=== PATIENT | male | born 1955 | race Caucasian/White ===

== ENCOUNTER 2025-02-01 10:48 | Emergency (ER) | payer OTHER, SELFPAY ==
[2025-02-01 10:54] VITALS: PULSE 90; O2SAT 98
[2025-02-01 11:01] VITALS: BP 182/84; PULSE 86; RESP 16; TEMP 36.6; O2SAT 97; BMI 36.6
--- NOTE | 2025-02-01 11:30 | PC.NURSE ---
See triage for further assessment. When asked if pt has consulted with a [employer] consultant he stated he doesn't do that witchcraft like chiropractors RN educated pt on podiatry schooling and ability to perform surgery and possibility of better availability compared to ortho. Pt then states he has a consult with [facility] in 3 weeks.
--- NOTE | 2025-02-01 11:33 | ED_ITS ---
HPI - Extremity Injury (Lower) <Stefanie Steven PA-C - Last Filed: 02/01/25 19:32> General Chief Complaint: Extremity Injury, Lower Stated Complaint: Sore on left foot . x 5 days Time Seen by Provider: 02/01/25 10:50 Source: patient Mode of arrival: Ambulatory History of Present Illness HPI Narrative: Mr. Kenny is a pleasant 69-year-old male with a past medical history of chronic left foot arthritis, type 2 diabetes, peripheral neuropathy who presents to the emergency department for a wound to his lateral left foot x5 days. Patient states he always wears a left ankle brace and about 2 weeks ago he started wearing a left ankle orthopedic boot that he got on [employer]. Because of his chronic arthritis he actually walks on his lateral ankle if he walks without a supportive device. He was noticing some pressure/irritation in the lateral aspect of the foot and noticed a wound on the left side of the foot about 5 days ago. He is not able to see this wound but his has been evaluating it for him and applying a dressing. There is a small amount of drainage from this wound. He went to the walk-in clinic on 01/29/2025 and was started on doxycycline b.i.d. x 10 days. Patient states despite taking this antibiotic as prescribed his reports the wound is not getting better and wanted him to come to the ER for evaluation. The patient states that he otherwise feels fine, denies chest pain, shortness of breath, abdominal pain, nausea, vomiting, fevers, chills, pain or swelling of the calves. Denies history of VTE. Related Data Home Medications ?Medication ?Instructions ?Recorded ?Confirmed empagliflozin 25 mg tablet 25 mg PO DAILY 03/24/24 (Jardiance) glimepiride 2 mg tablet 2 mg PO DAILY 03/24/2401/29 lisinopril 20 1 tab PO BID 03/24/24 mg-hydrochlorothiazide 12.5 mg tablet losartan 100 1 tab PO DAILY 03/24/2401/02 mg-hydrochlorothiazide 25 mg tablet metformin 750 mg tablet,extended 750 mg PO BID 4 01/29/25 release 24 hr nadolol 20 mg tablet 20 mg PO DAILY 03/24/2401/02 rosuvastatin 10 mg tablet 10 mg PO ONCE PM 03/24/24 Previous Rx's ?Medication ?Instructions ?Recorded doxycycline hyclate 100 mg capsule 100 mg PO BID 10 da ys #20 caps 01/29/25 cephalexin 500 mg capsule 500 mg PO QID 7 days #28 cap s 02/01/25 Allergies Allergy/AdvReac Type Severity Reaction Status Date / Time No Known Drug Allergies Allergy Verified 02/01/25 11:06 Review of Systems <Stefanie Steven PA-C - Last Filed: 02/01/25 19:32> Review of Systems ROS Unobtainable: All systems reviewed & are unremarkable except as noted in HPI and below Patient History <Stefanie Steven PA-C - Last Filed: 02/01/25 19:32> tobacco type: smokeless tobacco Alcohol type: beer Exam <Stefanie Steven PA-C - Last Filed: 02/01/25 19:32> Narrative Exam Narrative: GENERAL: 69 year old patient appears stated age. Obese patient, in no acute distress. HEAD: Atraumatic. Normocephalic. NECK: Trachea midline. Cervical ROM intact. CARDIOVASCULAR: Regular rate and rhythm. RESPIRATORY: ?Nonlabored respirations. ?Speaking in clear, full sentences. ?Clear to auscultation. Breath sounds equal bilaterally. No wheezes, rales, or rhonchi. ? EXTREMITIES: Patient has chronic stiffening and inversion of left ankle/foot. Erythema and edema of the lateral left foot with a proximally 3 cm round raised area of induration with mild serosanguineous drainage but no fluctuance. There is thickened callused skin overlying this area. There is no surrounding streaking erythema. Strong DP pulse and brisk capillary refill. No calf swelling or tenderness bilaterally. NEURO: AOx3. ?Clear speech. ?Moves all 4 extremities appropriately with the exception of left ankle and foot. SKIN: Warm, dry. Initial Vital Signs Initial Vital Signs: Vital Signs Pulse Rate 90 02/01/25 10:54 Pulse Oximetry 98 02/01/25 10:54 <Juliane Poole DO - Last Filed: 02/03/25 18:41> Initial Vital Signs Initial Vital Signs: Vital Signs Pulse Rate 90 02/01/25 10:54 Pulse Oximetry 98 02/01/25 10:54 Course <Stefanie Steven PA-C - Last Filed: 02/01/25 19:32> Orders Ordered: Discontinued Medications Ceftriaxone Sodium 2,000 mg/ (Sodium Chloride) 100 mls @ 200 mls/hr IV NOW ONE Stop: 02/01/25 14:15 Last Infusion: 02/01/25 15:25 Dose: Infused Documented By: Admin: 02/01/25 14:37 Dose: 200 mls/hr Documented By: CHICHI Vital Signs Vital signs: Vital Signs - 8 hr 02/01/25 15:21 Pulse Rate 88 Respiratory Rate 14 Blood Pressure 158/79 H Pulse Oximetry 99 Oxygen Delivery Method Room Air <Juliane Poole DO - Last Filed: 02/03/25 18:41> Orders Ordered: Discontinued Medications Ceftriaxone Sodium 2,000 mg/ (Sodium Chloride) 100 mls @ 200 mls/hr IV NOW ONE Stop: 02/01/25 14:15 Last Infusion: 02/01/25 15:25 Dose: Infused Documented By: Admin: 02/01/25 14:37 Dose: 200 mls/hr Documented By: CHICHI Vital Signs Vital signs: Vital Signs - 8 hr 02/01/25 15:21 Pulse Rate 88 Respiratory Rate 14 Blood Pressure 158/79 H Pulse Oximetry 99 Oxygen Delivery Method Room Air MDM - Extremity Injury (Lower) <SHANNAN Sanchez Last Filed: 02/01/25 19:32> Medical Records Attestation: I reviewed the patient's medical records. Lab Data 02/01/25 12:20 02/01/25 12:20 Labs: Lab Results 02/01/25 Range/Units 12:20 WBC 6.2 (4.5-11.0) X10^3/uL RBC 4.38 L (4.5-5.9) X10^6/uL Hgb 14.3 (13.5-17.5) g/dL Hct 42.4 (41-53) % MCV 96.9 (80-100) fL MCH 32.6 (26-34) PG MCHC 33.7 (30-36) % RDW 15.2 H (11.6-14.8) % Plt Count 150 (150-400) X10^3/uL Neut % (Auto) 77.0 H (50-75) % Lymph % (Auto) 13.5 L (25-40) % [place] % (Auto) 7.1 (3-14) % Eos % (Auto) 1.4 L (2-4) % Baso % (Auto) 1.0 (0-2) % Neut # (Auto) 4700 (9408-9182) /uL Lymph # (Auto) 800 L (1734-2138) /uL [place] # (Auto) 400 (0-900) /uL Eos # (Auto) 100 (0-450) /uL Baso # (Auto) 100 (0-100) /uL Sodium 135 L (137-145) mmol/L Potassium 3.8 (3.4-5.1) mmol/L Chloride 100 (98-107) mmol/L Carbon Dioxide 24 (22-32) mmol/L BUN 13 (9-20) mg/dL Creatinine 0.57 L (0.66-1.25) mg/dL Estimated GFR > 60 (>60) mL/min BUN/Creatinine Ratio 22.8 H (6-22) Glucose 108 H (70-99) mg/dL Lactate 1.4 (0.7-2.1) mmol/L Calcium 9.5 (8.4-10.2) mg/dL Total Bilirubin 1.2 (0.2-1.3) mg/dL AST 32 (17-59) IU/L ALT 21 (<50) IU/L Alkaline Phosphatase 117 (38-126) U/L Total Protein 8.1 (6.3-8.2) g/dL Albumin 4.7 (3.5-5.0) g/dL Globulin 3.4 (1.7-4.1) g/dL Albumin/Globulin Ratio 1.4 (1.0-2.8) Imaging Data CT Left LE w/ contrast: Radiologist's Impression: PROCEDURE: CT LE LT W CON INDICATIONS: lateral left foot swelling, infection, concern abscess TECHNIQUE: After the administration of intravenous contrast, 3 mm axial sections acquired of the left lower leg, with coronal and sagittal reformats. COMPARISON: [facility] [place], CR, XR KNEE 4+ VIEWS LEFT, 01/06/2023, 10:54. [facility] [place], CR, XR KNEE ARTHRITIC SERIES BI, 05/26/2023, 9:45. FINDINGS: Image quality: Diagnostic. Bones: Patient is status post prior left total knee arthroplasty with postsurgical changes and beam hardening artifacts. No gross hardware loosening or failure. Alignment of left lower leg is anatomic. No acute fracture or dislocation. No bony erosive changes or periosteal reaction. No suspicious intraosseous lesions. Osteoarthritic changes are noted in left foot. Soft tissues: There is diffuse subcutaneous soft tissue edema and swelling throughout lower leg extending to left foot. No discrete drainable peripherally enhancing fluid collection is noted. No gross intramuscular fluid collection or enhancing mass. No abnormal soft tissue calcifications. There is no full-thickness muscle or tendon rupture. IMPRESSION: 1. Finding is suggestive of extensive cellulitis throughout left lower leg extending to left foot. No discrete drainable abscess collection. No gross intramuscular fluid collection. No subcutaneous emphysema. 2. Prior left total knee arthroplasty. Moderate left foot joint osteoarthritis. No acute fracture or dislocation. No CT evidence of osteomyelitis. Dictated by: Harry Batres M.D. on 02/01/2025 at 13:52 Approved by: Harry Batres M.D. on 02/01/2025 at 14:09 [facility] Narrative Medical decision making narrative: 69-year-old male with a past medical history of chronic left foot arthritis, type 2 diabetes, peripheral neuropathy who presents to the emergency department for a wound to his lateral left foot x5 days. Differential diagnosis includes but isn't limited to cellulitis, abscess, callus, diabetic wound, osteomyelitis, etc. On exam patient is in no acute distress, nontoxic-appearing, all vital signs within normal limits except for mildly elevated blood pressure. He has chronic stiffening and inversion deformity of the left foot and ankle however on the lateral aspect of the foot he now has what appears to be a callus with secondary infection, swelling and mild drainage. This area is not fluctuant with no expressible purulence. He is not tachycardic or febrile, we will check CBC, CMP, lactate, CT lower extremity with contrast to evaluate for possible abscess. CT reveals findings suggestive of extensive cellulitis throughout the left lower leg extending to the left foot. No discrete drainable abscess collection. No gross intramuscular fluid collection. No subcutaneous emphysema. There is also prior left total knee arthroplasty. Moderate left foot joint osteoarthritis. No acute fracture or dislocation. No CT evidence of osteomyelitis Labs reveal normal WBC count 6.2, hemoglobin 14.3 hematocrit 42.4. Normal platelet count 150. Normal renal function with a BUN 13 creatinine 0.57. Negative lactate 1.4. Normal LFTs. Case was discussed with the attending ED physician Dr. Poole. No drainable fluid collection at this time. Patient's wound was extensively cleansed and evaluated, no drainable purulence is present that I can culture. A nonadherent wound dressing was applied, and the patient was treated with 2 g of ceftriaxone in the emergency department, and I prescribed him Keflex to take in addition to the previously prescribed doxycycline. Also discussed supportive care such as avoiding excess pressure on the lateral aspect of the foot where the callus/wound is in addition to rest, ice, elevation and follow up with Podiatry. Discussed strict ED return precautions. All questions answered. Patient verbalized understanding of all information. He is agreeable with the plan and stable for discharge home. <Juliane Poole, DO - Last Filed: 02/03/25 18:41> Lab Data Labs: Lab Results 02/01/25 Range/Units 12:20 WBC 6.2 (4.5-11.0) X10^3/uL RBC 4.38 L (4.5-5.9) X10^6/uL Hgb 14.3 (13.5-17.5) g/dL Hct 42.4 (41-53) % MCV 96.9 (80-100) fL MCH 32.6 (26-34) PG MCHC 33.7 (30-36) % RDW 15.2 H (11.6-14.8) % Plt Count 150 (150-400) X10^3/uL Neut % (Auto) 77.0 H (50-75) % Lymph % (Auto) 13.5 L (25-40) % [place] % (Auto) 7.1 (3-14) % Eos % (Auto) 1.4 L (2-4) % Baso % (Auto) 1.0 (0-2) % Neut # (Auto) 4700 (0493-7521) /uL Lymph # (Auto) 800 L (6340-8804) /uL [place] # (Auto) 400 (0-900) /uL Eos # (Auto) 100 (0-450) /uL Baso # (Auto) 100 (0-100) /uL Sodium 135 L (137-145) mmol/L Potassium 3.8 (3.4-5.1) mmol/L Chloride 100 (98-107) mmol/L Carbon Dioxide 24 (22-32) mmol/L BUN 13 (9-20) mg/dL Creatinine 0.57 L (0.66-1.25) mg/dL Estimated GFR > 60 (>60) mL/min BUN/Creatinine Ratio 22.8 H (6-22) Glucose 108 H (70-99) mg/dL Lactate 1.4 (0.7-2.1) mmol/L Calcium 9.5 (8.4-10.2) mg/dL Total Bilirubin 1.2 (0.2-1.3) mg/dL AST 32 (17-59) IU/L ALT 21 (<50) IU/L Alkaline Phosphatase 117 (38-126) U/L Total Protein 8.1 (6.3-8.2) g/dL Albumin 4.7 (3.5-5.0) g/dL Globulin 3.4 (1.7-4.1) g/dL Albumin/Globulin Ratio 1.4 (1.0-2.8) Discharge Plan Departure Patient Disposition: Home Clinical Impression: Cellulitis of left leg Osteoarthritis of foot, left Qualifiers: Osteoarthritis type: unspecified Qualified Code(s): M19.072 - Primary osteoarthritis, left ankle and foot Instructions: DI for Cellulitis -- Adult Activity Restrictions/Additional Instructions: Dear Mr. Fitzgeralden, Thank you for coming to the emergency department. Today you were evaluated for a left foot wound. We obtain CT imaging of the left lower extremity which revealed cellulitis which is a skin and soft tissue infection but it did not reveal an abscess that is drainable. I would like you to continue taking the prescribed doxycycline but also start taking the new antibiotic, Keflex, tomorrow. Please call to schedule an appointment with a consulting systems engineer for further management. Please rest, ice and elevate the leg as much as possible. If you develop fevers, chills, increasing redness of the leg or any other concerns return to the ER immediately. Every day please remove the wound dressing, clean with soap and water, dry, then cover with gauze and a new clean dressing. Please follow up with your primary care doctor within the next 2-3 days for ER follow-up. (If you do not have a PCP you can call [phone]. ?to schedule an appointment with an [facility] Primary Care Provider) IF YOU DEVELOP ANY NEW OR WORSENING SYMPTOMS, RETURN TO THE ER! Please read the attached instructions, they highlight more specific treatments and interventions for you at home. Thank you for letting me participate in your care, Stefanie Steven PA-C Prescriptions: New cephalexin 500 mg capsule 500 mg PO QID 7 Days Qty: 28 0RF No Action losartan-hydrochlorothiazide 100-25 mg tablet 1 tab PO DAILY Jardiance 25 mg tablet 25 mg PO DAILY rosuvastatin 10 mg tablet 10 mg PO ONCE PM nadolol 20 mg tablet 20 mg PO DAILY glimepiride 2 mg tablet 2 mg PO DAILY metformin 750 mg tablet extended release 24 hr 750 mg PO BID lisinopril-hydrochlorothiazide 20-12.5 mg tablet 1 tab PO BID doxycycline hyclate 100 mg capsule 100 mg PO BID 10 Days Qty: 20 0RF Referrals: Lissette Guzman DPM [Physician, Podiatry] Referral Note: left foot wound, cellulitis, chronic foot OA Stand Alone Forms: Patient Portal/API ED Sign-out <Juliane Poole, - Last Filed: 02/03/25 18:41> Cosign ED Attending Cosignature Attestation: Mid-level case was reviewed, labs and imaging were reviewed as well. Agree with the current plan with return precautions.
--- NOTE | 2025-02-01 11:43 | DI.CT.S_ITS ---
PROCEDURE: CT LE LT W CON INDICATIONS: lateral left foot swelling, infection, concern abscess TECHNIQUE: After the administration of intravenous contrast, 3 mm axial sections acquired of the left lower leg, with coronal and sagittal reformats. COMPARISON: [facility] [place], CR, XR KNEE 4+ VIEWS LEFT, 01/06/2023, 10:54. [facility] [place], CR, XR KNEE ARTHRITIC SERIES BI, 05/26/2023, 9:45. FINDINGS: Image quality: Diagnostic. Bones: Patient is status post prior left total knee arthroplasty with postsurgical changes and beam hardening artifacts. No gross hardware loosening or failure. Alignment of left lower leg is anatomic. No acute fracture or dislocation. No bony erosive changes or periosteal reaction. No suspicious intraosseous lesions. Osteoarthritic changes are noted in left foot. Soft tissues: There is diffuse subcutaneous soft tissue edema and swelling throughout lower leg extending to left foot. No discrete drainable peripherally enhancing fluid collection is noted. No gross intramuscular fluid collection or enhancing mass. No abnormal soft tissue calcifications. There is no full-thickness muscle or tendon rupture. IMPRESSION: 1. Finding is suggestive of extensive cellulitis throughout left lower leg extending to left foot. No discrete drainable abscess collection. No gross intramuscular fluid collection. No subcutaneous emphysema. 2. Prior left total knee arthroplasty. Moderate left foot joint osteoarthritis. No acute fracture or dislocation. No CT evidence of osteomyelitis. Dictated by: Harry Batres M.D. on 02/01/2025 at 13:52 Approved by: Harry Batres M.D. on 02/01/2025 at 14:09
[2025-02-01 12:42] LABS: Add Manual Diff / Slide Review NO; Hematocrit 42.4 % (41-53); Hemoglobin 14.3 g/dL (13.5-17.5); Lymphocytes Absolute Auto 800 /uL (1100-4500); Mean Corpuscular HGB Conc 33.7 % (30-36); Mean Corpuscular Hemoglobin 32.6 PG (26-34); Mean Corpuscular Volume 96.9 fL (80-100); Platelet Count 150 X10^3/uL (150-400)
[2025-02-01 12:45] LABS: Alanine Aminotransferase 21 IU/L (<50); Albumin 4.7 g/dL (3.5-5.0); Albumin Globulin Ratio 1.4 (1.0-2.8); Alkaline Phosphatase 117 U/L (38-126); Blood Urea Nitrogen 13 mg/dL (9-20); Calcium 9.5 mg/dL (8.4-10.2); Carbon Dioxide 24 mmol/L (22-32); Chloride 100 mmol/L (98-107); Estimated Glomerular Filt Rate > 60 mL/min (>60); Globulin 3.4 g/dL (1.7-4.1); Glucose 108 mg/dL (70-99); HEMOLYSIS 37 (0-50); Lactate (Lactic Acid) 1.4 mmol/L (0.7-2.1); Potassium 3.8 mmol/L (3.4-5.1); Sodium 135 mmol/L (137-145); Total Protein 8.1 g/dL (6.3-8.2)
[2025-02-01] MEDS: cefTRIAXone 2,000 MG in SODIUM CHLORIDE 0.9% 100 ML 200 MG IV (14:37)
[2025-02-01 15:21] VITALS: BP 158/79; PULSE 88; RESP 14; O2SAT 99
== END 2025-02-01 15:33 | disposition home or self-care (01) ==
PROVIDERS: Emergency Provider Physician Assistant
DX: L03.116 Cellulitis of left lower limb (principal); M19.072 Primary osteoarthritis, left ankle and foot; E11.42 Type 2 diabetes mellitus with diabetic polyneuropathy; Z79.84 Long term (current) use of oral hypoglycemic drugs
CPT/HCPCS: 36415; 73701; 80053; 83605; 85025; 96365; 99284; J0696; Q9967

== ENCOUNTER → 2025-02-23 13:02 | Outpatient (CLI) | payer OTHER, SELFPAY | LOC: WC 13:04 | PROVIDERS: Visit Provider Surgery | DX: L97.522 Non-pressure chronic ulcer of other part of left foot with fat layer exposed (principal); E11.621 Type 2 diabetes mellitus with foot ulcer; E11.42 Type 2 diabetes mellitus with diabetic polyneuropathy; M21.172 Varus deformity, not elsewhere classified, left ankle; R60.0 Localized edema; I10 Essential (primary) hypertension; M19.072 Primary osteoarthritis, left ankle and foot; M10.9 Gout, unspecified; L84 Corns and callosities | CPT/HCPCS: 11042; 87070; 87075; 87077; 87186; 87205; 99203; 99214 ==

== ENCOUNTER → 2025-02-28 10:11 | Outpatient (CLI) | payer OTHER, SELFPAY | LOC: WC 10:12 | PROVIDERS: Visit Provider Surgery | DX: E11.621 Type 2 diabetes mellitus with foot ulcer (principal); L97.522 Non-pressure chronic ulcer of other part of left foot with fat layer exposed; M21.172 Varus deformity, not elsewhere classified, left ankle; G62.9 Polyneuropathy, unspecified; I10 Essential (primary) hypertension; M10.9 Gout, unspecified; M19.072 Primary osteoarthritis, left ankle and foot; K74.60 Unspecified cirrhosis of liver; L84 Corns and callosities | CPT/HCPCS: 11042 ==

== ENCOUNTER → 2025-03-28 08:53 | Outpatient (CLI) | payer OTHER, SELFPAY | LOC: WC 08:53 | PROVIDERS: Visit Provider Surgery | DX: E11.622 Type 2 diabetes mellitus with other skin ulcer (principal); L97.322 Non-pressure chronic ulcer of left ankle with fat layer exposed; L98.8 Other specified disorders of the skin and subcutaneous tissue; M21.172 Varus deformity, not elsewhere classified, left ankle; E11.40 Type 2 diabetes mellitus with diabetic neuropathy, unspecified; I10 Essential (primary) hypertension; M10.9 Gout, unspecified; K74.60 Unspecified cirrhosis of liver; Z85.828 Personal history of other malignant neoplasm of skin; M19.072 Primary osteoarthritis, left ankle and foot | CPT/HCPCS: 11042; 87070; 87075; 87147; 87205 ==

== ENCOUNTER → 2025-04-05 08:29 | Outpatient (CLI) | payer OTHER, SELFPAY | LOC: WC 08:30 | PROVIDERS: Visit Provider Physician Assistant | DX: E11.622 Type 2 diabetes mellitus with other skin ulcer (principal); L97.322 Non-pressure chronic ulcer of left ankle with fat layer exposed; M21.172 Varus deformity, not elsewhere classified, left ankle; E11.40 Type 2 diabetes mellitus with diabetic neuropathy, unspecified; I10 Essential (primary) hypertension; E66.9 Obesity, unspecified; Z68.37 Body mass index [BMI] 37.0-37.9, adult; M10.9 Gout, unspecified; K74.60 Unspecified cirrhosis of liver; M19.072 Primary osteoarthritis, left ankle and foot | CPT/HCPCS: 11042; 99214 ==

== ENCOUNTER → 2025-04-12 10:26 | Outpatient (CLI) | payer OTHER, SELFPAY | LOC: WC 10:26 | PROVIDERS: Visit Provider Surgery | DX: E11.621 Type 2 diabetes mellitus with foot ulcer (principal); L97.322 Non-pressure chronic ulcer of left ankle with fat layer exposed; M21.172 Varus deformity, not elsewhere classified, left ankle; M19.072 Primary osteoarthritis, left ankle and foot; M10.9 Gout, unspecified; E11.40 Type 2 diabetes mellitus with diabetic neuropathy, unspecified; I10 Essential (primary) hypertension; K74.60 Unspecified cirrhosis of liver; Z99.89 Dependence on other enabling machines and devices | CPT/HCPCS: 11042 ==

== ENCOUNTER → 2025-04-19 08:58 | Outpatient (CLI) | payer OTHER, SELFPAY | LOC: WC 08:58 | PROVIDERS: Visit Provider Surgery | DX: E11.621 Type 2 diabetes mellitus with foot ulcer (principal); L97.322 Non-pressure chronic ulcer of left ankle with fat layer exposed; M21.172 Varus deformity, not elsewhere classified, left ankle; L53.8 Other specified erythematous conditions; R60.0 Localized edema; E11.40 Type 2 diabetes mellitus with diabetic neuropathy, unspecified | CPT/HCPCS: 11042; 99213 ==

== ENCOUNTER → 2025-04-26 08:32 | Outpatient (CLI) | payer OTHER, SELFPAY | LOC: WC 08:33 | PROVIDERS: Visit Provider Surgery | DX: E11.622 Type 2 diabetes mellitus with other skin ulcer (principal); L97.322 Non-pressure chronic ulcer of left ankle with fat layer exposed; M21.172 Varus deformity, not elsewhere classified, left ankle; E11.42 Type 2 diabetes mellitus with diabetic polyneuropathy; L08.9 Local infection of the skin and subcutaneous tissue, unspecified; L53.8 Other specified erythematous conditions; R60.0 Localized edema | CPT/HCPCS: 11042 ==

== ENCOUNTER → 2025-05-03 08:32 | Outpatient (CLI) | payer OTHER, SELFPAY | LOC: WC 08:33 | PROVIDERS: Visit Provider Surgery | DX: E11.622 Type 2 diabetes mellitus with other skin ulcer (principal); E11.42 Type 2 diabetes mellitus with diabetic polyneuropathy; L97.322 Non-pressure chronic ulcer of left ankle with fat layer exposed; L84 Corns and callosities; M21.172 Varus deformity, not elsewhere classified, left ankle; L08.9 Local infection of the skin and subcutaneous tissue, unspecified; L53.8 Other specified erythematous conditions | CPT/HCPCS: 11042 ==

== ENCOUNTER → 2025-05-16 15:27 | Outpatient (CLI) | payer OTHER, SELFPAY | LOC: WC 15:28 | PROVIDERS: Visit Provider Surgery | DX: E11.621 Type 2 diabetes mellitus with foot ulcer (principal); E11.42 Type 2 diabetes mellitus with diabetic polyneuropathy; L97.322 Non-pressure chronic ulcer of left ankle with fat layer exposed; T81.89XA Other complications of procedures, not elsewhere classified, initial encounter; L98.8 Other specified disorders of the skin and subcutaneous tissue; S91.002A Unspecified open wound, left ankle, initial encounter; R60.0 Localized edema; L53.9 Erythematous condition, unspecified; R23.3 Spontaneous ecchymoses; M21.172 Varus deformity, not elsewhere classified, left ankle | CPT/HCPCS: 11042; 87070; 87075; 87077; 87186; 87205; 99214 ==

== ENCOUNTER → 2025-05-23 10:01 | Outpatient (CLI) | payer OTHER, SELFPAY | LOC: WC 10:02 | PROVIDERS: Visit Provider Surgery | DX: E11.621 Type 2 diabetes mellitus with foot ulcer (principal); E11.622 Type 2 diabetes mellitus with other skin ulcer; E11.628 Type 2 diabetes mellitus with other skin complications; L97.322 Non-pressure chronic ulcer of left ankle with fat layer exposed; T81.31XA Disruption of external operation (surgical) wound, not elsewhere classified, initial encounter; S91.002A Unspecified open wound, left ankle, initial encounter; E11.42 Type 2 diabetes mellitus with diabetic polyneuropathy; L08.9 Local infection of the skin and subcutaneous tissue, unspecified; L53.8 Other specified erythematous conditions; R60.0 Localized edema | CPT/HCPCS: 11042; 99213 ==

== ENCOUNTER → 2025-06-01 15:30 | Outpatient (CLI) | payer OTHER, SELFPAY | LOC: WC 06-08 15:30 | PROVIDERS: Visit Provider Surgery | DX: E11.621 Type 2 diabetes mellitus with foot ulcer (principal); L97.422 Non-pressure chronic ulcer of left heel and midfoot with fat layer exposed; M21.172 Varus deformity, not elsewhere classified, left ankle; T81.31XA Disruption of external operation (surgical) wound, not elsewhere classified, initial encounter; S91.302A Unspecified open wound, left foot, initial encounter; S91.002A Unspecified open wound, left ankle, initial encounter; L98.8 Other specified disorders of the skin and subcutaneous tissue; R60.0 Localized edema; E11.40 Type 2 diabetes mellitus with diabetic neuropathy, unspecified; M86.9 Osteomyelitis, unspecified; Z96.698 Presence of other orthopedic joint implants; I10 Essential (primary) hypertension; K74.60 Unspecified cirrhosis of liver; M19.072 Primary osteoarthritis, left ankle and foot | CPT/HCPCS: 11042; 11045 ==

== ENCOUNTER → 2025-06-05 15:16 | Outpatient (ROUT) | payer OTHER, SELFPAY ==
[2025-06-05 15:24] LABS: Add Manual Diff / Slide Review NO; Hematocrit 25.7 % (41-53); Hemoglobin 8.6 g/dL (13.5-17.5); Lymphocytes Absolute Auto 800 /uL (1100-4500); Mean Corpuscular HGB Conc 33.4 % (30-36); Mean Corpuscular Hemoglobin 32.2 PG (26-34); Mean Corpuscular Volume 96.3 fL (80-100); Platelet Count 122 X10^3/uL (150-400)
[2025-06-05 15:34] LABS: Alanine Aminotransferase 18 IU/L (<50); Albumin 3.2 g/dL (3.5-5.0); Albumin Globulin Ratio 1.3 (1.0-2.8); Alkaline Phosphatase 120 U/L (38-126); Blood Urea Nitrogen 11 mg/dL (9-20); Calcium 8.7 mg/dL (8.4-10.2); Carbon Dioxide 26 mmol/L (22-32); Chloride 101 mmol/L (98-107); Estimated Glomerular Filt Rate > 60 mL/min (>60); Globulin 2.4 g/dL (1.7-4.1); Glucose 72 mg/dL (70-99); HEMOLYSIS < 15 (0-50); Potassium 3.8 mmol/L (3.4-5.1); Sodium 132 mmol/L (137-145); Total Protein 5.6 g/dL (6.3-8.2)
== END ==
PROVIDERS: Visit Provider Internal Medicine Infectious Disease
DX: M86.172 Other acute osteomyelitis, left ankle and foot (principal); T84.69XA Infection and inflammatory reaction due to internal fixation device of other site, initial encounter
CPT/HCPCS: 80053; 85025; 86140

== ENCOUNTER → 2025-06-07 11:55 | Outpatient (CLI) | payer OTHER, SELFPAY | LOC: WC 11:56 | PROVIDERS: Visit Provider Surgery | DX: E11.628 Type 2 diabetes mellitus with other skin complications (principal); E11.621 Type 2 diabetes mellitus with foot ulcer; T81.89XA Other complications of procedures, not elsewhere classified, initial encounter; S91.002A Unspecified open wound, left ankle, initial encounter; L97.422 Non-pressure chronic ulcer of left heel and midfoot with fat layer exposed; R60.0 Localized edema | CPT/HCPCS: 11042; 11045 ==

== ENCOUNTER → 2025-06-14 08:35 | Outpatient (CLI) | payer OTHER, SELFPAY | LOC: WC 08:36 | PROVIDERS: Visit Provider Surgery | DX: T81.89XA Other complications of procedures, not elsewhere classified, initial encounter (principal); S91.002A Unspecified open wound, left ankle, initial encounter; E11.628 Type 2 diabetes mellitus with other skin complications; E11.621 Type 2 diabetes mellitus with foot ulcer; L97.422 Non-pressure chronic ulcer of left heel and midfoot with fat layer exposed; M21.172 Varus deformity, not elsewhere classified, left ankle; R60.0 Localized edema; E11.40 Type 2 diabetes mellitus with diabetic neuropathy, unspecified | CPT/HCPCS: 11042; 11045 ==

== ENCOUNTER → 2025-06-21 09:16 | Outpatient (CLI) | payer OTHER, SELFPAY ==
--- OUTSIDE RECORDS SUMMARY | 2025-06-20 08:30 | XMS_ITS | Encounter Summary ---
Author Organization [facility] Address [address] [place] [address] Care Team Providers Care Architect Naval Name Role Phone Remy Mg Primary Care Provide r Reason for Referral * MRI/CAT/PET Scan (Emergency) - Closed Specialty Diagnoses / Procedures Referred By Contac t Referred To Contact Radiology Diagnoses Osteomyelitis of left ankle, unspecified type (CMS/HCC) Procedures CT ANKLE LEFT WITH CONTRAST CT ANKLE LEFT WITHOUT CONTRAST Leon Hernandez MD [address] [place] [address] Phone: tel: fax: [facility] [address] [place] [address] Phone: tel: fax: Referral ID Status Reason Start Date Expiration Date V isits Requested Visits Authorized [id number] Closed Specialty Services Required 06/20/2025 12/21/2025 1 1 Reason for Visit * Reason Comments Infection ankle Encounter Details Date Type Department Care Team (Latest Contact Info) Description 06/20/2025 8:30 AM PST Office Visit [facility] Infectious Diseases [place] [address] [facility] [address] [place] [address] Leon Hernandez MD [address] [place] [address] Osteomyelitis of left ankle, unspecified type (CMS/HCC) (Primary Dx) Social History Tobacco Use Types Packs/Day Years Used Date Smoking Tobacco: Never Passive Smoke Exposure: Never Smokeless Tobacco: Former Snuff Quit: 07/03/2005 Tobacco Cessation:Counseling Given: Not Answered Alcohol Use Standard Drinks/Week Comments Yes 240 (1 standard drin k = 0.6 oz pure alcohol) 4 to 5 beers a day- not since surgery 05/2025 [facility] Utilities Answer Date Recorded In the past 12 months has th e [employer], [employer], oil, or water Inkive threatened to shut off services in your home? No 05/24/2025 Humiliation, Afraid, Rape, and Kick questionnair e Answer Date Recorded Within the last year, have y ou been afraid of your partner or ex-partner? No 05/24/2025 Emotionally Abused Not on file 05/24/2025 Physically Abused Not on file 05/24/2025 Sexually Abused Not on file 05/24/2025 AUDIT-C Answer Date Recorded Q1: How often do you have a drink containing alcohol? 4 or more times a week 05/27/2025 Q2: How many drinks containi ng alcohol do you have on a typical day when you are drinking? 5 or 6 Q3: How often do you have si x or more drinks on one occasion? Less than monthly 05/27/2025 Hunger Vital Sign Answer Date Recorded Within the past 12 months, y ou worried that your food would run out before you got the money to buy more. Never true 05/24/20 Ran Out of Food in the Last Year Not on file 05/24/2025 PRAPARE - Transportation Answer Date Re corded Lack of Transportation (Medical) Not on file 05/24/2025 In the past 12 months, has l ack of transportation kept you from meetings, work, or from getting things needed for daily living? No 05/24/2025 Housing Stability Vital Sign Answer Frank e Recorded Unable to Pay for Housing in the Last Year Not o n file 05/24/2025 Number of Times Moved in the Last Year Not on fi le 05/24/2025 At any time in the past 12 m [facility], were you homeless or living in a fci (including now)? No 05/24/2025 Sex and Gender Information Value Date Recorded Sex Assigned at Male 05/24/2025 2:45 PM PDT Legal Sex Male 1:11 PM PDT Gender Identity Male 03/13/2025 7:20 AM PDT Sexual Orientation Straight 03/13/2025 7: 20 AM PDT documented as of this encounter Last Filed Vital Signs Vital Sign Reading Time Taken Comments Blood Pressure 128/86 06/20/2025 8:30 AM PST Pulse 74 06/20/2025 8:30 AM PST Temperature 36.3 C (97.4 F) 06/20/2025 8:30 AM PST Respiratory Rate 16 06/20/2025 8:30 AM PST Oxygen Saturation 98% 06/20/2025 8:30 AM PST Inhaled Oxygen Concentration - - Weight 113 kg (249 lb 1.9 oz) 06/20/2025 8:30 AM PST Height - - Body Mass Index 33.79 06/12/2025 2:03 PM PST documented in this encounter Functional Status documented as of this encounter Progress Notes * Leon Hernandez MD - 06/20/2025 8:30 AM PST Lee Miguel 1955 [id number] :49 AM HPI: Lee Miguel is a 70 y.o. male with history of hypertension, hyperlipidemia, T2DM, gout, BPH, s/p arthrodesis of subtalar joint-left who was sent to ED by Podiatry on 05/24 for evaluation of wound infection. His post operative wound was not healing well. He denied fever or chills. He had fusion surgical procedure on 05/09/25 on his left foot. One week out from surgery he developed an infection. In ED pt was afebrile with WBC at 12.7 and elevated CRP 7. Imaging revealed evidence of cellulitis todorsal lateral midfoot with a collection extending from the inferior lateral surgical incision to the distal fibular margin concerning for a sinus tract and developing abscess. Tibiotalar joint effusion was concerning for a postoperative joint infection. Comminuted fracture of the posterior lateraltalar dome and inframalleolar tenosynovitis of the peroneal tendons and retro malleolar tenosynovitis of tibialis posterior. He was placed on Zosyn and Vancomycin. On May 25 his hardware was removed and he was hospitalized for one week. He was sent home with IV antibiotics. He has an external fixator in place. Prior to hospitalization he was on doxycycline for rosacea. He was discharged on IVCefepime. Plan is for 6 weeks of IV antibiotics and replacement of hardware on July 04. Patient was called back to clinic today as CRP is now 141 (nl is <8) and he has worsening swelling. He has difficulty sleeping due to the ext fixator and pain. He feels a bit better today after taking pain medication this morning. Wound care nurses feel wounds look improved. He denies f/c/ns, N/V/diarrhea. Had issue with ext fixator and saw Podiatry last week who fixed the issue. Current Outpatient Medications Medication Sig Dispense Refill acetaminophen (TYLENOL) 325 mg tablet Take 2 tablets (650 mg total) by mouth every 4 (four) hours as needed for moderate pain (4-6) 30 tablet 0 allopurinoL (ZYLOPRIM) 300 mg tablet amoxicillin-pot clavulanate (AUGMENTIN) 875-125 mg TAKE 1 TABLET BY MOUTH TWICE DAILY FOR 1 WEEK gabapentin (NEURONTIN) 100 mg capsule Take 1 capsule (100 mg total) by mouth 3 (three) times a day 90 capsule 11 glimepiride (AMARYL) 2 mg tablet Take 1 tablet (2 mg total) by mouth daily Jardiance 25 mg tablet tablet Take 1 tablet (25 mg total) by mouth daily losartan-hydrochlorothiazide (HYZAAR) 100-25 mg per tablet Take 1 tablet by mouth daily metFORMIN XR (GLUCOPHAGE-XR) 750 mg 24 hr tablet Take 2 tablets (1,500 mg total) by mouth daily nadoloL (CORGARD) 20 mg tablet Take 1 tablet (20 mg total) by mouth daily oxybutynin chloride extended release, ER, 5 mg 24 hr tablet Take 1 tablet (5 mg total) by mouth nightly 30 tablet 0 rosuvastatin (CRESTOR) 10 mg tablet Take 1 tablet (10 mg total) by mouth daily tamsulosin (FLOMAX) 0.4 mg capsule Take 2 capsules (0.8 mg total) by mouth nightly 60 capsule 0 No current facility-administered medications for this visit. No Known Allergies Past Medical History: Diagnosis Date Asthma Cirrhosis ([facility]) Diabetes mellitus type II, non insulin dependent ([facility]) Foot ulcer (CMS/[facility]) 01 31 2025 Gout High arches Hypertension Neuropathy in diabetes (CMS/HCC) Rosacea Umbilical hernia Uncomplicated alcohol use 4-5 beers/night Past Surgical History: Procedure Laterality Date BACK SURGERY HERNIA REPAIR WI APPLICATION MULTIPLANE EXTERNAL FIXATION SYSTEM Left 05/25/2025 Procedure: APPLICATION OF EXTERNAL BONE FIXATION SYSTEM; Surgeon: Lee Del Toro DPM; Location:[facility] OR; Service: Podiatry [place] ARTHRODESIS ANKLE OPEN Left 05/09/2025 Procedure: OPEN ARTHRODESIS OF ANKLE-left; Surgeon: Lee Del Toro DPM; Location: [facility] OR; Service: Podiatry [place] ARTHRODESIS SUBTALAR Left 05/09/2025 Procedure: ARTHRODESIS OF SUBTALAR JOINT-left; Surgeon: Lee Del Toro DPM; Location: [facility] OR; Service: Podiatry [place] INCISION&DRAINAGE BURSA FOOT Left 05/25/2025 Procedure: INCISION AND DRAINAGE OF BURSA OF FOOT; Surgeon: Lee Del Toro DPM; Location: [facility] OR; Service: Podiatry [place] REMOVAL IMPLANT DEEP Left 05/25/2025 Procedure: REMOVAL OF DEEP SCREWs and plates left ankle; Surgeon: Lee Del Toro DPM; Location:[facility] OR; Service: Podiatry TOTAL KNEE ARTHROPLASTY Bilateral Social History Socioeconomic History Marital status: Spouse name: Not on file Number of children: Not on file Years of education: Not on file Highest education level: Not on file Occupational History Not on file Tobacco Use Smoking status: Never Passive exposure: Never Smokeless tobacco: Former Types: Snuff Quit date: 07/03/2005 Vaping Use Vaping status: Never Used Substance and Sexual Activity Alcohol use: Yes Alcohol/week: 240.0 standard drinks of alcohol Types: 240 Cans of beer per week Comment: 4 to 5 beers a day- not since surgery 05/2025 Drug use: Not Currently Types: Marijuana Sexual activity: Not Currently Partners: Female Other Topics Concern Not on file Social History Narrative Not on file Social Drivers of Health Financial Resource Strain: Not on file Food Insecurity: Unknown (05/24/2025) Hunger Vital Sign Worried About Running Out of Food in the Last Year: Never true Ran Out of Food in the Last Year: Not on file Transportation Needs: Unknown (05/24/2025) PRAPARE - Transportation Lack of Transportation (Medical): Not on file Lack of Transportation (Non-Medical): No Physical Activity: Not on file Stress: Not on file Social Connections: Not on file Intimate Partner Violence: Unknown (05/24/2025) Humiliation, Afraid, Rape, and Kick questionnaire Fear of Current or Ex-Partner: No Emotionally Abused: Not on file Physically Abused: Not on file Sexually Abused: Not on file Housing Stability: Unknown (05/24/2025) Housing Stability Vital Sign Unable to Pay for Housing in the Last Year: Not on file Number of Times Moved in the Last Year: Not on file Homeless in the Last Year: No ROS: Review of Systems PHYSICAL EXAM: BP 128/86 Pulse 74 Temp 36.3 ??C (97.4 ??F) (Temporal) Resp 16 Wt 113 kg SpO2 98% BMI 33.79 kg/m?? Body mass index is 33.79 kg/m??. Physical Exam General:WD/WN male in NAD Extremities: dressing and ext fixator in place Swelling at ankle; no calf swelling or TTP; no erythema of visible foot or below knee Skin:no rash Line:PICC is without erythema or drainage LABORATORIES: Recent Results (from the past 4 weeks) CMP Collection Time: 05/24/25 10:37 AM Result Value Ref Range Sodium, Serum/Plasma 136 135 - 145 mmol/L Potassium, Serum/Plasma 3.1 (L) 3.5 - 5.2 mmol/L Chloride, Serum/Plasma 93 (L) 98 - 107 mmol/L CO2, Serum/Plasma 36 (H) 22 - 30 mmol/L Anion Gap, Serum/Plasma 7 3 - 11 mmol/L Urea Nitrogen, Serum/Plasma 31.0 (H) 8.0 - 27.0 mg/dL Creatinine, Serum/Plasma 0.70 (L) 0.76 - 1.27 mg/dL Glucose, Serum/Plasma 138 (H) 65 - 99 mg/dL Calcium, Serum/Plasma 9.3 8.5 - 10.1 mg/dL AST, Serum/Plasma 35 17 - 59 U/L ALT, Serum/Plasma 23 <50 U/L Alkaline Phosphatase, Serum/Plasma 147 25 - 160 U/L Total Protein, Serum/Plasma 7.7 6.3 - 8.2 g/dL eGFR, Serum/Plasma (CKD-EPI 2020) 100 >60 (CKD-EPI 2020) mL/min/1.73 m2 Albumin, Serum/Plasma 4.2 3.4 - 5.0 g/dL Bilirubin, Total, Serum/Plasma 1.01 0.2 - 1.3 mg/dL BUN/Creatinine Ratio, Serum/Plasma 44.3 (H) 6.0 - 24.0 Magnesium Collection Time: 05/24/25 10:37 AM Result Value Ref Range Magnesium, Serum/Plasma 2.0 1.6 - 2.4 mg/dL Lactic Acid Sepsis Protocol Collection Time: 05/24/25 10:37 AM Result Value Ref Range Lactic Acid, Serum/Plasma 2.0 <0.5 - 2.0 mmol/L mmol/L Culture, Blood, Blood, Peripheral draw Collection Time: 05/24/25 10:37 AM Specimen: Blood, Peripheral draw Result Value Ref Range Blood Culture No growth after 5 days Procalcitonin Collection Time: 05/24/25 10:37 AM Result Value Ref Range Procalcitonin, Serum/Plasma 0.09 (H) 0.00 - 0.08 ng/mL Sedimentation rate, automated Collection Time: 05/24/25 10:37 AM Result Value Ref Range Sed Rate 44 (H) 2 - 37 mm/hr C-reactive protein Collection Time: 05/24/25 10:37 AM Result Value Ref Range CRP, Serum/Plasma (mg/dL) 7.0 (H) <1.0 mg/dL Complete blood count with diff Collection Time: 05/24/25 10:37 AM Result Value Ref Range WBC Auto 12.7 (H) 3.8 - 10.1 x10e3/uL RBC 3.80 (L) 4.40 - 5.80 x10e6/uL Hemoglobin 11.8 (L) 13.8 - 17.2 g/dL Hematocrit 37.6 (L) 41.0 - 50.0 % MCV 99 81 - 100 fL MCH 31.1 27.0 - 35.0 pg MCHC 31.4 (L) 32.0 - 37.0 g/dL RDW 14.1 12.3 - 15.4 % Platelets 421 (H) 150 - 400 x10e3/uL MPV 9.8 7.4 - 10.4 fL NRBC % 0 0 /100 WBCs Abs. NRBC 0.0 x10e3/uL % Neutrophils 83 % % Lymphocytes 10 % % Monocytes 5 % % Eosinophils 1 % % Basophils 0 % Abs. Neutrophils 10.5 (H) 1.6 - 6.9 x10e3/uL Abs. Lymphocytes 1.3 1.1 - 4.8 x10e3/uL Abs. Monocytes 0.6 0.0 - 1.0 x10e3/uL Abs. Eosinophils 0.1 0.0 - 0.5 x10e3/uL Abs. Basophils 0.0 0.0 - 0.4 x10e3/uL Abs. Neutrophils (Auto) 10,500.0 (H) 1,600.0 - 6,900.0 /uL Hemoglobin A1c Collection Time: 05/24/25 10:37 AM Result Value Ref Range Hemoglobin A1c 6.0 (H) 4.8 - 5.6 % Estimated Average Glucose (eAG) 126 No Reference Range Established mg/dL Culture, Blood, Blood, Peripheral draw Collection Time: 05/24/25 10:41 AM Specimen: Blood, Peripheral draw Result Value Ref Range Blood Culture No growth after 5 days POCT glucose Collection Time: 05/24/25 4:56 PM Result Value Ref Range POCT Glucose, Blood 74 65 - 99 mg/dL ECG 12 lead Collection Time: 05/24/25 5:53 PM Result Value Ref Range HR 69 bpm RR 872 ms WI 250 ms QRSD 91 ms QT 440 ms QTc 471 ms QRS 34 deg T 34 deg Impression - ABNORMAL ECG - Impression Sinus rhythm Impression Prolonged WI interval Impression Low voltage, precordial leads Impression No previous ECG available for comparison Basic metabolic panel Collection Time: 05/25/25 4:16 AM Result Value Ref Range Sodium, Serum/Plasma 135 135 - 145 mmol/L Potassium, Serum/Plasma 2.9 (L) 3.5 - 5.2 mmol/L Chloride, Serum/Plasma 99 98 - 107 mmol/L CO2, Serum/Plasma 31 (H) 22 - 30 mmol/L Anion Gap, Serum/Plasma 5 3 - 11 mmol/L Urea Nitrogen, Serum/Plasma 25.0 8.0 - 27.0 mg/dL Creatinine, Serum/Plasma 0.60 (L) 0.76 - 1.27 mg/dL Glucose, Serum/Plasma 72 65 - 99 mg/dL Calcium, Serum/Plasma 7.9 (L) 8.5 - 10.1 mg/dL eGFR, Serum/Plasma (CKD-EPI 2020) 104 >60 (CKD-EPI 2020) mL/min/1.73 m2 BUN/Creatinine Ratio, Serum/Plasma 41.7 (H) 6.0 - 24.0 C-reactive protein Collection Time: 05/25/25 4:16 AM Result Value Ref Range CRP, Serum/Plasma (mg/dL) 5.9 (H) <1.0 mg/dL Prothrombin time/INR Collection Time: 05/25/25 4:16 AM Result Value Ref Range Prothrombin Time 14.5 11.9 - 15.0 sec INR 1.1 0.8 - 1.2 Complete blood count with diff Collection Time: 05/25/25 4:16 AM Result Value Ref Range WBC Auto 4.9 3.8 - 10.1 x10e3/uL RBC 2.98 (L) 4.40 - 5.80 x10e6/uL Hemoglobin 9.3 (L) 13.8 - 17.2 g/dL Hematocrit 29.7 (L) 41.0 - 50.0 % MCV 100 81 - 100 fL MCH 31.2 27.0 - 35.0 pg MCHC 31.3 (L) 32.0 - 37.0 g/dL RDW 14.2 12.3 - 15.4 % Platelets 214 150 - 400 x10e3/uL MPV 9.7 7.4 - 10.4 fL NRBC % 0 0 /100 WBCs Abs. NRBC 0.0 x10e3/uL % Neutrophils 64 % % Lymphocytes 24 % % Monocytes 7 % % Eosinophils 3 % % Basophils 0 % Abs. Neutrophils 3.1 1.6 - 6.9 x10e3/uL Abs. Lymphocytes 1.2 1.1 - 4.8 x10e3/uL Abs. Monocytes 0.4 0.0 - 1.0 x10e3/uL Abs. Eosinophils 0.2 0.0 - 0.5 x10e3/uL Abs. Basophils 0.0 0.0 - 0.4 x10e3/uL Abs. Neutrophils (Auto) 3,100.0 1,600.0 - 6,900.0 /uL POCT glucose Collection Time: 05/25/25 7:52 AM Result Value Ref Range POCT Glucose, Blood 94 65 - 99 mg/dL ABO/Rh Type Confirmation Collection Time: 05/25/25 10:58 AM Result Value Ref Range ABORh A POS Basic metabolic panel Collection Time: 05/25/25 11:05 AM Result Value Ref Range Sodium, Serum/Plasma 136 135 - 145 mmol/L Potassium, Serum/Plasma 3.7 3.5 - 5.2 mmol/L Chloride, Serum/Plasma 101 98 - 107 mmol/L CO2, Serum/Plasma 30 22 - 30 mmol/L Anion Gap, Serum/Plasma 5 3 - 11 mmol/L Urea Nitrogen, Serum/Plasma 21.0 8.0 - 27.0 mg/dL Creatinine, Serum/Plasma 0.60 (L) 0.76 - 1.27 mg/dL Glucose, Serum/Plasma 116 (H) 65 - 99 mg/dL Calcium, Serum/Plasma 8.1 (L) 8.5 - 10.1 mg/dL eGFR, Serum/Plasma (CKD-EPI 2020) 104 >60 (CKD-EPI 2020) mL/min/1.73 m2 BUN/Creatinine Ratio, Serum/Plasma 35.0 (H) 6.0 - 24.0 Complete blood count with diff Collection Time: 05/25/25 11:05 AM Result Value Ref Range WBC Auto 5.5 3.8 - 10.1 x10e3/uL RBC 3.09 (L) 4.40 - 5.80 x10e6/uL Hemoglobin 9.4 (L) 13.8 - 17.2 g/dL Hematocrit 30.9 (L) 41.0 - 50.0 % MCV 100 81 - 100 fL MCH 30.4 27.0 - 35.0 pg MCHC 30.4 (L) 32.0 - 37.0 g/dL RDW 14.1 12.3 - 15.4 % Platelets 194 150 - 400 x10e3/uL MPV 9.7 7.4 - 10.4 fL NRBC % 0 0 /100 WBCs Abs. NRBC 0.0 x10e3/uL % Neutrophils 76 % % Lymphocytes 13 % % Monocytes 7 % % Eosinophils 3 % % Basophils 0 % Abs. Neutrophils 4.2 1.6 - 6.9 x10e3/uL Abs. Lymphocytes 0.7 (L) 1.1 - 4.8 x10e3/uL Abs. Monocytes 0.4 0.0 - 1.0 x10e3/uL Abs. Eosinophils 0.1 0.0 - 0.5 x10e3/uL Abs. Basophils 0.0 0.0 - 0.4 x10e3/uL Abs. Neutrophils (Auto) 4,200.0 1,600.0 - 6,900.0 /uL POCT glucose Collection Time: 05/25/25 11:56 AM Result Value Ref Range POCT Glucose, Blood 127 (H) 65 - 99 mg/dL Culture, fungus non-skin Collection Time: 05/25/25 7:41 PM Specimen: Ankle, Left; Tissue Result Value Ref Range Fungus Culture No Fungus isolated at 2 weeks Culture, Deep Abscess Aerobic&Anaerobic w/gram stain Collection Time: 05/25/25 7:41 PM Specimen: Ankle, Left; Tissue Result Value Ref Range Culture Broth only Enterobacter cloacae complex Gram Stain Result Rare WBC per low power field Gram Stain Result No organisms seen Susceptibility Enterobacter cloacae complex - WALDO Aztreonam <=1 Susceptible ug/ml Cefepime <=0.12 Susceptible ug/ml Cefotaxime <=0.25 Susceptible ug/ml Cefoxitin >=64 Resistant ug/ml Ceftazidime <=0.5 Susceptible ug/ml Cefuroxime 16 Intermediate ug/ml Cefuroxime axetil 16 Intermediate ug/ml Ciprofloxacin <=0.06 Susceptible ug/ml Ertapenem <=0.12 Susceptible ug/ml Gentamicin <=1 Susceptible ug/ml Imipenem 0.5 Susceptible ug/ml Levofloxacin <=0.12 Susceptible ug/ml Tetracycline <=1 Susceptible ug/ml Tobramycin <=1 Susceptible ug/ml Trimethoprim + Sulfamethoxazole <=20 Susceptible ug/ml Culture, Deep Abscess Aerobic&Anaerobic w/gram stain Collection Time: 05/25/25 7:42 PM Specimen: Ankle, Left; Bone Result Value Ref Range Culture Scant Growth Enterobacter cloacae complex Gram Stain Result No polymorphonuclear leukocytes seen Gram Stain Result No organisms seen Susceptibility Enterobacter cloacae complex - WALDO Aztreonam <=1 Susceptible ug/ml Cefepime <=0.12 Susceptible ug/ml Cefotaxime <=0.25 Susceptible ug/ml Cefoxitin >=64 Resistant ug/ml Ceftazidime <=0.5 Susceptible ug/ml Cefuroxime 16 Intermediate ug/ml Cefuroxime axetil 16 Intermediate ug/ml Ciprofloxacin <=0.06 Susceptible ug/ml Ertapenem <=0.12 Susceptible ug/ml Gentamicin <=1 Susceptible ug/ml Imipenem 0.5 Susceptible ug/ml Levofloxacin <=0.12 Susceptible ug/ml Tetracycline 2 Susceptible ug/ml Tobramycin <=1 Susceptible ug/ml Trimethoprim + Sulfamethoxazole <=20 Susceptible ug/ml Surgical Pathology Collection Time: 05/25/25 7:42 PM Result Value Ref Range Pathology Final Diagnosis SEE DETAILS Culture, Deep Abscess Aerobic&Anaerobic w/gram stain Collection Time: 05/25/25 7:50 PM Specimen: Ankle, Left; Bone Result Value Ref Range Culture Scant Growth Enterobacter cloacae complex Gram Stain Result No polymorphonuclear leukocytes seen Gram Stain Result No organisms seen Susceptibility Enterobacter cloacae complex - [facility]ALDO Aztreonam <=1 Susceptible ug/ml Cefepime <=0.12 Susceptible ug/ml Cefotaxime <=0.25 Susceptible ug/ml Cefoxitin >=64 Resistant ug/ml Ceftazidime <=0.5 Susceptible ug/ml Cefuroxime 16 Intermediate ug/ml Cefuroxime axetil 16 Intermediate ug/ml Ciprofloxacin <=0.06 Susceptible ug/ml Ertapenem <=0.12 Susceptible ug/ml Gentamicin <=1 Susceptible ug/ml Imipenem 0.5 Susceptible ug/ml Levofloxacin <=0.12 Susceptible ug/ml Tetracycline 2 Susceptible ug/ml Tobramycin <=1 Susceptible ug/ml Trimethoprim + Sulfamethoxazole <=20 Susceptible ug/ml Hemoglobin and hematocrit Collection Time: 05/25/25 10:53 PM Result Value Ref Range Hemoglobin 9.1 (L) 13.8 - 17.2 g/dL Hematocrit 29.2 (L) 41.0 - 50.0 % Type and screen Collection Time: 05/25/25 10:53 PM Result Value Ref Range ABORh A POS Antibody Screen NEG Reflex to ABO/Rh Type Confirmation YES Type and Screen Expiration Date 05/28/2025 23:59 Prepare/Crossmatch RBC: 1 Units Collection Time: 05/25/25 10:53 PM Result Value Ref Range Unit Number [id number] Product Identification E0336 Product Blood Type (Readable) A POS Dispense Status Transfused Blood Product Unit Expiration Date [id number] Product Code [id number] Product Blood Type 6200 POCT glucose Collection Time: 05/25/25 11:22 PM Result Value Ref Range POCT Glucose, Blood 183 (H) 65 - 99 mg/dL Complete blood count with diff Collection Time: 05/26/25 12:15 AM Result Value Ref Range WBC Auto 11.1 (H) 3.8 - 10.1 x10e3/uL RBC 2.81 (L) 4.40 - 5.80 x10e6/uL Hemoglobin 8.7 (L) 13.8 - 17.2 g/dL Hematocrit 28.3 (L) 41.0 - 50.0 % MCV 101 (H) 81 - 100 fL MCH 31.0 27.0 - 35.0 pg MCHC 30.7 (L) 32.0 - 37.0 g/dL RDW 14.3 12.3 - 15.4 % Platelets 309 150 - 400 x10e3/uL MPV 9.6 7.4 - 10.4 fL NRBC % 0 0 /100 WBCs Abs. NRBC 0.0 x10e3/uL % Neutrophils 89 % % Lymphocytes 7 % % Monocytes 1 % % Eosinophils 0 % % Basophils 0 % Abs. Neutrophils 9.9 (H) 1.6 - 6.9 x10e3/uL Abs. Lymphocytes 0.8 (L) 1.1 - 4.8 x10e3/uL Abs. Monocytes 0.1 0.0 - 1.0 x10e3/uL Abs. Eosinophils 0.0 0.0 - 0.5 x10e3/uL Abs. Basophils 0.0 0.0 - 0.4 x10e3/uL Abs. Neutrophils (Auto) 9,900.0 (H) 1,600.0 - 6,900.0 /uL POCT glucose Collection Time: 05/26/25 12:46 AM Result Value Ref Range POCT Glucose, Blood 208 (H) 65 - 99 mg/dL Basic metabolic panel Collection Time: 05/26/25 3:21 AM Result Value Ref Range Sodium, Serum/Plasma 135 135 - 145 mmol/L Potassium, Serum/Plasma 4.6 3.5 - 5.2 mmol/L Chloride, Serum/Plasma 101 98 - 107 mmol/L CO2, Serum/Plasma 24 22 - 30 mmol/L Anion Gap, Serum/Plasma 10 3 - 11 mmol/L Urea Nitrogen, Serum/Plasma 18.0 8.0 - 27.0 mg/dL Creatinine, Serum/Plasma 0.60 (L) 0.76 - 1.27 mg/dL Glucose, Serum/Plasma 161 (H) 65 - 99 mg/dL Calcium, Serum/Plasma 8.0 (L) 8.5 - 10.1 mg/dL eGFR, Serum/Plasma (CKD-EPI 2020) 104 >60 (CKD-EPI 2020) mL/min/1.73 m2 BUN/Creatinine Ratio, Serum/Plasma 30.0 (H) 6.0 - 24.0 C-reactive protein Collection Time: 05/26/25 3:21 AM Result Value Ref Range CRP, Serum/Plasma (mg/dL) 4.6 (H) <1.0 mg/dL Complete blood count with diff Collection Time: 05/26/25 3:21 AM Result Value Ref Range WBC Auto 12.0 (H) 3.8 - 10.1 x10e3/uL RBC 2.97 (L) 4.40 - 5.80 x10e6/uL Hemoglobin 8.9 (L) 13.8 - 17.2 g/dL Hematocrit 30.4 (L) 41.0 - 50.0 % MCV 102 (H) 81 - 100 fL MCH 30.0 27.0 - 35.0 pg MCHC 29.3 (L) 32.0 - 37.0 g/dL RDW 14.4 12.3 - 15.4 % Platelets 378 150 - 400 x10e3/uL MPV 10.0 7.4 - 10.4 fL NRBC % 0 0 /100 WBCs Abs. NRBC 0.0 x10e3/uL % Neutrophils 88 % % Lymphocytes 8 % % Monocytes 1 % % Eosinophils 0 % % Basophils 0 % Abs. Neutrophils 10.6 (H) 1.6 - 6.9 x10e3/uL Abs. Lymphocytes 0.9 (L) 1.1 - 4.8 x10e3/uL Abs. Monocytes 0.1 0.0 - 1.0 x10e3/uL Abs. Eosinophils 0.0 0.0 - 0.5 x10e3/uL Abs. Basophils 0.1 0.0 - 0.4 x10e3/uL Abs. Neutrophils (Auto) 10,600.0 (H) 1,600.0 - 6,900.0 /uL Vancomycin, trough Timed Collection Time: 05/26/25 8:00 AM Result Value Ref Range Vancomycin, Trough, Serum/Plasma 9.7 (L) 10.0 - 20.0 ug/mL Creatine kinase Collection Time: 05/26/25 8:00 AM Result Value Ref Range CK, Total, Serum/Plasma 109 20 - 200 U/L POCT glucose Collection Time: 05/26/25 8:41 AM Result Value Ref Range POCT Glucose, Blood 160 (H) 65 - 99 mg/dL POCT glucose Collection Time: 05/26/25 12:23 PM Result Value Ref Range POCT Glucose, Blood 192 (H) 65 - 99 mg/dL POCT glucose Collection Time: 05/26/25 6:08 PM Result Value Ref Range POCT Glucose, Blood 183 (H) 65 - 99 mg/dL Basic metabolic panel Collection Time: 05/27/25 3:02 AM Result Value Ref Range Sodium, Serum/Plasma 136 135 - 145 mmol/L Potassium, Serum/Plasma 3.6 3.5 - 5.2 mmol/L Chloride, Serum/Plasma 105 98 - 107 mmol/L CO2, Serum/Plasma 27 22 - 30 mmol/L Anion Gap, Serum/Plasma 4 3 - 11 mmol/L Urea Nitrogen, Serum/Plasma 25.0 8.0 - 27.0 mg/dL Creatinine, Serum/Plasma 0.60 (L) 0.76 - 1.27 mg/dL Glucose, Serum/Plasma 134 (H) 65 - 99 mg/dL Calcium, Serum/Plasma 7.8 (L) 8.5 - 10.1 mg/dL eGFR, Serum/Plasma (CKD-EPI 2021) 104 >60 (CKD-EPI 2021) mL/min/1.73 m2 BUN/Creatinine Ratio, Serum/Plasma 41.7 (H) 6.0 - 24.0 C-reactive protein Collection Time: 05/27/25 3:02 AM Result Value Ref Range CRP, Serum/Plasma (mg/dL) 4.7 (H) <1.0 mg/dL Complete blood count with diff Collection Time: 05/27/25 3:02 AM Result Value Ref Range WBC Auto 6.9 3.8 - 10.1 x10e3/uL RBC 2.03 (L) 4.40 - 5.80 x10e6/uL Hemoglobin 6.4 (LC) 13.8 - 17.2 g/dL Hematocrit 20.8 (LC) 41.0 - 50.0 % MCV 103 (H) 81 - 100 fL MCH 31.5 27.0 - 35.0 pg MCHC 30.8 (L) 32.0 - 37.0 g/dL RDW 14.5 12.3 - 15.4 % Platelets 194 150 - 400 x10e3/uL MPV 10.1 7.4 - 10.4 fL NRBC % 0 0 /100 WBCs Abs. NRBC 0.0 x10e3/uL % Neutrophils 73 % % Lymphocytes 16 % % Monocytes 8 % % Eosinophils 0 % % Basophils 0 % Abs. Neutrophils 5.1 1.6 - 6.9 x10e3/uL Abs. Lymphocytes 1.1 1.1 - 4.8 x10e3/uL Abs. Monocytes 0.6 0.0 - 1.0 x10e3/uL Abs. Eosinophils 0.0 0.0 - 0.5 x10e3/uL Abs. Basophils 0.0 0.0 - 0.4 x10e3/uL Abs. Neutrophils (Auto) 5,100.0 1,600.0 - 6,900.0 /uL Complete blood count with diff Collection Time: 05/27/25 5:02 AM Result Value Ref Range WBC Auto 6.2 3.8 - 10.1 x10e3/uL RBC 2.22 (L) 4.40 - 5.80 x10e6/uL Hemoglobin 6.8 (LC) 13.8 - 17.2 g/dL Hematocrit 22.6 (L) 41.0 - 50.0 % MCV 102 (H) 81 - 100 fL MCH 30.6 27.0 - 35.0 pg MCHC 30.1 (L) 32.0 - 37.0 g/dL RDW 14.6 12.3 - 15.4 % Platelets 178 150 - 400 x10e3/uL MPV 9.5 7.4 - 10.4 fL NRBC % 0 0 /100 WBCs Abs. NRBC 0.0 x10e3/uL % Neutrophils 72 % % Lymphocytes 17 % % Monocytes 8 % % Eosinophils 1 % % Basophils 0 % Abs. Neutrophils 4.5 1.6 - 6.9 x10e3/uL Abs. Lymphocytes 1.1 1.1 - 4.8 x10e3/uL Abs. Monocytes 0.5 0.0 - 1.0 x10e3/uL Abs. Eosinophils 0.0 0.0 - 0.5 x10e3/uL Abs. Basophils 0.0 0.0 - 0.4 x10e3/uL Abs. Neutrophils (Auto) 4,500.0 1,600.0 - 6,900.0 /uL Vancomycin, trough Collection Time: 05/27/25 7:53 AM Result Value Ref Range Vancomycin, Trough, Serum/Plasma 8.5 (L) 10.0 - 20.0 ug/mL POCT glucose Collection Time: 05/27/25 8:00 AM Result Value Ref Range POCT Glucose, Blood 134 (H) 65 - 99 mg/dL Hemoglobin and hematocrit Collection Time: 05/27/25 12:23 PM Result Value Ref Range Hemoglobin 8.6 (L) 13.8 - 17.2 g/dL Hematocrit 28.5 (L) 41.0 - 50.0 % Hemoglobin and hematocrit Collection Time: 05/27/25 7:59 PM Result Value Ref Range Hemoglobin 7.7 (L) 13.8 - 17.2 g/dL Hematocrit 24.7 (L) 41.0 - 50.0 % POCT glucose Collection Time: 05/27/25 9:36 PM Result Value Ref Range POCT Glucose, Blood 120 (H) 65 - 99 mg/dL Basic metabolic panel Collection Time: 05/28/25 4:10 AM Result Value Ref Range Sodium, Serum/Plasma 138 135 - 145 mmol/L Potassium, Serum/Plasma 3.8 3.5 - 5.2 mmol/L Chloride, Serum/Plasma 106 98 - 107 mmol/L CO2, Serum/Plasma 28 22 - 30 mmol/L Anion Gap, Serum/Plasma 4 3 - 11 mmol/L Urea Nitrogen, Serum/Plasma 20.0 8.0 - 27.0 mg/dL Creatinine, Serum/Plasma 0.50 (L) 0.76 - 1.27 mg/dL Glucose, Serum/Plasma 99 65 - 99 mg/dL Calcium, Serum/Plasma 8.3 (L) 8.5 - 10.1 mg/dL eGFR, Serum/Plasma (CKD-EPI 2020) 110 >60 (CKD-EPI 2020) mL/min/1.73 m2 BUN/Creatinine Ratio, Serum/Plasma 40.0 (H) 6.0 - 24.0 C-reactive protein Collection Time: 05/28/25 4:10 AM Result Value Ref Range CRP, Serum/Plasma (mg/dL) 3.6 (H) <1.0 mg/dL Complete blood count with diff Collection Time: 05/28/25 4:10 AM Result Value Ref Range WBC Auto 4.5 3.8 - 10.1 x10e3/uL RBC 2.52 (L) 4.40 - 5.80 x10e6/uL Hemoglobin 7.8 (L) 13.8 - 17.2 g/dL Hematocrit 25.4 (L) 41.0 - 50.0 % MCV 101 (H) 81 - 100 fL MCH 31.0 27.0 - 35.0 pg MCHC 30.7 (L) 32.0 - 37.0 g/dL RDW 14.7 12.3 - 15.4 % Platelets 169 150 - 400 x10e3/uL MPV 9.9 7.4 - 10.4 fL NRBC % 1 0 /100 WBCs Abs. NRBC 0.0 x10e3/uL % Neutrophils 63 % % Lymphocytes 22 % % Monocytes 8 % % Eosinophils 2 % % Basophils 1 % Abs. Neutrophils 2.8 1.6 - 6.9 x10e3/uL Abs. Lymphocytes 1.0 (L) 1.1 - 4.8 x10e3/uL Abs. Monocytes 0.4 0.0 - 1.0 x10e3/uL Abs. Eosinophils 0.1 0.0 - 0.5 x10e3/uL Abs. Basophils 0.0 0.0 - 0.4 x10e3/uL Abs. Neutrophils (Auto) 2,800.0 1,600.0 - 6,900.0 /uL Vitamin B12 and Folate Collection Time: 05/28/25 4:10 AM Result Value Ref Range Vitamin B12, Serum/Plasma 351 239 - 931 pg/mL Folate, Serum/Plasma (ng/mL) 12.3 5.0 - 20.0 ng/mL POCT glucose Collection Time: 05/28/25 8:07 PM Result Value Ref Range POCT Glucose, Blood 135 (H) 65 - 99 mg/dL Basic metabolic panel Collection Time: 05/29/25 4:18 AM Result Value Ref Range Sodium, Serum/Plasma 140 135 - 145 mmol/L Potassium, Serum/Plasma 3.4 (L) 3.5 - 5.2 mmol/L Chloride, Serum/Plasma 105 98 - 107 mmol/L CO2, Serum/Plasma 29 22 - 30 mmol/L Anion Gap, Serum/Plasma 6 3 - 11 mmol/L Urea Nitrogen, Serum/Plasma 15.0 8.0 - 27.0 mg/dL Creatinine, Serum/Plasma 0.60 (L) 0.76 - 1.27 mg/dL Glucose, Serum/Plasma 122 (H) 65 - 99 mg/dL Calcium, Serum/Plasma 8.2 (L) 8.5 - 10.1 mg/dL eGFR, Serum/Plasma (CKD-EPI 2020) 104 >60 (CKD-EPI 2020) mL/min/1.73 m2 BUN/Creatinine Ratio, Serum/Plasma 25.0 (H) 6.0 - 24.0 C-reactive protein Collection Time: 05/29/25 4:18 AM Result Value Ref Range CRP, Serum/Plasma (mg/dL) 4.0 (H) <1.0 mg/dL Complete blood count with diff Collection Time: 05/29/25 4:18 AM Result Value Ref Range WBC Auto 3.9 3.8 - 10.1 x10e3/uL RBC 2.38 (L) 4.40 - 5.80 x10e6/uL Hemoglobin 7.6 (L) 13.8 - 17.2 g/dL Hematocrit 24.5 (L) 41.0 - 50.0 % MCV 103 (H) 81 - 100 fL MCH 31.9 27.0 - 35.0 pg MCHC 31.0 (L) 32.0 - 37.0 g/dL RDW 14.7 12.3 - 15.4 % Platelets 163 150 - 400 x10e3/uL MPV 10.1 7.4 - 10.4 fL NRBC % 1 0 /100 WBCs Abs. NRBC 0.0 x10e3/uL % Neutrophils 63 % % Lymphocytes 21 % % Monocytes 8 % % Eosinophils 4 % % Basophils 0 % Abs. Neutrophils 2.4 1.6 - 6.9 x10e3/uL Abs. Lymphocytes 0.8 (L) 1.1 - 4.8 x10e3/uL Abs. Monocytes 0.3 0.0 - 1.0 x10e3/uL Abs. Eosinophils 0.1 0.0 - 0.5 x10e3/uL Abs. Basophils 0.0 0.0 - 0.4 x10e3/uL Abs. Neutrophils (Auto) 2,400.0 1,600.0 - 6,900.0 /uL POCT glucose Collection Time: 05/29/25 8:09 AM Result Value Ref Range POCT Glucose, Blood 185 (H) 65 - 99 mg/dL POCT glucose Collection Time: 05/29/25 11:53 AM Result Value Ref Range POCT Glucose, Blood 154 (H) 65 - 99 mg/dL POCT glucose Collection Time: 05/29/25 4:54 PM Result Value Ref Range POCT Glucose, Blood 123 (H) 65 - 99 mg/dL POCT glucose Collection Time: 05/29/25 8:44 PM Result Value Ref Range POCT Glucose, Blood 172 (H) 65 - 99 mg/dL Basic metabolic panel Collection Time: 05/30/25 3:26 AM Result Value Ref Range Sodium, Serum/Plasma 139 135 - 145 mmol/L Potassium, Serum/Plasma 3.8 3.5 - 5.2 mmol/L Chloride, Serum/Plasma 111 (H) 98 - 107 mmol/L CO2, Serum/Plasma 28 22 - 30 mmol/L Anion Gap, Serum/Plasma 0 (L) 3 - 11 mmol/L Urea Nitrogen, Serum/Plasma 14.0 8.0 - 27.0 mg/dL Creatinine, Serum/Plasma 0.50 (L) 0.76 - 1.27 mg/dL Glucose, Serum/Plasma 99 65 - 99 mg/dL Calcium, Serum/Plasma 8.3 (L) 8.5 - 10.1 mg/dL eGFR, Serum/Plasma (CKD-EPI 2020) 110 >60 (CKD-EPI 2021) mL/min/1.73 m2 BUN/Creatinine Ratio, Serum/Plasma 28.0 (H) 6.0 - 24.0 C-reactive protein Collection Time: 05/30/25 3:26 AM Result Value Ref Range CRP, Serum/Plasma (mg/dL) 3.7 (H) <1.0 mg/dL Complete blood count with diff Collection Time: 05/30/25 3:26 AM Result Value Ref Range WBC Auto 3.6 (L) 3.8 - 10.1 x10e3/uL RBC 2.40 (L) 4.40 - 5.80 x10e6/uL Hemoglobin 7.5 (L) 13.8 - 17.2 g/dL Hematocrit 24.5 (L) 41.0 - 50.0 % MCV 102 (H) 81 - 100 fL MCH 31.3 27.0 - 35.0 pg MCHC 30.6 (L) 32.0 - 37.0 g/dL RDW 14.7 12.3 - 15.4 % Platelets 161 150 - 400 x10e3/uL MPV 10.0 7.4 - 10.4 fL NRBC % 1 0 /100 WBCs Abs. NRBC 0.0 x10e3/uL % Neutrophils 61 % % Lymphocytes 25 % % Monocytes 6 % % Eosinophils 4 % % Basophils 0 % Abs. Neutrophils 2.2 1.6 - 6.9 x10e3/uL Abs. Lymphocytes 0.9 (L) 1.1 - 4.8 x10e3/uL Abs. Monocytes 0.2 0.0 - 1.0 x10e3/uL Abs. Eosinophils 0.1 0.0 - 0.5 x10e3/uL Abs. Basophils 0.0 0.0 - 0.4 x10e3/uL Abs. Neutrophils (Auto) 2,200.0 1,600.0 - 6,900.0 /uL Complete blood count with diff Collection Time: 05/31/25 4:17 AM Result Value Ref Range WBC Auto 3.9 3.8 - 10.1 x10e3/uL RBC 2.24 (L) 4.40 - 5.80 x10e6/uL Hemoglobin 7.0 (L) 13.8 - 17.2 g/dL Hematocrit 23.1 (L) 41.0 - 50.0 % MCV 103 (H) 81 - 100 fL MCH 31.3 27.0 - 35.0 pg MCHC 30.3 (L) 32.0 - 37.0 g/dL RDW 15.1 12.3 - 15.4 % Platelets 149 (L) 150 - 400 x10e3/uL MPV 9.9 7.4 - 10.4 fL NRBC % 0 0 /100 WBCs Abs. NRBC 0.0 x10e3/uL % Neutrophils 66 % % Lymphocytes 19 % % Monocytes 6 % % Eosinophils 4 % % Basophils 0 % Abs. Neutrophils 2.6 1.6 - 6.9 x10e3/uL Abs. Lymphocytes 0.8 (L) 1.1 - 4.8 x10e3/uL Abs. Monocytes 0.3 0.0 - 1.0 x10e3/uL Abs. Eosinophils 0.2 0.0 - 0.5 x10e3/uL Abs. Basophils 0.0 0.0 - 0.4 x10e3/uL Abs. Neutrophils (Auto) 2,600.0 1,600.0 - 6,900.0 /uL No results found for this or any previous visit (from the past 24 hours). IMAGING: PICC LINE INSERTION Result Date: 05/30/2025 Narrative: This exam has been auto-finalized. Please refer to nursing note. XR ANKLE 3+ VIEWS LEFT Result Date: 05/26/2025 Narrative: [facility] [id number] PATIENT NAME: LEE MIGUEL : 1955 GENDER: M EXAM DATE: 05/25/2025 23:11 ORDERED FROM: [facility] ORDERING PHYSICIAN: LEE DEL TORO CC: SHAW -- - - - CONTRAST: READING STATION ID: [id number] mGy: PROCEDURE: XR ANKLE 3+ VIEWS LEFT INDICATIONS: Post-op Eval TECHNIQUE: 3 views of the ankle were acquired. COMPARISON: [facility], , XR ANKLE 3+ VIEWS LEFT, 05/09/2025, 15:51. FINDINGS: Bones last joints: The lateral malleolus and distal fibula have been surgically resected-as previously seen. Plate and multiple screws, previously providing arthrodesis across the ankle mortise and talocalcaneal joints have now been removed. Severe erosive changes inthe anterior /lateral tibial plafond and also the medial/central talar dome. Moderate effusion and periarticular calcifications noted. This could represent septic arthritis. The articulating tibial plafond is displaced 1.3 cm medially with respect to the talar dome There are external fixation pins in the mid tibia and in the proximal metatarsal and calcaneal regions. Soft tissues: Moderate periarticular soft tissue swelling and multiple small calcifications noted IMPRESSION: Interval removal inplate and screws providing arthrodesis across the ankle mortise and talocalcaneal joint. Severe erosion of the anterior lateral tibial plafond and the adjacent articulating medial central talar dome.There is joint space narrowing and effusion with calcifications. Suspect possible septic arthritis.There is moderate subluxation of the ankle mortise is well Suggest ankle CT or MRI for further evaluation. Plate and screws providing arthrodesis across the talocalcaneal and the ankle mortise have been been removed. Reviewed by: Ever Patterson M.D. on 05/26/2025 at 11:03 Approved by: Ever Patterson M.D. on 05/26/2025 at 11:14 CT ANKLE LEFT WITH CONTRAST Result Date: 05/24/2025 Narrative: [facility] [id number] PATIENT NAME: LEE MIGUEL : 1955 GENDER: M EXAM DATE: 05/24/2025 11:27 ORDERED FROM: [facility] ORDERING PHYSICIAN: ANGELES HORTA CC: -- - - - CONTRAST: 95ml [id number] READING STATION ID: [id number] mGy: 12.72 PROCEDURE: CT ANKLE LEFT WITH CONTRAST INDICATIONS: Softtissue infection suspected, ankle, xray done COMPARISON: [facility], CR, XR ANKLE 3+ VIEWS LEFT, 05/09/2025, 15:51. [facility], CT, CT LE LT W CON, 02/01/2025, 13:09. [facility], CR, XR ANKLE 3 VIEWS WEIGHT BEARING LEFT, 02/24/2025, 8:29. [facility], RG, BILATERAL ANKLE 3VW, 12/30/2024, 13:45. Technique: Axial acquisition the left lower extremity from the mid tibia through the level of the forefoot with axial bone and soft tissue reformats and coronal and sagittal soft tissue reformat. FINDINGS: Bone: Postsurgical changes of anterior ankle instrumented arthrodesis and distal fibular resection. There is periosteal reaction about the distal tibia, fibula, talus and calcaneus. There is fragmentation of the posterolateral talar dome concerning for possible postoperative fracture. The distal medial lateral directed cortical compression screw extends into the lateral soft tissues adjacent to the posterior subtalar joint. The anterior to posterior directed fixation screw is well seated within the calcaneus and the anterior plate. The lateral fixation screw traversing the dorsal talar neck extends into the dorsal sinus tarsi. Soft tissues: Superficial subcutaneous fat edema along the anterior andlateral ankle. Along the lateral ankle, there is fluid attenuation extending from the distal fibular resection to the inferior surgical wound measuring 4.7 by 2.3 x 1.9 cm (CC x AP x Trans) (501/29; 4/122). Distally, there is at least mild tenosynovitis of the peroneus brevis tendon (4/160. Tenosynovitis and intermediate complex attenuating fluid extends through the tibiotalar joint and along themedial and lateral recesses, this is best visualized on the coronal soft tissue series 500, for example on series 500, image 23). Linear fluid attenuation along the retro malleolar posterior tibialis(4/107) concerning for tenosynovitis. There is moderate fatty infiltration of the lower leg musculat ure. No discontinuity of the Achilles tendon. Patent dorsalis pedis and posterior tibial arteries. IMPRESSION: 1. Changes of anterior talar instrumented arthrodesis with comminuted fracture of the posterior lateral talar dome, new compared to 02/01/2025. This results in non fixation of a cortical compression screw which traverses lateral to the posterior subtalar joint. 2. Tibiotalar joint effusion is concerning for a postoperative joint infection, correlate for symptoms of septic arthritis. 3.Enhancing cellulitis in the lower leg to dorsal lateral midfoot with a collection extending from the inferior lateral surgical incision to the distal fibular margin concerning for a sinus tract and de veloping abscess. 4. Inframalleolar tenosynovitis of the peroneal tendons and retro malleolar tenosynovitis of tibialis posterior concerning for infectious tenosynovitis. Reviewed by: Willem Duffy M.D. on 05/24/2025 at 12:06 Approved by: Willem Duffy M.D. on 05/24/2025 at 12:29 ASSESSMENT/PLAN: Manoj was seen today for infection. Diagnoses and all orders for this visit: Osteomyelitis of left ankle, unspecified type (CMS/HCC) - CT ANKLE LEFT WITHOUT CONTRAST; Future - C-reactive protein; Future - Procalcitonin; Future - Complete blood count with diff; Future Impression: Patient is a 70 y/o male with history of hypertension, hyperlipidemia, T2DM, gout, BPH, s/p arthrodesis of subtalar joint-left who was sent to ED by Podiatry on 05/24 for evaluation of wound infection. Went to the OR on 05/25 for removal of hardware. Operative cultures are positive for Enterobactercloacae. Remains on a 6 week course of cefepime. CBC, CMP, CRP q Mon/Thurs. WBC is normal and wounds are improving however CRP is rising despite IV antibiotics and he has worsening swelling. Called Podiatry who recommends STAT ankle CT for further evaluation. Will obtain repeat CBC, CRP, procalcitonin. RECOMMENDATIONS: --Continue cefepime for 6 week course --CBC, CMP, CRP q Mon/Thurs --STAT ankle CT for further evaluation. --Will obtain repeat CBC, CRP, procalcitonin --RTC after CT today --Will see patient every other week while on antibiotics Leon Hernandez MD Electronically signed by Leon Hernandez MD 06/20/2025 8:49 AM documented in this encounter Plan of Treatment Upcoming Encounters Date Type Department Care Team (Latest Contact Info) Description 06/26/2025 9:30 AM PST Office Visit [facility] Infectious Diseases [place] [address] [place] [address] Leon Hernandez MD [address] [place] [address] 07/04/2025 7:15 AM PST Hospital Encounter [facility] Operating Room [address] [place] [id number] Lee Del Toro, XIMENA [address] [place] [address] [phone] 07/04/2025 7:15 AM PST - 07/04/2025 10:40 AM PST Surgery [facility] [address] [place] [id number] Lee Del Toro, XIMENA [address] [place] [address] [phone] LEFT - OPEN ARTHRODESIS OF ANKLE [62440 (CPT )] 07/06/2025 10:30 AM PST Office Visit [facility] Podiatry [place] [address] [place] [id number] Lee Del Toro, DPM [address] [place] [id number] Scheduled Procedures Name Priority Associated Diagnoses Date/Ti me OPEN ARTHRODESIS OF ANKLE Arthritis of left ankle due to other bacteria (CMS/HCC) Other acute osteomyelitis of left ankle (CMS/HCC) 07/04/2025 7:15 AM PST ARTHRODESIS OF SUBTALAR JOINT Arthritis of left ankle due to other bacteria (CMS/HCC) Other acute osteomyelitis of left ankle (CMS/HCC) 07/04/2025 7:15 AM PST REMOVAL OF EXTERNAL BONE FIXATION SYSTEM UNDER ANESTHESIA Arthritis of left ankle due to other bacteria (CMS/HCC) Other acute osteomyelitis of left ankle (CMS/HCC) 07/04/2025 7:15 AM PST documented as of this encounter Results * CT ANKLE LEFT WITH CONTRAST (06/20/2025 9:51 AM PST) Anatomical Region Laterality Modality Lower Extremities, Ankle Left Compute d Tomography 06/20/2025 10:4 5 AM PST Narrative 06/20/2025 10:45 [place]. [address] PATIENT NAME: LEE MIGUEL : 1955 GENDER: M EXAM DATE: 06/20/2025 9:43 ORDERED FROM: [facility] ORDERING PHYSICIAN: LEON HERNANDEZ CC: -- - - - CONTRAST: 100ml omnipaque 300 READING STATION ID: [id number] mGy: PROCEDURE: CT ANKLE LEFT WITH CONTRAST INDICATIONS: Increasing CRP and swelling with external fixator in place COMPARISON: [facility], [place], CT ANKLE LEFT WITH CONTRAST, 05/24/2025, 11:27. Technique: [address] images of left ankle were obtained after IV contrast infusion. Coronal and sagittal reformats were obtained and reviewed. FINDINGS: Bones and joints: Compared to previous study, there is interval placement of external fixation hardware in distal tibia and posterior calcaneus. Beam hardening artifacts are noted. There is interval removal of previously noted surgical hardware from prior arthrodesis. A surgical screw is noted in 1st metatarsal base without gross hardware loosening or failure. There is interval resection of distal fibula with clean surgical margin. There is also suggestion of interval resection of the talus. Numerous calcified fragments are noted in the expected location of talus suggestive of postsurgical changes. There is also collapse involving superior aspect of calcaneus adjacent to the subtalar joint, likely related to surgical hardware removal from this area seen on previous study. No acute fracture or dislocation. [id number] osteoarthritic changes are noted throughout rest of the left foot. No definite new area of bony erosion or abnormal periosteal reaction to suggest osteomyelitis. Soft tissues: Significant soft tissue swelling around distal lower leg and hindfoot is seen with postsurgical wound seen in anterior and lateral aspect of hindfoot. No discrete drainable peripherally enhancing fluid collection. There is suggestion of moderate hindfoot joint effusion without definite calcified intra-articular loose bodies. No enhancing soft tissue mass is seen. IMPRESSION: 1. Postsurgical changes in hindfoot and distal lower leg with interval removal of previously noted arthrodesis hardware and interval placement of external fixation hardware. There is also interval resection of distal end of distal fibula with clean surgical margin. 2. Suggestion of interval resection of talus. Collapse and radiolucency involving lateral and superior aspect of calcaneus adjacent to the subtalar joint which may be due to interval surgical hardware removal. Erosion secondary to osteomyelitis cannot be entirely excluded. No other area of bony erosive changes. Osteoarthritic changes are noted throughout rest of the left foot. 3. Diffuse subcutaneous soft tissue edema and swelling in distal lower leg extending to hindfoot and midfoot. No discrete drainable abscess collection. Suggestion of moderate hindfoot joint effusion, no significant enhancement of the synovial lining to suggest synovitis or septic arthritis. No definite intra-articular loose bodies. Reviewed by: Harry Batres M.D. on 06/20/2025 at 10:33 Approved by: Harry Batres M.D. on 06/20/2025 at 10:45 Procedure Note Harry Batres MD - 06/20/2025 [place]. [address] PATIENT NAME: LEE MIGUEL : 1955 GENDER: M EXAM DATE: 06/20/2025 9:43 ORDERED FROM: [facility] ORDERING PHYSICIAN: LEON HERNANDEZ CC: -- - - - CONTRAST: 100ml omnipaque 300 READING STATION ID: [id number] mGy: PROCEDURE: CT ANKLE LEFT WITH CONTRAST INDICATIONS: Increasing CRP and swelling with external fixator in place COMPARISON: [facility], CT, CT ANKLE LEFT WITH CONTRAST,05/24/2025, 11:27. Technique: [address] images of left ankle were obtained after IVcontrast infusion. Coronal and sagittal reformats were obtained andreviewed. FINDINGS: Bones and joints: Compared to previous study, there is interval placement of externalfixation hardware in distal tibia and posterior calcaneus. Beam hardeningartifacts are noted. There is interval removal of previously notedsurgical hardware from prior arthrodesis. A surgical screw is noted in1st metatarsal base without gross hardware loosening or failure. There isinterval resection of distal fibula with clean surgical margin. There isalso suggestion of interval resection of the talus. Numerous calcifiedfragments are noted in the expected location of talus suggestive ofpostsurgical changes. There is also collapse involving superior aspect ofcalcaneus adjacent to the subtalar joint, likely related to surgicalhardware removal from this area seen on previous study. No acute fractureor dislocation. [id number] osteoarthritic changes are notedthroughout rest of the left foot. No definite new area of bony erosion orabnormal periosteal reaction to suggest osteomyelitis. Soft tissues: Significant soft tissue swelling around distal lower leg and hindfoot isseen with postsurgical wound seen in anterior and lateral aspect ofhindfoot. No discrete drainable peripherally enhancing fluid collection.There is suggestion of moderate hindfoot joint effusion without definitecalcified intra-articular loose bodies. No enhancing soft tissue mass isseen. IMPRESSION: 1. Postsurgical changes in hindfoot and distal lower leg with intervalremoval of previously noted arthrodesis hardware and interval placement ofexternal fixation hardware. There is also interval resection of distalend of distal fibula with clean surgical margin. 2. Suggestion of interval resection of talus. Collapse and radiolucencyinvolving lateral and superior aspect of calcaneus adjacent to thesubtalar joint which may be due to interval surgical hardware removal.Erosion secondary to osteomyelitis cannot be entirely excluded. No otherarea of bony erosive changes. Osteoarthritic changes are noted throughoutrest of the left foot. 3. Diffuse subcutaneous soft tissue edema and swelling in distal lower legextending to hindfoot and midfoot. No discrete drainable abscesscollection. Suggestion of moderate hindfoot joint effusion, nosignificant enhancement of the synovial lining to suggest synovitis orseptic arthritis. No definite intra-articular loose bodies. Reviewed by: Harry Batres M.D. on 06/20/2025 at 10:33 Approved by: Harry Batres M.D. on 06/20/2025 at 10:45 Leon Hernandez MD [facility] CT PROCEDURES Final Resu lt * (ABNORMAL) Procalcitonin (06/20/2025 8:53 AM [facility]) Procalcitonin, Serum/Plasma 0.09(H) 0.00 - 0.08 ng/mL LAB CHEMISTRY METHOD 06/20/2025 11:[address] [facility] Comment: PCT >2.00 ng/mL A PCT level above 2.00 ng/mL on the first day of Intensive Care Unit (ICU) admission is associated with a high risk for progression to severe sepsis and/or septic shock. PCT <0.500 ng/mL A PCT level below 0.500 ng/mL on the first day of Intensive Care Unit (ICU) admission is associated with a low risk for progression to severe sepsis and/or septic shock. Note: PCT levels below 0.500 ng/mL do not exclude an infection, because localized infections (without systemic signs) may also be associated with such low levels. If the PCT measurement is done very early after the systemic infection process has started (usually <6 hours), these values may still be low. Various non-infectious conditions are known to induce changes in PCT level. PCT levels between 0.500 ng/mL and 2.00 ng/mL should be interpreted in the context of the specific clinical background and condition(s) of the individual patient. It is recommended to retest PCT within 6-24 hrs if any concentrations <2.00 ng/mL are obtained. Blood Venous blood / Unknown Venipuncture / Unknown 06/20/2025 8:53 AM PST 06/20/2025 9:43 AM PST us Leon Hernandez MD LAB BLOOD ORDERABLES Final Resul t Performing Organization Address [facility] Co de Phone Number [facility] [address] [place] [address], * (ABNORMAL) C-reactive protein (06/20/2025 8:53 AM PST) CRP, Serum/Plasma (mg/dL) 2.8(H) <1.0 mg/dL LAB CHEMISTRY METHOD 06/20/2025 11:[address] [facility] Blood Venous blood / Unknown Venipuncture / Unknown 06/20/2025 8:53 AM PST 06/20/2025 9:43 AM PST us Leon Hernandez MD LAB BLOOD ORDERABLES Final Resul t Performing Organization Address City/[facility] Co de Phone Number [facility] [address] [place] [address], documented in this encounter Visit Diagnoses Diagnosis Pyogenic arthritis of ankle (CMS/HCC) Pyogenic arthritis, ankle and foot Pyogenic inflammation of bone (CMS/HCC) Unspecified osteomyelitis, site unspecified Osteomyelitis of left ankle, unspecified type (CMS/HCC)- Primary Osteomyelitis of left ankle, unspecified type (CMS/HCC) Arthritis of left ankle due to other bacteria (CMS/HCC) Other acute osteomyelitis of left ankle (CMS/HCC) documented in this encounter Care Teams Architect Naval Relationship Specialty Start Date End Date Remy Mg ARNP [address] [place] [address] PCP - General Nurse Practitioner Family 03/08/25 documented as of this encounter
--- OUTSIDE RECORDS SUMMARY | 2025-06-20 09:05 | XMS_ITS | Encounter Summary ---
Author Organization [facility] Address [address] [place] [address] Care Team Providers Care Music Therapy Specialist Name Role Phone Remy Mg Primary Care Provide r Encounter Details Date Type Department Care Team (Late st Contact Info) Description 06/20/2025 9:05 AM PST Lab [facility] [address] [place] [address] Osteomyelitis of left ankle, unspecified type (CMS/HCC) Social History Tobacco Use Types Packs/Day Years Used Date Smoking Tobacco: Never Passive Smoke Exposure: Never Smokeless Tobacco: Former Snuff Quit: 07/03/2005 Alcohol Use Standard Drinks/Week Comments Yes 240 (1 standard drin k = 0.6 oz pure alcohol) 4 to 5 beers a day- not since surgery 05/2025 [facility] Utilities Answer Date Recorded In the past 12 months has [facility] [employer], [employer], [employer], or water [employer] threatened to shut off services in your [...] money to buy more. Never true 05/24/20 25 Ran Out of Food in the Last [...] any time in the past 12 m [facility], were you homeless or living in a custodial (including now)? No 05/24/2025 Sex and Gender Information Value Date Recorded Sex Assigned at Male 05/24/2025 2:45 PM PDT Legal Sex Male 1:11 PM PDT Gender Identity Male 03/13/2025 7:20 AM PDT Sexual Orientation Straight 03/13/2025 7: 20 AM PDT documented as of this encounter Functional Status * STOP-BANG Questionnaire - requires Ht & Wt for calculation Question Answer Date of Assessment Author Do you snore loudly? 0 06/22/2025 9:56 AM P Dayanna Romo MA Do you often feel tired or fatigued after your sleep? 1 06/22/2025 9:56 AM Dayanna Haq MA Has anyone ever observed you stop breathing in your sleep? 0 06/22/2025 9:56 AM Leticia Haq MA Do you have or are you being treated for high blood pressure? 1 06/22/2025 9:56 AM Dayanna Fabian MA Is BMI greater than 35 kg/m2? 0=No 06/22/2025 9:56 AM Dayanna Haq MA Age older than 50 years old? 1=Yes 06/22/2025 9 :56 AM Dayanna Hqa MA Gender - Male 1=Yes 06/22/2025 9:56 AM Dayanna Fabian MA Recent BMI (Calculated) 33.8 06/22/2025 9:56 A M PST Dayanna Gonsales MA documented as of this encounter Plan of Treatment Upcoming Encounters Date Type Department Care Team (Latest Contact Info) Description 06/26/2025 9:30 AM PST Office Visit [facility] [place] [address] [facility] [address] [place] [address] Nabila Campbell MD [address] [place] [address] 07/04/2025 7:15 AM PST Hospital Encounter [facility] Operating Room [address] [place] [phone] Lee Coy, DPM [address] [place] [phone] 07/04/2025 7:15 AM PST - 07/04/2025 10:40 AM PST Surgery [facility] Operating Room [address] [place] [phone] Lee Coy, DP [address] [place] [address] [phone] LEFT - OPEN ARTHRODESIS OF ANKLE [58929 (CPT )] 07/06/2025 10:30 AM PST Office Visit [facility] [place] [address] [place] [phone] Lee Coy, DPM [address] [place] [phone] Scheduled Procedures Name Priority Associated Diagnoses Date/Ti [...] AM PST documented as of this encounter Procedures Procedure Name Priority Date/Time Associated Diagnosis Comments PROCALCITONIN Routine 06/20/2025 8:53 AM PST Osteomyelitis of left ankle, unspecified type (CMS/HCC) COMPLETE BLOOD COUNT WITH DIFF RESULT Routine 06/20/2025 8:53 AM PST Osteomyelitis of left ankle, unspecified type (CMS/HCC) COMPLETE BLOOD COUNT WITH DIFF Routine 06/20/2025 8:53 AM PST Osteomyelitis of left ankle, unspecified type (CMS/HCC) C-REACTIVE PROTEIN Routine 06/20/2025 8: 53 AM PST Osteomyelitis of left ankle, unspecified type (CMS/HCC) documented in this encounter Results * (ABNORMAL) Complete blood count with diff (06/20/2025 8:53 AM PST) WBC Auto 7.8 3.8 - 10.1 x10e3/uL 06/20/2025 11:26 AM [facility] RBC 3.60(L) 4.40 - 5.80 x10e6/uL 06/20/2025 11:26 AM [facility] Hemoglobin 10.9(L) 13.8 - 17.2 g/dL 06/20/2025 11:26 AM [facility] Hematocrit 35.0(L) 41.0 - 50.0 % 06/20/2025 11:26 AM [facility] MCV 97 81 - 100 fL 06/20/2025 11:26 AM [facility] MCH 30.3 27.0 - 35.0 pg 06/20/2025 11:26 AM [facility] MCHC 31.1(L) 32.0 - 37.0 g/dL 06/20/2025 11:26 AM [facility] RDW 14.7 12.3 - 15.4 % 06/20/2025 11:26 AM [facility] Platelets 220 150 - 400 x10e3/uL 06/20/2025 11:26 AM [facility] MPV 10.1 7.4 - 10.4 fL 06/20/2025 11:26 AM [facility] NRBC % 0 0 /100 WBCs 06/20/2025 11:26 AM [facility] Abs. NRBC 0.0 x10e3/uL 06/20/2025 11:26 AM [facility] % Neutrophils 76 % 06/20/2025 11:26 AM [facility] % Lymphocytes 13 % 06/20/2025 11:26 AM [facility] % Monocytes 7 % 06/20/2025 11:26 AM [facility] % Eosinophils 4 % 06/20/2025 11:26 AM [facility] % Basophils 1 % 06/20/2025 11:26 AM [facility] Abs. Neutrophils 5.9 1.6 - 6.9 x10e3/uL 06/20/2025 11:26 AM [facility] Abs. Lymphocytes 1.0(L) 1.1 - 4.8 x10e3/uL 06/20/2025 11:26 AM [facility] Abs. Monocytes 0.5 0.0 - 1.0 x10e3/uL 06/20/2025 11:26 AM [facility] Abs. Eosinophils 0.3 0.0 - 0.5 x10e3/uL 06/20/2025 11:26 AM [facility] Abs. Basophils 0.0 0.0 - 0.4 x10e3/uL 06/20/2025 11:26 AM [facility] Abs. Neutrophils (Auto) 5,900.0 1,600.0 - 6,900.0 /uL 06/20/2025 11:26 AM [facility] Blood Venous blood / Unknown Venipuncture / Unknown 06/20/2025 8:53 AM PST 06/20/2025 9:06 AM PST us Nabila Campbell MD LAB BLOOD ORDERABLES Final Resul t Performing Organization Address City/[facility]/ZIP Co de Phone Number [facility] [address] [place] [address], * (ABNORMAL) Procalcitonin (06/20/2025 8:53 AM PST) Procalcitonin, Serum/Plasma 0.09(H) 0.00 - 0.08 ng/mL LAB CHEMISTRY METHOD 06/20/2025 11:44 AM PST [facility] Comment: PCT >2.00 ng/mL A [...] AM PST 06/20/2025 9:43 AM PST us Nabila Campbell MD LAB BLOOD ORDERABLES Final Resul t Performing Organization Address City/[facility]/ZIP Co de Phone Number [facility] [address] [place] [address], * (ABNORMAL) C-reactive protein (06/20/2025 8:53 AM [facility]) CRP, Serum/Plasma (mg/dL) 2.8(H) <1.0 mg/dL LAB CHEMISTRY METHOD 06/20/2025 11:25 AM [facility] Blood Venous blood / Unknown Venipuncture / Unknown 06/20/2025 8:53 AM PST 06/20/2025 9:43 AM [facility] us Nabila Campbell MD LAB BLOOD ORDERABLES Final Resul t [facility] [address] [place] [address], documented in this encounter Visit Diagnoses Diagnosis Pyogenic arthritis of ankle (CMS/HCC) Pyogenic arthritis, ankle and foot Pyogenic inflammation of bone (CMS/HCC) Unspecified osteomyelitis, site unspecified Osteomyelitis of left ankle, unspecified type (CMS/HCC) Arthritis of left ankle due to other bacteria (CMS/HCC) Other acute osteomyelitis of left ankle (CMS/HCC) documented in this encounter Care Teams Music Therapy Specialist Relationship Specialty Start Date End Date Remy Mg ARNP [address] [place] [address] [address] [place] [address] PCP - General Nurse Practitioner Family 03/08/25 documented as of this encounter
--- OUTSIDE RECORDS SUMMARY | 2025-06-20 09:13 | XMS_ITS | Encounter Summary ---
Author Organization [facility] Address [address] [place] [address] Care Team Providers Care Collection Coordinator Name Role Phone Remy Mg Primary Care Provide r Reason for Referral * MRI/CAT/PET Scan (Emergency) - Closed Specialty Diagnoses / Procedures Referred By Contac t Referred To Contact Radiology Diagnoses Osteomyelitis of left ankle, unspecified type (CMS/HCC) Procedures CT ANKLE LEFT WITH CONTRAST CT ANKLE LEFT WITHOUT CONTRAST Leon eHrnandez MD [address] [place] [address] Phone: tel: fax: [facility] [address] [place] [address] Phone: tel: fax: Referral ID Status Reason Start Date Expiration Date V isits Requested Visits Authorized [id number] Closed Specialty Services Required 06/20/2025 12/21/2025 1 1 . [facility] Reason for Visit * MRI/CAT/PET Scan (Emergency) - Closed Specialty Diagnoses / Procedures Referred By Contac t Referred To Contact Radiology Diagnoses Osteomyelitis of left ankle, unspecified type (CMS/HCC) Procedures CT ANKLE LEFT WITH CONTRAST CT ANKLE LEFT WITHOUT CONTRAST Leon Hernandez MD [address] [place] [address] Phone: tel: fax: [facility] [address] [place] [address] Phone: tel: fax: Referral ID Status Reason Start Date Expiration Date V isits Requested Visits Authorized [id number] Closed Specialty Services Required 06/20/2025 12/21/2025 1 1 Encounter Details Date Type Department Care Team (Latest Contact Info) Description 06/20/2025 9:[address] [facility] - 06/20/2025 11:[address] [facility] Hospital Encounter [facility] [address] [place] [address] Leon Hernandez MD [address] [place] [address] Osteomyelitis of left ankle, unspecified type (CMS/HCC) Discharge Disposition: Home/Self Care Social History Tobacco Use Types Packs/Day Years Used Date Smoking Tobacco: Never Passive Smoke Exposure: Never Smokeless Tobacco: Former Snuff Quit: 07/03/2005 Alcohol Use Standard Drinks/Week Comments Yes 240 (1 standard drin k = 0.6 oz pure alcohol) 4 to 5 beers a day- not since surgery 05/2025 [facility] Utilities Answer Date Recorded In the past 12 months has [employer], gas, oil, or water [employer] threatened to shut off services in your [...] the money to buy more. Never true 10/22/20 25 Ran Out of Food in the [...] any time in the past 12 m [facility], were you homeless or living in a skilled nursing (including now)? No 05/24/2025 Sex and Gender Information Value Date Recorded Sex Assigned at Male 05/24/2025 2:45 PM PDT Legal Sex Male 1:11 PM PDT Gender Identity Male 03/13/2025 7:20 AM PDT Sexual Orientation Straight 03/13/2025 7: 20 AM PDT documented as of this encounter Functional Status documented as of this encounter Medications at Time of Discharge acetaminophen (TYLENOL) 325 mg tablet Take 2 tablets (650 mg total) by mouth every 4 (four) hours as needed for moderate pain (4-6) 30 tablet 05/31/2025 allopurinoL (ZYLOPRIM) 300 mg tablet 03/21/2025 amoxicillin-pot clavulanate (AUGMENTIN) 875-125 mg 05/17/2025 gabapentin (NEURONTIN) 100 mg capsule Take 1 capsule (100 mg total) by mouth 3 (three) times a day 90 capsule 11 06/08/2025 6 glimepiride (AMARYL) 2 mg tablet Take 1 tablet (2 mg total) by mouth daily 04/19/2024 HYDROmorphone (DILAUDID) 4 mg tabletIndications:O ther acute osteomyelitis of left ankle (CMS/HCC),Other specified puerperal infections Take 1 tablet (4 mg total) by mouth every 6 (six) hours as needed for severe pain (7-10) for up to 10 days 30 tablet 06/20/2025 Jardiance 25 mg tablet tablet Take 1 tablet (25 mg total) by mouth daily 08/05/2024 losartan-hydrochlor othiazide (HYZAAR) 100-25 mg per tablet Take 1 tablet by mouth daily 02/10/2025 metFORMIN XR (GLUCOPHAGE-XR) 750 mg 24 hr tablet Take 2 tablets (1,500 mg total) by mouth daily 10/03/2024 nadoloL (CORGARD) 20 mg tablet Take 1 tablet (20 mg total) by mouth daily 04/19/2024 oxybutynin chloride extended release, ER, 5 mg 24 hr tablet Take 1 tablet (5 mg total) by mouth nightly 30 tablet 05/31/2025 rosuvastatin (CRESTOR) 10 mg tablet Take 1 tablet (10 mg total) by mouth daily tamsulosin (FLOMAX) 0.4 mg capsule Take 2 capsules (0.8 mg total) by mouth nightly 60 capsule 05/31/2025 documented as of this encounter Plan of Treatment Upcoming Encounters Date Type Department Care Team (Latest Contact Info) Description 06/26/2025 9:[address] [facility] Office Visit [facility]ious [facility] [place] [address] [facility] [address] [place] [address] Leon Hernandez MD [address] [place] [address] 07/04/2025 7:15 AM PST Hospital Encounter [facility] Operating Room [address] [place] [phone] Lee Coy, CHERRIE [address] [place] [address] 07/04/2025 7:15 AM PST - 07/04/2025 10:[address] [facility] Surgery [facility] Operating Room [address] [place] [phone] Lee Coy, XIMENA [address] [place] [address] [phone] LEFT - OPEN ARTHRODESIS OF ANKLE [[id number] (CPT )] 07/06/2025 10:30 AM PST Office Visit [facility] [place] [address] [place] [address] Lee Coy, DPM [address] [place] [address] Scheduled Procedures Name Priority Associated Diagnoses Date/Ti [...] Procedure Name Priority Date/Time Associated Diagnosis Comments CT ANKLE LEFT WITH CONTRAST STAT 06/20/2025 9:51 AM PST Osteomyelitis of left ankle, unspecified type (CMS/HCC) documented in this encounter Results * CT ANKLE LEFT WITH CONTRAST (06/20/2025 9:51 AM PST) Anatomical Region Laterality Modality Lower Extremities, Ankle Left Compute d Tomography 06/20/2025 10:4 5 AM PST Narrative 06/20/2025 10:45 [place]. [address] PATIENT NAME: LEE MIGUEL : 1955 GENDER: M EXAM DATE: 06/20/2025 9:43 [facility] ORDER[facility] PHYSICIAN: LEON HERNANDEZ CC: -- - - - CONTRAST: 100ml omnipaque [address] ID: [id number] mGy: PROCEDURE: CT ANKLE LEFT WITH CONTRAST INDICATIONS: Increasing CRP and swelling with external fixator in place COMPARISON: [facility], CT, CT ANKLE LEFT WITH CONTRAST, 05/24/2025, 11:27. [...] previous study. No acute fracture or dislocation. [id number] osteoarthritic changes are noted throughout rest of [...] Procedure Note Harry Batres MD - 06/20/2025 [place]. [address] PATIENT NAME: LEE MIGUEL : 1955 GENDER: M EXAM DATE: 06/20/2025 9:43 ORDERED FROM: [facility] ORDERING PHYSICIAN: LEON HERNANDEZ CC: -- - - - CONTRAST: 100ml omnipaque [address] ID: [id number] mGy: PROCEDURE: CT ANKLE LEFT WITH CONTRAST INDICATIONS: Increasing CRP and swelling with external fixator in place COMPARISON: [facility], CT, CT ANKLE LEFT WITH CONTRAST,05/24/2025, 11:27. [...] on previous study. No acute fractureor dislocation. 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 Don't add ice. Mix with Crystal Light or juice to at least 600 mL (20 fl oz) total volume. Pt drinks slowly over 1 hr. Leave [address] has pt finish at exam. Study performed at 1-4 hrs post contrast. Given 06/20/2025 10:00 AM PST 100 mL documented in this encounter Care Teams Collection Coordinator Relationship Specialty Start Date End Date Remy Mg ARNP [address] [place] [address] [address] [place] [address] PCP - General Nurse Practitioner Family 03/08/25 documented as of this encounter
--- OUTSIDE RECORDS SUMMARY | 2025-06-21 15:50 | XMS_ITS | Continuity of Care Document ---
Author Organization [place] [address] Phone Care Team Providers Care Supervisor Rough End Name Role Phone LEON HERNANDEZ MD Primary Care Provider LEON HERNANDEZ MD Attending Provider LEON HERNANDEZ MD Referring Provider DOC, EMS Attending Provider DOC, EMS Referring Provider Care Teams Patient Care Team Team Status: Active Member Role/Relationship Status Dates Remy Mg DNP TRIAGE REGISTER NURSE PALM GATHERER Primary Care Prov ider Active LEON HERNANDEZ MD Primary Care Provider Active Visit Care Team Team Status: Inactive Member Role/Relationship Status Dates LEON HERNANDEZ MD Primary Care Provider Active Start: June 13, 2025 End: June 13, 2025 LEON HERNANDEZ MD Attending Provider Active Sta rt: June 13, 2025 End: June 13, 2025 LEON HERNANDEZ MD Referring Provider Active Sta rt: June 13, 2025 End: June 13, 2025 Patient Care Team Team Status: Inactive Member Role/Relationship Status Dates LEON HERNANDEZ MD Primary Care Provider Active Start: June 20, 2025 End: June 20, 2025 EMS DOC Attending Provider Active Start: No vember 2024 End: June 20, 2025 EMS DOC Referring Provider Active Start: No vember 2024 End: June 20, 2025 Chief Complaint and Reason for Visit Chief Complaint Admit Date LAB June 13, 2025 7:25pm ADULT GEN EXAM June 20, 2025 12:04pm Allergies, Adverse Reactions, Alerts Allergen Type Severity Reaction Last Updated Verified Status grass pollen Allergy Moderate Itching February 20 7:00am Yes Active tree and shrub pollen Allergy Moderate Respiratory Ju 2024 7:00am Yes Active Social History Smoking Status Status Start Date End Date Date of Observa tion Ex-smoker (finding) 2007 8:29am Observation Status Observation Response Date of Response Living arrangement At home February 20 7:29am Living Situation With spouse/s.o. February 20 7:29am ETOH Use Beer February 20, 2025 7:29am Psychiatric Other October 16, 2021 2:05pm Legal Sex Male Sex Assigned At Male March h, 89 Family History Relationship Condition Age at Onset Recorded Date/T judy father Hypertension Unknown Severe chronic obstr uctive pulmonary disease Unknown mother Rheumatoid arthritis Unknown Malignant neoplasm of colon Unknown brother Malignant neoplasm of pancreas Unknown Obesity Unknown Problems Active Problems Problem Diagnosis/Recorded Date Onset Date Status C omments Wound of left foot February 20, 2025 12:27pm Unknown Acti ve Bleeding prostate varices June 25, 2024 3:27pm Unknown Active Gross hematuria in 2023 BPH with lower urinary tract symptoms without urinary obstruction June 25, 2024 3:28pm Unknown Active Gout June 23, 2024 8:34am Unknown Active Dry eye syndrome of both eyes June 23, 2024 8:34am Unknown Active Seborrheic dermatitis June 25, 2024 3:30pm Unknown Active Actinic keratosis June 23, 2024 8:34am Unknown Ac tive Type 2 diabetes mellitus with peripheral neuropathy June 23, 2024 8:35am Unknown Active Alcoholic cirrhosis of liver June 23, 2024 8:35am Unknown Active Bilateral neural hearing loss June 23, 2024 8:33am Unknown Active Essential (primary) hypertension June 23, 2024 8:35am Unknown Active IPMN (intraductal papillary mucinous neoplasm) June 25, 2024 3:29pm Unknown Active 02/19 24, side-branch IPMN, incidental finding on CT; repeat 01/2025 Adenomatous colon polyp June 23, 2024 8:32am Unknown Active colon oscopy 12/2010 Dr. Galvan Ankle pain December 05, 2024 6:27am Unknown Active Asymptomatic cholelithiasis June 23, 2024 8:32am Unknown Active Neuropathic arthropathy January 27, 2025 8:29am Unknown Active Left ankle sprain January 03, 2025 9:23am Unknown Active Inactive/Resolved Problems Problem Diagnosis/Recorded Date Onset Date Status Comments Status post Mohs surgery June 25, 2024 3:34pm Unknown Resolved Nasal BCC Hx of umbilical hernia repair June 042023 3:33pm Unknown Resolved 2003 Status post total knee replacement, left June 25, 2024 3:36pm Unknown Resolved 12/2022 Status post total knee replacement, right June 25, 2024 3:35pm Unknown Resolved 09/2022 S/P lumbar laminectomy June 25 3:31pm Unknown Resolved 1983, L4-5 x 2 surgeries S/P lumbar laminectomy June 25 3:32pm Unknown Resolved 1986, L4-5 History of arthroscopy of don th knees June 25, 2024 3:32pm Unknown Resolved ~1997 H/O esophagogastroduodenoscopy June 25, 2024 3:33pm Unknown Resolved 12/2010, portal gastropathy H/O colonoscopy June 25, 2024 3:34pm Unknown Resolved 12/2010, adenomatous polyps + proctitis H/O colonoscopy June 25, 2024 3:35pm Unknown Resolved 10/2021, adenomatous polyps Medications Medication Status Dose Units Route Directions Qty Days Refills S tart Date Stop Date End Date Reason(s) Instructions Adherence Rosuvastati n 10 mg tablet Active 10 MG PO every day 90 3 Decemb er 2023 2:49pm Unknown Empaglifloz in (Jardiance) 25 mg tablet Active 25 MG PO DAILY 90 3 2024 5:05pm Unknown Oxybutynin Chloride 5 mg tablet extended release 24hr Discont inued 5 MG PO EVERY EVENING 90 2024 12:00a m February 11, 2025 11:20 am Tamsulosin 0.4 mg capsule Active 0.4 MG PO TWICE A DAY 180 3 2024 12:29p m BPH with lower urinary tract symptoms without urinary obstructio n Benign prostatic hyperplasi a with lower urinary tract symptoms Unknown Metformin 750 mg tablet extended release 24 hr Active 1500 MG PO EVERY MORNING 180 3 October 03, 2024 3:38pm Unknown Losartan-Hy drochloroth iazide 100-25 mg tablet Discont inued 1 TAB PO every day 90 0 February 10, 2025 3:20am Novem 2024 2:08p m Oxybutynin Chloride 5 mg tablet extended release 24hr Active 5 MG PO EVERY EVENING 90 1 February 11, 2025 11:20a m Unknown Amoxicillin -Pot Clavulanate 875-125 mg tablet Discont inued 1 TAB PO TWICE A DAY February 23, 2025 7:05am Octob er 2024 7:56a m Wound of left foot Gout Unspecifie d open wound, left foot, initial encounter Idiopathic chronic gout, multiple sites, without tophus (tophi) Tak1 1 tablet twice daily Sulfamethox azole-Trime thoprim 800-160 mg tablet Discont inued 1 TAB PO TWICE A DAY February 23, 2025 7:05am Octob er 2024 7:56a m Wound of left foot Unspecifie d open wound, left foot, initial encounter Take 1 tablet twice daily Nadolol 20 mg tablet Active 20 MG PO DAILY 90 0 Septem charmaine 2024 12:35p m Primary hypertensi on Essential (primary) hypertensi on Unknown Glimepiride 2 mg tablet Active 2 MG PO EVERY MORNING 90 0 Septem charmaine 2024 12:35p m administer with breakfast Unknown Losartan-Hy drochloroth iazide 100-25 mg tablet Active 1 TAB PO every day 90 0 Novemb er 2024 2:07pm Unknown Lisinopril- Hydrochloro thiazide (Zestoretic ) 1 EACH tablet Discont inued 2 TAB PO DAILY October 15, 2021 11:00p m Novem charmaine 2023 8:40a m Nadolol 20 MG tablet Discont inued 1 TAB PO DAILY October 15, 2021 11:00p m Novem charmaine 2023 8:00a m Empaglifloz in (Jardiance) 25 MG tablet Discont inued 1 TAB PO DAILY October 15, 2021 11:00p m Janua ry 2024 5:05p m Doxycycline Hyclate 50 MG tablet,meghan yed release (DR/EC) Discont inued 1 TAB PO TWICE A DAY October 15, 2021 11:00p m Novem charmaine 2023 8:40a m Glimepiride 2 mg tablet Discont inued 2 MG PO EVERY MORNING Novemb er 2023 12:00a m Septe mber 2024 12:35 pm administer with breakfast Losartan-Hy drochloroth iazide 100-25 mg tablet Discont inued 1 TAB PO every day [facility] 2023 12:00a m February 10, 2025 3:20a m Metformin 750 mg tablet extended release 24 hr Discont inued 1500 MG PO EVERY MORNING [facility] 2023 12:00a m 2023 8:00a m Rosuvastati n 10 mg tablet Discont inued 10 MG PO every day [facility]2023 12:00a m [facility] 2023 2:49p m Triamcinolo ne Acetonide 0.1 % cream Discont inued 1 APPLIC TOP every day [facility]2023 12:00a m [facility] 2023 3:53p m Cholecalcif elle (Vitamin D3) 25 mcg (1,000 unit) tablet Active 50 MCG PO every day [facility]2023 12:00a m Unknown Cyclosporin e (Restasis) 0.05 % dropperette Discont inued 1 DROPS OP ONCE [facility] 2023 12:00a m [facility] 2023 8:01a m Instill one drop into both eyes once a day Nadolol 20 mg tablet Discont inued 20 MG PO DAILY [facility] 2023 7:58am [facility] 2024 12:35 pm Primary hypertensi on Essential (primary) hypertensi on Metformin 750 mg tablet extended release 24 hr Discont inued 1500 MG PO EVERY MORNING 180 3 2023 7:59am October 03, 2024 3:38p m Triamcinolo ne Acetonide 0.1 % cream Active 1 APPLIC TOP EVERY EVENING as needed for dermatitis [facility] 2023 3:48pm Seborrheic dermatitis Seborrheic dermatitis , unspecifie d Unknown Cyclosporin e (Restasis) 0.05 % dropperette Discont inued 1 DROPS OP every day 30 2 [facility] 2023 12:00a m February 20, 2025 7:00a m Dry eye syndrome of both eyes Dry eye syndrome of bilateral lacrimal glands Tamsulosin 0.4 mg capsule Discont inued 0.4 MG PO EVERY EVENING 90 3 Novemb er 2023 12:00a m Carlua ry 2024 12:29 pm BPH with lower urinary tract symptoms without urinary obstructio n Benign prostatic hyperplasi a with lower urinary tract symptoms Allopurinol 300 mg tablet Active 300 MG PO every day 90 3 Novemb er 2023 12:00a m Gout Gout, unspecifie d stop x 2 weeks during gout attack Unknown Colchicine 0.6 mg tablet Discont inued 0.6 MG PO THREE TIMES A DAY as needed for gout attack 30 2 Novemb er 2023 12:00a m Novem charmaine 2023 4:15p m Gout Gout, unspecifie d Wheat Dextrin (Benefiber Sugar Free (Dextrin)) 3 gram/3.8 gram powder Active 1.5 - 3 GM PO every day 90 0 Novemb er 2023 12:00a m mix into at least 4 oz water or juice before administering Unknown Clotrimazol e 1 % cream Active 1 APPLIC TOP every day as needed for athlete's foot 45 0 Novemb er 2023 12:00a m Unknown Colchicine 0.6 mg tablet Active 0.6 MG PO THREE TIMES A DAY as needed for gout attack 30 2 Novemb er 2023 4:15pm Gout Gout, unspecifie d Use TID x 5 days during acute gout attack Unknown Amoxicillin -Pot Clavulanate 875-125 mg tablet Discont inued 1 TAB PO TWICE A DAY February 19, 2025 11:00p m February 23, 2025 7:05a m Wound of left foot Gout Unspecifie d open wound, left foot, initial encounter Idiopathic chronic gout, multiple sites, without tophus (tophi) Tak1 1 tablet twice daily Sulfamethox azole-Trime thoprim 800-160 mg tablet Discont inued 1 TAB PO TWICE A DAY February 19, 2025 11:00p m February 23, 2025 7:05a m Wound of left foot Unspecifie d open wound, left foot, initial encounter Take 1 tablet twice daily Immunizations Immunization Event Date Not Given Reason Dose Number Gang Worker Lot Number Reason(s) Given Vaccine Information Statement (VIS) Detail Administration Location [facility] November 26, 2020 COVID-19 SAUL Novemb er 2020 Flu Vaccine HD [id number] Novemb er 2023 [id number] [place] Hepatitis B Pediatric Vaccine Octobe r 2010 Relevant Diagnostic Tests and/or Laboratory Data Laboratory Results Test Collection Date/Time Result Date/Time Result Interpretation Reference Range Result Comment Performing Site White Blood Count June 13, 2025 6:05pm June 13, 2025 7:33pm 7.4 10*3/uL 4.8-10.8 MAIN [facility] [id number] [address] [facility] [address] Red Blood Count June 13, 2025 6:05pm June 13, 2025 7:33pm 3.25 10*6/uL below low threshold 4.70-6.10 MAIN LAB [id number] [address] [facility] [address] Hemoglobi n June 13, 2025 6:05pm June 13, 2025 7:33pm 9.7 g/dL below low threshold 14.0-18.0 MAIN LAB [id number] [address] [facility] [address] Hematocri t June 13, 2025 6:05pm June 13, 2025 7:33pm 32.0 % below low threshold 42.0-52.0 MAIN LAB [id number] [address] [facility] [address] Mean Corpuscul ar Volume June 13, 2025 6:05pm June 13, 2025 7:33pm 98.5 fL above high threshold 80.0-94.0 MAIN LAB [id number] [address] [facility] [address] Mean Corpuscul ar Hemoglobi n June 13, 2025 6:05pm June 13, 2025 7:33pm 29.8 pg 27.0-31.0 MAIN LAB [id number] [address] [facility] [address] Mean Corpuscul ar Hemoglobi n Concent June 13, 2025 6:05pm June 13, 2025 7:33pm 30.3 g/dL below low threshold 32.0-36.0 MAIN LAB [id number] [address] [facility] [address] Red Cell Distribut ion Width June 13, 2025 6:05pm June 13, 2025 7:33pm 15.8 % above high threshold 12.0-15.0 MAIN LAB [id number] [address] [facility] [address] Platelet Count June 13, 2025 6:05pm June 13, 2025 7:33pm 155 10*3/uL 130-450 MAIN LAB [id number] [address] [facility] [address] Mean Platelet Volume June 13, 2025 6:05pm June 13, 2025 7:33pm 10.7 fL 7.4-11.4 MAIN LAB [id number] [address] [facility] [address] Neutrophi ls # (Auto) June 13, 2025 6:05pm June 13, 2025 7:33pm 5.4 10*3/uL 1.5-6.6 MAIN LAB [id number] [address] [facility] [address] Lymphocyt es # (Auto) June 13, 2025 6:05pm June 13, 2025 7:33pm 1.1 10*3/uL below low threshold 1.5-3.5 MAIN LAB [id number] [address] [facility] [address] Monocytes # (Auto) June 13, 2025 6:05pm June 13, 2025 7:33pm 0.8 10*3/uL 0.0-1.0 MAIN LAB [id number] [address] [facility] [address] Eosinophi ls # (Auto) June 13, 2025 6:05pm June 13, 2025 7:33pm 0.1 10*3/uL 0.0-0.7 MAIN LAB [id number] [address] [facility] [address] Basophils # (Auto) June 13, 2025 6:05pm June 13, 2025 7:33pm 0.0 10*3/uL 0.0-0.1 MAIN LAB [id number] [address] [facility] [address] Nucleated Red Blood Cells % June 13, 2025 6:05pm June 13, 2025 7:33pm 0.0 /100{WB C} MAIN LAB [id number] [address] [facility] [address] Nucleated RBC Absolute Count (auto) June 13, 2025 6:05pm June 13, 2025 7:33pm 0.00 10*3/uL MAIN LAB [id number] [address] [facility] [address] Sodium Level June 13, 2025 6:05pm June 13, 2025 8:05pm 135 mmol/L 135-145 MAIN LAB [id number] [address] [facility] [address] Potassium Level June 13, 2025 6:05pm June 13, 2025 8:05pm 3.8 mmol/L 3.5-4.5 As of January 2023 testing method has changed, this may include reference ranges. MAIN LAB [id number] [address] [facility] [address] Chloride Level June 13, 2025 6:05pm June 13, 2025 8:05pm 95 mmol/L below low threshold 101-111 As of January 2023 testing method has changed, this may include reference ranges. MAIN LAB [id number] [address] [facility] [address] Carbon Dioxide Level June 13, 2025 6:05pm June 13, 2025 8:05pm 31 mmol/L 21-32 As of January 2023 testing method has changed, this may include reference ranges. MAIN LAB [id number] [address] [facility] [address] Anion Gap June 13, 2025 6:05pm June 13, 2025 8:05pm 9.0 6-13 MAIN LAB [id number] [address] [facility] [address] Blood Urea Nitrogen June 13, 2025 6:05pm June 13, 2025 8:05pm 30 mg/dL above high threshold 6-20 As of January 2023 testing method has changed, this may include reference ranges. MAIN LAB [id number] [address] [facility] [address] Creatinin e June 13, 2025 6:05pm June 13, 2025 8:05pm 0.4 mg/dL below low threshold 0.6-1.3 As of January 2023 testing method has changed, this may include reference ranges. MAIN LAB [id number] [address] [facility] [address] Estimated GFR (MDRD) June 13, 2025 6:05pm June 13, 2025 8:05pm 213 >89 The IDMS-traceab le MDRD Study Equation has been validated extensively in and populations between the ages of 18 and 70 with impaired kidney function (eGFR < 60 mL/min/1.73m 2) and has shown good performance for patients with all common causes of kidney disease. Although this equation has not been validated for patients older than 70, an MDRD-derived eGFR may still be a useful tool for providers caring for patients older than 70.Reference s: http://www.n kdep.nih.gov /lab-evaluat ion/gfr/crea tinine-stand ardization, last updated October 2011. MAIN LAB [id number] [address] [facility] [address] Glucose Level June 13, 2025 6:05pm June 13, 2025 8:05pm 116 mg/dL above high threshold 74-104 As of January 2023 testing method has changed, this may include reference ranges. MAIN LAB [id number] [address] [facility] [address] Calcium Level June 13, 2025 6:05pm June 13, 2025 8:05pm 9.5 mg/dL 8.5-10.3 As of January 2023 testing method has changed, this may include reference ranges. MAIN LAB [id number] [address] [facility] [address] Total Bilirubin June 13, 2025 6:05pm June 13, 2025 8:05pm 0.7 mg/dL 0.2-1.0 As of January 2023 testing method has changed, this may include reference ranges. MAIN LAB [id number] [address] [facility] [address] Aspartate Amino Transf (AST/SGOT ) June 13, 2025 6:05pm June 13, 2025 8:05pm 13 [iU]/L 10-42 As of January 2023 testing method has changed, this may include reference ranges. MAIN LAB [id number] [address] [facility] [address] Alanine Aminotran sferase (ALT/SGPT ) June 13, 2025 6:05pm June 13, 2025 8:05pm 9 [iU]/L below low threshold 10-60 As of January 2023 testing method has changed, this may include reference ranges. MAIN LAB [id number] [address] [facility] [address] Alkaline Phosphata se June 13, 2025 6:05pm June 13, 2025 8:05pm 123 [iU]/L above high threshold 42-121 As of January 2023 testing method has changed, this may include reference ranges. MAIN LAB [id number] [address] [facility] [address] C-Reactiv e Protein June 13, 2025 6:05pm June 13, 2025 8:05pm 12.2 mg/dL above high threshold <0.6 As of January 2023 testing method has changed, this may include reference ranges. MAIN LAB [id number] [address] [facility] [address] Total Protein June 13, 2025 6:05pm June 13, 2025 8:05pm 6.5 g/dL 6.4-8.9 As of January 2023 testing method has changed, this may include reference ranges. MAIN LAB [id number] [address] [facility] [address] Albumin June 13, 2025 6:05pm June 13, 2025 8:05pm 3.7 g/dL 3.2-5.5 As of January 2023 testing method has changed, this may include reference ranges. MAIN LAB [id number] [address] [facility] [address] Globulin June 13, 2025 6:05pm June 13, 2025 8:05pm 2.8 g/dL 2.1-4.2 MAIN LAB [id number] [address] [facility] [address] Albumin/G lobulin Ratio June 13, 2025 6:05pm June 13, 2025 8:05pm 1.3 1.0-2.2 MAIN LAB [id number] [address] [facility] [address] Advance Directives Advance Directive Response Recorded Date/ Time Advance Directives No May 23, 2022 6:42am Advance Directives Information Provided No May 23, 2022 6:42am Insurance Providers Guarantor Lee Kenny , Sailaja Address [address] [facility] [address] Contact Info. Home Phone: Payer Group Member ID Coverage Type Subscriber Relationship to Subscriber Effective Date Expiration Date [facility] Id: [id number] null Sailaja Jacinto Id: [id number] [address] [place] [address] Home Phone: Email: [email or web address] .[email or web address] Self Encounters Encounter Location(s) Arrival/Admit Date Discharge/Departure Date Discharge/Departure Disposition Provider(s) Departed Clinical -Lab Reference (non patient) June 13, 2025 7:25pm June 13, 2025 11:59pm Discharged to home care or self care (routine discharge) LEON HERNANDEZ MD Departed Clinical -Emergency Medical Services June 20, 2025 12:04pm June 20, 2025 11:59pm Discharged to home care or self care (routine discharge) EMS DOC
--- OUTSIDE RECORDS SUMMARY | 2025-06-22 10:00 | XMS_ITS | Encounter Summary ---
Author Organization [facility] Address [address] [place] [address] Care Team Providers Care Cartridge Loader Name Role Phone Remy Mg Primary Care Provide r Reason for Visit * Reason Comments Post-op 4w follow up post -o p and preop for Left open arthrodesis of ankle, arthrodesis of subtalar joint, removal of external bone fixation - surgery 07/04/25 * Evaluate and Treat (Urgent) - Authorized Specialty Diagnoses / Procedures Referred By Contchristina t Referred To Contact Podiatry Diagnoses Neuropathic arthropathy Remy Mg ARNP [address] [place] [address] Phone: tel: fax: [facility] [address] [place] [address] Phone: tel: fax: Referral ID Status Reason Start Date Expiration Date V isits Requested Visits Authorized [id number] Authorized 03/07/2025 03/07/2026 1 6 Encounter Details Date Type Department Care Team (Late st Contact Info) Description 06/22/2025 10:00 AM PST Office Visit [facility] [address] [place] [address] Lee Coy, DPM [id number] [place] [address] Arrived Social History Tobacco Use Types Packs/Day Years Used Date Smoking Tobacco: Never Passive Smoke Exposure: Never Smokeless Tobacco: Former Snuff Quit: 07/03/2005 Tobacco Cessation:Counseling Given: Not Answered Alcohol Use Standard Drinks/Week Comments Yes 240 (1 standard drin k = 0.6 oz pure alcohol) 4 to 5 beers a day- not since surgery 05/2025 [facility] Utilities Answer Date Recorded In the past 12 months has th e [employer], [employer], oil, or water company threatened to shut off services in your [...] any time in the past 12 m [facility], were you homeless or living in a mcc (including now)? No 05/24/2025 Sex and Gender Information Value Date Recorded Sex Assigned at Male 05/24/2025 2:45 PM PDT Legal Sex Male 1:11 PM PDT Gender Identity Male 03/13/2025 7:20 AM PDT Sexual Orientation Straight 03/13/2025 7 :20 AM PDT documented as of this encounter Last Filed Vital Signs Vital Sign Reading Time Taken Comments Blood Pressure 106/67 06/22/2025 9:55 AM PST Pulse 87 06/22/2025 9:55 AM PST Temperature - - Respiratory Rate - - Oxygen Saturation 99% 06/22/2025 9:55 AM PST Inhaled Oxygen Concentration - - Weight 113 kg (249 lb 1.9 oz) 06/22/2025 9:55 AM PST Height 182.9 cm (6' 0.01) 06/22/2025 9:55 AM PS T Body Mass Index 33.78 06/22/2025 9:55 AM PST documented in this encounter Functional Status * STOP-BANG Questionnaire - requires Ht & Wt for calculation Question Answer Date of Assessment Author Do you snore loudly? 0 06/22/2025 9:56 AM P Dayanna Romo MA Do you often feel tired or fatigued after your sleep? 1 06/22/2025 9:56 AM Dayanna Haq MA Has anyone ever observed you stop breathing in your sleep? 0 06/22/2025 9:56 AM PST Leticia Gonsales MA Do you have or are you being treated for high blood pressure? 1 06/22/2025 9:56 AM PST Dayanna Baird MA Is BMI greater than 35 kg/m2? 0=No 06/22/2025 9:56 AM Dayanna Haq MA Age older than 50 years old? 1=Yes 06/22/2025 9 :56 AM Dayanna Haq MA Gender - Male 1=Yes 06/22/2025 9:56 AM Dayanna Fabian MA Recent BMI (Calculated) 33.8 06/22/2025 9:56 A M Dayanna Haq MA documented as of this encounter Plan of Treatment Upcoming Encounters Date Type Department Care Team (Latest Contact Info) Description 06/26/2025 9:30 AM PST Office Visit [facility] Infectious Diseases [place] [address] [facility] [address] [place] [address] Nabila Campbell MD [address], [place] [id number] 07/04/2025 7:15 AM PST Hospital Encounter [facility] [address] [place] [phone] Lee Coy, DPM [address] [place] [address] 07/04/2025 7:15 AM PST - 07/04/2025 10:40 AM PST Surgery [facility] [address] [place] [phone] Lee Coy, DPM [address] [place] [address] LEFT - OPEN ARTHRODESIS OF ANKLE [[id number] (CPT )] 07/06/2025 10:30 AM PST Office Visit [facility] [address] [place] [phone] Lee Coy, DP [address] [place] [phone] Scheduled Procedures Name Priority Associated Diagnoses Date/Ti [...] AM PST documented as of this encounter Visit Diagnoses Not on filedocumented in this encounter Care Teams Cartridge Loader Relationship Specialty Start Date End Date Remy Mg ARNP [address] [place] [address] PCP - General Nurse Practitioner Family 03/08/25 documented as of this encounter
--- OUTSIDE RECORDS SUMMARY | 2025-06-23 14:15 | XMS_ITS | Encounter Summary ---
Author Organization [facility] Address [address] [place] [address] Care Team Providers Care Metal Fabricating Supervisor Name Role Phone Remy Mg III Primary Care Provider Unav ailable Reason for Referral * Outpatient Service (Routine) - Authorized Specialty Diagnoses / Procedures Referred By Virgilio t Referred To Contact Orthopedic Surgery Diagnoses Osteoarthritis of both knees, unspecified osteoarthritis type Procedures REF ORTHO EXTERNAL OFFICE VISIT E&M EST PT, MODERATE MDM, 30-39 MINS [facility] [address] [place] [address] Phone: tel: fax: Orthopedics, [facility] [place] [address] [address] fax: Referral ID Status Reason Start Date Expiration Date Visits Requested Visits Authorized [id number] Authorized Evaluate and Treat-Surgery if Indicated 08/06/2022 08/06/2023 6 6 Encounter Details Date Type Department Care Team (Latest Contact Info) Description 08/06/2022 Community Orders Non [facility] Provider Rodrigo Rosario[employer] [address] [place] [address] Osteoarthritis of both knees, unspecified osteoarthritis type (Primary Dx) Social History Tobacco Use Types Packs/Day Years Used Date Smoking Tobacco: Never Assessed Sex and Gender Information Value Date Recorded Sex Assigned at Not on file Legal Sex Male 8:07 AM PST Gender Identity Not on file Sexual Orientation Not on file documented as of this encounter Plan of Treatment Not on file documented as of this encounter Visit Diagnoses Diagnosis Osteoarthritis of both knees, unspecified osteoarthritis type- Primary documented in this encounter Care Teams Metal Fabricating Supervisor Relationship Specialty Start Date End Date Remy Mg III [facility] PRIMARY CAR [address] [place] [address] PCP - General 01/27/24 documented as of this encounter
--- OUTSIDE RECORDS SUMMARY | 2025-06-23 14:15 | XMS_ITS | Encounter Summary ---
Author Organization [facility] Address [address] [place] [address] [place] [address] Care Team Providers Care Crew Leader Gluing Name Role Phone Remy Mg III Primary Care Provider Unav ailable Reason for Referral * Surgical Services (Routine) - Authorized Specialty Diagnoses / Procedures Referred By Contchristina t Referred To Contact Orthopedic Surgery Diagnoses Primary localized osteoarthrosis of the knee, left Procedures REF ORTHO EXTERNAL TOTAL KNEE ARTHROPLASTY Tanner Lindsey [facility] [address] [place] [address] Phone: tel: fax: Stephanie Sawyer [facility] At [address] [address] Referral ID Status Reason Start Date Expiration Date Visits Requested Visits Authorized [id number] Authorized Procedure Only 10/29/2022 10/30/2023 2 2 Encounter Details Date Type Department Care Team (Late st Contact Info) Description 10/29/2022 Community Orders Non [facility] Provider Tanner Lindsey [facility] [address] [place], [place] [id number] Primary localized osteoarthrosis of the knee, left (Primary Dx) Social History Tobacco Use Types Packs/Day Years Used Date Smoking Tobacco: Never Assessed Sex and Gender Information Value Date Recorded Sex Assigned at Not on file Legal Sex Male 8:07 AM PST Gender Identity Not on file Sexual Orientation Not on file documented as of this encounter Plan of Treatment Not on file documented as of this encounter Visit Diagnoses Diagnosis Primary localized osteoarthrosis of the knee, left- Primary documented in this encounter Care Teams Crew Leader Gluing Relationship Specialty Start Date End Date Remy Mg III [facility] PRIMARY CAR [address] [place] [address] PCP - General 01/27/24 documented as of this encounter
--- OUTSIDE RECORDS SUMMARY | 2025-06-23 14:15 | XMS_ITS | Encounter Summary ---
Author Organization [facility] Address [address] [place] [address] Care Team Providers Care Apartment Manager Name Role Phone Remy Mg III Primary Care Provider Unav ailable Encounter Details Date Type Department Care Team (Late st Contact Info) Description 08/13/2022 Community Orders Non [facility] Provider Tanner Lindsey [facility] [address] [place], [place] [phone] Social History Tobacco Use Types Packs/Day Years [...] on filedocumented in this encounter Care Teams Apartment Manager Relationship Specialty Start Date End Date Remy Mg III [facility] [address] [place] [address] PCP - General 01/27/24 documented as of this encounter
--- OUTSIDE RECORDS SUMMARY | 2025-06-23 14:15 | XMS_ITS | Encounter Summary ---
Author Organization [facility] Address [address] [place] [address] Care Team Providers Care Office Analyst Name Role Phone Remy Mg III Primary Care Provider Unav ailable Reason for Referral * PT/OT/ST (Routine) - Authorized Specialty Diagnoses / Procedures Referred By Contac t Referred To Contact Physical Therapy Diagnoses Unilateral primary osteoarthritis, right knee Procedures REF PHYSICAL THERAPY - EXTERNAL THERA PROC 1+ AREAS EA 15 MIN THERA EXERCISES Tanner Lindsey [facility] [address] [address] Phone: tel: fax: [facility] Er Physical [address] [place] [address] Referral ID Status Reason Start Date Expiration Date Visits Requested Visits Authorized [id number] Authorized Itemized Services 08/21/2022 08/21/2023 15 15 * Surgical Services (Routine) - Authorized Specialty Diagnoses / Procedures Referred By Contac t Referred To Contact Orthopedic Surgery Diagnoses Unilateral primary osteoarthritis, right knee Procedures REF ORTHO EXTERNAL TOTAL KNEE ARTHROPLASTY Tanner Lindsey [facility] [address] [address] Phone: tel: fax: LavStephanie ronquillo [facility] At [address] [address] Referral ID Status Reason Start Date Expiration Date Visits Requested Visits Authorized [id number] Authorized Procedure Only 08/20/2022 08/20/2023 2 2 Encounter Details Date Type Department Care Team (Late st Contact Info) Description 08/20/2022 Community Orders Non [facility] Provider Tanner Lindsey [facility] [place] [address] [place] [address] Unilateral primary osteoarthritis, right knee (Primary Dx) Social History Tobacco Use Types Packs/Day Years Used Date Smoking Tobacco: Never Assessed Sex and Gender Information Value Date Recorded Sex Assigned at Not on file Legal Sex Male 8:07 AM PST Gender Identity Not on file Sexual Orientation Not on file documented as of this encounter Plan of Treatment Not on file documented as of this encounter Visit Diagnoses Diagnosis Unilateral primary osteoarthritis, right knee- Primary documented in this encounter Care Teams Office Analyst Relationship Specialty Start Date End Date Remy Mg [facility] [address] [place] [address] PCP - General 01/27/24 documented as of this encounter
--- OUTSIDE RECORDS SUMMARY | 2025-06-23 14:15 | XMS_ITS | Encounter Summary ---
Author Organization [facility] Address [address] [place] [address] Care Team Providers Care Fraud Prevention Analyst Name Role Phone Remy Mg Primary Care Provide r Encounter Details Date Type Department Care Team (Late st Contact Info) Description 06/20/2025 Orders Only [facility] Podiatry [place] [address] [place] [address] Lee Coy, [place] [phone] [place], [place] [phone] Other acute osteomyelitis of left ankle (CMS/HCC) (Primary Dx); Other specified puerperal infections Social History Tobacco Use Types Packs/Day Years Used Date Smoking Tobacco: Never Passive Smoke Exposure: Never Smokeless Tobacco: Former Snuff Quit: 07/03/2005 Alcohol Use Standard Drinks/Week Comments Yes 240 (1 standard drin k = 0.6 oz pure alcohol) 4 to 5 beers a day- not since surgery 05/2025 [facility] Utilities Answer Date Recorded In the past 12 months has e [employer], gas, oil, or water [employer] threatened to shut off services in your [...] the past 12 m [facility], were you homeless or living in a alf (including now)? No 05/24/2025 Sex and Gender Information Value Date Recorded Sex Assigned at Male 05/24/2025 2:45 PM PDT Legal Sex Male 1:11 PM PDT Gender Identity Male 03/13/2025 7:20 AM PDT Sexual Orientation Straight 03/13/2025 7: 20 AM PDT documented as of this encounter Functional Status documented as of this encounter Progress Notes * Lee Coy DPM - 06/20/2025 5:26 PM PST Just sent over prescription refill for hydromorphone 4 mg #31 by mouth every 6 hours as needed painwith no refills documented in this encounter Plan of Treatment Upcoming Encounters Date Type Department Care Team (Latest Contact Info) Description 06/26/2025 9:30 AM PST Office Visit [facility] Infectious Diseases [place] [address] [facility] [address] [place] [address] Nabila Campbell MD [address] [place], [place] [phone] 07/04/2025 7:15 AM PST Hospital Encounter [facility] Operating Room [address] [place] [phone] Lee Coy, DPM [address] [place] [id number] 07/04/2025 7:15 AM PST - 07/04/2025 10:40 AM PST Surgery [facility] Operating Room [address] [place] [phone] Lee Coy, DPM [address] [place] [phone] LEFT - OPEN ARTHRODESIS OF ANKLE [25024 (CPT )] 07/06/2025 10:30 AM PST Office Visit [facility] Podiatry [facility] [address] [place] [phone] Lee Coy, DP [address] [place] [phone] Scheduled Procedures Name Priority Associated Diagnoses Date/Ti [...] as of this encounter Visit Diagnoses Diagnosis Pyogenic arthritis of ankle (CMS/HCC) Pyogenic arthritis, ankle and foot Pyogenic inflammation of bone (CMS/HCC) Unspecified osteomyelitis, site unspecified Other acute osteomyelitis of left ankle ([facility])- Primary Other specified puerperal infections Arthritis of left ankle due to other bacteria ([facility]) Other acute osteomyelitis of left ankle ([facility]) documented in this encounter Care Teams Fraud Prevention Analyst Relationship Specialty Start Date End Date Remy Mg ARNP [address] [place] [address] [address] [place] [address] PCP - General Nurse Practitioner Family 03/08/25 documented as of this encounter
--- OUTSIDE RECORDS SUMMARY | 2025-06-23 14:15 | XMS_ITS | Encounter Summary ---
Author Organization [facility] Address [address] [place] [address] Care Team Providers Care Director Cardiac Name Role Phone Remy Mg III Primary Care Provider Unav ailable Reason for Referral * PT/OT/ST (Routine) - Authorized Specialty Diagnoses / Procedures Referred By Contac t Referred To Contact Physical Therapy Diagnoses Primary osteoarthritis of both knees Procedures REF PHYSICAL THERAPY - EXTERNAL THERA PROC 1+ AREAS EA 15 MIN THERA EXERCISES Tanner Lindsey [facility] [address] [place] [address] Phone: tel: fax: [facility] Physical [address] [place] [address] Referral ID Status Reason Start Date Expiration Date Visits Requested Visits Authorized [id number] Authorized Itemized Services 11/06/2022 11/07/2023 15 15 Encounter Details Date Type Department Care Team (Late st Contact Info) Description 11/06/2022 Community Orders Non [facility] Provider Tanner Lindsey [facility] [address] [phone] Primary osteoarthritis of both knees (Primary Dx) Social History Tobacco Use Types [...] of this encounter Visit Diagnoses Diagnosis Primary osteoarthritis of both knees- Primary Primary localized osteoarthrosis, lower leg documented in this encounter Care Teams Director Cardiac Relationship Specialty Start Date End Date Remy Mg III [facility] [address] [place] [address] PCP - General 01/27/24 documented as of this encounter
--- OUTSIDE RECORDS SUMMARY | 2025-06-23 14:15 | XMS_ITS | Encounter Summary ---
Author Organization [facility] Address [address] [place] [address] Care Team Providers Care Furnace Combustion Analyst Name Role Phone Remy Mg III Primary Care Provider Unav ailable Reason for Referral * Eye Care (Routine) - Authorized Specialty Diagnoses / Procedures Referred By Virgilio lakhani Referred To Contact Ophthalmology Diagnoses Type 2 diabetes mellitus with diabetic neuropathy, unspecified whether retirement insulin use Procedures REF OPHTHALMOLOGY OFFICE/OUTPATIENT ESTABLISHED MOD [facility] 30 MIN Rodrigo [facility] [address] [place] [address] Phone: tel: fax: [facility], [facility] & [address] [place] [phone] Referral ID Status Reason Start Date Expiration Date Visits Requested Visits Authorized [id number] Authorized Evaluate and Treat-Surgery if Indicated 09/01/2023 08/31/2024 6 6 * Eye Care (Routine) - Authorized Specialty Diagnoses / Procedures Referred By Virgilio lakhani Referred To Contact Ophthalmology Diagnoses Type 2 diabetes mellitus with diabetic neuropathy, unspecified whether retirement insulin use Procedures REF OPHTHALMOLOGY OFFICE/OUTPATIENT ESTABLISHED [facility] 30 MIN [facility] [address] [place] [address] Phone: tel: fax: [facility], [facility] [address] [place] [address] Referral ID Status Reason Start Date Expiration Date Visits Requested Visits Authorized [id number] Authorized Evaluate and Treat-Surgery if Indicated 09/01/2023 08/31/2024 6 6 Encounter Details Date Type Department Care Team (Late st Contact Info) Description 09/01/2023 Community Orders Non [facility] Provider Rodrigo Rosario [place] PRIMARY CAR [address] [place] [address] Type 2 diabetes mellitus with diabetic neuropathy, unspecified whether retirement insulin use (Primary Dx) Social History Tobacco Use Types Packs/Day Years Used Date Smoking Tobacco: Never Assessed Sex and Gender Information Value Date Recorded Sex Assigned at Not on file Legal Sex Male 8:07 AM PST Gender Identity Not on file Sexual Orientation Not on file documented as of this encounter Plan of Treatment Not on file documented as of this encounter Visit Diagnoses Diagnosis Type 2 diabetes mellitus with diabetic neuropathy, unspecified whether terminal manager insulin use- Primary documented in this encounter Care Teams Furnace Combustion Analyst Relationship Specialty Start Date End Date Remy Mg III [place] PRIMARY CAR [address] [place] [address] PCP - General 01/27/24 documented as of this encounter
--- OUTSIDE RECORDS SUMMARY | 2025-06-23 14:15 | XMS_ITS | Encounter Summary ---
Author Organization [facility] Address [address] [place] [address] Care Team Providers Care Truss Builder Name Role Phone Remy Mg III Primary Care Provider Unav ailable Reason for Referral * Outpatient Service (Routine) - Authorized Specialty Diagnoses / Procedures Referred By Contchristina t Referred To Contact Orthopedic Surgery Diagnoses Neuropathic arthropathy Procedures REF ORTHO EXTERNAL OFFICE/OUTPATIENT ESTABLISHED MOD MDM 30 MIN David Mcpherson [facility] [address] [place] [address] Orthopedics, [facility] [place] [address] [facility] [address] [place] [address] fax: Referral ID Status Reason Start Date Expiration Date Visits Requested Visits Authorized [id number] Authorized Evaluate and Treat-Surgery if Indicated 01/30/2025 01/30/2026 6 6 Encounter Details Date Type Department Care Team (Late st Contact Info) Description 01/30/2025 Community Orders Non [facility] Provider David Mcpherson [facility] [address] [place] [address] Neuropathic arthropathy (Primary Dx) Social History Tobacco Use Types Packs/Day Years Used Date Smoking Tobacco: Never Assessed Sex and Gender Information Value Date Recorded Sex Assigned at Not on file Legal Sex Male 8:07 AM PST Gender Identity Not on file Sexual Orientation Not on file documented as of this encounter Plan of Treatment Not on file documented as of this encounter Visit Diagnoses Diagnosis Neuropathic arthropathy- Primary Tabes dorsalis documented in this encounter Care Teams Truss Builder Relationship Specialty Start Date End Date Remy Mg III [facility] [address] [place] [address] PCP - General 01/27/24 documented as of this encounter
--- OUTSIDE RECORDS SUMMARY | 2025-06-23 14:15 | XMS_ITS | Encounter Summary ---
Author Organization [facility] Address [address] [place] [address] Care Team Providers Care Studio Sales Associate Name Role Phone Remy Mg III Primary Care Provider Unav ailable Reason for Referral * Outpatient Service (Urgent) - Authorized Specialty Diagnoses / Procedures Referred By Contchristina t Referred To Contact Wound Care Diagnoses Unspecified open wound, left foot, initial encounter Non-pressure chronic ulcer of other part of left foot with fat layer exposed Type 2 diabetes mellitus with foot ulcer Non-pressure chronic ulcer of other part of unspecified foot with unspecified severity Procedures REF WOUND CARE - EXTERNAL DEBRIDEMENT, OPEN WOUND, ASSESSMENT, ONGOING CARE, PER SESSION, FIRST 20 SQ CM OR LESS Remy Mg III [facility] [address] [place] [address] [address] fax: Referral ID Status Reason Start Date Expiration Date Visits Requested Visits Authorized [id number] Authorized Itemized Services 02/21/2025 02/21/2026 999 999 Encounter Details Date Type Department Care Team (Late st Contact Info) Description 02/21/2025 Community Orders Non [facility] Provider Remy Mg III [facility] PRIMARY CAR [address] [place] [address] Unspecified open wound, left foot, initial encounter (Primary Dx) Social History Tobacco Use Types Packs/Day Years Used Date Smoking Tobacco: Never Assessed Sex and Gender Information Value Date Recorded Sex Assigned at Not on file Legal Sex Male 8:07 AM PST Gender Identity Not on file Sexual Orientation Not on file documented as of this encounter Plan of Treatment Not on file documented as of this encounter Visit Diagnoses Diagnosis Unspecified open wound, left foot, initial encounter- Primary documented in this encounter Care Teams Studio Sales Associate Relationship Specialty Start Date End Date Remy Mg III [facility] PRIMARY CAR [address] [place] [address] PCP - General 01/27/24 documented as of this encounter
--- OUTSIDE RECORDS SUMMARY | 2025-06-23 14:15 | XMS_ITS | Encounter Summary ---
Author Organization [facility] Address [address] [place] [address] Care Team Providers Care Transformation Consultant Name Role Phone Remy Mg Primary Care Provide r Reason for Visit * Reason Onset Date Comments Med Refill 06/20/2025 Encounter Details Date Type Department Care Team (Late st Contact Info) Description 06/20/2025 Telephone [facility] Podiatry [place] [address] [place] [address] Lee Coy, [place] [phone] [place] [address] Med Refill Social History Tobacco Use Types Packs/Day Years Used Date Smoking Tobacco: Never Passive Smoke Exposure: Never Smokeless Tobacco: Former Snuff Quit: 07/03/2005 Alcohol Use Standard Drinks/Week Comments Yes 240 (1 standard drin k = 0.6 oz pure alcohol) 4 to 5 beers a day- not since surgery 05/2025 [facility] Utilities Answer Date Recorded In the past 12 months has [facility] [employer], gas, oil, or water [employer] threatened to shut off services in your [...] any time in the past 12 m [facility], were you homeless or living in a custodial (including now)? No 05/24/2025 Sex and Gender Information Value Date Recorded Sex Assigned at Male 05/24/2025 2:45 PM PDT Legal Sex Male 1:11 PM PDT Gender Identity Male 03/13/2025 7:20 AM PDT Sexual Orientation Straight 03/13/2025 7: 20 AM PDT documented as of this encounter Functional Status documented as of this encounter Miscellaneous Notes * Telephone Encounter - Miriam De Los Santos - 06/20/2025 2:02 PM PST Name of Medication/Strength/Qty/Dose (copy/paste from med list): HYDROmorphone (Dilaudid) 4 mg tablet Pharmacy:(please verify this is the correct pharmacy) [id number] - [place], [place] - [address] [facility] [address] [facility] [address] Out of Medication? No Is this something you need to take within the next 24 hours? Yes How many tabs/days/doses left? 1 day left Other information: Patient states this is only providing about an hour to two hours of relief and he would just like enough to get to his next appointment so they can discuss other options Future Appointments Provider Department 06/22/2025 10:00 AM Lee Coy DPM [facility] Podiatry [place] Scripting for each call: (please make sure to check box once patient has been informed of info below) [x] Please allow 2-3 business days for your refill to be processed [x] Please check with pharmacy for refill status. Patient or authorized person calling? Name: Lee Kenny Relationship to Patient:Self Phone number(s):[phone] (home) Detailed message: Yes Thank you! documented in this encounter Plan of Treatment Upcoming Encounters Date Type Department Care Team (Latest Contact Info) Description 06/26/2025 9:30 AM PST Office Visit [facility] Infectious Diseases [place] [address] [facility] [address] [place] [address] Nabila Campbell MD [address] [place], [place] [phone] 07/04/2025 7:15 AM PST Hospital Encounter [facility] Operating Room [address] [place] [phone] Lee Coy DPM [address] [place] [phone] 07/04/2025 7:15 AM PST - 07/04/2025 10:40 AM PST Surgery [facility] Operating Room [address] [place] [phone] Lee Coy DPM [address] [place] [phone] LEFT - OPEN ARTHRODESIS OF ANKLE [05618 (CPT )] 07/06/2025 10:30 AM PST Office Visit [facility] Podiatry [place] [address] [place] [address] Lee Coy, DPM [address] [place] [address] Scheduled Procedures Name Priority Associated Diagnoses Date/Ti [...] on filedocumented in this encounter Care Teams Transformation Consultant Relationship Specialty Start Date End Date Remy Mg ARNP [address] [place], [place] [address] [place] [address] PCP - General Nurse Practitioner Family 03/08/25 documented as of this encounter
--- OUTSIDE RECORDS SUMMARY | 2025-06-23 14:15 | XMS_ITS | Encounter Summary ---
Author Organization [facility] Address [address] [place] [address] Care Team Providers Care Managed Care Nurse Name Role Phone Remy Mg III Primary Care Provider Unav ailable Reason for Referral * Radiology (Routine) - Authorized Specialty Diagnoses / Procedures Referred By Contac t Referred To Contact Radiology Diagnoses Gross hematuria Procedures REF RADIOLOGY CT ABD & PELVIS W/O CONTRST 1+ BODY REGNS Rodrigo Rosario [employer] [facility] [address] [place] [address] Phone: tel: fax: [facility] [address] [address] [place] [address] Referral ID Status Reason Start Date Expiration Date Visits Requested Visits Authorized [id number] Authorized Itemized Services 02/15/2024 08/17/2024 4 4 Encounter Details Date Type Department Care Team (Late st Contact Info) Description 02/15/2024 Community Orders Non [facility] Provider Rodrigo Rosario [employer] [facility] [address] [place] [address] Gross hematuria (Primary Dx) Social History Tobacco Use Types Packs/Day Years Used Date Smoking Tobacco: Never Assessed Sex and Gender Information Value Date Recorded Sex Assigned at Not on file Legal Sex Male 8:07 AM PST Gender Identity Not on file Sexual Orientation Not on file documented as of this encounter Plan of Treatment Not on file documented as of this encounter Visit Diagnoses Diagnosis Gross hematuria- Primary documented in this encounter Care Teams Managed Care Nurse Relationship Specialty Start Date End Date Remy Mg III [employer] [facility] [address] [place] [address] PCP - General 01/27/24 documented as of this encounter
--- OUTSIDE RECORDS SUMMARY | 2025-06-23 14:16 | XMS_ITS | Encounter Summary ---
Author Organization [facility] Address [address] [place] [id number] Care Team Providers Care Caregivers Non Medical Name Role Phone Remy Mg III Primary Care Provider Unav ailable Reason for Referral * Radiology (Urgent) - Authorized Specialty Diagnoses / Procedures Referred By Contac t Referred To Contact Radiology Diagnoses Osteomyelitis of left ankle, unspecified type Procedures REF RADIOLOGY CT LWR EXT W/WO CNTRST AdrianNabila [address] [place] [address] Phone: tel: fax: [facility] [address] [place] [address] Referral ID Status Reason Start Date Expiration Date Visits Requested Visits Authorized [id number] Authorized Itemized Services 12/21/2025 4 4 Encounter Details Date Type Department Care Team (Latest Contact Info) Description 06/20/2025 Community Orders Non [facility] Provider Nabila Campbell [address] [place] [address] Osteomyelitis of left ankle, unspecified type (Primary Dx) Social History Tobacco Use [...] as of this encounter Visit Diagnoses Diagnosis Osteomyelitis of left ankle, unspecified type- Primary documented in this encounter Care Teams Caregivers Non Medical Relationship Specialty Start Date End Date Remy Mg III [facility] [address] [place] [address] PCP - General 01/27/24 documented as of this encounter
--- OUTSIDE RECORDS SUMMARY | 2025-06-23 14:16 | XMS_ITS | Clinical Summary ---
Author Organization [facility] Address [address] [place] [address] Care Team Providers Care Bone Char Puller Name Role Phone Remy Mg Primary Care Provide r Allergies No known active allergies Medications metFORMIN XR (GLUCOPHAGE-XR) 750 mg 24 hr tablet Take 2 tablets (1,500 mg total) by mouth daily 5 Active Jardiance 25 mg tablet tablet Take 1 tablet (25 mg total) by mouth daily 5 Active losartan-hydrochl orothiazide (HYZAAR) 100-25 mg per tablet Take 1 tablet by mouth daily 5 Active glimepiride (AMARYL) 2 mg tablet Take 1 tablet (2 mg total) by mouth daily 4 Active nadoloL (CORGARD) 20 mg tablet Take 1 tablet (20 mg total) by mouth daily 4 Active allopurinoL (ZYLOPRIM) 300 mg tablet 5 Active rosuvastatin (CRESTOR) 10 mg tablet Take 1 tablet (10 mg total) by mouth daily Active acetaminophen (TYLENOL) 325 mg tablet Take 2 tablets (650 mg total) by mouth every 4 (four) hours as needed for moderate pain (4-6) 30 tablet 5 Active oxybutynin chloride extended release, ER, 5 mg 24 hr tablet Take 1 tablet (5 mg total) by mouth nightly 30 tablet 5 026 Active tamsulosin (FLOMAX) 0.4 mg capsule Take 2 capsules (0.8 mg total) by mouth nightly 60 capsule 5 Active amoxicillin-pot clavulanate (AUGMENTIN) 875-125 mg 5 Active gabapentin (NEURONTIN) 100 mg capsule Take 1 capsule (100 mg total) by mouth 3 (three) times a day 90 capsule 11 5 026 Active HYDROmorphone (DILAUDID) 4 mg tabletIndications :Other acute osteomyelitis of left ankle (CMS/HCC),Other specified puerperal infections Take 1 tablet (4 mg total) by mouth every 6 (six) hours as needed for severe pain (7-10) for up to 10 days 30 tablet 5 025 Active baclofen (LIORESAL) 20 mg tablet Take 1 tablet (20 mg total) by mouth 3 (three) times a day 90 tablet 5 025 Active doxycycline (ORACEA) 40 mg capsule Take 1 capsule (40 mg total) by mouth every morning For rosacea Discontinu ed(Stop Taking at Discharge) oxyCODONE (ROXICODONE) 5 mg immediate release tabletIndications :Osteochondral lesion of talar dome,Tear of talofibular ligament, left, initial encounter Take 1 tablet (5 mg total) by mouth every 4 (four) hours as needed for moderate pain (4-6) for up to 10 days 30 tablet 5 025 Discontinu ed(Stop Taking at Discharge) doxycycline (VIBRAMYCIN) 100 mg capsule Take 1 capsule (100 mg total) by mouth 2 (two) times a day for 14 days 28 capsule 5 025 Discontinu ed(Stop Taking at Discharge) oxyCODONE (ROXICODONE) 5 mg immediate release tabletIndications :Ankle joint instability, left Take 1 tablet (5 mg total) by mouth every 6 (six) hours as needed for severe pain (7-10) for up to 10 days 20 tablet 5 025 HYDROmorphone (Dilaudid) 4 mg tabletIndications :Osteochondral lesion of talar dome,Tear of talofibular ligament, left, initial encounter,Ankle joint instability, left Take 1 tablet (4 mg total) by mouth every 4 (four) hours as needed for severe pain (7-10) for up to 10 days 30 tablet 025 Hospital, Clinic, or Other Facility Administered Medication Ordered Dose Route Frequency Start Date End Date Status HYDROmorphone (DILAUDID) injection 0.5 mg 0.5 mg IV 3 times daily 05/25/2025 05/28/2025 Disco ntinued Active Problems Problem Noted Date Diagnosed Date Pyogenic arthritis of ankle 06/08/2025 Pyogenic inflammation of bone 06/08/2025 Other specified puerperal infections 05/24/2025 Skin ulcer of left ankle with fat layer exposed 04/17/2025 Tear of talofibular ligament, left, initial enco unter 03/19/2025 Osteochondral lesion of talar dome 03/19/2025 Ankle varus, acquired, left 03/19/2025 Ankle joint instability, left 03/19/2025 Encounters Date Type Department Care Team Description 06/22/2025 10:00 AM [facility] Office Visit [facility] [address] [place] [phone] Oleg Coy DPM Arrived 06/20/2025 9:13 AM [facility] - 06/20/2025 11:59 PM [facility] Hospital En[facility] [address] [place] [phone] Nabila Hernandez MD Osteomyelitis of left ankle, unspecified type (CMS/HCC) Discharge Disposition: Home/Self Care 06/20/2025 9:05 AM [facility] Lab [facility] [place] [address], [place] [phone] Osteomyelitis of left ankle, unspecified type (CMS/HCC) 06/20/2025 8:30 AM PST Office Visit [facility] [place] [address] [facility] [address] [place] [phone] Nabila Hernandez MD Osteomyelitis of left ankle, unspecified type (CMS/HCC) (Primary Dx) 06/20/2025 [facility] [address] [place] [phone] Oleg Coy DPSusie Other acute osteomyelitis of left ankle (CMS/HCC) (Primary Dx); Other specified puerperal infections 06/20/2025 Telephone [facility] [place] [address] [facility] [address] [place] [phone] Nabila Hernandez MD Labs Only (Labs results from 06/19/25) 06/20/2025 Telephone [facility] [place] [address] [place] [address] Oleg Coy DPSusie Med Refill 06/19/2025 Telephone [facility] [place] [address] [facility] [address] [phone] Nabila Hernandez MD Labs Only (Labs results from 06/15/25) 06/14/2025 Telephone [facility] [place] [address] [facility] [address] [address] Nbaila Hernandez MD Labs Only (Labs results from 06/13/25 idbey ) 06/13/2025 10:30 AM PST [facility] [address] [place] [address] Oleg Coy, DPSusie Tear of talofibular ligament, left, initial encounter (Primary Dx); Ankle joint instability, left; Other acute osteomyelitis of left ankle (CMS/HCC) 06/12/2025 2:00 PM PST Office Visit [facility] [place] [address] [facility] [address] [address] Nabila Hernandez MD Arthritis of ankle due to other bacteria, unspecified laterality (CMS/HCC) (Primary Dx) 06/12/2025 Telephone [facility] [address] [place] [phone] Oleg Coy DPSusie 06/12/2025 Telephone [facility] [place] [address] [place] [address] Nabila Hernandez MD Labs Only (Labs results from [facility] 06/08/25) 06/08/2025 9:00 AM PST Office Visit [facility] [place] [address] [place] [address] Oleg Coy, XIMENA Osteochondral lesion of talar dome (Primary Dx); Tear of talofibular ligament, left, initial encounter; Ankle joint instability, left; Arthritis of left ankle due to other bacteria ([facility]); Other acute osteomyelitis of left ankle ([facility]) 06/07/2025 Telephone [facility] [address] [place] [address] Oleg Coy DPM Referral; Appointment 06/05/2025 Telephone [facility] [place] [address] [place] [address] Nabila Hernandez MD Labs Only (Labs results from 06/05/25) 06/02/2025 Telephone [facility] [place] [address] [place] [address] Oleg Coy DPM New Med Request 06/02/2025 Telephone [facility] [place] [address] [place] [phone] Nabila Hernandez MD Test Results (Lab results from 06/01) 06/01/2025 Telephone [facility] [place] [address] [place] [address] Oleg Coy DPM Appointment 05/31/2025 Orders Only [facility] [place] [address] [place] [address] Oleg Coy DPM 05/25/2025 6:22 PM PDT Anesthesia Event [facility] [address] [place] [phone] Rodrigo Roberson DO 05/25/2025 5:45 PM PDT - 05/25/2025 8:15 PM PDT Surgery [facility] [address] [place] [phone] Oleg Coy, DPM REMOVAL OF DEEP SCREWs and plates left ankle [[id number] (CPT )] 05/24/2025 10:36 AM PDT - 05/31/2025 2:12 PM PDT Hospital Encounter [facility] [address] [place] [phone] Emiliano Cesar DO Wang, De An, Yaniv Ro DO George, Tony, MD Scott, [place] Postoperative infection, unspecified type, initial encounter (Primary Dx); Skin ulcer of left ankle with fat layer exposed (CMS/HCC); Osteochondral lesion of talar dome; Other specified puerperal infections; Ankle joint instability, left Discharge Disposition: Home/Self Care 05/24/2025 Case/Admission [facility] [place] [address] [place] [address] Oleg Coy, DPSusie Skin ulcer of left ankle with fat layer exposed (CMS/HCC) (Primary Dx); Osteochondral lesion of talar dome; Other specified puerperal infections 05/24/2025 Travel 05/24/2025 Telephone [facility] [place] [address] [place] [address] Oleg Coy, XIMENA Cancel post op 05/18/2025 Telephone [facility] [place] [address] [place] [address] Oleg Coy, DPM Post-op Problem (Bleeding) 05/17/2025 2:00 PM PDT Office Visit [facility] [place] [address] [place] [address] Oleg Coy, XIMENA Osteochondral lesion of talar dome (Primary Dx); Tear of talofibular ligament, left, initial encounter 05/17/2025 Telephone [facility] [place] [address] [place] [address] Oleg Coy, CHERRIEM 05/17/2025 Telephone [facility] [place] [address] [place] [address] Oleg Coy, CHERRIEM Appointment 05/12/2025 Refill [facility] [place] [address] [place] [address] Oleg Coy DPM Osteochondral lesion of talar dome; Tear of talofibular ligament, left, initial encounter 05/11/2025 11:40 AM PDT Office Visit [facility] [address] [place] [address] Oleg Coy, XIMENA Osteochondral lesion of talar dome (Primary Dx); Tear of talofibular ligament, left, initial encounter; Skin ulcer of left ankle with fat layer exposed ([facility]) 05/11/2025 Abstract [facility] [place] [address] [place] [address] Oleg Coy, CHERRIEM 05/09/2025 11:50 AM PDT Anesthesia Event [facility] [address] [place] [phone] Ever Mcduffie MD 05/09/2025 11:10 AM PDT - 05/09/2025 2:40 PM PDT Surgery [facility] [address] [place] [phone] Zbigniew, Oleg B., DPM OPEN ARTHRODESIS OF ANKLE-left [[id number] (CPT )] 05/09/2025 9:22 AM PDT - 05/09/2025 5:56 PM PDT Hospital Encounter [facility] [address] [place] [phone] Oleg Coy, DPM Ankle varus, acquired, left (Primary Dx); Osteochondral lesion of talar dome; Ankle joint instability, left Discharge Disposition: Home/Self Care 05/09/2025 Travel 05/05/2025 Travel 05/02/2025 10:30 AM PDT Office Visit [facility] [address] [place] [phone] Oleg Coy, XIMENA Osteochondral lesion of talar dome (Primary Dx); Tear of talofibular ligament, left, initial encounter 05/02/2025 Orders Only [facility] [address] [place] [phone] Oleg Coy, DPSusie Osteochondral lesion of talar dome (Primary Dx); Tear of talofibular ligament, left, initial encounter 04/28/2025 Telephone [facility] [address] [place] [phone] Oleg Coy, DPM Surgery Scheduling 04/17/2025 9:15 AM PDT Lab [facility] [place] [address] [place] [phone] Osteochondral lesion of talar dome; Tear of talofibular ligament, left, initial encounter; Skin ulcer of left ankle with fat layer exposed (CMS/HCC) 04/17/2025 8:00 AM PDT Office Visit [facility] [address] [place] [phone] Oleg Coy, DPM Osteochondral lesion of talar dome (Primary Dx); Tear of talofibular ligament, left, initial encounter; Skin ulcer of left ankle with fat layer exposed (CMS/HCC) 04/14/2025 Telephone [facility] [place] [address] [place] [address] Oleg Coy, DPSusie Foot Wound Check from Last 3 Months Immunizations Immunization Administration Dates Next Due FLU 18+ Trivalent Egg Free (FLUBLOK) 05/31/2025 Family History Medical History Relation Comments Cancer Father Relation Status Comments Father Alive Social History Tobacco Use Types Packs/Day Years Used Date Smoking Tobacco: Never Passive Smoke Exposure: Never Smokeless Tobacco: Former Snuff Quit: 07/03/2005 Tobacco Cessation:Counseling Given: Not Answered Alcohol Use Standard Drinks/Week Comments Yes 240 (1 standard drin k = 0.6 oz pure alcohol) 4 to 5 beers a day- not since surgery 05/2025 [facility] Utilities Answer Date Recorded In the past 12 months has e Propeller, gas, oil, or water [employer] threatened to shut off services in your [...] any time in the past 12 m onths, were you homeless or living in a fdc (including now)? No 05/24/2025 Sex and Gender Information Value Date Recorded Sex Assigned at Male 05/24/2025 2:45 PM PDT Legal Sex Male 1:11 PM PDT Gender Identity Male 03/13/2025 7:20 AM PDT Sexual Orientation Straight 03/13/2025 7: 20 AM PDT Last Filed Vital Signs Vital Sign Reading Time Taken Comments Blood Pressure 106/67 06/22/2025 9:55 AM PST Pulse 87 06/22/2025 9:55 AM PST Temperature 36.3 C (97.4 F) 06/20/2025 8:30 AM PST Respiratory Rate 16 06/20/2025 8:30 AM PST Oxygen Saturation 99% 06/22/2025 9:55 AM PST Inhaled Oxygen Concentration - - Weight 113 kg (249 lb 1.9 oz) 06/22/2025 9:55 AM PST Height 182.9 cm (6' 0.01) 06/22/2025 9:55 AM PS T Body Mass Index 33.78 06/22/2025 9:55 AM PST Plan of Treatment Upcoming Encounters Date Type Department Care Team (Latest Contact Info) Description 06/26/2025 9:30 AM PST Office Visit [facility] [place] [address] [facility] [address] [place] [phone] Nabila Hernandez MD [address] [place] [address] 07/04/2025 7:15 AM PST Hospital Encounter [facility] [address] [place] [phone] Oleg Coy, DPM [id number] [place] [phone] 07/04/2025 7:15 AM PST - 07/04/2025 10:40 AM PST Surgery [facility] [address] [place] [phone] Oleg Coy, DPM [address] [place] [address] LEFT - OPEN ARTHRODESIS OF ANKLE [[id number] (CPT )] 07/06/2025 10:30 AM PST Office Visit [facility] [place] [address] [place] [phone] Oleg Coy, [place] [address] Scheduled Procedures Name Priority Associated Diagnoses Date/Ti [...] left ankle (CMS/HCC) 07/04/2025 7:15 AM PST Health Maintenance Due Date Last Done Comments PSA Screening Discussion 1956 Depression Screening (PHQ-2) 1968 DTaP,Tdap,and Td Vaccines (1 - Tdap) 1975 Colorectal Cancer Screening (Colonoscopy) 2001 Colorectal Cancer Screening (FOBT) 2001 Colorectal Cancer Screening (Fecal DNA) 2001 Colorectal Cancer Screening Combined 2001 HM Pneumococcal Adult 50+ (1 of 1 - PCV) 2006 Zoster Vaccines (1 of 2) 2006 Hepatitis B Vaccines (3 of 3 - 19+ 3-dose series) 11/27/2011 10/02/2011, 05/06/2011, 04/03/2011 Fall Risk Screening 2021 COVID-19 Vaccine ( season) 2025 06/12/2021, 11/26/2020 RSV Patients Over 60 years OR qualifying ( Patients) (1 - 1-dose 75+ series) 2031 Influenza Vaccine Completed 05/31/2025, , 08/14/2023, Additional history exists HPV Vaccines Aged Out No longer eligi ble based on patient's age to complete this topic Hepatitis A Vaccines Aged Out No long er eligible based on patient's age to complete this topic IPV Vaccines Aged Out No longer eligi ble based on patient's age to complete this topic MMR Vaccines Aged Out No longer eligi ble based on patient's age to complete this topic Medical Devices Implanted Type Area Marketing Underwriter Device Identifier Shelf Expiration Date Model / Serial / Lot Pin, [id number] Center Thread - [id number] Implanted:Qty: 1 on 05/25/2025 by Oleg Coy, DPM at [facility] Pin Left: Ankle [id number] 5 / / Pin, Half 4x20mm Self Tapping - [id number] Implanted:Qty: 1 on 05/25/2025 by Oleg Coy, DPM at [facility] Pin Left: Ankle [id number] S / / Matrix, Bone 2.5cc - [id number] Implanted:Qty: 1 on 05/09/2025 by Oleg Coy, DPM at [facility] Left: Ankle [id number] 05/05/2026 [id number] 2 / / Matrix, Bone 5 Cc - [id number] Implanted:Qty: 1 on 05/09/2025 by Oleg Coy, DPM at [facility] Left: Ankle [id number] 09/14/2026 [id number] 2 / / Bar, Carbon [id number] - [id number] Implanted:Qty: 2 on 05/25/2025 by Oleg Coy, DPM at [facility] Left: Ankle [id number] 0 / / Post, 30 Degree Angled - [id number] Implanted:Qty: 2 on 05/25/2025 by Oleg Coy, DPM at [facility] Left: Ankle [id number] 0 / / Bar, Carbon [id number] - [id number] Implanted:Qty: 1 on 05/25/2025 by Oleg Coy, DPM at [facility] Left: Ankle [id number] [id number] 0 / / Clamp, Pin 5 Hole - [id number] Implanted:Qty: 1 on 05/25/2025 by Oleg Coy, DPM at [facility] Left: Ankle [id number] 5 / / Pin, Half [id number] Blunt Tipped - [id number] Implanted:Qty: 2 on 05/25/2025 by Oleg Coy, DPM at [facility] Left: Ankle [id number] B / / Pin, Half [id number] Blunt Tipped - [id number] Implanted:Qty: 2 on 05/25/2025 by Oleg Coy, DPM at [facility] Left: Ankle [id number] B / / Clamp, Bar To Pin Combination - [id number] Implanted:Qty: 6 on 05/25/2025 by Oleg Coy, DPM at [facility] Left: Ankle [id number] 5 / / Explanted Type Area Marketing Underwriter Device Identifier Shelf Expiration Date Model / Serial / Lot Plate, Anterior Tct Flt Left - [id number] - [id number] Implanted:Qty: 1 on 05/09/2025 by Oleg Coy, DPM at [facility] Explanted:Qty: 1 on 05/25/2025 by Oleg Coy, DPM at [facility] Plate Left: Ankle [id number] 1 / [id number] 1 / [id number] 1 Screw, 7*65mm Shrt Thrd Raphael - [id number] Implanted:Qty: 1 on 05/09/2025 by Oleg Coy, DPM at [facility] Explanted:Qty: 1 on 05/25/2025 by Oleg Coy, DPM at [facility] Screw Left: Ankle [id number] S / / Screw, 7x70mm Full Thread Raphael - [id number] Implanted:Qty: 1 on 05/09/2025 by Oleg Coy, DPM at [facility] Explanted:Qty: 1 on 05/25/2025 by Oleg Coy, DPM at [facility] Left: Ankle [id number] F / / Screw, 5.2*26mm Locking Plate - [id number] Implanted:Qty: 3 on 05/09/2025 by Oleg Coy, DPM at [facility] Explanted:Qty: 3 on 05/25/2025 by Oleg Coy, DPM at [facility] Left: Ankle [id number] 6 / / Screw, 5.2*34mm Locking Plate - [id number] Implanted:Qty: 1 on 05/09/2025 by Oleg Coy, DPM at [facility] Explanted:Qty: 1 on 05/25/2025 by Oleg Coy, DPM at [facility] Left: Ankle [id number] 4 / / Screw, Lcking Plate 4.2*28mm - [id number] Implanted:Qty: 2 on 05/09/2025 by Oleg Coy, DPM at [facility] Explanted:Qty: 2 on 05/25/2025 by Oleg Coy, DPM at [facility] Left: Ankle [id number] 8 / / Procedures Procedure Name Priority Date/Time Associated Diagnosis Comments CT ANKLE LEFT WITH CONTRAST STAT 06/20/2025 9:51 AM PST Osteomyelitis of left ankle, unspecified type (CMS/HCC) COMPLETE BLOOD COUNT WITH DIFF RESULT Routine 06/20/2025 8:53 AM PST Osteomyelitis of left ankle, unspecified type (CMS/HCC) COMPLETE BLOOD COUNT WITH DIFF Routine 06/20/2025 8:53 AM PST Osteomyelitis of left ankle, unspecified type (CMS/HCC) PROCALCITONIN Routine 06/20/2025 8:53 AM PST Osteomyelitis of left ankle, unspecified type (CMS/HCC) C-REACTIVE PROTEIN Routine 06/20/2025 8: 53 AM PST Osteomyelitis of left ankle, unspecified type (CMS/HCC) DISCHARGE PATIENT Routine 05/31/2025 12:51 PM PDT COMPLETE BLOOD COUNT WITH DIFF RESULT Routine 05/31/2025 4:17 AM PDT COMPLETE BLOOD COUNT WITH DIFF Routine 05/31/2025 4:17 AM PDT PICC LINE INSERTION Routine 05/30/2025 12:36 PM PDT COMPLETE BLOOD COUNT WITH DIFF RESULT Routine 05/30/2025 3:26 AM PDT C-REACTIVE PROTEIN Routine 05/30/2025 3: 26 AM PDT COMPLETE BLOOD COUNT WITH DIFF Routine 05/30/2025 3:26 AM PDT BASIC METABOLIC PANEL Routine 05/30/2025 3:26 AM PDT POCT GLUCOSE (ADULT) Routine 05/29/2025 8:44 PM PDT POCT GLUCOSE (ADULT) Routine 05/29/2025 4:54 PM PDT POCT GLUCOSE (ADULT) Routine 05/29/2025 11:53 AM PDT POCT GLUCOSE (ADULT) Routine 05/29/2025 8:09 AM PDT COMPLETE BLOOD COUNT WITH DIFF RESULT Routine 05/29/2025 4:18 AM PDT C-REACTIVE PROTEIN Routine 05/29/2025 4: 18 AM PDT COMPLETE BLOOD COUNT WITH DIFF Routine 05/29/2025 4:18 AM PDT BASIC METABOLIC PANEL Routine 05/29/2025 4:18 AM PDT POCT GLUCOSE (ADULT) Routine 05/28/2025 8:07 PM PDT COMPLETE BLOOD COUNT WITH DIFF RESULT Routine 05/28/2025 4:10 AM PDT VITAMIN B12 AND FOLATE Add-On 05/28/2025 4:10 AM PDT C-REACTIVE PROTEIN Routine 05/28/2025 4: 10 AM PDT COMPLETE BLOOD COUNT WITH DIFF Routine 05/28/2025 4:10 AM PDT BASIC METABOLIC PANEL Routine 05/28/2025 4:10 AM PDT POCT GLUCOSE (ADULT) Routine 05/27/2025 9:36 PM PDT HEMOGLOBIN AND HEMATOCRIT Routine 05/27/2025 7:59 PM PDT HEMOGLOBIN AND HEMATOCRIT Routine 05/27/2025 12:23 PM PDT POCT GLUCOSE (ADULT) Routine 05/27/2025 8:00 AM PDT VANCOMYCIN, TROUGH Timed 05/27/2025 7: 53 AM PDT COMPLETE BLOOD COUNT WITH DIFF RESULT Routine 05/27/2025 5:02 AM PDT COMPLETE BLOOD COUNT WITH DIFF Routine 05/27/2025 5:02 AM PDT COMPLETE BLOOD COUNT WITH DIFF RESULT Routine 05/27/2025 3:02 AM PDT C-REACTIVE PROTEIN Routine 05/27/2025 3: 02 AM PDT COMPLETE BLOOD COUNT WITH DIFF Routine 05/27/2025 3:02 AM PDT BASIC METABOLIC PANEL Routine 05/27/2025 3:02 AM PDT POCT GLUCOSE (ADULT) Routine 05/26/2025 6:08 PM PDT POCT GLUCOSE (ADULT) Routine 05/26/2025 12:23 PM PDT POCT GLUCOSE (ADULT) Routine 05/26/2025 8:41 AM PDT CREATINE KINASE Add-On 05/26/2025 8:00 AM PDT VANCOMYCIN, TROUGH Timed 05/26/2025 8: 00 AM PDT COMPLETE BLOOD COUNT WITH DIFF RESULT Routine 05/26/2025 3:21 AM PDT C-REACTIVE PROTEIN Routine 05/26/2025 3: 21 AM PDT COMPLETE BLOOD COUNT WITH DIFF Routine 05/26/2025 3:21 AM PDT BASIC METABOLIC PANEL Routine 05/26/2025 3:21 AM PDT POCT GLUCOSE (ADULT) Routine 05/26/2025 12:46 AM PDT COMPLETE BLOOD COUNT WITH DIFF RESULT STAT 05/26/2025 12:15 AM PDT COMPLETE BLOOD COUNT WITH DIFF STAT 05/26/2025 12:15 AM PDT POCT GLUCOSE (ADULT) Routine 05/25/2025 11:22 PM PDT XR ANKLE 3+ VIEWS LEFT Routine 05/25/2025 11:21 PM PDT PREPARE/CROSSMATCH RBC STAT 05/25/2025 10:53 PM PDT TYPE AND SCREEN Routine 05/25/2025 10:53 PM PDT HEMOGLOBIN AND HEMATOCRIT Routine 05/25/2025 10:53 PM PDT CULTURE, DEEP ABSCESS AEROBIC & ANAEROBIC W/GRAM STAIN Routine 05/25/2025 7:50 PM PDT Skin ulcer of left ankle with fat layer exposed (CMS/HCC) Osteochondral lesion of talar dome Other specified puerperal infections SURGICAL PATHOLOGY Routine 05/25/2025 7: 42 PM PDT Skin ulcer of left ankle with fat layer exposed (CMS/HCC) Osteochondral lesion of talar dome Other specified puerperal infections CULTURE, DEEP ABSCESS AEROBIC & ANAEROBIC W/GRAM STAIN Routine 05/25/2025 7:42 PM PDT Skin ulcer of left ankle with fat layer exposed (CMS/HCC) Osteochondral lesion of talar dome Other specified puerperal infections CULTURE, DEEP ABSCESS AEROBIC & ANAEROBIC W/GRAM STAIN Routine 05/25/2025 7:41 PM PDT Skin ulcer of left ankle with fat layer exposed (CMS/HCC) Osteochondral lesion of talar dome Other specified puerperal infections CULTURE, FUNGUS NON-SKIN Routine 05/25/2025 7:41 PM PDT Skin ulcer of left ankle with fat layer exposed (CMS/HCC) Osteochondral lesion of talar dome Other specified puerperal infections TX AN ELECTIVE SUPRAGLOTTIC AIRWAY Routine 05/25/2025 6:45 PM PDT HC PROC US NEEDLE PLACEMENT Routine 05/25/2025 6:27 PM PDT HC PROC US NEEDLE PLACEMENT Routine 05/25/2025 6:23 PM PDT TX APPLICATION MULTIPLANE EXTERNAL FIXATION SYSTEM 05/25/2025 6:07 PM PDT Skin ulcer of left ankle with fat layer exposed (CMS/HCC) Osteochondral lesion of talar dome Other specified puerperal infections Special Needs Pop/saph block,Monkey bars ,pulse lavage TX INCISION&DRAINAGE BURSA FOOT 05/25/2025 6:07 PM PDT Skin ulcer of left ankle with fat layer exposed (CMS/HCC) Osteochondral lesion of talar dome Other specified puerperal infections Special Needs Pop/saph block,Monkey bars ,pulse lavage TX REMOVAL IMPLANT DEEP 05/25/2025 6:07 PM PDT Skin ulcer of left ankle with fat layer exposed (CMS/HCC) Osteochondral lesion of talar dome Other specified puerperal infections Special Needs Pop/saph block,Monkey bars ,pulse lavage POCT GLUCOSE (ADULT) Routine 05/25/2025 11:56 AM PDT COMPLETE BLOOD COUNT WITH DIFF RESULT Routine 05/25/2025 11:05 AM PDT BASIC METABOLIC PANEL Routine 05/25/2025 11:05 AM PDT COMPLETE BLOOD COUNT WITH DIFF Routine 05/25/2025 11:05 AM PDT ABO/RH TYPE CHECK (LAB ONLY) Routine 05/25/2025 10:58 AM PDT POCT GLUCOSE (ADULT) Routine 05/25/2025 7:52 AM PDT COMPLETE BLOOD COUNT WITH DIFF RESULT Routine 05/25/2025 4:16 AM PDT PROTHROMBIN TIME Routine 05/25/2025 4:16 AM PDT C-REACTIVE PROTEIN Routine 05/25/2025 4: 16 AM PDT COMPLETE BLOOD COUNT WITH DIFF Routine 05/25/2025 4:16 AM PDT BASIC METABOLIC PANEL Routine 05/25/2025 4:16 AM PDT ECG 12-LEAD Routine 05/24/2025 5:53 PM PDT POCT GLUCOSE (ADULT) Routine 05/24/2025 4:[address] ANKLE LEFT WITH CONTRAST STAT 05/24/2025 11:55 AM PDT CULTURE, BLOOD STAT 05/24/2025 10:41 AM PDT COMPLETE BLOOD COUNT WITH DIFF RESULT STAT 05/24/2025 10:37 AM PDT HEMOGLOBIN A1C STAT Add-on 05/24/2025 10:37 AM PDT C-REACTIVE PROTEIN STAT 05/24/2025 10:37 AM PDT SEDIMENTATION RATE STAT 05/24/2025 10:37 AM PDT PROCALCITONIN STAT 05/24/2025 10:37 AM PDT LACTIC ACID SEPSIS PROTOCOL STAT 05/24/2025 10:37 AM PDT MAGNESIUM STAT 05/24/2025 10:37 AM PDT COMPREHENSIVE METABOLIC PANEL STAT 05/24/2025 10:37 AM PDT COMPLETE BLOOD COUNT WITH DIFF STAT 05/24/2025 10:37 AM PDT CULTURE, BLOOD STAT 05/24/2025 10:37 AM PDT TELEMETRY EXTERNAL RESULTS 05/24/2025 XR CALCANEUS LEFT Routine 05/09/2025 4:1 2 PM PDT XR ANKLE 3+ VIEWS LEFT Routine 05/09/2025 4:10 PM PDT DISCHARGE PATIENT Routine 05/09/2025 3:4 6 PM PDT TX AN ELECTIVE ENDOTRACHEAL AIRWAY Routine 05/09/2025 11:58 AM PDT HC PROC US NEEDLE PLACEMENT Routine 05/09/2025 11:45 AM PDT HC PROC US NEEDLE PLACEMENT Routine 05/09/2025 11:40 AM PDT TX ARTHRODESIS SUBTALAR 05/09/2025 11:35 AM PDT Osteochondral lesion of talar dome Tear of talofibular ligament, left, initial encounter Skin ulcer of left ankle with fat layer exposed (CMS/HCC) Special Needs Popliteal saphenous block, Epes ankle fusion plates, bone mill, V92, 150 minutes for the procedureOk per Betty P28, Monster hindfoot, silverback, and FJ and bone mill rep confirmed 05/01-DM TX ARTHRODESIS ANKLE OPEN 05/09/2025 11:35 AM PDT Osteochondral lesion of talar dome Tear of talofibular ligament, left, initial encounter Skin ulcer of left ankle with fat layer exposed (CMS/HCC) Special Needs Popliteal saphenous block, Epes ankle fusion plates, bone mill, V92, 150 minutes for the procedureOk per Betty P28, Monster hindfoot, silverback, and FJ and bone mill rep confirmed 05/01-DM POCT GLUCOSE (ADULT) Routine 05/09/2025 10:36 AM PDT COMPLETE BLOOD COUNT WITH DIFF RESULT Routine 04/17/2025 9:14 AM PDT Osteochondral lesion of talar dome Tear of talofibular ligament, left, initial encounter Skin ulcer of left ankle with fat layer exposed (CMS/HCC) COMPLETE BLOOD COUNT WITH DIFF Routine 04/17/2025 9:14 AM PDT Osteochondral lesion of talar dome Tear of talofibular ligament, left, initial encounter Skin ulcer of left ankle with fat layer exposed (CMS/HCC) COMPREHENSIVE METABOLIC PANEL Routine 04/17/2025 9:14 AM PDT Osteochondral lesion of talar dome Tear of talofibular ligament, left, initial encounter Skin ulcer of left ankle with fat layer exposed (CMS/HCC) from Last 3 Months Results * CT ANKLE LEFT WITH CONTRAST (06/20/2025 9:51 AM PST) Only the most recent of2 resultswithin the time period is included. Anatomical Region Laterality Modality Lower Extremities, Ankle Left Compute d Tomography 06/20/2025 10:4 5 AM PST Narrative 06/20/2025 10:45 [place]. [address] PATIENT NAME: OLEG KENNY : 1955 GENDER: M EXAM DATE: 06/20/2025 9:43 ORDERED FROM: [facility] ORDERING PHYSICIAN: NABILA HERNANDEZ CC: -- - - - CONTRAST: 100ml omnipaque 300 READING STATION ID: [id number] mGy: PROCEDURE: CT ANKLE LEFT WITH CONTRAST INDICATIONS: Increasing CRP and swelling with external fixator in place COMPARISON: [facility], CT, CT ANKLE LEFT WITH CONTRAST, [...] previous study. No acute fracture or dislocation. [id number] osteoarthritic changes are noted throughout rest of [...] M.D. on 06/20/2025 at 10:45 Procedure Note aHrry Batres MD - 06/20/2025 [place]. [address] PATIENT NAME: OLEG KENNY : 1955 GENDER: M EXAM DATE: 06/20/2025 9:43 ORDERED FROM: [facility] ORDERING PHYSICIAN: NABILA HERNANDEZ CC: -- - - - CONTRAST: 100ml omnipaque 300 READING STATION ID: [id number] mGy: PROCEDURE: CT ANKLE LEFT WITH CONTRAST INDICATIONS: Increasing CRP and swelling with external fixator in place COMPARISON: [facility], [place], [place] ANKLE LEFT WITH CONTRAST,05/24/2025, 11:27. Technique: [...] on previous study. No acute fractureor dislocation. [id number] osteoarthritic changes are notedthroughout rest of the [...] Harry Batres M.D. on 06/20/2025 at 10:45 Nabila Hernandez MD [facility]IS [facility] CT PROCEDURES Final Resu lt * (ABNORMAL) Procalcitonin (06/20/2025 8:53 AM [facility]) Only the most recent of2 resultswithin the time period is included. Procalcitonin, Serum/Plasma 0.09(H) 0.00 - 0.08 ng/mL LAB CHEMISTRY METHOD 06/20/2025 11:44 AM [facility] Comment: PCT >2.00 ng/mL A [...] Unknown Venipuncture / Unknown 06/20/2025 8:53 AM [facility] 06/20/2025 9:43 AM [facility] us Nabila Hernandez MD LAB BLOOD ORDERABLES Final Resul t [facility] [address] [place] [address], * (ABNORMAL) Complete blood count with diff (06/20/2025 8:53 AM [facility]) Only the most recent of13 resultswithin the time period is included. WBC Auto 7.8 3.8 - 10.1 x10e3/uL 06/20/2025 11:26 AM [facility] RBC 3.60(L) 4.40 - 5.80 x10e6/uL 06/20/2025 11:26 AM [facility] Hemoglobin 10.9(L) 13.8 - 17.2 g/dL 06/20/2025 11:26 AM [facility] Hematocrit 35.0(L) 41.0 - 50.0 % 06/20/2025 11:26 AM [facility] MCV 97 81 - 100 fL 06/20/2025 11:26 AM [facility] MCH 30.3 27.0 - 35.0 pg 06/20/2025 11:26 AM [facility] MCHC 31.1(L) 32.0 - 37.0 g/dL 06/20/2025 11:26 AM [facility] RDW 14.7 12.3 - 15.4 % 06/20/2025 11:26 AM [facility] Platelets 220 150 - 400 x10e3/uL 06/20/2025 11:26 AM [facility] MPV 10.1 7.4 - 10.4 fL 06/20/2025 11:26 AM [facility] NRBC % 0 0 /100 WBCs 06/20/2025 11:26 AM [facility] Abs. NRBC 0.0 x10e3/uL 06/20/2025 11:26 AM [facility] % Neutrophils 76 % 06/20/2025 11:26 AM [facility] % Lymphocytes 13 % 06/20/2025 11:26 AM [facility] % Monocytes 7 % 06/20/2025 11:26 AM [facility] % Eosinophils 4 % 06/20/2025 11:26 AM [facility] % Basophils 1 % 06/20/2025 11:26 AM [facility] Abs. Neutrophils 5.9 1.6 - 6.9 x10e3/uL 06/20/2025 11:26 AM [facility] Abs. Lymphocytes 1.0(L) 1.1 - 4.8 x10e3/uL 06/20/2025 11:26 AM [facility] Abs. Monocytes 0.5 0.0 - 1.0 x10e3/uL 06/20/2025 11:26 AM [facility] Abs. Eosinophils 0.3 0.0 - 0.5 x10e3/uL 06/20/2025 11:26 AM [facility] Abs. Basophils 0.0 0.0 - 0.4 x10e3/uL 06/20/2025 11:26 AM [facility] Abs. Neutrophils (Auto) 5,900.0 1,600.0 - 6,900.0 /uL 06/20/2025 11:26 AM [facility] Blood Venous blood / Unknown Venipuncture / Unknown 06/20/2025 8:53 AM PST 06/20/2025 9:06 AM PST us Nabila Hernandez MD LAB BLOOD ORDERABLES Final Resul t Performing Organization Address City/[facility] Co de Phone Number [facility] [address] [place] [address], * (ABNORMAL) C-reactive protein (06/20/2025 8:53 AM PST) Only the most recent of8 resultswithin the time period is included. CRP, Serum/Plasma (mg/dL) 2.8(H) <1.0 mg/dL LAB CHEMISTRY METHOD 06/20/2025 11:25 AM [facility] Blood Venous blood / Unknown Venipuncture / Unknown 06/20/2025 8:53 AM PST 06/20/2025 9:43 AM [facility] us Nabila Hernandez MD LAB BLOOD ORDERABLES Final Resul t Performing Organization Address [facility] de Phone Number [facility] [address] [place] [address], * PICC LINE INSERTION (05/30/2025 12:36 PM PDT) Anatomical Region Laterality Modality N/A Other Narrative 05/30/2025 12:41 PM PDT This exam has been auto-finalized. Please refer to nursing note. Procedure Radha Holland MD - 05/30/2025 This exam has been auto-finalized. Please refer to nursing note. us Bayron Busby [facility] XR PROCEDURES Final Result * (ABNORMAL) Basic metabolic panel (05/30/2025 3:26 AM PDT) Only the most recent of7 resultswithin the time period is included. Sodium, Serum/Plasma 139 135 - 145 mmol/L LAB CHEMISTRY METHOD 05/30/2025 4:32 AM [facility] Potassium, Serum/Plasma 3.8 3.5 - 5.2 mmol/L LAB CHEMISTRY METHOD 05/30/2025 4:32 AM [facility] Chloride, Serum/Plasma 111(H) 98 - 107 mmol/L LAB CHEMISTRY METHOD 05/30/2025 4:32 AM [facility] CO2, Serum/Plasma 28 22 - 30 mmol/L LAB CHEMISTRY METHOD 05/30/2025 4:32 AM [facility] Anion Gap, Serum/Plasma 0(L) 3 - 11 mmol/L 05/30/2025 4:32 AM [facility] Urea Nitrogen, Serum/Plasma 14.0 8.0 - 27.0 mg/dL LAB CHEMISTRY METHOD 05/30/2025 4:32 AM [facility] Creatinine, Serum/Plasma 0.50(L) 0.76 - 1.27 mg/dL LAB CHEMISTRY METHOD 05/30/2025 4:32 AM [facility] Glucose, Serum/Plasma 99 65 - 99 mg/dL LAB CHEMISTRY METHOD 05/30/2025 4:32 AM [facility] Calcium, Serum/Plasma 8.3(L) 8.5 - 10.1 mg/dL LAB CHEMISTRY METHOD 05/30/2025 4:32 AM [facility] eGFR, Serum/Plasma (CKD-EPI 2020) 110 >60 (CKD-EPI 2020) mL/min/1. 73 m2 05/30/2025 4:32 AM [facility] Comment: eGFR calculation has been updated by recommendation of the National Kidney Foundation (NKF) without the race variable. This change was made on October 20, 2022 Interpretation for GFR in Chronic Kidney Disease can be viewed below. BUN/Creatinine Ratio, Serum/Plasma 28.0(H) 6.0 - 24.0 05/30/2025 4:32 AM [facility] Blood Venous blood / Unknown Venipuncture / Unknown 05/30/2025 3:26 AM PDT 05/30/2025 4:07 AM PDT Narrative [facility] - 05/30/2025 4:32 AM PDT Interpretive Data The estimated glomerular filtration rate (eGFR) was calculated using the 2020 CKD-EPI eGFR creatinine equation, which does not include race as a factor. This equation is validated in individuals 18 years of age and older. Accurate estimation of GFR requires stable day-to-day creatinine. Creatinine-based eGFR is less accurate in patients with extremes of muscle mass, restriction of dietary protein, ingestion of creatine, extra-renal metabolism of creatinine, or treatment with medications that affect renal tubular creatinine secretion. The eGFR is normalized to a body surface area of 1.73 square meters. GFR Categories in Chronic Kidney Disease (CKD) GFR Category GFR (mL/min/1.73 square meters) Interpretation G1 90 or greater Normal to high* G2 60-89 Mild decrease* G3a 45-59 Mild to moderate decrease G3b 30-44 Moderate to severe decrease G4 15-29 Severe decrease G5 14 or less Kidney failure *In the absence of evidence of kidney damage, neither GFR category G1 nor G2 fulfill the criteria for CKD (Kidney Int Suppl 2013;3:1-150) Oleg Coy DPM LAB BLOOD ORDERABLES Final Result [facility] [address] [place] [address], * (ABNORMAL) POCT glucose (05/29/2025 8:44 PM PDT) Only the most recent of16 resultswithin the time period is included. POCT Glucose, Blood 172(H) 65 - 99 mg/dL 05/29/2025 8:44 PM PDT [facility] POCT (CLIA [id number]) Blood Capillary blood / Unknown 05/29/2025 8:44 PM PDT 05/29/2025 8:44 PM PDT Bayron Busby LAB POCT ORDERABLES - DEVICE Final Result [facility] POCT (CLIA [id number]) [address] [place] [address], * Vitamin B12 and Folate (05/28/2025 4:10 AM PDT) Vitamin B12, Serum/Plasma 351 239 - 931 pg/mL LAB CHEMISTRY METHOD 05/28/2025 9:10 AM PDT [facility] Comment:Biotin concentration s of 30-100 ng/mL may affect the Vitamin B12 assay causing a positive bias of 216 to 694 pg/mL. A biotin concentration of 100 ng/mL is national sales representative of a dose of 10 mg/day biotin. Multivitamins containing doses up to 300 mcg per day biotin are not expected to cause interference with this assay. Biotin concentrations in specimens from patients ingesting supplements or therapy with higher levels of biotin are likely to interfere. Folate, Serum/Plasma (ng/mL) 12.3 5.0 - 20.0 ng/mL LAB CHEMISTRY METHOD 05/28/2025 9:10 AM PDT [facility] Comment:Biotin concentration s of 10-100 ng/mL may affect the folate assay causing a positive bias of 0.8 to 13.4 ng/mL. A biotin concentration of 100 ng/mL is national sales representative of a dose of 10 mg/day biotin. Multivitamins containing doses up to 300 mcg per day biotin are not expected to cause interference with this assay. Biotin concentrations in specimens from patients ingesting supplements or therapy with higher levels of biotin are likely to interfere. Blood Venous blood / Unknown Venipuncture / Unknown 05/28/2025 4:10 AM PDT 05/28/2025 4:28 AM PDT Ricardo Gunter MD LAB BLOOD ORDERABLES Final Resul t [facility] [address] [place] [address], * (ABNORMAL) Hemoglobin and hematocrit (05/27/2025 7:59 PM PDT) Only the most recent of3 resultswithin the time period is included. Hemoglobin 7.7(L) 13.8 - 17.2 g/dL 05/27/2025 8:02 PM PDT [facility] Hematocrit 24.7(L) 41.0 - 50.0 % 05/27/2025 8:02 PM PDT [facility] Blood Venous blood / Unknown Venipuncture / Unknown 05/27/2025 7:59 PM PDT 05/27/2025 7:59 PM PDT us Ricardo Gunter MD LAB BLOOD ORDERABLES Final Resul t Performing Organization Address City/[facility]/ZIP Co de Phone Number [facility] [address] [place] [id number], * Transfuse RBC (05/27/2025 9:09 AM PDT) Yaniv Lamb DO BLOOD TRANSFUSION ORDERABLES Fin al Result * (ABNORMAL) Vancomycin, trough (05/27/2025 7:53 AM PDT) Only the most recent of2 resultswithin the time period is included. Vancomycin, Trough, Serum/Plasma 8.5(L) 10.0 - 20.0 ug/mL LAB CHEMISTRY METHOD 05/27/2025 8:38 AM PDT [facility] Blood Venous blood / Unknown Venipuncture / Unknown 05/27/2025 7:53 AM PDT 05/27/2025 8:12 AM PDT us Ricardo Gunter MD LAB BLOOD ORDERABLES Final Resul t Performing Organization Address City/[facility]/ZIP Co de Phone Number [facility] [address] [place] [id number], * Creatine kinase (05/26/2025 8:00 AM PDT) CK, Total, Serum/Plasma 109 20 - 200 U/L LAB CHEMISTRY METHOD 05/26/2025 12:54 PM PDT [facility] Blood Venous blood / Unknown Venipuncture / Unknown 05/26/2025 8:00 AM PDT 05/26/2025 8:00 AM PDT us Ricardo Gunter MD LAB BLOOD ORDERABLES Final Resul t [facility] [address] [place] [address], * XR ANKLE 3+ VIEWS LEFT (05/25/2025 11:21 PM PDT) Only the most recent of2 resultswithin the time period is included. Anatomical Region Laterality Modality Lower Extremities, Ankle Left Radiogr aphic Imaging 05/26/2025 11:1 4 AM PDT Narrative 05/26/2025 11:14 AM PDT [facility] [address] PATIENT NAME: OLEG KENNY : 1955 GENDER: M EXAM DATE: 05/25/2025 23:11 ORDERED FROM: [facility] ORDERING PHYSICIAN: OLEG COY CC: SHAW -- - - - CONTRAST: READING STATION ID: [id number] mGy: PROCEDURE: XR ANKLE 3+ VIEWS LEFT INDICATIONS: Post-op Eval TECHNIQUE: 3 views of the ankle were acquired. COMPARISON: [facility], , XR ANKLE 3+ VIEWS LEFT, 05/09/2025, 15:51. FINDINGS: Bones last joints: The lateral malleolus and distal fibula have been surgically resected-as previously seen. Plate and multiple screws, previously providing arthrodesis across the ankle mortise and talocalcaneal joints have now been removed. Severe erosive changes in the anterior /lateral tibial plafond and also the [...] multiple small calcifications noted IMPRESSION: Interval removal in plate and screws providing arthrodesis across the ankle mortise and talocalcaneal joint. Severe erosion of the anterior lateral tibial plafond and the adjacent articulating medial central talar dome. There is joint space narrowing and effusion with calcifications. Suspect possible septic arthritis. There is moderate subluxation of the ankle mortise is well Suggest ankle CT or MRI for further evaluation. Plate and screws providing arthrodesis across the talocalcaneal and the ankle mortise have been been removed. Reviewed by: Ever Patterson M.D. on 05/26/2025 at 11:03 Approved by: Ever Patterson M.D. on 05/26/2025 at 11:14 Procedure Note Ever Patterson MD - 05/26/2025 [facility] [address] PATIENT NAME: OLEG KENNY : 1955 GENDER: M EXAM DATE: 05/25/2025 23:11 ORDERED FROM: [facility] ORDERING PHYSICIAN: OLEG COY CC: SHAW -- - - - CONTRAST: READING STATION ID: [id number] mGy: PROCEDURE: XR ANKLE 3+ VIEWS LEFT INDICATIONS: Post-op Eval TECHNIQUE: 3 views of the ankle were acquired. COMPARISON: [facility], , XR ANKLE 3+ VIEWS LEFT, 05/09/2025,15:51. FINDINGS: Bones last joints: The lateral malleolus and distal fibula have beensurgically resected-as previously seen. Plate and multiple screws,previously providing arthrodesis across the ankle mortise andtalocalcaneal joints have now been removed. Severe erosive changes in theanterior /lateral tibial plafond and also the medial/central talar dome.Moderate effusion and periarticular calcifications noted. This couldrepresent septic arthritis. The articulating tibial plafond is displaced1.3 cm medially with respect to the talar dome There are external fixationpins in the mid tibia and in the proximal metatarsal and calcanealregions. Soft tissues: Moderate periarticular soft tissue swelling and multiplesmall calcifications noted IMPRESSION: Interval removal in plate and screws providing arthrodesis across theankle mortise and talocalcaneal joint. Severe erosion of the anteriorlateral tibial plafond and the adjacent articulating medial central talardome. There is joint space narrowing and effusion with calcifications.Suspect possible septic arthritis. There is moderate subluxation of theankle mortise is well Suggest ankle CT or MRI for further evaluation. Plate and screws providing arthrodesis across the talocalcaneal and theankle mortise have been been removed. Reviewed by: Ever Patterson M.D. on 05/26/2025 at 11:03 Approved by: Ever Patterson M.D. on 05/26/2025 at 11:14 Oleg Coy DPM [facility] XR PROCEDURES Riana l Result * Prepare/Crossmatch RBC: 1 Units (05/25/2025 10:53 PM PDT) Unit Number [id number] [facility]LOOD [facility] Product Identification [id number] [facility] Product Blood Type (Readable) A POS [facility] Dispense Status Transfused [facility] Blood Product Unit Expiration Date [facility] Product Code [id number] [facility] Product Blood Type 6200 [facility] Blood Venous blood / Unknown 05/25/2025 10:53 PM PDT Yaniv Lamb DO BLOOD BANK PRODUCT ORDERABLES Fi nal Result [facility] [address] [place] [address], * Type and screen (05/25/2025 10:53 PM PDT) ABORh A POS 05/25/2025 11:45 PM PDT [facility] Antibody Screen NEG 11:45 PM PDT [facility] Reflex to ABO/Rh Type Confirmation YES 05/25/2025 11:45 PM PDT [facility] Type and Screen Expiration Date 23:59 05/25/2025 11:45 PM PDT [facility] Blood Venous blood / Unknown Venipuncture / Unknown 05/25/2025 10:53 PM PDT 05/25/2025 10:56 PM PDT us Rodrigo Roberson DO LAB BLOOD BANK TEST ORDERABLE S Final Result [facility] [address] [place] [address], [place] [phone] * Culture, Deep Abscess Aerobic&Anaerobic w/gram stain (05/25/2025 7:50 PM PDT) Only the most recent of3 resultswithin the time period is included. Culture Scant Growth Enterobacter cloacae complex WALDO 05/30/2025 11:07 AM PDT [facility] Gram Stain Result No polymorphonuclear leukocytes seen 05/30/2025 11:07 AM PDT [facility] Gram Stain Result No organisms seen 05/30/2025 11:07 AM PDT [facility] Bone Ankle region structure / Unknown 05/25/2025 7:50 PM PDT 05/25/2025 9:25 PM PDT Narrative [facility] - 05/30/2025 11:07 AM PDT No anaerobic growth. Organism Antibiotic Method Susceptibility Enterobacter cloacae complex Aztreonam WALDO <=1 ug/ml: Susceptible Enterobacter cloacae complex Cefepime WALDO <=0.12 ug/ml: Susceptible Enterobacter cloacae complex Cefotaxime WALDO <=0.25 ug/ml: Susceptible Enterobacter cloacae complex Cefoxitin WALDO >=64 ug/ml: Resistant Enterobacter cloacae complex Ceftazidime WALDO <=0.5 ug/ml: Susceptible Enterobacter cloacae complex Cefuroxime WALDO 16 ug/ml: Intermediate Enterobacter cloacae complex Cefuroxime axetil WALDO 16 ug/ml: Intermediate Enterobacter cloacae complex Ciprofloxacin WALDO <=0.06 ug/ml: Susceptible Enterobacter cloacae complex Ertapenem WALDO <=0.12 ug/ml: Susceptible Enterobacter cloacae complex Gentamicin WALDO <=1 ug/ml: Susceptible Enterobacter cloacae complex Imipenem WALDO 0.5 ug/ml: Susceptible Enterobacter cloacae complex Levofloxacin WALDO <=0.12 ug/ml: Susceptible Enterobacter cloacae complex Tetracycline WALDO 2 ug/ml: Susceptible Enterobacter cloacae complex Tobramycin WALDO <=1 ug/ml: Susceptible Enterobacter cloacae complex Trimethoprim + Sulfamethoxazole WALDO <=20 ug/ml: Susceptible Oelg Coy DPM LAB MICROBIOLOGY - GENERAL ORDERABLES Final Result [facility] [address] [place] [address], * Surgical Pathology (05/25/2025 7:42 PM PDT) Pathology Final Diagnosis SEE DETAILS 05/30/2025 9:43 AM PDT [facility] Comment: Patient: OLEG KENNY Case: [id number] Result ID: [id number] Ordering Provider: OLEG COY DPM Collected Date: 05/25/25 Clinical History: Skin ulcer of left ankle with fat layer exposed. FINAL DIAGNOSIS LEFT ANKLE BONE, EXCISION: Fragments of bone with mild chronic osteomyelitis, free of the apparent edge. Electronically signed by Ange Fierro MD Pathologist 05/30/2025 09:43 GROSS DESCRIPTION: The specimen is received in a formalin filled container labeled with the patient's name Oleg Kenny and is designated left ankle bone and consists of a 1.5 x 1.5 cm in diameter, 1.1 cm in length segment of boo-yellow, firm and partly trabeculated bone that has two opposing bone resection margins. The unoriented portion of bone is longitudinally sectioned to reveal a firm, trabeculated cut surface without discrete mass or cyst. Senior Net Developer longitudinal sections of the specimen are submitted in cassette 1A following a decalcification in Formical 4. (EWW/hattie) Technical component performed at [facility], [address], [place] [address], CLIA: [id number]. MICROSCOPIC DESCRIPTION Sections contain fragments of bone with patchy lymphoplasmacytic inflammation and reactive changes. This focus is free of the apparent edge of the bone. (GINNY/alice) [facility] [address], [place] [address] CLIA: [id number] End of Report Bone Ankle region structure / Unknown 05/25/2025 7:42 PM PDT 05/25/2025 9:00 PM PDT Oleg Coy DPSusie LAB PATHOLOGY/CYTOLOGY ORD ERABLES Final Result [facility] [address] [facility], [address] [place] [address], * TX AN ELECTIVE SUPRAGLOTTIC AIRWAY (05/25/2025 6:45 PM PDT) Rodrigo Antunez DO - 05/25/2025 6:45 PM PDT Rodrigo Roberson DO 05/25/2025 6:51 PM Intubation Date/Time: 05/25/2025 6:45 PM Performed by: Rodrigo Roberson DO Authorized by: Rodrigo Roberson DO Location: OR Urgency: Elective Intubation Difficulty: Easy Indications and Patient Condition: Indications for Airway Management: Anesthesia Sedation Level: Deep Preoxygenated: Yes Patient Position: Sniffing Final Airway Details: Final Airway Type: Supraglottic airway Induction Type: Routine induction Mask Difficulty Assessment: Not attempted Supraglottic Airway: Final Supraglottic Airway: IGel SGA Size: 5 Placement Verified by: capnography Number of Attempts at Approach: 1 Atraumatic Intubation Number of Other Approaches Attempted: 0 Rodrigo Roberson DO ANESTHESIA ORDERABLES Final R esult * HC PROC US NEEDLE PLACEMENT (05/25/2025 6:27 PM PDT) Rodrigo Antunez DO - 05/25/2025 6:27 PM PDT Rodrigo Roberson DO 05/25/2025 6:34 PM Peripheral Block Performed by: Rodrigo Roberson DO Authorized by: Rodrigo Roberson DO CPT Code: Adductor canal block single shot (95733) and US guidance for needle placement (31188) US Guidance: Needle tip was noted to be adjacent to the nerve/plexus identified, ultrasound image on file, no ultrasound evidence of intravascular and/or intraneural injection and appropriate spread of the medication was noted in real time Patient Location: Pre-op Start Time: 05/25/2025 6:27 PM End Time: 05/25/2025 6:30 PM Reason for Block: at surgeon's request and post-op pain management patient identified, IV checked, site marked, risks and benefits discussed, surgical consent, monitors and equipment checked, pre-op evaluation and timeout performed Peripheral Nerve Block: Patient Position: Supine Prep: ChloraPrep Monitoring: Heart rate, continuous pulse ox and frequent blood pressure checks Block Type: Adductor canal block Laterality: Left Injection Technique: Single-shot Local Infiltration: Lidocaine Needle: Needle Type: Short-bevel Needle Gauge: 20 G Needle Length: 100 mm Needle Localization: Ultrasound guidance Assessment: Injection Assessment: Negative aspiration for heme and injected under low pressure Paresthesia Pain: None Heart Rate Change: No Slow Fractionated Injection: Yes Patient Tolerance: Well Rodrigo Roberson DO ANESTHESIA ORDERABLES Final R esult * HC PROC US NEEDLE PLACEMENT (05/25/2025 6:23 PM PDT) Rodrigo Antunez DO - 05/25/2025 6:23 PM PDT Rodrigo Roberson DO 05/25/2025 6:34 PM Peripheral Block Performed by: Rodrigo Roberson DO Authorized by: Rodrigo Roberson DO CPT Code: US guidance for needle placement (40583) and sciatic nerve block (42950) US Guidance: Needle tip was noted to be adjacent to the nerve/plexus identified, ultrasound image on file, no ultrasound evidence of intravascular and/or intraneural injection and appropriate spread of the medication was noted in real time Patient Location: Pre-op Start Time: 05/25/2025 6:23 PM End Time: 05/25/2025 6:26 PM Reason for Block: at surgeon's request and post-op pain management patient identified, IV checked, site marked, risks and benefits discussed, surgical consent, monitors and equipment checked, pre-op evaluation and timeout performed Peripheral Nerve Block: Patient Position: Supine Prep: ChloraPrep Monitoring: Heart rate, continuous pulse ox and frequent blood pressure checks Block Type: Popliteal Laterality: Left Injection Technique: Single-shot Local Infiltration: Lidocaine Needle: Needle Type: Short-bevel Needle Gauge: 20 G Needle Length: 100 mm Needle Localization: Ultrasound guidance Assessment: Injection Assessment: Negative aspiration for heme, injected under low pressure and local visualized surrounding nerve on ultrasound Paresthesia Pain: None Heart Rate Change: No Slow Fractionated Injection: Yes Patient Tolerance: Well Rodrigo Roberson DO ANESTHESIA ORDERABLES Final R esult * ABO/Rh Type Confirmation (05/25/2025 10:58 AM PDT) ABORh A POS 05/25/2025 11:53 PM PDT [facility] Blood Venous blood / Unknown Venipuncture / Unknown 05/25/2025 10:58 AM PDT 05/25/2025 11:18 PM PDT Rodrigo Da LAB BLOOD BANK TEST ORDERABLE S Final Result Performing Organization Address [facility]/ZIP Co de Phone Number [facility] [address] [place] [address], * Prothrombin time/INR (05/25/2025 4:16 AM PDT) Prothrombin Time 14.5 11.9 - 15.0 sec 05/25/2025 4:55 AM PDT [facility] INR 1.1 0.8 - 1.2 05/25/2025 4:55 AM PDT [facility] Comment: Therapeutic Ranges: Low intensity therapy INR 1.5- 2.0 Mod. intensity therapy INR 2.0 - 3.0 High intensity therapy (1) INR 2.5 - 3.5 High intensity therapy (2) INR 3.0 - 4.0 Critical value INR INR >5.9 Blood Venous blood / Unknown Venipuncture / Unknown 05/25/2025 4:16 AM PDT 05/25/2025 4:36 AM PDT Narrative [facility] - 05/25/2025 4:55 AM PDT A hematocrit >55% may cause falsely prolonged PT and PTT results. JiangP LAB BLOOD ORDERABLES Final Resul t Performing Organization Address City/[facility]/ZIP Co de Phone Number [facility] [address] [place] [address], [place] [phone] * ECG 12 lead (05/24/2025 5:53 PM PDT) HR 69 bpm [facility] RR 872 ms [facility] TX 250 ms [facility] QRSD 91 ms [facility]G QT 440 ms [facility] QTc 471 ms [facility] QRS 34 deg [facility] T 34 deg [facility] Impression - ABNORMAL ECG - [facility] Impression Sinus rhythm [facility] Impression Prolonged TX interval [facility] Impression Low voltage, precordial leads [facility] Impression No previous ECG available for comparison [facility] 05/24/2025 5:53 PM PDT us De Ambreen RICHMOND ECG ORDERABLES Final Result Performing Organization Address City/[facility]/ZIP Co de Phone Number [facility] * Culture, Blood, Blood, Peripheral draw (05/24/2025 10:41 AM PDT) Only the most recent of2 resultswithin the time period is included. Blood Culture No growth after 5 days 05/29/2025 11:45 AM PDT [facility] Blood Peripheral blood / Unknown Venipuncture / Unknown 05/24/2025 10:41 AM PDT 05/24/2025 10:42 AM PDT us Emiliano Cesar DO LAB MICROBIOLOGY - GENERAL ORDERABLES Final Result [facility] [address] [place] [address], [place] [phone] * Lactic Acid Sepsis Protocol (05/24/2025 10:37 AM PDT) Lactic Acid, Serum/Plasma 2.0 <0.5 - 2.0 mmol/L mmol/L LAB CHEMISTRY METHOD 05/24/2025 10:58 AM PDT [facility] Comment:Note: Reference Ra lay revised October 17, 2024 Blood Venous blood / Unknown Venipuncture / Unknown 05/24/2025 10:37 AM PDT 05/24/2025 10:41 AM PDT us Emiliano Cesar DO LAB BLOOD ORDERABLES Final Result [facility] [address] [place] [address], * (ABNORMAL) Sedimentation rate, automated (05/24/2025 10:37 AM PDT) Sed Rate 44(H) 2 - 37 mm/hr 05/24/2025 10:47 AM PDT [facility] Blood Venous blood / Unknown Venipuncture / Unknown 05/24/2025 10:37 AM PDT 05/24/2025 10:40 AM PDT Emiliano Cesar DO LAB BLOOD ORDERABLES Final Result Performing Organization Address [facility] Co de Phone Number [facility] [address] [place] [address], * Magnesium (05/24/2025 10:37 AM PDT) Pathologist [facility] Magnesium, Serum/Plasma 2.0 1.6 - 2.4 mg/dL LAB CHEMISTRY METHOD 05/24/2025 11:00 AM PDT [facility] Blood Venous blood / Unknown Venipuncture / Unknown 05/24/2025 10:37 AM PDT 05/24/2025 10:41 AM PDT Emiliano Cesar DO LAB BLOOD ORDERABLES Final Result Performing Organization Address [facility]/ZIP Co de Phone Number [facility] [address] [place] [address], * (ABNORMAL) Hemoglobin A1c (05/24/2025 10:37 AM PDT) Hemoglobin A1c 6.0(H) 4.8 - 5.6 % LAB CHEMISTRY METHOD 05/24/2025 2:53 PM PDT [facility] Comment: Reference Ranges: Normal: 4.8% to 5.6% Prediabetes: 5.7% to 6.4% Diabetes: 6.5% or higher Estimated Average Glucose (eAG) 126 No Reference Range Established mg/dL 05/24/2025 2:53 PM [facility] Blood Venous blood / Unknown Venipuncture / Unknown 05/24/2025 10:37 AM PDT 05/24/2025 10:40 AM PDT Narrative [facility] - 05/24/2025 2:53 PM PDT Specimens containing high amount of Hgb F (>7%) may result in lower than expected %A1c values. us De Ambreen RICHMOND LAB BLOOD ORDERABLES Final Resul t [facility] [address] [place] [address], [place] [phone] * (ABNORMAL) CMP (05/24/2025 10:37 AM PDT) Only the most recent of2 resultswithin the time period is included. Sodium, Serum/Plasma 136 135 - 145 mmol/L LAB CHEMISTRY METHOD 05/24/2025 11:05 AM [facility] Potassium, Serum/Plasma 3.1(L) 3.5 - 5.2 mmol/L LAB CHEMISTRY METHOD 05/24/2025 11:05 AM [facility] Chloride, Serum/Plasma 93(L) 98 - 107 mmol/L LAB CHEMISTRY METHOD 05/24/2025 11:05 AM [facility] CO2, Serum/Plasma 36(H) 22 - 30 mmol/L LAB CHEMISTRY METHOD 05/24/2025 11:05 AM [facility] Anion Gap, Serum/Plasma 7 3 - 11 mmol/L 05/24/2025 11:05 AM [facility] Urea Nitrogen, Serum/Plasma 31.0(H) 8.0 - 27.0 mg/dL LAB CHEMISTRY METHOD 05/24/2025 11:05 AM [facility] Creatinine, Serum/Plasma 0.70(L) 0.76 - 1.27 mg/dL LAB CHEMISTRY METHOD 05/24/2025 11:05 AM [facility] Glucose, Serum/Plasma 138(H) 65 - 99 mg/dL LAB CHEMISTRY METHOD 05/24/2025 11:05 AM [facility] Calcium, Serum/Plasma 9.3 8.5 - 10.1 mg/dL LAB CHEMISTRY METHOD 05/24/2025 11:05 AM [facility] AST, Serum/Plasma 35 17 - 59 U/L LAB CHEMISTRY METHOD 05/24/2025 11:05 AM [facility] ALT, Serum/Plasma 23 <50 U/L LAB CHEMISTRY METHOD 05/24/2025 11:05 AM [facility] Alkaline Phosphatase, Serum/Plasma 147 25 - 160 U/L LAB CHEMISTRY METHOD 05/24/2025 11:05 AM [facility] Total Protein, Serum/Plasma 7.7 6.3 - 8.2 g/dL LAB CHEMISTRY METHOD 05/24/2025 11:05 AM [facility] eGFR, Serum/Plasma (CKD-EPI 2020) 100 >60 (CKD-EPI 2020) mL/min/1. 73 m2 05/24/2025 11:05 AM [facility] Comment: eGFR calculation has been updated by recommendation of the National Kidney Foundation (NKF) without the race variable. This change was made on October 20, 2022 Interpretation for GFR in Chronic Kidney Disease can be viewed below. Albumin, Serum/Plasma 4.2 3.4 - 5.0 g/dL LAB CHEMISTRY METHOD 05/24/2025 11:05 AM [facility] Bilirubin, Total, Serum/Plasma 1.01 0.2 - 1.3 mg/dL LAB CHEMISTRY METHOD 05/24/2025 11:05 AM [facility] BUN/Creatinine Ratio, Serum/Plasma 44.3(H) 6.0 - 24.0 05/24/2025 11:05 AM [facility] Blood Venous blood / Unknown Venipuncture / Unknown 05/24/2025 10:37 AM PDT 05/24/2025 10:41 AM PDT [facility] - 05/24/2025 11:05 AM PDT Interpretive Data The estimated glomerular filtration rate (eGFR) was calculated using the 2020 CKD-EPI eGFR creatinine equation, which does not include race as a factor. This equation is validated in individuals 18 years of age and older. Accurate estimation of GFR requires stable day-to-day creatinine. Creatinine-based eGFR is less accurate in patients with extremes of muscle mass, restriction of dietary protein, ingestion of creatine, extra-renal metabolism of creatinine, or treatment with medications that affect renal tubular creatinine secretion. The eGFR is normalized to a body surface area of 1.73 square meters. GFR Categories in Chronic Kidney Disease (CKD) GFR Category GFR (mL/min/1.73 square meters) Interpretation G1 90 or greater Normal to high* G2 60-89 Mild decrease* G3a 45-59 Mild to moderate decrease G3b 30-44 Moderate to severe decrease G4 15-29 Severe decrease G5 14 or less Kidney failure *In the absence of evidence of kidney damage, neither GFR category G1 nor G2 fulfill the criteria for CKD (Kidney Int Suppl 2013;3:1-150) Emiliano Cesar DO LAB BLOOD ORDERABLES Final Result [facility] [address] [place] [address], * TELEMETRY EXTERNAL RESULTS (05/24/2025) Narrative 05/24/2025 Ordered by an unspecified provider. us Provider External MD CV CARDIAC SERVICES PROCEDU RES Final Result * XR CALCANEUS LEFT (05/09/2025 4:12 PM PDT) Anatomical Region Laterality Modality Lower Extremities, Calcaneus Left Rad iographic Imaging 05/10/2025 9:32 AM PDT Narrative 05/10/2025 11:32 PM PDT [facility] [id number] PATIENT NAME: OLEG KENNY : 1955 GENDER: M EXAM DATE: 05/09/2025 15:51 ORDERED FROM: [facility] ORDERING PHYSICIAN: OLEG COY CC: -- - - - CONTRAST: READING STATION ID: [id number] mGy: PROCEDURE: XR CALCANEUS LEFT INDICATIONS: Post-op Eval TECHNIQUE: Two views of the calcaneus were acquired. COMPARISON: [facility], CR, XR ANKLE 3+ VIEWS LEFT, 05/09/2025, 15:51. FINDINGS: Bones: Splint material obscures fine bone detail. Stabilization of posterior subtalar joint. Hardware in stable position without evidence of complication. Probable osteotomy in the calcaneus. Questionable fracture plane extending to the posterior/dorsal cortex of the calcaneus. The distal end of the stabilization screw extends two, and possibly through the lateral cortex of the calcaneus. No suspicious bony lesions. Soft tissues: No suspicious calcifications. Expected postoperative swelling. IMPRESSION: Stable postoperative changes to posterior subtalar joint with changes to the calcaneus as described. Distal end of stabilization screw at the lateral calcaneal cortical margin. Reviewed by: Renee PURDY Interpreted: Shelia Poole MD on 05/10/2025 at 9:31 Transcribed by: LUIS on 05/10/2025 at 9:32 Approved by: Shelia Poole M.D. on 05/10/2025 at 23:31 Procedure Note Shelia Poole MD - 05/10/2025 [facility] [id number] PATIENT NAME: OLEG KENNY : 1955 GENDER: Susie EXAM DATE: 05/09/2025 15:51 ORDERED FROM: [facility] ORDERING PHYSICIAN: OLEG COY CC: -- - - - CONTRAST: READING STATION ID: [id number] mGy: PROCEDURE: XR CALCANEUS LEFT INDICATIONS: Post-op Eval TECHNIQUE: Two views of the calcaneus were acquired. COMPARISON: [facility], , XR ANKLE 3+ VIEWS LEFT, 05/09/2025,15:51. FINDINGS: Bones: Splint material obscures fine bone detail. Stabilization ofposterior subtalar joint. Hardware in stable position without evidence ofcomplication. Probable osteotomy in the calcaneus. Questionable fractureplane extending to the posterior/dorsal cortex of the calcaneus. Thedistal end of the stabilization screw extends two, and possibly throughthe lateral cortex of the calcaneus. No suspicious bony lesions. Soft tissues: No suspicious calcifications. Expected postoperativeswelling. IMPRESSION: Stable postoperative changes to posterior subtalar joint with changes tothe calcaneus as described. Distal end of stabilization screw at the lateral calcaneal corticalmargin. Reviewed by: Renee PURDY Interpreted: Shelia Poole MD on05/10/2025 at 9:31 Transcribed by: LUIS on 05/10/2025 at 9:32 Approved by: Shelia Poole M.D. on 05/10/2025 at 23:31 us Oleg Coy DPM RIS [facility] XR PROCEDURES Riana l Result * TX AN ELECTIVE ENDOTRACHEAL AIRWAY (05/09/2025 11:58 AM PDT) Ever Becker MD - 05/09/2025 11:58 AM PDT Ever Mcduffie MD 05/09/2025 12:14 PM Intubation Date/Time: 05/09/2025 11:58 AM Performed by: Ever Mcduffie MD Authorized by: Ever Mcduffie MD Location: OR Urgency: Elective Intubation Difficulty: Easy Indications and Patient Condition: Indications for Airway Management: Anesthesia Sedation Level: Deep Preoxygenated: Yes Patient Position: Sniffing MILS Maintained Throughout: No Final Airway Details: Final Airway Type: Endotracheal airway Induction Type: Routine induction Mask Difficulty Assessment: Difficult Endotracheal Airway: Final Endotracheal Airway: ETT Cuffed: Yes Technique Used for Successful ETT Placement: Video laryngoscopy Devices/Methods Used in Placement: Intubating stylet Insertion Site: Oral Blade Type: Mihai Laryngoscope Blade/Videolaryngoscope Blade Size: 4 ETT Size (mm): 7.5 Measured from: Teeth ETT to Teeth (cm): 23 Placement Verified by: capnography Supraglottic Airway: Cormack-Lehane Classification: Grade I - full view of glottis Number of Attempts at Approach: 1 Atraumatic Intubation Number of Other Approaches Attempted: 0 us Ever Mcduffie MD ANESTHESIA ORDERABLES Final Resu lt * HC PROC US NEEDLE PLACEMENT (05/09/2025 11:45 AM PDT) Ever Becker MD - 05/09/2025 11:45 AM PDT Ever Mcduffie MD 05/09/2025 2:16 PM Peripheral Block Performed by: Ever Mcduffie MD Authorized by: Ever Mcduffie MD CPT Code: Adductor canal block single shot (99059) Patient Location: Pre-op Start Time: 05/09/2025 11:45 AM End Time: 05/09/2025 11:47 AM Reason for Block: at surgeon's request and post-op pain management patient identified, IV checked, site marked, risks and benefits discussed, surgical consent, monitors and equipment checked, pre-op evaluation and timeout performed Peripheral Nerve Block: Patient Position: Supine Prep: ChloraPrep Monitoring: Heart rate, continuous pulse ox and frequent blood pressure checks Block Type: Adductor canal block Laterality: Left Injection Technique: Single-shot Local Infiltration: Lidocaine Needle: Needle Type: Combined needle/nerve stimulator Needle Gauge: 22 G Needle Length: 100 mm Needle Localization: Ultrasound guidance Assessment: Injection Assessment: Negative aspiration for heme and injected under low pressure Paresthesia Pain: None Heart Rate Change: No Slow Fractionated Injection: Yes Patient Tolerance: Well Ever Mcduffie MD ANESTHESIA ORDERABLES Edited Res ult - Final * [facility] NEEDLE PLACEMENT (05/09/2025 11:40 AM PDT) Ever Becker MD - 05/09/2025 11:40 AM PDT Ever Mcduffie MD 05/09/2025 2:15 PM Peripheral Block Performed by: Ever Mcduffie MD Authorized by: Ever Mcduffie MD CPT Code: Sciatic nerve block (44980) Start Time: 05/09/2025 11:40 AM End Time: 05/09/2025 11:44 AM Reason for Block: at surgeon's request and post-op pain management patient identified, IV checked, site marked, risks and benefits discussed, surgical consent, monitors and equipment checked, pre-op evaluation and timeout performed Peripheral Nerve Block: Patient Position: Right lateral decubitus Prep: ChloraPrep Monitoring: Heart rate, continuous pulse ox and frequent blood pressure checks Block Type: Sciatic Injection Technique: Single-shot Local Infiltration: Lidocaine Needle: Needle Type: Combined needle/nerve stimulator Needle Gauge: 22 G Needle Length: 100 mm Needle Localization: Ultrasound guidance Assessment: Injection Assessment: Negative aspiration for heme and injected under low pressure Paresthesia Pain: None Heart Rate Change: No Slow Fractionated Injection: Yes Patient Tolerance: Well Ever Mcduffie MD ANESTHESIA ORDERABLES Final Resu lt from Last 3 Months Insurance [facility] MEDIC[facility] PART A Advance Directives * Full Code (Latest Code Status on File) Date Activated Date Inactivated Comments 05/25/2025 11:32 PM 05/31/2025 4:22 PM Question Answer Comments Discussed the code status with patient and/or fa luan: Yes * Full Code Date Activated Date Inactivated Comments 05/24/2025 1:17 PM 05/25/2025 11:32 PM Question Answer Comments Discussed the code status wi th patient and/or family: Yes pt hope to have full code * Full Code Date Activated Date Inactivated Comments 05/09/2025 9:37 AM 05/09/2025 8:01 PM Question Answer Comments Discussed the code status with patient and/or fa luan: Yes Care Teams Bone Char Puller Relationship Specialty Start Date End Date Remy Mg ARNP [address] [place] [address] PCP - General Nurse Practitioner Family 03/08/25
--- OUTSIDE RECORDS SUMMARY | 2025-06-23 14:16 | XMS_ITS | Encounter Summary ---
Author Organization [facility] Address [address] [place] [address] Care Team Providers Care Maintenance Shop Technician Name Role Phone Remy Mg III Primary Care Provider Unav ailable Reason for Referral * Radiology (Routine) - Authorized Specialty Diagnoses / Procedures Referred By Contchristina t Referred To Contact Radiology Diagnoses Sprain of anterior talofibular ligament, left, initial encounter Procedures REF RADIOLOGY MRI ANY JOINT [facility] [address] [place] [address] [place], [facility] [address] [address] [place] [address] Referral ID Status Reason Start Date Expiration Date Visits Requested Visits Authorized [id number] Authorized Itemized Services 01/09/2025 07/12/2025 4 4 Encounter Details Date Type Department Care Team (Late st Contact Info) Description 01/09/2025 Community Orders [facility] Provider Jayshree Simmons [facility] [address] [place] [address] Sprain of anterior talofibular ligament, left, initial encounter (Primary Dx) Social History Tobacco [...] as of this encounter Visit Diagnoses Diagnosis Sprain of anterior talofibular ligament, left, initial encounter- Primary documented in this encounter Care Teams Maintenance Shop Technician Relationship Specialty Start Date End Date Remy Mg III [facility] [address] [place] [address] PCP - General 01/27/24 documented as of this encounter
--- OUTSIDE RECORDS SUMMARY | 2025-06-23 14:16 | XMS_ITS | Encounter Summary ---
Author Organization [facility] Address [address] [place] [address] Care Team Providers Care Lockstitch Topstitcher Name Role Phone Remy Mg III Primary Care Provider Unav ailable Reason for Referral * Surgical Services (Routine) - Authorized Specialty Diagnoses / Procedures Referred By Virgilio t Referred To Contact Orthopedic Surgery Diagnoses Left ankle pain, unspecified chronicity Charcot arthropathy of hindfoot Type 2 diabetes mellitus with foot ulcer, unspecified whether terminal operations manager insulin use Acquired deformity of left lower leg Procedures REF ORTHO EXTERNAL OPEN TX ANKLE DISLOC W/O REPAIR/INT FIX ARTHRODESIS ANKLE ANY METHOD ARTHRODESIS SUBTALAR LENGTHEN/SHORTEN TEND LEG/ANKLE SINGLE TEND Marzena Turcios [facility] [address] [place] [phone] Orthopedics, [facility] [place] [address] [phone] fax: Referral ID Status Reason Start Date Expiration Date Visits Requested Visits Authorized [id number] Authorized Procedure Only 03/01/2025 03/01/2026 2 2 Encounter Details Date Type Department Care Team (Late st Contact Info) Description 03/01/2025 Community Orders Non [facility] Provider Marzena Turcios [facility] [address] [place] [phone] Left ankle pain, unspecified chronicity (Primary Dx); Charcot arthropathy of hindfoot; Type 2 diabetes mellitus with foot ulcer, unspecified whether terminal operations manager insulin use; Acquired deformity of left lower leg Social History Tobacco Use Types Packs/Day Years Used Date Smoking Tobacco: Never Assessed Sex and Gender Information Value Date Recorded Sex Assigned at Not on file Legal Sex Male 8:07 AM PST Gender Identity Not on file Sexual Orientation Not on file documented as of this encounter Plan of Treatment Not on file documented as of this encounter Visit Diagnoses Diagnosis Left ankle pain, unspecified chronicity- Primary Charcot arthropathy of hindfoot Type 2 diabetes mellitus with foot ulcer, unspecified whether fci insulin use Acquired deformity of left lower leg Other acquired deformity of other parts of limb documented in this encounter Care Teams Lockstitch Topstitcher Relationship Specialty Start Date End Date Remy Mg III [facility] [address] [place] [address] PCP - General 01/27/24 documented as of this encounter
--- OUTSIDE RECORDS SUMMARY | 2025-06-23 14:16 | XMS_ITS | Encounter Summary ---
Author Organization [facility] Address [address] [address] Care Team Providers Care Deodorizer Operator Name Role Phone Carrington Spencer MD Primary Care Provider U vickie Encounter Details Date Type Department Care Team (Late st Contact Info) Description 10/14/2010 Historical Encounter HISTORIC_CONVERSION [address] [place], [place] [phone] Bon Merida MD [address] [facility] [address] [place] [address] Social History Tobacco Use Types Packs/Day Years Used Date Smoking Tobacco: Never Assessed Sex and Gender Information Value Date Recorded Sex Assigned at Not on file Legal Sex Male 10:40 PM PDT Gender Identity Not on file Sexual Orientation Not on file documented as of this encounter Discharge Summaries * Bon Merida MD - 10/14/2010 12:00 AM PDT Lee MIGUEL [id number] : 1955 DATE OF ADMISSION: October 09, 2010 DATE OF DISCHARGE: October 14, 2010 PRIMARY CARE PHYSICIAN: Ever Gonzalez MD REASON FOR ADMISSION: Alcohol withdrawal. CONSULTATIONS: Abbi Vincent MD and Davonte Galvan MD, shrub grower. PROCEDURES PERFORMED: None. IMAGING STUDIES: 1. Ultrasound of abdomen done on October 08, 2010 showed marked hepatomegaly, which is increased from prior exam. 2. Markedly slow flow or thrombosis of the portal vein. CT or MRI could be performed for further evaluation if clinically oriented. 3. Moderate amount of intraabdominal ascites. 4. Cholelithiasis and sludge, with nonspecific gallbladder wall thickening. No convincing sonographic evidence of cholecystitis or biliary obstruction. 5. Splenomegaly. CT of abdomen and pelvis with and without contrast done on October 08, 2010 showed cirrhosis. 6. Moderate amount of ascites. 7. Splenomegaly and distal esophageal varices consistent with portal hypertension. 8. Patent portal and hepatic vein. 9. Gallbladder thickening due to the underlying hepatic disease. Small gallstone. Chest x-ray done October 09, 2010, limited AP view. Normal for age. Ultrasound guided paracentesis done October 10, 2010 successful ultrasound-guided paracentesis yielding 3500 of clear ascites. DISCHARGE DIAGNOSES: 1. Alcohol withdrawal. 2. Alcohol related liver cirrhosis. 3. Chronic anemia secondary to alcohol abuse and liver cirrhosis. 4. Hypertension. 5. Portal hypertension. 6. Ascites, status post paracentesis. 7. Alcohol abuse. HOSPITAL COURSE: This is a 55-year-old white male with a past medical history significant for hypertension and chronic alcohol abuse and a history of withdrawal, who was recently diagnosed alcohol related liver cirrhosis, who was admitted to [facility] on October 09, 2010 with alcohol withdrawal. Patient had known history of alcohol abuse was drinking about 3 or 5 glasses of whiskey every day for last 15 to 20 years. Patient also had a multiple instance of binge of drinking in the past. Most recently, patient had alcohol withdrawal with DTs back in about 2 years ago while patient was visiting [place]. In the last few weeks, the patient has been having some abdominal distention and skin and eye color changed to yellow and subsequently patient went to see his PCP. Dr Gonzalez, patient's primary care physician, who has evaluated him as outpatient with ultrasound of abdomen and CT of abdomen and pelvis which was consistent with liver cirrhosis with portal hypertension. At the time, patient was told to stop drinking and was given Librium to help with the patient anticipated alcohol withdrawal symptoms. However, patient was not able to feel the Librium in time. Patient trying to go abstinence from alcohol and patient developed alcohol withdrawal symptoms. Patient was getting worsening of alcohol withdrawal and patient drink 1 glass of whiskey to help for his alcohol withdrawal symptoms and; however, patient was continued to experience alcohol withdrawal. Subsequently, contact his PCP and who was told patient to present to [facility] ER. On October 09, patient admitted for alcohol withdrawal. Patient on the initial evaluation in the ER, not only patient have alcohol withdrawal; the patient was noticed to have worsening of alcohol liver cirrhosis. Also, patient has some significant ascites. Subsequently gastroenterology consulted, Dr Vincent, who recommended to do ultrasound-guided paracentesis to rule out any SBP. Paracentesis was done and 35 mL of clear fluid from the abdomen was removed. Current culture and sample was sent to the lab, which was so far all negative. Patient's alcohol was slowly improving. Also, patient developed some hepatic encephalopathy with elevated ammonia and was treated with lactulose. Currently, patient's alcohol withdrawal symptom was resolved and patient's hepatic encephalopathy was resolved. Patient's treatment was initiated by Dr Vincent and as on nadolol, Aldactone and Trental and were just currently titrating by Dr Galvan. Patient will be discharged home on nadolol 40 mg p.o. once a day and Aldactone 100 mg p.o. once a day and Trental 400 mg p.o. t.i.d. for 3 weeks and also lactulose 30 mL p.o. t.i.d. p.r.n. for titrate the bowel movement 2 or 3 times a day. Currently patient is hemodynamically stable. Patient will be discharged home. DISCHARGE MEDICATIONS: New medications: lactulose 30 mL p.o. t.i.d. p.r.n. for titrate 2 to 3 bowel movement for a day Trental 400 mg p.o. t.i.d. for 3 weeks Aldactone 100 mg p.o. once a day nadolol 40 mg p.o. once a day Discontinue medications: enalapril vitamin D 2000 unit 1 capsule p.o. once a day tetracycline 250 mg p.o. once a day DISCHARGE CONDITION: Stable. DISCHARGE ACTIVITY: May resume normal daily activities. However, patient need to be DMV evaluation prior driving and will avoid heavy machinery or any appointment handling. DISCHARGE DIET: Two gram sodium and 80 gram protein diet. SPECIAL INSTRUCTIONS: 1. In terms of patient's hypertension, we were introducing Aldactone 100 mg p.o. once a day then nadolol 40 mg p.o. once a day. With this medication, patient's blood pressure is low normal sight of blood pressure and so I discontinued enalapril. However, did enalapril should not be restated until the patient is seen by primary care physician. 2. Patient to check CBC, CMP, PT INR on October 23, 2010, and November 06, 2010 and results will send to Dr Davonte Galvan. 3. Patient to seek outpatient alcohol rehabilitation. Information was given by social workers. An extensive discussion was shared by Dr Galvan and myself. 4. Patient to should evaluated from V prior to driving an ovoid operating heavy machinery or equipment. The patient is FULL CODE. Time spent for discharge is 45 minutes. Follow up with Dr Gonzalez in 1 week. Follow up with Dr Davonte Galvan in 1 week. Dictated by: Bon Merida MD DDK:[id number] eScription document:[id number] documented in this encounter Plan of Treatment Not on file documented as of this encounter Procedures Procedure Name Priority Date/Time Associated Diagnosis Comments CBC (NO DIFF) Routine 10/14/2010 3:20 AM PDT GGT Routine 10/14/2010 3:20 AM PDT BILIRUBIN, DIRECT Routine 10/14/2010 3:2 0 AM PDT COMPREHENSIVE METABOLIC PANEL Routine 10/14/2010 3:20 AM PDT documented in this encounter Results * (ABNORMAL) Gamma gt (10/14/2010 3:20 AM PDT) GGT 929(H) 7 - 50 U/L HX MULTISITE 10/14/2010 3:20 AM PDT 10/14/2010 3:50 AM PDT Narrative HX MULTISITE - 02/28/2013 12:56 AM PDT Copy to Provider(s): us Davonte Galvan MD LAB BLOOD ORDERABLES Final Res ult HX MULTISITE * (ABNORMAL) Bilirubin, direct (10/14/2010 3:20 AM PDT) Bilirubin,Direc t 4.4(H) 0 - 0.2 mg/dL HX MULTISITE 10/14/2010 3:20 AM PDT 10/14/2010 3:50 AM PDT Narrative HX MULTISITE - 02/28/2013 12:56 AM PDT Copy to Provider(s): Davonte Galvan MD LAB BLOOD ORDERABLES Final Res ult HX MULTISITE * (ABNORMAL) Comprehensive metabolic panel (10/14/2010 3:20 AM PDT) Sodium 138 136 - 145 mmol/L HX MULTISITE Potassium 4.3 3.5 - 5.1 mmol/L HX MULTISITE Chloride 103 100 - 110 mmol/L HX MULTISITE CO2 28 22 - 31 mmol/L HX MULTISITE Glucose 86 70 - 99 mg/dL HX MULTISITE BUN 17 6 - 20 mg/dL HX MULTISITE Creatinine 0.6 0.6 - 1.3 mg/dL HX MULTISITE GFR Non-Black >80 mean=93 mL/min /1.73m2 HX MULTISITE GFR Black >80 mL/min /1.73m2 HX MULTISITE Calcium 9.1 8.4 - 10.2 mg/dL HX MULTISITE AST 135(H) 15 - 41 U/L HX MULTISITE ALT 43 0 - 50 U/L HX MULTISITE Protein, Total 5.3(L) 6.0 - 7.8 g/dL HX MULTISITE Albumin 2.8(L) 3.5 - 5.0 g/dL HX MULTISITE Globulin 2.5 2.2 - 3.5 g/dL HX MULTISITE A/G Ratio 1.1 1.1 - 1.9 HX MULTISITE Alkaline Phosphatase 200(H) 38 - 126 U/L HX MULTISITE Bilirubin, Total 7.6(H) 0.2 - 1.4 mg/dL HX MULTISITE 10/14/2010 3:20 AM PDT 10/14/2010 3:50 AM PDT Narrative HX MULTISITE - 02/28/2013 12:56 AM PDT Copy to Provider(s): Davonte Galvan MD LAB BLOOD ORDERABLES Final Res ult HX MULTISITE * (ABNORMAL) CBC (10/14/2010 3:20 AM PDT) WBC 6.9 3.8 - 11.1 K/mm3 HX MULTISITE RBC 2.68(L) 4.7 - 6.1 M/mm3 HX MULTISITE HGB 10.6(L) 14.0 - 18.0 g/dl HX MULTISITE HCT 30.4(L) 42 - 52 % HX MULTISITE MCV 113.4(H) 80 - 99 u3 HX MULTISITE MCH 39.4(H) 26 - 34 pg HX MULTISITE MCHC 34.7 32 - 36 % HX MULTISITE RDW 17.5(H) 11.5 - 14.5 % HX MULTISITE Plt Ct 110(L) 150 - 450 K/mm3 HX MULTISITE MPV 8.8 7.4 - 10.4 u3 HX MULTISITE 10/14/2010 3:20 AM PDT 10/14/2010 3:50 AM PDT Narrative HX MULTISITE - 02/28/2013 12:56 AM PDT Copy to Provider(s): us Davonte Galvan MD LAB BLOOD ORDERABLES Final Res ult HX MULTISITE documented in this encounter Visit Diagnoses Not on filedocumented in this encounter Care Teams Deodorizer Operator Relationship Specialty Start Date End Date Carrington Spencer MD PCP - General Family Medicine 04/01/13 documented as of this encounter
--- OUTSIDE RECORDS SUMMARY | 2025-06-23 14:16 | XMS_ITS | Encounter Summary ---
Author Organization [facility] Address [address] [place] [address] Care Team Providers Care Design Eng Name Role Phone Remy Mg III Primary Care Provider Unav ailable Reason for Referral * Outpatient Service (Routine) - Authorized Specialty Diagnoses / Procedures Referred By Contchristina t Referred To Contact Orthopedic Surgery Diagnoses Presence of left artificial knee joint Presence of right artificial knee joint Pain in joint involving ankle and foot, unspecified laterality Procedures REF ORTHO EXTERNAL OFFICE/OUTPATIENT ESTABLISHED MOD MDM 30 MIN [facility] [address] [place] [address] [facility] [address] [address] [place] [address] Referral ID Status Reason Start Date Expiration Date Visits Requested Visits Authorized [id number] Authorized Evaluate and Treat-Surgery if Indicated 12/06/2024 12/06/2025 6 6 Encounter Details Date Type Department Care Team (Late st Contact Info) Description 12/06/2024 Community Orders Non [facility] Provider Misha Jacques [facility] [address] [place] [address] Presence of left artificial knee joint (Primary Dx); Presence of right artificial knee joint; Pain in joint involving ankle and foot, unspecified laterality Social History Tobacco Use Types Packs/Day Years Used Date Smoking Tobacco: Never Assessed Sex and Gender Information Value Date Recorded Sex Assigned at Not on file Legal Sex Male 8:07 AM PST Gender Identity Not on file Sexual Orientation Not on file documented as of this encounter Plan of Treatment Not on file documented as of this encounter Visit Diagnoses Diagnosis Presence of left artificial knee joint- Primary Knee joint replacement by other means Presence of right artificial knee joint Knee joint replacement by other means Pain in joint involving ankle and foot, unspecified laterality documented in this encounter Care Teams Design Eng Relationship Specialty Start Date End Date Remy Mg III [facility] [address] [place] [address] PCP - General 01/27/24 documented as of this encounter
--- OUTSIDE RECORDS SUMMARY | 2025-06-23 14:16 | XMS_ITS | Encounter Summary ---
Author Organization [facility] Address [address] [place] [address] Care Team Providers Care Certified Meeting Professional Name Role Phone Remy Mg Primary Care Provide r Reason for Visit * Reason Onset Date Comments Labs Only 06/20/2025 Labs results fro m 06/19/25 Encounter Details Date Type Department Care Team (Late st Contact Info) Description 06/20/2025 Telephone [facility] Infectious Diseases [place] [address] [facility] [address] [place] [address] Nabila Campbell MD [address] [place] [address] Labs Only (Labs results from 06/19/25) Social History Tobacco Use Types Packs/Day Years Used Date Smoking Tobacco: Never Passive Smoke Exposure: Never Smokeless Tobacco: Former Snuff Quit: 07/03/2005 Alcohol Use Standard Drinks/Week Comments Yes 240 (1 standard drin k = 0.6 oz pure alcohol) 4 to 5 beers a day- not since surgery 05/2025 [facility] Utilities Answer Date Recorded In the past [address] [facility] [employer], gas, oil, or water company threatened to shut [...] any time in the past 12 m [facility], were you homeless or living in a [...] encounter Miscellaneous Notes * Telephone Encounter - Nabila Campbell MD - 06/20/2025 5:42 PM PST Labs noted * Telephone Encounter - Yoly Tamayo MA - 06/20/2025 3:57 PM PST Images from the original note were not included. Labs results from Inf tracy 06/19/25 documented in this encounter Plan of Treatment Upcoming Encounters Date Type Department Care Team (Latest Contact Info) Description 06/26/2025 9:30 AM PST Office Visit [facility] Infectious Diseases [place] [address] [facility] [address] [place] [address] Nabila Campbell MD [address] [place] [address] 07/04/2025 7:15 AM PST Hospital Encounter [facility] Operating Room [address] [place] [phone] Lee Coy, DPM [id number] [place] [phone] 07/04/2025 7:15 AM PST - 07/04/2025 10:[address] [facility] Operating Room [address] [place] [phone] Lee Coy, DPM [address] [place] [address] [phone] - OPEN ARTHRODESIS OF ANKLE [[id number] (CPT )] 07/06/2025 10:30 AM PST Office Visit [facility] Podiatry [place] [address] [place] [phone] Lee Coy, DPM [address] [place] [phone] Scheduled Procedures Name Priority Associated Diagnoses Date/Ti [...] of left ankle due to other bacteria ([facility]) Other acute osteomyelitis of left ankle ([facility]) 07/04/2025 7:15 AM PST documented as of this encounter Visit Diagnoses Not on filedocumented in this encounter Care Teams Certified Meeting Professional Relationship Specialty Start Date End Date Remy Mg ARNP [address] [place] [address] [address] [place] [phone] PCP - General Nurse Practitioner Family 03/08/25 documented as of this encounter
--- OUTSIDE RECORDS SUMMARY | 2025-06-23 14:16 | XMS_ITS | Clinical Summary ---
Author Organization [facility] [place] [address] [place] [address] Care Team Providers Care Film Reader Name Role Phone Remy Mg III Primary Care Provider Unav ailable Source Comments NOTE: The information displayed by Care Everywhere is extracted from the complete medical record and may not identify all current or past patient conditions.[facility] Allergies No known active allergies Medications doxycycline hyclate (PERIOSTAT) 20 mg tablet Take 1 tablet (20 mg) by mouth 2 times daily Do not take a multivitamin while taking this medication. 180 tablet 3 03/15/2024 12:49 PM PDT 06/22/20 23 Active doxycycline monohydrate (MONODOX) 100 mg capsule Take one capsule by mouth twice a day for 7 days. Avoid taking with a dairy/ multivitamin. 14 capsule 09/02/2023 3:48 PM PST 09/01/19 24 Active metFORMIN (GLUCOPHAGE XR) 750 mg extended release (24 hr) tablet Take 2 tablets (1,500 mg) by mouth every morning 180 tablet 3 06/27/2024 6:44 PM PST 10/04/19 24 Active cephALEXin (KEFLEX) 500 mg capsule Take 1 capsule by mouth single dose. Take 1-2h before cystoscopy 1 capsule 03/23/2024 1:39 PM PDT 03/22/20 24 Active allopurinoL (ZYLOPRIM) 300 mg tablet Take 1 tablet (300 mg) by mouth daily; stop x 2 weeks during gout attack 90 tablet 3 03/21/2025 2:17 PM PDT 06/25/20 24 Active colchicine (COLCRYS) 0.6 mg tablet Take 1 tablet (0.6 mg) by mouth 3 times daily as needed during acute gout attack 30 tablet 2 01/02/2025 11:08 AM PDT 06/25/20 24 Active rosuvastatin (CRESTOR) 10 mg tablet Take 1 tablet (10 mg) by mouth daily 90 tablet 3 04/21/2025 12:28 PM PDT 07/25/20 24 Active empagliflozin (JARDIANCE) 25 mg tablet Take 1 tablet (25 mg) by mouth daily 90 tablet 3 05/02/2025 8:37 PM PDT 08/05/19 25 Active tamsulosin (FLOMAX) 0.4 mg capsule Take 1 capsule (0.4 mg) by mouth 2 times daily 180 capsule 3 05/10/2025 11:17 AM PDT 08/17/19 25 Active metFORMIN (GLUCOPHAGE XR) 750 mg extended release (24 hr) tablet Take 2 tablets (1,500 mg) by mouth every morning 180 tablet 3 03/28/2025 7:05 PM PDT 10/04/19 25 Active oxyBUTYnin chloride (DITROPAN XL) 5 mg extended release (24 hr) tablet Take 1 tablet (5 mg) by mouth every evening 90 tablet 1 05/10/2025 11:17 AM PDT 02/12/20 25 Active amoxicillin-cla vulanate (AUGMENTIN) 875-125 mg tablet Take 1 tablet by mouth 2 times daily 20 tablet 02/21/20 25 Active sulfamethoxazol e-trimethoprim 800-160 mg tablet Take 1 tablet by mouth 2 times daily 20 tablet 02/21/20 25 Active glimepiride (AMARYL) 2 mg tablet Take 1 tablet (2 mg) by mouth every morning; ; administer with breakfast 90 tablet 04/16/2025 9:45 AM PDT 04/08/20 25 Active nadoloL (CORGARD) 20 mg tablet Take 1 tablet (20 mg) by mouth daily 90 tablet 04/16/2025 9:45 AM PDT 04/08/20 25 Active losartan-hydroc hlorothiazide (HYZAAR) 100-25 mg tablet Take 1 tablet by mouth daily 90 tablet 06/15/2025 8:44 PM PST 06/14/20 25 Active lisinopriL-hydr ochlorothiazide (PRINZIDE) 20-12.5 mg tablet Take 1 tablet by mouth 2 times daily 180 tablet 2 12/29/2023 5:54 PM PDT 10/04/19 24 024 Discontin ued(Alter randy therapy) losartan-hydroc hlorothiazide (HYZAAR) 100-25 mg tablet Take 1 tablet by mouth daily 90 tablet 02/19/2025 8:17 PM PDT 02/11/20 025 Discontin ued(Reord ered) Encounters Date Type Department Care Team Description 06/20/2025 Community Orders Non [facility] Provider Nabila Campbell Osteomyelitis of left ankle, unspecified type (Primary Dx) 06/15/2025 Community Orders Non [facility] Provider Lee Coy Arthritis due to other bacteria, left ankle and foot (Primary Dx); Acute osteomyelitis of left ankle or foot 05/30/2025 Community Orders Non [facility] Provider Lee Coy Skin ulcer of ankle, left, with fat layer exposed (Primary Dx); Osteochondral lesion of talar dome; Other specified puerperal infections 04/24/2025 Community Orders Non [facility] Provider Lee Coy Osteochondral lesion of talar dome (Primary Dx); Tear of talofibular ligament of left lower extremity, initial encounter; Skin ulcer of left ankle with fat layer exposed from Last 3 Months Immunizations Immunization Administration Dates Next Due *HIGH DOSE SYRINGE* FluZONE (65+ Yrs) QUAD 08/14,07/04/2022 FluVIRIN (4+ years) Tri *VIAL* 08/09/2013 HepB (Hepatitis B) 10/02/2011,05/06/2011, 011 [place] SARS-CoV-2 Vaccination 06/12/2021,2020 Social History Tobacco Use Types Packs/Day Years Used Date Smoking Tobacco: Never Assessed Sex and Gender Information Value Date Recorded Sex Assigned at Not on file Legal Sex Male 8:07 AM PST Gender Identity Not on file Sexual Orientation Not on file Plan of Treatment Health Maintenance Due Date Last Done Comments Lab Test: ALT/AST (med monitoring) 1955 Lab Test: CBC w/ diff (med monitoring) 1955 Lab Test: Creatinine (med monitoring) 1955 Lab Test: Potassium (med monitoring) 1955 Lab Test: Sodium (med monitoring) 1955 Lab Test: Uric Acid (med monitoring) 1955 Personal Assessment of Total Health (PATH) 1955 Blood Pressure Check 1955 Hep C Screening (1-time) 1974 Vaccine: QTyV-Fosu-Cg (1 - Tdap) 1975 Vaccine: Pneumococcal (1 of 1 - PCV) 2006 Vaccine: Shingles (1 of 2) 2006 COL-S FIT 12/05/2020 12/05/2010 Health Profile 2021 Vaccine: COVID-19 (1 - 2024- season) 2025 06/12/2021, 11/26/2020 Lab Test: A1C (med monitoring) 05/24/2026 05/24/2025 , 05/24/2025 Vaccine: RSV (1 - 1-dose 75+ series) 2031 FLU VACCINE Completed 05/31/2025, 08/03, 07/04/2022, Additional history exists Insurance [facility] Care Teams Film Reader Relationship Specialty Start Date End Date Remy Mg III [facility] [address] [place] [address] PCP - General 01/27/24
--- OUTSIDE RECORDS SUMMARY | 2025-06-23 14:16 | XMS_ITS | Encounter Summary ---
Author Organization [facility] Address [address], [place] [address] Care Team Providers Care Insulation Applicator Name Role Phone Carrington Spencer MD Primary Care Provider U vickie Encounter Details Date Type Department Care Team (Late st Contact Info) Description 10/09/2010 Historical Encounter HISTORIC_CONVERSION [address] [place], [place] [id number] Scanned, Document Social History Tobacco Use Types Packs/Day Years [...] on filedocumented in this encounter Care Teams Insulation Applicator Relationship Specialty Start Date End Date Carrington Spencer MD PCP - General Family Medicine 04/01/13 documented as of this encounter
--- OUTSIDE RECORDS SUMMARY | 2025-06-23 14:16 | XMS_ITS | Encounter Summary ---
Author Organization [facility] Address [address] [address] Care Team Providers Care Revenue Liaison Name Role Phone Carrington Spencer MD Primary Care Provider U vickie Encounter Details Date Type Department Care Team (Late st Contact Info) Description 10/09/2010 Historical Encounter HISTORIC_CONVERSION [address] [place] [address] Danial Salas MD Social History Tobacco Use Types Packs/Day Years Used Date Smoking Tobacco: Never Assessed Sex and Gender Information Value Date Recorded Sex Assigned at Not on file Legal Sex Male 10:40 PM PDT Gender Identity Not on file Sexual Orientation Not on file documented as of this encounter ED Notes * Danial Salas MD - 10/09/2010 11:56 AM PST ..... Patient: Lee MIGUEL OrderSheet [facility] VisitID: [id number] [place] [address] 55y, M [phone] Registration Date/Time: 10/09/2010 12:17 ORDER SHEET Allergies: NKDA Weight: GENERAL ORDERS: Chest Portable Routine (13:09 10/09/2010 Gregorio MONCADA) (13:12 Orin MATIAS) CBC w Auto Diff Stat (13:10 10/09/2010 Gregorio MONCADA) (13:12 Orin MATIAS) CMP Stat (13:10 10/09/2010 Gregorio MONCADA) (13:12 Orin MATIAS) Lipase Stat (13:10 10/09/2010 Gregorio MONCADA) (13:12 Orin MATIAS) PT with INR Stat (13:12 10/09/2010 Gregorio MONCADA) (13:16 Orin MATIAS) PTT Stat (13:12 10/09/2010 Gregorio MONCADA) (13:16 [facility]) Consult - Hospitalist - [facility] (14:09 10/09/2010 Gregorio MONCADA) (Ack 14:16 [facility]) (14:28 [facility]) MEDICATION ORDERS: Ondansetron IV 8 mg (13:09 10/09/2010 Gregorio MONCADA) (13:14 Baljit RN) Ativan IV 2 mg (HIGH ALERT MEDICATION) (13:10 10/09/2010 Gregorio MONCADA) (13:14 Baljit RN) Vit K PO 10 mg (14:51 10/09/2010 Gregorio MONCADA) (14:52 Baljit RN) IV FLUIDS: Banana Bag IV per Protocol with Folic Acid 1 mg/L, Multiple Vitamin Intravenous 1 amp/L, Thiamine HCl 100 mg/L: initial bolus 1000 mL (13:10 10/09/2010 Gregorio MONCADA) (13:14 Baljit RN) ORDER SHEET NOTES: [Electronically signed by Danial Salas MD (14:57 10/09/2010)] [Electronically locked/signed by Yecenia Jade RN (17:56 10/09/2010)] documented in this encounter Plan of Treatment Not on file documented as of this encounter Visit Diagnoses Not on filedocumented in this encounter Care Teams Revenue Liaison Relationship Specialty Start Date End Date Carrington Spencer MD PCP - General Family Medicine 04/01/13 documented as of this encounter
--- OUTSIDE RECORDS SUMMARY | 2025-06-23 14:16 | XMS_ITS | Encounter Summary ---
Author Organization [facility] Address [address] [address] Care Team Providers Care Radio Maintainer Name Role Phone Carrington Spencer MD Primary Care Provider U vickie Encounter Details Date Type Department Care Team (Late st Contact Info) Description 12/05/2010 Historical Encounter HISTORIC_CONVERSION [address] [place] [address] Davonte Galvan MD [id number] [id number] Social History Tobacco Use Types Packs/Day Years Used Date Smoking Tobacco: Never Assessed Sex and Gender Information Value Date Recorded Sex Assigned at Not on file Legal Sex Male 10:40 PM PDT Gender Identity Not on file Sexual Orientation Not on file documented as of this encounter Progress Notes * Davonte Galvan MD - 12/05/2010 1:45 AM PDT EGD Report Endoscopist(s): Davonte Galvan MD Date: December Ref.Phys.: Ever Gonzalez MD Patient: Lee Kenny Instrument: Q160 ([id number]) Date: 1955 (55 years) ASA Class: P3 account: [id number] Medications: T[place] Propofol/anesthesia Supplemental oxygen IV fluids Indications: Cirrhosis, Laennec's Procedure: The procedure, indications, preparation and potential complications were explained to the patient, who indicated his understanding and signed the corresponding consent forms. A physical exam was performed. The patient was administered CS-ANES anesthesia. A physical exam was performed prior to administering anesthesia. Supplemental oxygen was used. The patient was placed in the left lateral decubitus position and an endoscope was introduced through the mouth and advanced under direct visualization until the second part of the duodenum was reached. Careful visualization of the upper GI tract was performed. The vocal cords were visualized. The Z-line was noted at 44 centimeters.The diaphragmatic hiatus was noted at 44 centimeters.The procedure was not difficult. The patient tolerated the procedure well. There were no complications. Findings: Esophagus: Lumen: A mildly gaping lower esophageal sphincter was noted. Protruding Lesions 1 cord of grade II varices were seen starting at 40 cm from the incisors in the lower third of the esophagus at the 3 oclock position. The varices were not bleeding. Stomach: Mucosa: Segmental erythema and mosaic appearance of the mucosa with no bleeding were noted in the stomach body. These findings are compatible with portal hypertensive gastropathy. Protruding Lesions A single sessile 3 mm non-bleeding polyp of benign appearance was found in the stomach body. Impression: Polyp in the stomach bodyErythema and mosaic appearance in the stomach body compatible with portal hypertensive gastropathyGaping lower esophageal sphincterVarices at the lower third of the esophagus Recommendations: Follow-up with GI Physician within 3 months Davonte Galvan MD Patient: Lee Kenny ([id number]) * Davonte Galvan MD - 12/05/2010 1:40 AM PDT Colonoscopy Report Endoscopist(s): Davonte Galvan MD Date: December Ref. Phys.: Ever Gonzalez MD Patient: Lee Kenny Instrument: Q160AL Adult Variable Stiffness ([id number]) Date: 1955 (55 years) ASA Class: P3 account: [id number] Medications: Hyoscyamine spray 0.25 mg sl supplemental oxygen Propofol/anesthesia IV fluids Indications: Screening - average risk, colon cancerAnemia, macrocyticColitis, proctosigmoiditis inactive Procedure: The procedure, indications, preparation and potential complications were explained to the patient, who indicated his understanding and signed the corresponding consent forms. A physical exam was performed. The patient was administered CS-ANES anesthesia. The physical exam was performed prior to administering anesthesia. Supplemental oxygen was used. The patient was placed in the left lateral decubitus position.The digital exam was normal. The colonoscope was introduced through the rectum and advanced under direct visualization until the cecum was visualized at distance of 100 cm. The appendiceal orifice and ileo-cecal valve were identified. Careful visualization of the colon was performed as the colonoscope was withdrawn. The colonoscope was retroflexed within the rectum. The procedure was not difficult. The quality of the preparation was good. The patient tolerated the procedure well. There were no complications. Findings: Protruding Lesions Two sessile polyps of benign appearance and ranging in size from 3 mm to 4 mm were found in the transverse colon and descending colon at a distance between 70 cm and 40 cm. Piece-meal polypectomy was performed using a cold forceps. The polyps were completely removed with excellent hemostasis. Small grade 1 internal hemorrhoids were noted. Impression: Polyps at a distance between 70 cm and 40 cm in the transverse colon and descending colon (polypectomy)Grade 1 internal hemorrhoids Recommendations: Follow-up with GI Physician within 3 months Davonte Galvan MD Patient: Lee Kenny ([id number]) documented in this encounter Plan of Treatment Not on file documented as of this encounter Visit Diagnoses Not on filedocumented in this encounter Care Teams Radio Maintainer Relationship Specialty Start Date End Date Carrington Spencer MD PCP - General Family Medicine 04/01/13 documented as of this encounter
--- OUTSIDE RECORDS SUMMARY | 2025-06-23 14:16 | XMS_ITS | Encounter Summary ---
Author Organization [facility] Address [address] [place] [address] Care Team Providers Care Outdoor Pursuits Instructor Name Role Phone Remy Mg Primary Care Provide r Encounter Details Date Type Department Care Team (Late st Contact Info) Description 05/24/2025 Case/Admission [facility] [place] [address] [place] [address] Lee Coy, [place] [id number] [place] [address] [phone] Skin ulcer of left ankle with fat layer exposed (CMS/HCC) (Primary Dx); Osteochondral lesion of talar dome; Other specified puerperal infections Social History Tobacco Use Types Packs/Day Years Used Date Smoking Tobacco: Never Passive Smoke Exposure: Never Smokeless Tobacco: Former Snuff Quit: 07/03/2005 Alcohol Use Standard Drinks/Week Comments Yes 240 (1 standard drin k = 0.6 oz pure alcohol) 4 to 5 beers a day- not since surgery 05/2025 [facility] Utilities Answer Date Recorded In the past 12 months has [facility] u.sit, gas, oil, or water Barcoding threatened to shut off services in your [...] any time in the past [address] [facility], were you homeless or living in a long term (including now)? No 05/24/2025 Sex and Gender Information Value Date Recorded Sex Assigned at Male 05/24/2025 2:45 PM PDT Legal Sex Male 1:11 PM PDT Gender Identity Male 03/13/2025 7:20 AM PDT Sexual Orientation Straight 03/13/2025 7: 20 AM PDT documented as of this encounter Functional Status * Malnutrition Screening (If the score is 2 or more, initiate a dietitian consult) Question Answer Date of Assessment Author Have you recently lost weigh t without trying? No 05/27/2025 6:00 PM PDT Ely Sullivan RN How much weight have you lost? 1 05/27/2025 6:00 PM PDT Ely Sullivan RN Weight Loss Score 1 05/27/2025 6:00 PM PDT Ely Sullivan RN Do you have a decreased appetite? (Score) 1 05/27/2025 6:00 PM PDT Ely Sullivan RN MST Score 2 05/27/2025 6:00 PM PDT Ely Ch RN * Question Answer Date of Assessment Author History of Falling 0 05/27/2025 10:00 PM PD T Grace Rinaldi RN Secondary Diagnosis 15 05/27/2025 10:00 PM P DT Grace Rinaldi RN Ambulatory Aids 15 05/27/2025 10:00 PM PDT Garce Salgado RN Intravenous Therapy/Heparin/Saline Lock 20 05/27/2025 10:00 PM PDT Grace Garcia RN Gait/Transferring 20 05/27/2025 10:00 PM PDT Grace Rinaldi RN Mental Status 0 05/27/2025 10:00 PM PDT Grace Solorzano RN Duggan Fall Risk Score 70 05/27/2025 10:00 PM PDT Grace Rinaldi RN * Question Answer Date of Assessment Author Sensory Perceptions 3 05/27/2025 9:45 PM PD Grace Dai RN Moisture 4 05/27/2025 9:45 PM PDT Grace Levi RN Activity 2 05/27/2025 9:45 PM PDT Grace Levi RN Mobility 3 05/27/2025 9:45 PM PDT Grace Levi RN Nutrition 3 05/27/2025 9:45 PM PDT Grace Levi RN Friction and Shear 3 05/27/2025 9:45 PM PDT Grace Rinaldi RN López Scale Score 18 05/27/2025 9:45 PM PDT Grace Rinaldi RN * Nutrition Screen Question Answer Date of Assessment Author Poor Oral Intake for Four or More Days Prior to Admission No 05/27/2025 6:00 PM PDT Ely Chaves RN Difficulty Chewing or Swallowing No 05/27/20 6:00 PM PDT Ely Sullivan RN Pressure Ulcer or Non-Healin g Wound No 05/27/2025 6:00 PM PDT Ely Sullivan RN Home Tube Feeding or Total Parenteral Nutrition (TPN) No 05/27/2025 6:00 PM PDT Ely Sullivan RN * STOP-BANG Questionnaire - requires Ht & Wt for calculation Question Answer Date of Assessment Author Do you snore loudly? 0 05/24/2025 2:33 PM P DT Lynn Harrison RN Do you often feel tired or fatigued after your sleep? 0 05/24/2025 2:33 PM Ana Jose RN Has anyone ever observed you stop breathing in your sleep? 0 05/24/2025 2:33 PM Emma Jose RN Do you have or are you being treated for high blood pressure? 1 05/24/2025 2:33 PM PDT Lynn Flores RN Is BMI greater than 35 kg/m2? 1=Yes 05/24/2025 2:33 PM Lynn Jose RN Age older than 50 years old? 1=Yes 05/24/2025 2 :33 PM Lynn Jose RN Neck Circumference Greater T lehman (17 inches Male) or (16 inches Female) 0 05/24/2025 2:33 PM Lynn Jose RN Gender - Male 1=Yes 05/24/2025 2:33 PM Lynn Marinelli RN STOP-Bang Total Score 4 05/24/2025 2:33 PM Lynn Jose RN Recent BMI (Calculated) 35.3 05/24/2025 2:33 P M Lynn Jose RN * AUDIT-C Score Answer Date of Assessment Author 7 05/27/2025 6:00 PM Ely Padgett RN * Q1: How often do you have a drink containing alcohol? Answer Date of Assessment Author 4 or more times a week 05/27/2025 6:00 PM PDT Ely Skelton RN * Q2: How many drinks containing alcohol do you have on a typical day when you are drinking? Answer Date of Assessment Author 5 or 6 05/27/2025 6:00 PM Ely Padgett RN * Q3: How often do you have six or more drinks on one occasion? Answer Date of Assessment Author Less than monthly 05/27/2025 6:00 PM PDT Ely Diaz RN * Question Answer Date of Assessment Author History of Pressure Injury No 05/24/2025 2:2 9 PM Lynn Jose RN * Audit-C Score Answer Date of Assessment Author 10 05/27/2025 6:00 PM PDT Ely Sullivan RN * Have you used any substances (canabis, cocaine, heroin, hallucinogens, inhalants, etc.) in the past12 months? Answer Date of Assessment Author No 05/27/2025 6:00 PM Ely Padgett RN * Have you used any prescription drugs other than prescribed in the past 12 months? Answer Date of Assessment Author No 05/27/2025 6:00 PM Ely Padgett RN * Within the past 12 months the food we bought just didn't last and we didn't have money to get more. Answer Date of Assessment Author Never true 05/27/2025 6:00 PM Ely Padgett RN * Within the past 12 months we worried whether our food would run out before we got money to buy more. Answer Date of Assessment Author Never true 05/27/2025 6:00 PM Ely Padgett RN * Modified Eulalia Question Answer Date of Assessment Author Activity 2 05/25/2025 10:26 PM PDT Etelvina Jacobson RN Respiration 2 05/25/2025 10:26 PM Etelvina Farris RN Circulation 2 05/25/2025 10:26 PM PDT Etelvina Jacobson RN Consciousness 1 05/25/2025 10:26 PM PDT Etelvina Burciaga RN Oxygen Saturation 2 05/25/2025 10:26 PM Etelvina Farris RN Modified [place]alia Score 9 05/25/2025 10:26 P M Etelvina Farris RN * Suicide Risk Score Answer Date of Assessment Author 0 05/27/2025 6:00 PM PDT Ely Sullivan RN * Risk Level Answer Date of Assessment Author Low Suicidality 05/27/2025 6:00 PM Ely Padgett RN * Question Answer Date of Assessment Author Patient Disability Daily Living Not applicable (no limitations) 05/24/2025 2:00 PM PDT Lynn Harrison RN Patient Disability or Condition Not applicable (no disability or condition) 05/24/2025 2:00 PM PDT Lynn Harrison, BERNARDO * Question Answer Date of Assessment Author Patient's Vision Adequate to Safely Complete Daily Activities Yes 05/27/2025 6:00 PM Ely Padgett RN Patient's Judgement Adequate to Safely Complete Daily Activities Yes 05/27/2025 6:00 PM Ely Padgett RN Patient's Memory Adequate to Safely Complete Daily Activities Yes 05/27/2025 6:00 PM Ely Padgett RN Dressing Needs assistance 05/27/2025 6:00 PM PDT Ely Dolan RN Grooming Independent 05/27/2025 6:00 PM PDT Ely Ch RN Feeding Independent 05/27/2025 6:00 PM Ely Roque RN Bathing Needs assistance 05/27/2025 6:00 PM PDT Ely Dolan RN Toileting Needs assistance 05/27/2025 6:00 PM Ely Anthony RN In/Out Bed Needs assistance 05/27/2025 6:00 PM Ely Anthony RN Walks in Home Needs assistance 05/24/2025 2:23 PM PDT Lynn Harrison, BERNARDO Weakness of Legs None 05/27/2025 6:00 PM PDT Ely Dolan RN Weakness of Arms/Hands None 05/27/2025 6:00 PM Ely Padgett RN Hearing - Right Ear Functional 05/27/2025 6:00 PM PD T Ely Sullivan RN Hearing - Left Ear Functional 05/27/2025 6:00 PM Ely Padgett RN * [place] Suicide Severity Rating Scale Question Answer Date of Assessment Author 1. Wish to be No 05/27/2025 6:00 PM Ely Padgett, BERNARDO 2. Suicidal Thoughts No 05/27/2025 6:00 PM P Ely Carlin, RN 6. Suicide Intent with Preparatory Steps or Actions Taken No 05/27/2025 6:00 PM Ely Padgett RN documented as of this encounter Mental Status * Question Answer Entry Date Author [place] Agitation Sedation Scale (RASS) 0 05/26/2025 8:00 PM PDT Babs Guzman RN * Samantha Coma Scale Question Answer Entry Date Author Eye Opening 4 05/27/2025 9:45 PM PDT Jacquelyn Grace quintana RN Best Motor Response 6 05/27/2025 9:45 PM PD T Grace Rinaldi RN Best Verbal Response 5 05/27/2025 9:45 PM P DT Grace Rinaldi RN Samantha Coma Scale Score 15 05/27/2025 9:45 PM PDT Grace Rinaldi RN * Question Answer Entry Date Author Level of Consciousness Alert 8:00 AM PDT Lee Figueroa RN Cognition Appropriate judgement;Appropriate safety awareness;Appropriate attention/concentration;Ap propriate for developmental age;Follows commands 05/27/2025 8:00 AM PDT Lee Figueroa RN * Question Answer Entry Date Author Orientation Level Oriented X4 05/27/2025 2:00 PM PDT Brandi Paiz PT * Question Answer Entry Date Author Patient's Judgement Adequate to Safely Complete Daily Activities Yes 05/27/2025 6:00 PM PDT Ely Resendez RN Patient's Memory Adequate to Safely Complete Daily Activities Yes 05/27/2025 6:00 PM PDT Ely Resendez RN Patient Able to Express Needs/Desires Yes 05/27/2025 6:00 PM PDT Ely Sullivan RN * 3. Altered Level of Consciousness Answer Entry Date Author Negative 05/26/2025 8:00 PM PDT Yousif Guzman RN documented in this encounter Plan of Treatment Upcoming Encounters Date Type Department Care Team (Latest Contact Info) Description 06/26/2025 9:30 AM [facility] Office Visit [facility] Infectious Diseases [place] [address] [place] [phone] Nabila Campbell MD [address] [place] [address] 07/04/2025 7:15 AM PST Hospital Encounter [facility] [address] [place] [phone] Lee Coy, DPM [id number] [place] [phone] 07/04/2025 7:15 AM PST - 07/04/2025 10:40 AM PST Surgery [facility] [address] [place] [phone] Lee Coy, DPM [address] [place] [address] [phone] LEFT - OPEN ARTHRODESIS OF ANKLE [[id number] (CPT )] 07/06/2025 10:30 AM PST Office Visit [facility] [place] [address] [place] [phone] Lee Coy, XIMENA [address] [place] [phone] Scheduled Procedures Name Priority Associated Diagnoses Date/Ti [...] as of this encounter Visit Diagnoses Diagnosis Skin ulcer of left ankle with fat layer exposed (CMS/HCC)- Primary 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
--- OUTSIDE RECORDS SUMMARY | 2025-06-23 14:16 | XMS_ITS | Encounter Summary ---
Author Organization [facility] Address [address] [address] Care Team Providers Care Damper Fitter Name Role Phone Carrington Spencer MD Primary Care Provider U shannandenise Encounter Details Date Type Department Care Team (Late st Contact Info) Description 10/23/2010 Historical Encounter HISTORIC_CONVERSION [address] [place] [address] Chago Plasencia MD [address] [place] [id number] Social History Tobacco Use Types Packs/Day Years Used Date Smoking Tobacco: Never Assessed Sex and Gender Information Value Date Recorded Sex Assigned at Not on file Legal Sex Male 10:40 PM PDT Gender Identity Not on file Sexual Orientation Not on file documented as of this encounter ED Notes * Khang Plasencia MD - 10/23/2010 9:15 PM PDT Clinical Report - Physicians/Mid Levels [address] [id number] Registration Date/Time: 10/23/2010 21:15 Patient: Lee MIGUEL VisitID: [id number] 55y, M 1955 Arrived- By private vehicle. Historian- patient. HISTORY OF PRESENT ILLNESS Chief complaint- DYSPNEA and coughing. This started today and is now gone. The dyspnea is severe and is worsened by cough. He has had a cough and dyspnea on exertion. The patient has had moderate amounts of clear sputum. No blood tinged sputum or frankly bloody sputum. He has had mild right and left foot swelling (chronic and unchanged). No sweating episodes or chest pain or discomfort. (acute onset of coughing and SOB earlier today, now better.). Recent medical care: The patient was seen recently and hospitalized. (admitted for EtOH withdrawl). REVIEW OF SYSTEMS The patient has had abdominal pain (distension secondary). He has had a mild nasal discharge but not had weight loss. No eye irritation, sore throat, sinus drainage, headache or blurred vision. No difficulty with urination, excessive urination, skin rash or enlarged lymph nodes. All systems otherwise negative, except as recorded above. PAST HISTORY Hypertension. Hypertension. End-stage cirrhosis with history of ascites. Alcoholism. Medications: Aldactone Oral. Lactulose Oral. Nadolol Oral. Trental Oral. Vitamin D Oral.. Allergies: NKDA.. SOCIAL HISTORY Alcohol use. Patient is a recovering alcoholic. Nonsmoker. No drug use. Resides in a house. The patient lives with spouse. ADDITIONAL NOTES The nursing notes have been reviewed. PHYSICAL EXAM Appearance: Alert. No acute distress. Vital Signs: Have been reviewed- tachycardic (BP: 117 / 71. HR: 101 regular. RR: 12 regular. Temp: 36.5 oral. O2 saturation: 95 % room air). Eyes: Pupils equal, round and reactive to light. Mild scleral icterus. ENT: Ears normal. Pharynx normal. Neck: Normal inspection. No jugular venous distention. Neck supple. CVS: Tachycardia. Heart sounds normal. Pulses normal. Respiratory: No respiratory distress. Breath sounds normal. Abdomen: Soft and nontender. Obesity. Back: Normal inspection. Skin: Skin warm and dry. Normal skin color. No rash. Extremities: Bilateral mild edema of the lower extremities. No clubbing present. No calf tenderness. Neuro: Oriented X 3. No motor deficit. No sensory deficit. (no asterixis). LABS, X-RAYS, AND EKG Chest X-ray: Normal Chest X-Ray (PA): independently viewed by me. Normal heart size. Normal mediastinum. Normal soft tissues. No infiltrates present. No pneumothorax present. Chest CT: No acute disease. Laboratory Tests: D-Dimer, Quant: ( MsgRcvd 10/23/2010 23:13) Final results Test Result Flag Units (Reference) D-DIMER,QUANTITATIVE 2.42 H mcg/ml FEU (0-0.49) . PROGRESS AND PROCEDURES Course of Care: 22:24. not in room yet 23:45. VSS. D/w patient positive d-dimer and need for CT to rule out PE. 00:54. Patient is stable. The patient's symptoms are now gone. Physical exam findings are unchanged.. Patient counseled in person regarding the patient's test results, diagnosis and need for follow-up. Medical Decision Making: Etiology of cough unclear, now resolved. No pna/pntx. no PE. Symptoms largely resolved, likely mild viral URI. CLINICAL IMPRESSION Acute cough. Alcoholic cirrhosis. Clinical picture does not suggest pleurisy, pneumonia, pulmonary edema or embolism or respiratory failure. Clinical picture does not suggest congestive heart failure. INSTRUCTIONS (Return to ER or see your doctor if any worsening symptoms or new symptoms of concern.). Follow-up: Follow up with your doctor as needed. Understanding of the discharge instructions verbalized by patient. (Electronically signed by Khang Plasencia MD 10/24/2010 1:02) Clinical Report - Nurses [address] [address] Registration Date/Time: 10/23/2010 21:15 Patient: Lee MIGUEL VisitID: [id number] 55y, M 1955 TRIAGE Triage time 21:48. Acuity: LEVEL 3. Chief Complaint: COUGH and (cough resolved now). 21:54. BP: 117 / 71. HR: 101 regular. RR: 12 regular. Temp: 36.5 oral. O2 saturation: 95 % room air. Alert. No acute distress. --21:54 Abdelrahman Cline RN. Medications Aldactone Oral. Lactulose Oral. Nadolol Oral. Trental Oral. Vitamin D Oral. --2152 (10/23/10) Abdelrahman Cline RN. Allergies NKDA. --2152 (10/23/10) Abdelrahman Cline RN. History This started today. Pain level now: 0/10. PAST MEDICAL HX: Moderate cirrhosis. SURGERY HX: Back surgery. Inguinal hernia repair. SOCIAL HX: Alcohol use. Patient is a recovering alcoholic. Nonsmoker. No report of abuse. No infectious disease exposure. Arrived by private vehicle and accompanied by family. Historian: family. --21:54 Abdelrahman Vollans, RN. PHYSICAL ASSESSMENT 22:47. Alert. Oriented X 3. Appears in no acute distress. Pupils equal, round and reactive to light. The patient can speak in full sentences. Cough (pt sts coughing up white phlegm). Breath sounds within normal limits. Capillary refill less than 2 seconds. Mucous membranes are pink. Skin is warm and dry. Normal skin turgor. (pt states breathing is more labored than usual) --22:47 Roxy Salgado RN. NURSING PROGRESS NOTES 22:47. Patient gowned. --22:47 Roxy Salgado RN 23:52. IV access: site #1, right antecubital space, 20g angiocath, with aseptic technique and good blood return; one attempt. Lock flushed with 10 mL saline. --23:52 Roxy Salgado RN 23:52. BP: 101/80. HR: 100. RR: 18. O2 saturation: -94 percent on room air. --23:52 Roxy Salgado RN 23:56. Patient transported to [place] by stretcher. --23:56 Roxy Salgado RN. DISPOSITION / DISCHARGE HR: 96. RR: 19 (regular and unlabored). O2 saturation: -100 percent on room air. IV site discontinued, catheter intact. Condition at departure: improved. Patient reports pain level on departure as 0/10. Fall risk assessment completed. No fall risk identified. No learning barriers present. Discharge instructions reviewed with the patient and spouse. Reviewed warnings. Treatments reviewed. Reviewed referrals. Reviewed diet. Activity restrictions reviewed. Patient and spouse verbalized understanding. Written instructions provided in Chadian. The patient was discharged home and accompanied by spouse. The patient left the Emergency Department ambulatory and via private vehicle. Spouse driving. Departure time: 01:03. --01:03 Atul Finley RN. Locked/Released at 10/25/2010 6:54 by Atul Finley RN documented in this encounter Plan of Treatment Not on file documented as of this encounter Visit Diagnoses Not on filedocumented in this encounter Care Teams Damper Fitter Relationship Specialty Start Date End Date Carrington Spencer MD PCP - General Family Medicine 04/01/13 documented as of this encounter
--- OUTSIDE RECORDS SUMMARY | 2025-06-23 14:16 | XMS_ITS | Encounter Summary ---
Author Organization [facility] Address [address] [address] Care Team Providers Care Cardiology Nurse Name Role Phone Carrington Spencer MD Primary Care Provider Nancy malonejc Encounter Details Date Type Department Care Team (Late st Contact Info) Description 10/09/2010 Historical Encounter HISTORIC_CONVERSION [address] [place] [address] Social History Tobacco Use Types Packs/Day Years Used Date Smoking Tobacco: Never Assessed Sex and Gender Information Value Date Recorded Sex Assigned at Not on file Legal Sex Male 10:40 PM PDT Gender Identity Not on file Sexual Orientation Not on file documented as of this encounter Last Filed Vital Signs Vital Sign Reading Time Taken Comments Blood Pressure 109/69 10/12/2010 11:53 PM PST Pulse - - Temperature - - Respiratory Rate - - Oxygen Saturation - - Inhaled Oxygen Concentration - - Weight 121.7 kg (268 lb 4.8 oz) 011 10:11 PM PST Height 185.4 cm (6' 1) 10/09/2010 6:32 PM PST Body Mass Index 35.34 10/09/2010 6:32 PM PST documented in this encounter Plan of Treatment Not on file documented as of this encounter Procedures Procedure Name Priority Date/Time Associated Diagnosis Comments DIFFERENTIAL COUNT MANUAL Routine 10/09/2010 1:32 PM PST CBC WITH DIFFERENTIAL Routine 10/09/2010 1:32 PM PST APTT Routine 10/09/2010 1:32 PM PST PROTHROMBIN TIME Routine 10/09/2010 1:32 PM PST LIPASE Routine 10/09/2010 1:32 PM PST COMPREHENSIVE METABOLIC PANEL Routine 10/09/2010 1:32 PM PST documented in this encounter Results * (ABNORMAL) Differential count manual (10/09/2010 1:32 PM PST) Neutrophil% 66 42 - 77 % HX MULTISITE Bands% 18(H) 0 - 11 % HX MULTISITE Lymph% 8(L) 21 - 45 % HX MULTISITE Monocyte% 6 4 - 12 % HX MULTISITE Eosinophil % 0 0 - 5 % HX MULTISITE Basophil% 0 0 - 2 % HX MULTISITE Reactive Lymph % 2 0 - 5 % HX MULTISITE RBC Morphology HX MULTISITE Comment: 2+ Macrocytosis 1+ Target cells 10/09/2010 1:32 PM PST 10/09/2010 1:42 PM PST Narrative HX MULTISITE - 02/28/2013 12:06 AM PDT Copy to Provider(s): Danial Salas MD LAB BLOOD ORDERABLES Final Resul t Performing Organization Address City/[facility]/ZIP Co de Phone Number HX MULTISITE * (ABNORMAL) aPTT (10/09/2010 1:32 PM PST) aPTT 39.4(H) 23.0 - 35.0 sec HX MULTISITE Comment:Heparin therapeutic range 56 - 102 seconds 10/09/2010 1:32 PM PST 10/09/2010 1:42 PM PST Narrative HX MULTISITE - 02/28/2013 12:06 AM PDT Copy to Provider(s): us Danial Salas MD LAB BLOOD ORDERABLES Final Resul t HX MULTISITE * (ABNORMAL) Protime-INR (10/09/2010 1:32 PM PST) Protime Seconds 17.0(H) 8.0 - 11.0 sec HX MULTISITE I.N.R. 1.7(H) 0.9 - 1.2 HX [facility]ULTISITE Comment: 2.0-3.0 Less intensive therapy 2.5-3.5 More intensive therapy 10/09/2010 1:32 PM PST 10/09/2010 1:42 PM PST Narrative HX MULTISITE - 02/28/2013 12:06 AM PDT Copy to Provider(s): us Danial Salas MD LAB BLOOD ORDERABLES Final Resul t Performing Organization Address City/[facility]/ZIP Co de Phone Number HX MULTISITE * (ABNORMAL) Lipase (10/09/2010 1:32 PM PST) Lipase 96(H) 18 - 54 U/L HX MULTISITE 10/09/2010 1:32 PM PST 10/09/2010 1:42 PM PST Narrative HX MULTISITE - 02/28/2013 12:06 AM PDT Copy to Provider(s): us Danial Salas MD LAB BLOOD ORDERABLES Final Resul t Performing Organization Address [facility] de Phone Number HX MULTISITE * (ABNORMAL) Comprehensive metabolic panel (10/09/2010 1:32 PM PST) Sodium 137 136 - 145 mmol/L HX MULTISITE Potassium 3.0(L) 3.5 - 5.1 mmol/L HX MULTISITE Chloride 93(L) 100 - 110 mmol/L HX MULTISITE CO2 29 22 - 31 mmol/L HX MULTISITE Glucose 125(H) 70 - 99 mg/dL HX MULTISITE BUN 10 6 - 20 mg/dL HX MULTISITE Creatinine 0.6 0.6 - 1.3 mg/dL HX MULTISITE GFR Non-Black >80 mean=93 mL/min /1.73m2 HX MULTISITE GFR Black >80 mL/min /1.73m2 HX MULTISITE Calcium 8.8 8.4 - 10.2 mg/dL HX MULTISITE AST 174(H) 15 - 41 U/L HX MULTISITE ALT 43 0 - 50 U/L HX MULTISITE Protein, Total 7.6 6.0 - 7.8 g/dL HX MULT[facility]ITE Albumin 4.0 3.5 - 5.0 g/dL HX [facility]ITE Globulin 3.6(H) 2.2 - 3.5 g/dL HX MULTISITE A/G Ratio 1.1 1.1 - 1.9 HX MULT[facility]ITE Alkaline Phosphatase 282(H) 38 - 126 U/L HX MULTISITE Bilirubin, Total 8.1(H) 0.2 - 1.4 mg/dL HX MULTISITE 10/09/2010 1:32 PM PST 10/09/2010 1:42 PM PST Narrative HX MULTISITE - 02/28/2013 12:06 AM PDT Copy to Provider(s): Danial Salas MD LAB BLOOD ORDERABLES Final Resul t HX MULTISITE * (ABNORMAL) CBC with auto differential (10/09/2010 1:32 PM PST) WBC 7.0 3.8 - 11.1 K/mm3 HX MULTISITE RBC 3.10(L) 4.7 - 6.1 M/mm3 HX MULT[facility]ITE HGB 12.1(L) 14.0 - 18.0 g/dl HX MULTIS[facility] HCT 35.0(L) 42 - 52 % [facility] MCV 113.2(H) 80 - 99 u3 HX M[facility]ITE MCH 39.2(H) 26 - 34 pg HX M[facility]ITE MCHC 34.7 32 - 36 % HX MULTISITE RDW 17.5(H) 11.5 - 14.5 % HX MULTISITE Plt Ct 73(L) 150 - 450 K/mm3 HX MULTISITE MPV 8.6 7.4 - 10.4 u3 HX MULTISITE 10/09/2010 1:32 PM PST 10/09/2010 1:42 PM PST Narrative HX MULTISITE - 02/28/2013 12:06 AM PDT Copy to Provider(s): Danial Salas MD LAB BLOOD ORDERABLES Final Resul t HX MULTISITE documented in this encounter Visit Diagnoses Not on filedocumented in this encounter Care Teams Cardiology Nurse Relationship Specialty Start Date End Date Carrington Spencer MD PCP - General Family Medicine 04/01/13 documented as of this encounter
--- OUTSIDE RECORDS SUMMARY | 2025-06-23 14:16 | XMS_ITS | Encounter Summary ---
Author Organization [facility] Address [address] [place] [address] Care Team Providers Care Railroad Carman Name Role Phone Remy Mg III Primary Care Provider Unav ailable Reason for Referral * Outpatient Service (Urgent) - Authorized Specialty Diagnoses / Procedures Referred By Virgilio lakhani Referred To Contact Wound Care Diagnoses Open wound of left foot, initial encounter Procedures REF WOUND CARE - EXTERNAL DEBRIDEMENT, OPEN WOUND, ASSESSMENT, ONGOING CARE, PER SESSION, FIRST 20 SQ CM OR LESS Remy Mg III [employer] PRIMARY CAR [address] [place] [address] [facility] [address] [place] [address] Referral ID Status Reason Start Date Expiration Date Visits Requested Visits Authorized [id number] Authorized Itemized Services 02/28/2025 02/28/2026 [id number] Encounter Details Date Type Department Care Team (Late st Contact Info) Description 02/28/2025 Community Orders Non [facility] Provider Remy Mg III [employer] PRIMARY CAR [address] [place] [address] Open wound of left foot, initial encounter (Primary Dx) Social [...] as of this encounter Visit Diagnoses Diagnosis Open wound of left foot, initial encounter- Primary documented in this encounter Care Teams Railroad Carman Relationship Specialty Start Date End Date Remy Mg III [employer] PRIMARY CAR [address] [place] [address] PCP - General 01/27/24 documented as of this encounter
--- OUTSIDE RECORDS SUMMARY | 2025-06-23 14:16 | XMS_ITS | Encounter Summary ---
Author Organization [facility] Address [address], [place] [address] Care Team Providers Care Line Director Name Role Phone Carrington Spencer MD Primary Care Provider U faisaljc Encounter Details Date Type Department Care Team (Late st Contact Info) Description 10/09/2010 Historical Encounter HISTORIC_CONVERSION [address] [place], [place] [id number] Bon Merida MD [address] [facility] 5th [place] [address] Social History Tobacco Use Types Packs/Day Years Used Date Smoking Tobacco: Never Assessed Sex and Gender Information Value Date Recorded Sex Assigned at Not on file Legal Sex Male 10:40 PM PDT Gender Identity Not on file Sexual Orientation Not on file documented as of this encounter H&P Notes * Bon Merida MD - 10/09/2010 12:00 AM PST Lee MIGUEL [id number] : 1955 DATE OF ADMISSION: 10/09/2010 PRIMARY CARE PHYSICIAN: __Dr. Gonzalez___ CHIEF COMPLAINT: Alcohol withdrawal. HISTORY OF PRESENT ILLNESS: This is a 55-year-old white male with a history of chronic alcohol abuse and a history of withdrawal, who was recently diagnosed with alcohol-related liver cirrhosis who was told to come to the [facility] ER with a complaint of alcohol withdrawal. The patient has known history of alcohol abuse, with drinking about 3 to 5 glasses of whiskey every day for the last 15 to 20 years. Patient also has had runs of binge drinking in the past. Most recently, patient had alcohol withdrawal with DTs, back about 2 years ago while patient was visiting [place]. In the last few weeks, patient has been having some abdominal distention and eye color changing to yellow. He was concerned, and went to see his PCP, Dr Gonzalez, yesterday. At that time, patient had an ultrasound of the abdomen and also a CT of the abdomen and pelvis, which was consistent with liver cirrhosis with portal hypertension. Patient known to have liver failure, with a total bilirubin of 6.0. Patient was told to stop drinking and was given Librium to help the patient's anticipated alcohol withdrawal symptoms. However, the patient did not get the prescription filled right away, and patient had one glass of whiskey last night to help his alcohol withdrawal symptoms. However, despite the Librium with some alcohol consumption, patient continued to have worsening alcohol withdrawal symptoms, and subsequently called his PCP, Dr Gonzalez, who recommended the patient to come to the ER for further evaluation. In the initial evaluation in the ER, patient's liver function was worsening, with total bilirubin going to 8.5 from 6.3, and also PT/INR of 1.7. Patient continued to have alcohol withdrawal symptoms, including shaking. Patient also has been vomiting for the last 2 to 3 days, with a potassium of 3.0. With this finding, the ER physician asked the hospitalist service for evaluation. REVIEW OF SYSTEMS: The patient complained of nausea, but vomiting is improved. Complained of abdominal distention, but denies pain or dysuria, hematuria, constipation, diarrhea, headache or focal weakness. Denies any orthopnea, PND or shortness of breath. Patient complained of yellow skin and yellow Sclerae. MEDICATIONS: Librium 25 mg p.o. q 8 hours for 24 hours enalapril 20 mg p.o. once a day tetracycline 250 mg p.o. once a day vitamin D 2000 units, 1 capsule p.o. once a day. PAST MEDICAL HISTORY: 1. Hypertension. 2. History of alcohol withdrawal with DTs and a seizure. 3. Liver cirrhosis, secondary to alcohol. SURGICAL HISTORY: Back surgery. Umbilical hernia repair. Right and left knee surgery. SOCIAL HISTORY: Alcohol abuser. Denies smoking. The patient is . FAMILY HISTORY: Noncontributory. PHYSICAL EXAMINATION: VITAL SIGNS: Temperature 37.3, blood pressure 140/86, pulse 107, respirations 16, O2 saturation 97% room air. GENERAL: Obese white male with apparent distress secondary to alcohol withdrawal. HEENT: Pupils equal and reactive to accommodation. Extraocular movements intact. Dry mucous membranes. No JVD, LAD. LUNGS: Clear to auscultation bilaterally. CARDIOVASCULAR: Tachycardic. No murmur, no gallop, no rub, but regular. ABDOMEN: Nontender, but distended. Positive bowel sounds. Fluid shifting is noted, but no rigidity or rebound tenderness is noted. LOWER EXTREMITIES: No clubbing, cyanosis, edema. NEUROLOGIC: No focal deficit. SKIN: Icteric, and sclerae were icteric. LABORATORY: WBC 7.0, hemoglobin 12.1, hematocrit 35.0, platelets 73, bands of 18. INR is 1.7. Sodium 137, potassium 3.0, chloride 93, bicarbonate 29, BUN 10, creatinine 0.6, glucose 125. Total bilirubin is 8.1, alkaline phosphatase 282, ALT 43, AST 174, lipase 96. Hepatitis panel, done as outpatient, was negative for hepatitis B and hepatitis C. Chest x-ray, limited AP view: Normal for age. No significant of radiographic abnormalities noted. CT of abdomen and pelvis with contrast, done as outpatient on 10/08/2010: Showed cirrhosis. Moderate amount of ascites. Splenomegaly and distal esophageal varices consistent with portal hypertension. Patent portal and hepatic veins. Gallbladder thickening due to the underlying hepatic disease. Small gallstone. Ultrasound of abdomen, done on 10/08/2010: Showed: 1. Marked hepatomegaly, which is increased from prior exam. 2. Markedly slow flow or thrombosis of portal vein. 3. Moderate amount of intraabdominal ascites. 4. Cholelithiasis and sludge, with nonspecific gallbladder wall thickening. No convincing sonographic evidence of cholecystitis or biliary obstruction. 5. Splenomegaly. ASSESSMENT: 1. Alcohol withdrawal. 2. Acute liver failure secondary to cirrhosis related to alcohol. 3. Alcohol abuse. 4. Thrombocytopenia secondary to alcohol abuse. 5. Ascites secondary to the liver cirrhosis, asymptomatic. 6. Portal hypertension. 7. Hypokalemia secondary to vomiting. 8. Dehydration. PLAN: At this point, I am going to admit the patient to [facility] and start a [facility] protocol for alcohol withdrawal. Give vitamin K to correct coagulopathy, which is secondary to alcoholic liver cirrhosis. Monitor the liver function closely. Start a banana bag, including folate, thiamine and multivitamin. Repeat the potassium. N.p.o. for now, and once patient's alcohol withdrawal is improved, will start a diet. Consult GI, Dr Vincent, for further recommendations and evaluation. Patient is FULL CODE. Expecting discharge in 2 to 3 days. Dictated by: Bon Merida MD DDK:[id number] eScription document:[id number] documented in this encounter Plan of Treatment Not on file documented as of this encounter Visit Diagnoses Not on filedocumented in this encounter Care Teams Line Director Relationship Specialty Start Date End Date Carrington Spencer MD PCP - General Family Medicine 04/01/13 documented as of this encounter
--- OUTSIDE RECORDS SUMMARY | 2025-06-23 14:16 | XMS_ITS | Encounter Summary ---
Author Organization [facility] Address [address] [place] [address] Care Team Providers Care Insurance Adjustor Name Role Phone Remy Mg III Primary Care Provider Unav ailable Reason for Referral * Surgical Services (Routine) - Authorized Specialty Diagnoses / Procedures Referred By Contchristina t Referred To Contact Wound Care Diagnoses Chronic foot ulcer, left, with fat layer exposed Type 2 diabetes mellitus with foot ulcer Non-pressure chronic ulcer of other part of unspecified foot with unspecified severity Procedures REF WOUND CARE - EXTERNAL DEBRIDEMENT, OPEN WOUND, ASSESSMENT, ONGOING CARE, PER SESSION, FIRST 20 SQ CM OR LESS DEBRIDE SKIN & SUBQ TISSUE Yaniv Nguyen [facility] WOUND CAR [address] [place] [address] [facility] [address], [place] [address] fax: Referral ID Status Reason Start Date Expiration Date Visits Requested Visits Authorized [id number] Authorized Evaluate and Treat-Surgery if Indicated 02/28/2025 02/28/2026 999 [id number] Encounter Details Date Type Department Care Team (Late st Contact Info) Description 02/28/2025 Community Orders Non [facility] Provider Yaniv Nguyen [facility] WOUND CAR [address] [place] [address] Chronic foot ulcer, left, with fat layer exposed (Primary Dx); Type 2 diabetes mellitus with foot ulcer, without long-term current use of insulin Social History Tobacco Use Types Packs/Day Years Used Date Smoking Tobacco: Never Assessed Sex and Gender Information Value Date Recorded Sex Assigned at Not on file Legal Sex Male 8:07 AM PST Gender Identity Not on file Sexual Orientation Not on file documented as of this encounter Plan of Treatment Not on file documented as of this encounter Visit Diagnoses Diagnosis Chronic foot ulcer, left, with fat layer exposed- Primary Type 2 diabetes mellitus with foot ulcer, without long-term current use of insulin documented in this encounter Care Teams Insurance Adjustor Relationship Specialty Start Date End Date Remy Mg III [facility] PRIMARY CAR [address] [place] [address] PCP - General 01/27/24 documented as of this encounter
--- OUTSIDE RECORDS SUMMARY | 2025-06-23 14:16 | XMS_ITS | Encounter Summary ---
Author Organization [facility] Address [address] [place] [address] Care Team Providers Care Self Sealing Fuel Tank Repairer Name Role Phone Remy Mg Primary Care Provide r Reason for Visit * Reason Onset Date Comments Labs Only 06/19/2025 Labs results fro m 06/15/25 Encounter Details Date Type Department Care Team (Late st Contact Info) Description 06/19/[address] [facility] Infectious Diseases [place] [address] [facility] [address] [place] [address] Nabila Campbell MD [address] [place] [address] Labs Only (Labs results from 06/15/25) Social History Tobacco Use Types Packs/Day Years Used Date Smoking Tobacco: Never Passive Smoke Exposure: Never Smokeless Tobacco: Former Snuff Quit: 07/03/2005 Alcohol Use Standard Drinks/Week Comments Yes 240 (1 standard drin k = 0.6 oz pure alcohol) 4 to 5 beers a day- not since surgery 05/2025 [facility] Utilities Answer Date Recorded In the past 12 months has [facility] [employer], gas, oil, or water company threatened to [...] any time in the past 12 m [facility], were you homeless or living in a jail (including now)? No 05/24/2025 Sex and Gender Information Value Date Recorded Sex Assigned at Male 05/24/2025 2:45 PM PDT Legal Sex Male 1:11 PM PDT Gender Identity Male 03/13/2025 7:20 AM PDT Sexual Orientation Straight 03/13/2025 7: 20 AM PDT documented as of this encounter Miscellaneous Notes * Telephone Encounter - Nabila Campbell MD - 06/19/2025 6:51 PM PST CRP continues to rise. I am concerned that he may have an abscess. Will reorder CT as STAT. * Telephone Encounter - Yoly Tamayo MA - 06/19/2025 3:24 PM PST Images from the original note were not included. Labs results from 06/15/25 documented in this encounter Plan of Treatment Upcoming Encounters Date Type Department Care Team (Latest Contact Info) Description 06/26/2025 9:30 AM PST Office Visit [facility] Infectious Diseases [place] [address] [facility] [address] [place] [address] Nabila Campbell MD [address] [place] [address] 07/04/2025 7:15 AM PST Hospital Encounter [facility] Operating Room [address] [place] [phone] Lee Coy, DPM [address] [place] [phone] 07/04/2025 7:15 AM PST - 07/04/2025 10:40 AM PST Surgery [facility] Operating Room [address] [place] [phone] Lee Coy, DPM [address] [place] [address] [phone] LEFT - OPEN ARTHRODESIS OF ANKLE [14219 (CPT )] 07/06/2025 10:30 AM PST Office Visit [facility] [place] [address] [place] [phone] Lee Coy, DPM [address] [place] [phone] Scheduled Procedures Name Priority Associated Diagnoses Date/Ti [...] of left ankle due to other bacteria ([facility]) Other acute osteomyelitis of left ankle ([facility]) 07/04/2025 7:15 AM PST documented as of this encounter Visit Diagnoses Not on filedocumented in this encounter Care Teams Self Sealing Fuel Tank Repairer Relationship Specialty Start Date End Date Remy Mg ARNP [facility] [address] [place] [address] PCP - General Nurse Practitioner Family 03/08/25 documented as of this encounter
--- OUTSIDE RECORDS SUMMARY | 2025-06-23 14:16 | XMS_ITS | Encounter Summary ---
Author Organization [facility] Address [address] [address] Care Team Providers Care Heel Cover Softener Name Role Phone Carrington Spencer MD Primary Care Provider U vickie Encounter Details Date Type Department Care Team (Late st Contact Info) Description 10/09/2010 Historical Encounter HISTORIC_CONVERSION [address] [place] [address] Abbi Vincent MD [address] [id number] Social History Tobacco Use Types Packs/Day Years Used Date Smoking Tobacco: Never Assessed Sex and Gender Information Value Date Recorded Sex Assigned at Not on file Legal Sex Male 10:40 PM PDT Gender Identity Not on file Sexual Orientation Not on file documented as of this encounter Consult Notes * Abbi Vincent MD - 10/09/2010 12:00 AM PST Lee MIGUEL [id number] : 1955 DATE OF CONSULTATION: 10/09/2010 REQUESTING PHYSICIAN: Bon Merida MD, hospitalist service CONSULTING PHYSICIAN: Abbi Vincent MD PRIMARY CARE PHYSICIAN: Ever Gonzalez MD REASON FOR CONSULTATION: Liver failure. HISTORY OF PRESENT ILLNESS: This 55-year-old man, who has a history of alcoholism, presented to medical attention with abdominal distention, jaundice, nausea and vomiting. History is obtained from patient, who is a somewhat reluctant historian, and from his and review of available medical records. He has a history of drinking 8 to 10 whiskeys per day for at least the past 6 years. He quit for about a year, 2 years ago, and was hospitalized in [place] with DTs. Prior to his heavy alcohol consumption in the last few years, he drank some alcohol, although was not definite about how much alcohol he had consumed in the past. He has had increasing abdominal distention for the past 2 months. He has also had jaundice for the past couple of months. He has had decreased appetite and nausea for the past few weeks, and has lost 20 pounds in the last 3 weeks. He has had nausea and some vomiting in the past few days. He saw his doctor in the office yesterday. Abdominal ultrasound and CT scan were done, which showed cirrhosis and ascites. He decided to quit drinking and was given a prescription for Librium. Despite and the Librium prescription, he had worsening nausea and vomiting after stopping alcohol yesterday, which prompted him to come into the ER today. Abdominal distention is somewhat uncomfortable, and he sometimes feels a little short of breath when lying down. He has not had any edema and there is no abdominal pain. He denies fevers or chills. The emesis has all been clear, like phlegm. There has not been any hematochezia or coffee-grounds emesis. He has been constipated for the past 3 weeks and is taking Dulcolax and Senokot in order to have a bowel movement. His previous bowel habit was 2 stools per day. His noted a dark stool a week ago and yesterday but no melenic stools, and there has not been any hematochezia. He has noticed easy bruising. Both patient and his deny a history of confusion or memory loss. PAST MEDICAL HISTORY: 1. Cirrhosis, documented on ultrasound and CT scan yesterday. He was told that he had alcoholic liver disease 2 or 3 years ago when he was hospitalized in [place]. 2. Alcoholism. 3. Hypertension. 4. Hay fever and environmental allergies. 5. No history of diabetes, heart disease, pulmonary disease or stroke. SURGERIES: Two back surgeries. From review of his chart, also an umbilical hernia repair and bilateral knee surgery. ALLERGIES: NKMT HOME MEDICATIONS: Librium, which was just prescribed enalapril tetracycline vitamin D SOCIAL HISTORY: Alcohol, as noted above in HPI. He is a nonsmoker. He quit chewing tobacco 2 years ago and has used cough drops as a substitute. He works as a realtor. He has been working less recently, and it is unclear from the history that I was able to obtain whether this is due to not feeling well or other effects of drinking, or just the depressed real estate market. FAMILY HISTORY: Negative for liver disease. It is positive for longevity. There is no family history of colon cancer or colon polyps. His father had bladder cancer at age 85. REVIEW OF SYSTEMS: CONSTITUTIONAL: As noted in HPI. RESPIRATORY: He feels a little short of breath when lying down, which he attributes to abdominal distention. There is no cough. CARDIOVASCULAR SYSTEM: No edema, no chest pain. MUSCULOSKELETAL: He has knee, hip and shoulder pain. He takes Advil, although infrequently, and has taken 4 tablets recently, although did not describe the time period where he had taken the Advil. He does avoid aspirin. SKIN: He has had a rash on his shins, although not recently. GASTROINTESTINAL: As noted in HPI. GENITOURINARY: Hematuria is noted in the bedside urinal. He has not noted this previously. There is no dysuria. PSYCHIATRIC: History of alcoholism. NEUROLOGIC: Negative. PHYSICAL EXAMINATION: Patient is alert and appears comfortable. His affect is somewhat flat. VITAL SIGNS: BP 151/96, HR 107, RR 18, temperature 37.2. Oxygen saturation 93% on room air. HEENT: Pupils are equal. There is bilateral scleral icterus. Oropharynx is clear. No exudates or lesions. No cervical adenopathy. Thyroid is not palpable. RESPIRATORY: Clear to auscultation. No respiratory distress. CARDIOVASCULAR: S1, S2 normal. No murmurs. No edema. ABDOMEN: Moderate distention. Liver is palpable and enlarged, about 6 cm below the costal margin and is nontender. There is no abdominal tenderness. Spleen is not palpable. There is a fluid wave consistent with ascites, and flank dullness. RECTAL EXAM: Digital rectal exam was normal. There was brown stool on the examining finger, which tested guaiac-negative. CENTRAL NERVOUS SYSTEM: There is a fine tremor of the outstretched hands. There is no asterixis. Neuro is otherwise grossly intact. MUSCULOSKELETAL: No obvious joint swelling or deformity. SKIN: No spider angiomata. There is a several-centimeters contusion in the mid abdomen. STUDIES: Chest x-ray, done today, shows borderline cardiomegaly. Abdominal CT and ultrasound were done yesterday. The ultrasound showed marked hepatomegaly, which had increased from his last ultrasound 2 years ago, splenomegaly, cholelithiasis and nonspecific gallbladder wall thickening, moderate ascites, and a slow flow in the portal veins. CT scan of the abdomen, done to look for thrombosis because of the slow flow, showed patent portal and hepatic veins. Cirrhosis, with enlarged and nodular liver, splenomegaly and distal esophageal varices, consistent with portal hypertension. Normal pancreas. LABORATORIES: Were reviewed. Alkaline phosphatase was 282, bilirubin 8.1, AST 174, and ALT 43, albumin 4.0. BUN 10, creatinine 0.6, potassium 3.0. Total protein is normal at 7.6. Sodium normal at 137. Lipase is mildly elevated at 96. Hemoglobin is 12.1, stable compared to yesterday at 12.4. MCV elevated at 113. Platelet count 73,000. WBC 7.0 with a left shift, 18% bands. Hepatitis C antibody was negative. Hepatitis B core antibody was negative. PT INR is 1.7, PTT 39.4. IMPRESSION: 1. Alcoholic cirrhosis, which is becoming increasingly symptomatic. He has jaundice, elevated liver enzymes in a cholestatic pattern, nausea, vomiting and ascites. Decompensation of cirrhosis may be due to progressive liver disease, superimposed alcoholic hepatitis. Differential also includes infectious etiology or another secondary cause of liver disease, and liver tumor although there does not appear to be evidence of a hepatoma on ultrasound or CT scan. 2. Ascites, probably secondary to portal hypertension. 3. Alcoholism and early acute alcohol withdrawal. 4. Dehydration and hypokalemia. 5. Dark stools and new onset of constipation. Dark stool does raise the question of gastrointestinal bleeding. However, he does not appear to be acutely bleeding, as he currently has brown guaiac-negative stools. Varices are suspected, based on the CT scan findings, but he does not have a history that is suggestive of variceal bleeding. 6. Coagulopathy secondary to liver disease, with both thrombocytopenia and elevated PT INR. 7. Patient's MELD score is 15 and Maddrey score is 31. PLAN: 1. I discussed the diagnosis and importance of alcohol abstention with the patient and his . 2. Paracentesis, which would be important to confirm the impression of portal hypertension but, more importantly, to look for possibility of SBP. 3. Check hepatitis A serology and iron studies, alpha few protein. 4. Avoid aspirin and NSAIDs. 5. Will treat for possible component of alcoholic hepatitis with Trental, and optimizing nutritional intake. 6. At some point, we will plan to do EGD and colonoscopy. In the meantime, treatment with beta blockers; for example, nadolol or propranolol would be reasonable for prophylaxis of variceal bleeding, and this would also be a dual therapy for treatment of systemic hypertension. Thank you very much for your consultation. Will continue to follow patient in the hospital. Dictated by: Abbi Vincent MD HS:[id number] eScription document:[id number] cc: Bon Gonzalez MD documented in this encounter Plan of Treatment Not on file documented as of this encounter Visit Diagnoses Not on filedocumented in this encounter Care Teams Heel Cover Softener Relationship Specialty Start Date End Date Carrington Spencer MD PCP - General Family Medicine 04/01/13 documented as of this encounter
--- OUTSIDE RECORDS SUMMARY | 2025-06-23 14:16 | XMS_ITS | Encounter Summary ---
Author Organization [facility] Address [address] [place] [address] Care Team Providers Care Battery Checker Name Role Phone Remy Mg III Primary Care Provider Unav ailable Reason for Referral * Outpatient Service (Routine) - Authorized Specialty Diagnoses / Procedures Referred By Contac t Referred To Contact Urology Diagnoses Benign prostatic hyperplasia with lower urinary tract symptoms, symptom details unspecified Procedures REF UROLOGY - EXTERNAL OFFICE/OUTPATIENT ESTABLISHED MOD MDM [address] [facility] [address] [place] [address] [place], [facility] [address] [address] [place] [address] Referral ID Status Reason Start Date Expiration Date Visits Requested Visits Authorized [id number] Authorized Evaluate and Treat-Surgery if Indicated 09/24/2024 09/24/2025 6 6 Encounter Details Date Type Department Care Team (Late st Contact Info) Description 09/24/2024 Community Orders Non [facility] Provider [facility] [address] [place] [address] Benign prostatic hyperplasia with lower urinary tract symptoms, symptom details unspecified (Primary Dx) Social History Tobacco Use Types Packs/Day Years Used Date Smoking Tobacco: Never Assessed Sex and Gender Information Value Date Recorded Sex Assigned at Not on file Legal Sex Male 8:07 AM PST Gender Identity Not on file Sexual Orientation Not on file documented as of this encounter Plan of Treatment Not on file documented as of this encounter Visit Diagnoses Diagnosis Benign prostatic hyperplasia with lower urinary tract symptoms, symptom details unspecified- Primary documented in this encounter Care Teams Battery Checker Relationship Specialty Start Date End Date Remy Mg III [facility] PRIMARY CAR [address] [place] [address] PCP - General 01/27/24 documented as of this encounter
--- OUTSIDE RECORDS SUMMARY | 2025-06-23 14:16 | XMS_ITS | Encounter Summary ---
Author Organization [facility] Address [address] [place] [address] Care Team Providers Care Chlorobutadiene Scrubber Operator Name Role Phone Remy Mg III Primary Care Provider Unav ailable Reason for Referral * Outpatient Service (Routine) - Authorized Specialty Diagnoses / Procedures Referred By Contac t Referred To Contact Urology Diagnoses Gross hematuria Procedures REF UROLOGY - EXTERNAL OFFICE/OUTPATIENT ESTABLISHED MOD MDM 30 MIN Rodrigo Rosario [employer] PRIMARY CAR [address] [place] [address] Phone: tel: fax: [facility] [address] [address] [place] [address] Referral ID Status Reason Start Date Expiration Date Visits Requested Visits Authorized [id number] Authorized Evaluate and Treat-Surgery if Indicated 03/04/2024 03/04/2025 6 6 Encounter Details Date Type Department Care Team (Late st Contact Info) Description 03/04/2024 Community Orders Non [facility] Provider Rodrigo Rosario [employer] PRIMARY CAR [address] [place] [address] Gross hematuria (Primary Dx) Social History Tobacco [...] Primary documented in this encounter Care Teams Chlorobutadiene Scrubber Operator Relationship Specialty Start Date End Date Remy Mg III [employer] PRIMARY CAR [address] [place] [address] PCP - General 01/27/24 documented as of this encounter
--- OUTSIDE RECORDS SUMMARY | 2025-06-23 14:16 | XMS_ITS | Encounter Summary ---
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, acquired, left Ankle joint instability, left Procedures REF PODIATRY - EXTERNAL ARTHROSCOPY ANKLE W/DEBRIDE EXTENSIVE REPAIR SECONDARY DISRUPTED LIGAMENT ANKLE COLLAT Lee Coy Phone: tel: fax: [facility] [address] [place] [address] Referral ID Status Reason Start Date Expiration Date Visits Requested Visits Authorized [id number] Authorized Procedure Only 03/20/2025 03/20/2026 1 1 Encounter Details Date Type Department Care Team (Late st Contact Info) Description 03/20/2025 Community Orders Non [facility] Provider Lee Coy [address] [facility] [address] [place] [address] Tear of talofibular ligament, left, initial encounter (Primary Dx); Osteochondral lesion of talar dome; Ankle varus, acquired, left; Ankle joint instability, left Social History Tobacco Use Types Packs/Day Years Used Date Smoking Tobacco: Never Assessed Sex and Gender Information Value Date Recorded Sex Assigned at Not on file Legal Sex Male 8:07 AM PST Gender Identity Not on file Sexual Orientation Not on file documented as of this encounter Plan of Treatment Not on file documented as of this encounter Visit Diagnoses Diagnosis Tear of talofibular ligament, left, initial encounter- Primary Osteochondral lesion of talar dome Disorder of bone and cartilage, unspecified Ankle varus, acquired, left Ankle joint instability, left documented in this encounter Care Teams Datawarehouse Developer Relationship Specialty Start Date End Date Remy Mg III [facility] PRIMARY CAR [address] [place] [address] PCP - General 01/27/24 documented as of this encounter
--- OUTSIDE RECORDS SUMMARY | 2025-06-23 14:16 | XMS_ITS | Encounter Summary ---
Author Organization [facility] Address [facility] [address] Care Team Providers Care Batch Blender Name Role Phone Carrington Spencer MD Primary Care Provider U vickie Encounter Details Date Type Department Care Team (Late st Contact Info) Description 06/01/2025 Lab Requisition [address] [place] [address] Nabila Campbell MD [address] [place] [id number] Other acute osteomyelitis, left ankle and foot (CMS/HCC) Social History Tobacco Use Types Packs/Day [...] Procedure Name Priority Date/Time Associated Diagnosis Comments *CBC WITH DIFFERENTIAL, LAB GENERATED ORDER Routine 06/01/2025 11:30 AM PDT Other acute osteomyelitis, left ankle and foot (CMS/HCC) CBC WITH DIFFERENTIAL Routine 06/01/2025 11:30 AM PDT Other acute osteomyelitis, left ankle and foot (CMS/HCC) C-REACTIVE PROTEIN Routine 06/01/2025 11 :30 AM PDT Other acute osteomyelitis, left ankle and foot (CMS/HCC) COMPREHENSIVE METABOLIC PANEL Routine 06/01/2025 11:30 AM PDT Other acute osteomyelitis, left ankle and foot (CMS/HCC) documented in this encounter Results * (ABNORMAL) CBC with Differential (06/01/2025 11:30 AM PDT) [facility] WBC 6.2 4.0 - 11.0 K/uL 06/01/2025 5:53 PM PDT [facility] RBC 2.56(L) 4.31 - 5.77 M/uL 06/01/2025 5:53 PM PDT [facility] HGB 8.1(L) 13.2 - 17.5 g/dL 06/01/2025 5:53 PM PDT [facility] HCT 25.9(L) 38.9 - 49.9 % 06/01/2025 5:53 PM PDT [facility] MCV 101.2(H) 80.0 - 100.0 fL 06/01/2025 5:53 PM PDT [facility] MCH 31.6 27.8 - 33.8 pg 06/01/2025 5:53 PM PDT [facility] MCHC 31.3(L) 31.5 - 36.5 g/dL 06/01/2025 5:53 PM PDT [facility] RDW 15.9(H) 11.5 - 14.2 % 06/01/2025 5:53 PM PDT [facility] Platelets 197 150 - 400 K/uL 06/01/2025 5:53 PM PDT [facility] MPV 10.6 8.5 - 12.4 fL 06/01/2025 5:53 PM PDT [facility] Neutrophils % 77.7 % 06/01/2025 5:53 PM PDT [facility] Immat Gran % 1.6 % 06/01/2025 5:53 PM PDT [facility] Lymphocytes % 12.2 % 06/01/2025 5:53 PM PDT [facility] Monocytes % 6.1 % 06/01/2025 5:53 PM PDT [facility] Eosinophils % 2.1 % 06/01/2025 5:53 PM PDT [facility] Basophils % 0.3 % 06/01/2025 5:53 PM PDT [facility] Neutrophils # 4.8 1.5 - 8.0 K/uL 06/01/2025 5:53 PM PDT [facility] Immat Gran # 0.1 0.0 - 0.1 K/uL 06/01/2025 5:53 PM PDT [facility] Lymphocytes # 0.8(L) 1.0 - 3.5 K/uL 06/01/2025 5:53 PM PDT [facility] Monocytes # 0.4 0.2 - 1.0 K/uL 06/01/2025 5:53 PM PDT [facility] Eosinophils # 0.1 0.0 - 0.5 K/uL 06/01/2025 5:53 PM PDT [facility] Basophils # 0.0 0.0 - 0.2 K/uL 06/01/2025 5:53 PM PDT [facility] nRBC 06/01/2025 5:53 PM PDT [facility] Blood 06/01/2025 11:3 0 AM PDT 06/01/2025 5:50 PM PDT Nabila Campbell MD LAB BLOOD ORDERABLES Final Resu lt Performing Organization Address [facility] Co de Phone Number [address] [address] * (ABNORMAL) C-Reactive Protein (06/01/2025 11:30 AM PDT) C-Reactive Protein 3.1(H) <1.0 mg/dL 06/01/2025 6:04 PM PDT [facility] Blood 06/01/2025 11:3 0 AM PDT 06/01/2025 5:50 PM PDT Narrative [facility] - 06/01/2025 6:04 PM PDT Note: CRP is used to indicate the presence of an inflammatory process; hsCRP (high sensitivity CRP) is used for CVD risk assessment. Nabila Campbell MD LAB BLOOD ORDERABLES Final Resu lt Performing Organization Address [facility]/ZIP Co de Phone Number [address] [address] * (ABNORMAL) Comprehensive Metabolic Panel (06/01/2025 11:30 AM PDT) Sodium 140 136 - 145 mmol/L 06/01/2025 6:04 PM PDT [facility] Potassium 4.1 3.5 - 5.1 mmol/L 06/01/2025 6:04 PM [facility] Chloride 106 95 - 109 mmol/L 06/01/2025 6:04 PM [facility] CO2 26 21 - 32 mmol/L 06/01/2025 6:04 PM [facility] Anion Gap 8 3 - 15 mmol/L 06/01/2025 6:04 PM [facility] Glucose 188(H) 70 - 99 mg/dL 06/01/2025 6:04 PM [facility] BUN 12 7 - 18 mg/dL 06/01/2025 6:04 PM [facility] Creatinine 0.69(L) 0.70 - 1.30 mg/dL 06/01/2025 6:04 PM [facility] eGFR (CKD-EPI 2020) 100 >=60 mL/min/1. 73m2 06/01/2025 6:04 PM [facility] Protein, Total 5.4(L) 6.4 - 8.2 g/dL 06/01/2025 6:04 PM [facility] Albumin 2.6(L) 3.4 - 5.0 g/dL 06/01/2025 6:04 PM [facility] Globulin 2.8 2.7 - 4.3 g/dL 06/01/2025 6:04 PM [facility] Calcium 8.4(L) 8.5 - 10.1 mg/dL 06/01/2025 6:04 PM [facility] Bilirubin, Total 0.4 0.1 - 1.2 mg/dL 06/01/2025 6:04 PM [facility] Alkaline Phosphatase 129(H) 46 - 116 U/L 06/01/2025 6:04 PM [facility] ALT 27 12 - 78 U/L 06/01/2025 6:04 PM [facility] AST 25 15 - 41 U/L 06/01/2025 6:04 PM [facility] Blood 06/01/2025 11:3 0 AM PDT 06/01/2025 5:50 PM PDT Nabila Campbell MD LAB BLOOD ORDERABLES Final Resu lt Treater [address] [place] [address] documented in this encounter Visit Diagnoses Diagnosis Other acute osteomyelitis, left ankle and foot (CMS/HCC) documented in this encounter Care Teams Batch Blender Relationship Specialty Start Date End Date Carrington Spencer MD PCP - General Family Medicine 04/01/13 documented as of this encounter
--- OUTSIDE RECORDS SUMMARY | 2025-06-23 14:16 | XMS_ITS | Encounter Summary ---
Author Organization [facility] Address [address] [place] [address] Care Team Providers Care Director Medicare Sales Name Role Phone Remy Mg III Primary Care Provider Unav ailable Reason for Referral * Outpatient Service (Routine) - Authorized Specialty Diagnoses / Procedures Referred By Virgilio t Referred To Contact Podiatry Diagnoses Neuropathic arthropathy Procedures REF PODIATRY - EXTERNAL OFFICE/OUTPATIENT ESTABLISHED MOD MDM 30 MIN Remy Mg III [facility] PRIMARY CAR [address] [place] [address] [facility] [address] [place] [address] Referral ID Status Reason Start Date Expiration Date Visits Requested Visits Authorized [id number] Authorized Evaluate and Treat-Surgery if Indicated 03/07/2025 03/07/2026 6 6 Encounter Details Date Type Department Care Team (Late st Contact Info) Description 03/07/2025 Community Orders Non [facility] Provider [facility] [address] [place] [address] Neuropathic arthropathy (Primary Dx) Social History Tobacco [...] dorsalis documented in this encounter Care Teams Director Medicare Sales Relationship Specialty Start Date End Date Remy Mg III [facility] PRIMARY [facility] [address] [place] [address] PCP - General 01/27/24 documented as of this encounter
--- OUTSIDE RECORDS SUMMARY | 2025-06-23 14:16 | XMS_ITS | Encounter Summary ---
Author Organization [facility] Address [address] [address] Care Team Providers Care Rn Clinical Coordinator Name Role Phone Carrington Spencer MD Primary Care Provider Nancy vickie Encounter Details Date Type Department Care Team (Late st Contact Info) Description 10/13/2010 Historical Encounter HISTORIC_CONVERSION [address] [place] [address] Brice Shelton [address] [place] [address] Social History Tobacco Use Types Packs/Day Years Used Date Smoking Tobacco: Never Assessed Sex and Gender Information Value Date Recorded Sex Assigned at Not on file Legal Sex Male 10:40 PM PDT Gender Identity Not on file Sexual Orientation Not on file documented as of this encounter Consult Notes * Brice Shelton - 10/13/2010 3:10 PM PDT -CONSULT Lee Zoya 10/13/10 15:00 D/A: Follow-up visit with patient who had earlier declined any type of referral. He and his met with Dr. Olson today who clearly stated how close this patient is to having no more chances. Lee now accepts referral to [employer]'s Rob Manuel, PhD, for assessment and treatment options. As explained to Lee, this may be a referral for CD, MH or a compbination of both. He gratefully accepts phone number/info and promises to call tomorrow. His affect is sl flat but he commits to following through on this and voices optimism. He states he has not had any significant problems with his ETOH W/D and feels no Sx whatsoever (presents none). P: Continue to monitor and support. Raudel Prince, LMHC, CDP documented in this encounter Plan of Treatment Not on file documented as of this encounter Procedures Procedure Name Priority Date/Time Associated Diagnosis Comments DIFFERENTIAL COUNT MANUAL Routine 10/13/2010 5:58 AM PDT CBC WITH DIFFERENTIAL Routine 10/13/2010 5:58 AM PDT AMMONIA Routine 10/13/2010 5:58 AM PDT COMPREHENSIVE METABOLIC PANEL Routine 10/13/2010 5:58 AM PDT CBC (NO DIFF) Routine 10/12/2010 6:36 AM PST PROTHROMBIN TIME Routine 10/12/2010 5:45 AM PST CIRILO Routine 10/12/2010 5:45 AM PST PHOSPHORUS Routine 10/12/2010 5:45 AM PST MAGNESIUM Routine 10/12/2010 5:45 AM PST GGT Routine 10/12/2010 5:45 AM PST FOLATE Routine 10/12/2010 5:45 AM PST VITAMIN B12 Routine 10/12/2010 5:45 AM PST BILIRUBIN, DIRECT Routine 10/12/2010 5:4 5 AM PST AMMONIA Routine 10/12/2010 5:45 AM PST COMPREHENSIVE METABOLIC PANEL Routine 10/12/2010 5:45 AM PST documented in this encounter Results * (ABNORMAL) Differential count manual (10/13/2010 5:58 AM PDT) Neutrophil% 59 42 - 77 % [facility] Bands% 11 0 - 11 % [facility] Lymph% 14(L) 21 - 45 % [facility] Monocyte% 12 4 - 12 % [facility] Eosinophil % 2 0 - 5 % [facility] Basophil% 0 0 - 2 % [facility] [place]/Myelo% 1(H) 0 % [facility] Myelocyte% 1(H) 0 % [facility] nRBC 1(H) 0 #/100 wbc [facility] RBC Morphology [facility] Comment: 1+ Toxic granulation 2+ Macrocytosis 1+ Target cells 1+ Polychromasia 10/13/2010 5:58 AM PDT 10/13/2010 6:20 AM PDT Narrative [facility] - 02/28/2013 12:43 AM PDT Copy to Provider(s): us Bon Merida MD LAB BLOOD ORDERABLES Final Resul t [facility] * (ABNORMAL) Comprehensive metabolic panel (10/13/2010 5:58 AM PDT) Sodium 139 136 - 145 mmol/L [facility] Potassium 4.6 3.5 - 5.1 mmol/L [facility] Chloride 104 100 - 110 mmol/L [facility] CO2 29 22 - 31 mmol/L [facility] Glucose 82 70 - 99 mg/dL [facility] BUN 13 6 - 20 mg/dL [facility] Creatinine 0.5(L) 0.6 - 1.3 mg/dL [facility] GFR Non-Black >80 mean=93 mL/min /1.73m2 [facility] GFR Black >80 mL/min /1.73m2 [facility] Calcium 9.2 8.4 - 10.2 mg/dL [facility] AST 142(H) 15 - 41 U/L [facility] ALT 40 0 - 50 U/L [facility] Protein, Total 5.6(L) 6.0 - 7.8 g/dL [facility] Albumin 2.9(L) 3.5 - 5.0 g/dL [facility] Globulin 2.7 2.2 - 3.5 g/dL [facility] A/G Ratio 1.1 1.1 - 1.9 [facility] Alkaline Phosphatase 201(H) 38 - 126 U/L [facility] Bilirubin, Total 8.2(H) 0.2 - 1.4 mg/dL [facility] 10/13/2010 5:58 AM PDT 10/13/2010 6:20 AM PDT Narrative [facility] - 02/28/2013 12:43 AM PDT Copy to Provider(s): us Bon Merida MD LAB BLOOD ORDERABLES Final Resul t [facility] * (ABNORMAL) CBC with auto differential (10/13/2010 5:58 AM PDT) WBC 6.5 3.8 - 11.1 K/mm3 [facility] RBC 2.82(L) 4.7 - 6.1 M/mm3 [facility] HGB 10.9(L) 14.0 - 18.0 g/dl [facility] HCT 31.6(L) 42 - 52 % [facility] MCV 111.9(H) 80 - 99 u3 [facility] MCH 38.8(H) 26 - 34 pg [facility] MCHC 34.7 32 - 36 % [facility] RDW 17.7(H) 11.5 - 14.5 % [facility] Plt Ct 101(L) 150 - 450 K/mm3 [facility] MPV 8.5 7.4 - 10.4 u3 [facility] 10/13/2010 5:58 AM PDT 10/13/2010 6:20 AM PDT Narrative [facility] - 02/28/2013 12:43 AM PDT Copy to Provider(s): us Bon Merida MD LAB BLOOD ORDERABLES Final Resul t [facility] * (ABNORMAL) Ammonia (10/13/2010 5:58 AM PDT) Ammonia 55(H) 11 - 32 umol/L [facility] 10/13/2010 5:58 AM PDT 10/13/2010 6:20 AM PDT Narrative [facility] - 02/28/2013 12:43 AM PDT Copy to Provider(s): us Bon Merida MD LAB BLOOD ORDERABLES Final Resul t [facility] * (ABNORMAL) CBC (10/12/2010 6:36 AM PST) WBC 6.6 3.8 - 11.1 K/mm3 [facility] RBC 2.72(L) 4.7 - 6.1 M/mm3 [facility] HGB 10.8(L) 14.0 - 18.0 g/dl [facility] HCT 31.1(L) 42 - 52 % [facility] MCV 114.4(H) 80 - 99 u3 [facility] MCH 39.6(H) 26 - 34 pg [facility] MCHC 34.7 32 - 36 % [facility] RDW 17.9(H) 11.5 - 14.5 % [facility] Plt Ct 87(L) 150 - 450 K/mm3 [facility] MPV 8.0 7.4 - 10.4 u3 [facility] 10/12/2010 6:36 AM PST 10/12/2010 6:54 AM PST Narrative [facility] - 02/28/2013 12:31 AM PDT Copy to Provider(s): Bon Merida MD LAB BLOOD ORDERABLES Final Resul t [facility] * (ABNORMAL) Gamma gt (10/12/2010 5:45 AM PST) GGT 1113(H) 7 - 50 U/L [facility] 10/12/2010 5:45 AM PST 10/12/2010 6:22 AM PST Narrative [facility] - 02/28/2013 12:31 AM PDT Copy to Provider(s): Davonte Galvan MD LAB BLOOD ORDERABLES Final Res ult [facility] * CIRILO (10/12/2010 5:45 AM PST) CIRILO Screen NEGATIVE [facility] 10/12/2010 5:45 AM PST 10/12/2010 6:22 AM PST Narrative [facility] - 02/28/2013 12:31 AM PDT Copy to Provider(s): us Davonte Galvan MD LAB BLOOD ORDERABLES Final Res ult [facility] * Folate (10/12/2010 5:45 AM PST) Folate 3.4 >3.0 ng/mL [facility] 10/12/2010 5:45 AM PST 10/12/2010 6:22 AM PST Narrative [facility] - 02/28/2013 12:31 AM PDT Copy to Provider(s): us Davonte Galvan MD LAB BLOOD ORDERABLES Final Res ult [facility] * Vitamin B12 (10/12/2010 5:45 AM PST) Vitamin B12 Level 713 180 - 914 pg/mL [facility] 10/12/2010 5:45 AM PST 10/12/2010 6:22 AM PST Narrative [facility] - 02/28/2013 12:31 AM PDT Copy to Provider(s): us Davonte Galvan MD LAB BLOOD ORDERABLES Final Res ult [facility] * (ABNORMAL) Comprehensive metabolic panel (10/12/2010 5:45 AM PST) Sodium 139 136 - 145 mmol/L [facility] Potassium 3.7 3.5 - 5.1 mmol/L [facility] Chloride 101 100 - 110 mmol/L [facility] CO2 28 22 - 31 mmol/L [facility] Glucose 86 70 - 99 mg/dL [facility] BUN 9 6 - 20 mg/dL [facility] Creatinine 0.5(L) 0.6 - 1.3 mg/dL [facility] GFR Non-Black >80 mean=93 mL/min /1.73m2 [facility] GFR Black >80 mL/min /1.73m2 [facility] Calcium 8.7 8.4 - 10.2 mg/dL [facility] AST 130(H) 15 - 41 U/L [facility] ALT 35 0 - 50 U/L [facility] Protein, Total 5.5(L) 6.0 - 7.8 g/dL [facility] Albumin 3.0(L) 3.5 - 5.0 g/dL [facility] Globulin 2.5 2.2 - 3.5 g/dL [facility] A/G Ratio 1.2 1.1 - 1.9 [facility] Alkaline Phosphatase 194(H) 38 - 126 U/L [facility] Bilirubin, Total 7.5(H) 0.2 - 1.4 mg/dL [facility] 10/12/2010 5:45 AM PST 10/12/2010 6:22 AM PST Narrative [facility] - 02/28/2013 12:31 AM PDT Copy to Provider(s): us Davonte Galvan MD LAB BLOOD ORDERABLES Final Res ult [facility] * (ABNORMAL) Magnesium (10/12/2010 5:45 AM PST) Magnesium 1.6(L) 1.8 - 2.5 mg/dL [facility] 10/12/2010 5:4 5 AM PST 10/12/2010 6:22 AM PST Narrative [facility] - 02/28/2013 12:31 AM PDT Copy to Provider(s): us Davonte Galvan MD LAB BLOOD ORDERABLES Final Res ult [facility] * (ABNORMAL) Bilirubin, direct (10/12/2010 5:45 AM PST) Bilirubin,Direc t 4.3(H) 0 - 0.2 mg/dL [facility] 10/12/2010 5:45 AM PST 10/12/2010 6:22 AM PST Narrative [facility] - 02/28/2013 12:31 AM PDT Copy to Provider(s): us Davonte Galvan MD LAB BLOOD ORDERABLES Final Res ult [facility] * Phosphorus (10/12/2010 5:45 AM PST) Phosphorus 2.8 2.5 - 4.5 mg/dL [facility] 10/12/2010 5:45 AM PST 10/12/2010 6:22 AM PST Narrative [facility] - 02/28/2013 12:31 AM PDT Copy to Provider(s): us Davonte Galvan MD LAB BLOOD ORDERABLES Final Res ult Performing Organization Address [facility] Co de Phone Number [facility] * (ABNORMAL) Protime-INR (10/12/2010 5:45 AM PST) Protime Seconds 15.4(H) 8.0 - 11.0 sec [facility] I.N.R. 1.6(H) 0.9 - 1.2 [facility] Comment: 2.0-3.0 Less intensive therapy 2.5-3.5 More intensive therapy 10/12/2010 5:45 AM PST 10/12/2010 6:22 AM PST Narrative [facility] - 02/28/2013 12:31 AM PDT Copy to Provider(s): Result Truong Galvan MD LAB BLOOD ORDERABLES Final Res ult Performing Organization Address [facility] Co de Phone Number [facility] * (ABNORMAL) Ammonia (10/12/2010 5:45 AM PST) Ammonia 68(H) 11 - 32 umol/L [facility] 10/12/2010 5:45 AM PST 10/12/2010 6:20 AM PST Narrative [facility] - 02/28/2013 12:31 AM PDT Copy to Provider(s): Result Truong Galvan MD LAB BLOOD ORDERABLES Final Res ult Performing Organization Address [place]/[facility] Co de Phone Number [facility] documented in this encounter Visit Diagnoses Not on filedocumented in this encounter Care Teams Rn Clinical Coordinator Relationship Specialty Start Date End Date Carrington Spencer MD PCP - General Family Medicine 04/01/13 documented as of this encounter
--- OUTSIDE RECORDS SUMMARY | 2025-06-23 14:16 | XMS_ITS | Encounter Summary ---
Author Organization [facility] Address [address] [address] Care Team Providers Care Braid Cutter Name Role Phone Carrington Spencer MD Primary Care Provider U vickie Encounter Details Date Type Department Care Team (Late st Contact Info) Description 10/09/2010 Historical Encounter HISTORIC_CONVERSION [address] [place], [place] [id number] Danial Salas MD Social History Tobacco Use Types Packs/Day Years Used Date Smoking Tobacco: Never Assessed Sex and Gender Information Value Date Recorded Sex Assigned at Not on file Legal Sex Male 10:40 PM PDT Gender Identity Not on file Sexual Orientation Not on file documented as of this encounter ED Notes * Danial Salas MD - 10/09/2010 11:56 AM PST Clinical Report - Physicians/Mid Levels [address] [address] Registration Date/Time: 10/09/2010 12:17 Patient: Lee MIGUEL VisitID: [id number] 55y, M 1955 Time Seen: 13:02 Oct 09 2010. Arrived- By private vehicle. Historian- patient. Note (Primary physician (Carlos)). Attending Note: Documentation assistance provided by scribe (Ruchi Raymond). Information recorded by the scribe was done at my direction and has been reviewed and validated by me. HISTORY OF PRESENT ILLNESS Chief Complaint: DEHYDRATION. This started today and is still present. It was gradual in onset and has been constant. At its maximum, severity described as moderate. He has had a headache and weakness. No weight loss. (Pt's last drink was last night.). Similar symptoms previously: Patient has not had similar symptoms previously. Recent medical care: Not recently seen/assessed. REVIEW OF SYSTEMS The patient has had vomiting. No sore throat, sinus drainage or nasal congestion. No difficulty with ambulation. All systems otherwise negative, except as recorded above. PAST HISTORY withdrawl DTs, ETOH, hypokalemia CT abd/pel: 1. Cirrhosis (enlarged and nodular liver). 2. Moderate amount of ascites. 3. Splenomegaly and distal esophageal varices consistent with portal hypertension. 4. Patent portal and hepatic veins. 5. Gallbladder thickening due to the underlying hepatic disease. Small gallstone.. Surgeries: (Back surgery. Umbilical hernia repair. Right and left knee surgery.). SOCIAL HISTORY Alcohol use. Patient is a longstanding alcoholic. Nonsmoker. No drug use. FAMILY HISTORY Negative. ADDITIONAL NOTES The nursing notes have been reviewed. PHYSICAL EXAM Appearance: Alert. No acute distress. Vital Signs: Have been reviewed (BP: 141 / 86. HR: 107. RR: 16. Temp: 37.3. O2 saturation: 97 % room air.). Eyes: Pupils equal, round and reactive to light. Mild scleral icterus. Neck: Normal inspection. Neck supple. CVS: Normal heart rate and rhythm. Heart sounds normal. Pulses normal. Respiratory: No respiratory distress. Breath sounds normal. Chest nontender. Abdomen: No visible injury. Soft and nontender. Bowel sounds normal. Mild hepatomegaly. No mass. (ecchymosis). Back: Normal inspection. Skin: Skin warm and dry. Normal skin color. No rash. Normal skin turgor. Extremities: Extremities exhibit normal ROM. No lower extremity edema. (Tremors present). Neuro: Oriented X 3. No motor deficit. No sensory deficit. LABS, X-RAYS, AND EKG Chest X-ray: No acute disease. Normal lung markings present. Normal heart size. No infiltrate. Views: AP (portable). The X-rays were independently viewed by me and interpreted contemporaneously by me. Laboratory Tests: PTT: ( MsgRcvd 10/09/2010 13:41) New Order Protime: ( MsgRcvd 10/09/2010 13:41) New Order PTT: ( MsgRcvd 10/09/2010 13:41) New Order Protime: ( MsgRcvd 10/09/2010 13:41) New Order Lipase: ( MsgRcvd 10/09/2010 14:05) Final results Test Result Flag Units (Reference) LIPASE,BLOOD 96 H U/L (18-54) Comprehen.Metab.Pnl: ( MsgRcvd 10/09/2010 14:05) Final results Test Result Flag Units (Reference) SODIUM 137 mmol/L (136-145) POTASSIUM 3.0 L mmol/L (3.5-5.1) CHLORIDE 93 L mmol/L (100-110) TOTAL CO2 29 mmol/L (22-31) GLUCOSE 125 H mg/dL (70-99) UREA NITROGEN (BUN) 10 mg/dL (6-20) CREATININE 0.6 mg/dL (0.6-1.3) GFR (MDRD) Non-Black >80 /1.73m2 (mean=93 mL/mi GFR (MDRD) Black >80 /1.73m2 (mL/min) CALCIUM 8.8 mg/dL (8.4-10.2) AST 174 H U/L (15-41) ALT 43 U/L (0-50) PROTEIN,TOTAL 7.6 g/dL (6.0-7.8) ALBUMIN 4.0 g/dL (3.5-5.0) GLOBULIN 3.6 H g/dL (2.2-3.5) A/G RATIO 1.1 (1.1-1.9) ALKALINE PHOSPHATASE 282 H U/L (38-126) BILIRUBIN,TOTAL 8.1 H mg/dL (0.2-1.4) CBC: ( MsgRcvd 10/09/2010 13:11) New Order . Pulse Oximetry: O2 saturation- 97% (FIO2 - room air). Interpretation: normal. PROGRESS AND PROCEDURES Course of Care: 14:10. Evaluation after repeat exam. Symptoms much better. no tremor- history of DT but non now- will admit. Critical care performed (35 minutes). Time includes: direct patient care, patient reassessment and review of patient's medical records. Discussed case with hospitalist, (yue). Reviewed test results. Agreed upon treatment plan. Physician will see patient in ED. Patient and spouse counseled in person regarding the patient's stable condition, test results, diagnosis and need for admission. Concerns were addressed. Old medical records reviewed. Disposition: Admitted. CLINICAL IMPRESSION Cirrhosis. Ascites. Alcohol withdrawal. Severe hyperbilirubinemia. ETOH withdrawl Dehydration. Clinical picture does not suggest sepsis. (Electronically signed by Danial Salas MD 10/09/2010 14:57) Clinical Report - Nurses [address] [address] Registration Date/Time: 10/09/2010 12:17 Patient: Lee MIGUEL VisitID: [id number] 55y, M 1955 TRIAGE Acuity: LEVEL 3. Chief Complaint: (Dehydration and etoh withdrawl Sent). BP: 141 / 86. HR: 107. RR: 16. Temp: 37.3. O2 saturation: 97 % room air. --12:56 Curtis Gunter RN. Medications Chlordiazepoxide HCl Oral. --1251 (10/09/10) Curtis Gunter RN D3. --1251 (10/09/10) Curtis Gunter RN Enalapril Maleate. --1251 (10/09/10) Curtis Gunter RN Tetracycline HCl Oral. --1252 (10/09/10) Curtis Gunter RN. Allergies NKDA. --1252 (10/09/10) Curtis Gunter RN. History Pain level now: 10/10. PAST MEDICAL HX: Immunizations: up-to-date. (withdrawl seizures, ETOH, hypocalemia,). SURGERY HX: Back surgery. Umbilical hernia repair. Right and left knee surgery. SOCIAL HX: Alcohol use. Nonsmoker. No drug use. No infectious disease exposure. Arrived by private vehicle and accompanied by spouse. Historian: patient. Primary physician (Carlos). --12:56 Curtis Gunter RN. Interventions ID band on patient. --12:56 Curtis Gunter RN. PHYSICAL ASSESSMENT To room via wheelchair. Alert. Oriented X 3. Appears in pain and anxious. Pupils equal, round and reactive to light. No facial asymmetry noted. Respirations not labored. Chest nontender. Breath sounds within normal limits. (Pt with gross motor tremors, speech shaky and rapid, appears anxious, tense, difficulty holding still for IV start.). Abdomen soft and nontender and normal bowel sounds. Skin intact. Mucous membranes are pink. Skin is warm and dry. Abnormal skin turgor. --13:14 Yecenia Jade RN. NURSING PROGRESS NOTES IV access: right hand, 20g angiocath, with aseptic technique and good blood return; one attempt. Lock flushed with 10 mL saline. --13:14 Yecenia Jade RN ZOFRAN 8 mg diluted with 10 mL NS slow IVP via IV site #1. IV patency established. IV site checked: no pain, redness, or swelling. IV flushed thoroughly pre- and post-medication administration. --13:24 Yecenia Jade RN ATIVAN 2mg diluted with 10 mL slow IVP via IV site #1. IV patency established. IV site checked: no pain, redness, or swelling. IV flushed thoroughly pre- and post-medication administration. Sedative drug warning given to the patient. --13:24 Yecenia Jade RN BP: 155 / 83 (reg adult cuff). HR: 106 (regular, tachycardic and strong). RR: 14 (regular, unlabored and normal). O2 saturation: -94 percent on room air. (Tremors much reduced, pt appeared calm, relaxed, speech clear, resps even. Denied discomfort at this time.). --13:49 Yecenia Jade RN (Banana bag hung via pump at 1000ml/hr upon receipt from pharmacy.). --13:57 Yecenia Jade RN 14:09. Care transferred and report received (Yecenia CHANG). --14:09 Hernan Trinidad RN 14:14. BP: 140 / 84. HR: 105. RR: 20. O2 saturation: -93 percent on room air. The patient is resting quietly and sleeping. Patient reports current pain level as 0/10. --14:14 Hernan Trinidad RN (Banana bag infused, 1000ml. NS started at 100ml/hr on pump.). IV FLUIDS STARTED: bag #2-1000 mL NS; at site #1. Rate = 100 mL/hr via IV pump. --15:01 Yecenia Jade RN BP: 150 / 86 lying (reg adult cuff). HR: 98 regular. RR: 14 (regular, unlabored and normal). O2 saturation: -98 percent on room air. (Pt still doing well, resps even, only slight fine motor tremor, stated was sleeping until roused for vitals.). The patient reports no complaints and the patient is calm and resting quietly. --16:20 Yecenia Jade RN PHYTONADIONE vitamin K 10 mg po per order IM. --16:47 Yecenia Jade RN. DISPOSITION / DISCHARGE BP: 150 / 86 lying (reg adult cuff). HR: 98 (regular, normal rate and strong). RR: 14 (regular and unlabored). O2 saturation: -98 percent on room air. Condition at departure: improved. Patient reports pain level on departure as 0/10. Admitted to Medical. --17:28 Yecenia Jade RN Admitted (241 - 1). --17:30 Yecenia Jade RN Report was given to a nurse via a phone call. Report included patient's care, treatment, medications and condition (including any recent changes or anticipated changes). All questions were answered. Report was acknowledged. (Pratibha). Transported via stretcher by Ritot. --17:52 Yecenia Jade RN. Locked/Released at 10/09/2010 17:56 by Yecenia Jade RN documented in this encounter Plan of Treatment Not on file documented as of this encounter Visit Diagnoses Not on filedocumented in this encounter Care Teams Braid Cutter Relationship Specialty Start Date End Date Carrington Spencer MD PCP - General Family Medicine 04/01/13 documented as of this encounter
--- OUTSIDE RECORDS SUMMARY | 2025-06-23 14:16 | XMS_ITS | Encounter Summary ---
Author Organization [facility] Address [address] [place] [address] Care Team Providers Care Gum Dipper Name Role Phone Remy Mg III Primary Care Provider Unav ailable Reason for Referral * Surgical Services (Routine) - Authorized Specialty Diagnoses / Procedures Referred By Contac t Referred To Contact Podiatry Diagnoses Arthritis due to other bacteria, left ankle and foot Acute osteomyelitis of left ankle or foot Procedures REF PODIATRY - EXTERNAL Lee Coy [address] [facility] [address] [place] [address] Phone: tel: fax: [facility] [address] [place] [address] Referral ID Status Reason Start Date Expiration Date Visits Requested Visits Authorized [id number] Authorized Procedure Only 06/15/2025 06/15/2026 1 1 Encounter Details Date Type Department Care Team (Latest Contact Info) Description 06/15/2025 Community Orders Non [facility] Provider Lee Coy [address] [facility] [facility] [address] [place] [address] Arthritis due to other bacteria, left ankle and foot (Primary Dx); Acute osteomyelitis of left ankle or foot Social History Tobacco Use Types Packs/Day Years Used Date Smoking Tobacco: Never Assessed Sex and Gender Information Value Date Recorded Sex Assigned at Not on file Legal Sex Male 8:07 AM PST Gender Identity Not on file Sexual Orientation Not on file documented as of this encounter Plan of Treatment Not on file documented as of this encounter Visit Diagnoses Diagnosis Arthritis due to other bacteria, left ankle and foot- Primary Acute osteomyelitis of left ankle or foot Acute osteomyelitis, ankle and foot documented in this encounter Care Teams Gum Dipper Relationship Specialty Start Date End Date Remy Mg III [facility] [address] [place] [address] PCP - General 01/27/24 documented as of this encounter
--- OUTSIDE RECORDS SUMMARY | 2025-06-23 14:16 | XMS_ITS | Encounter Summary ---
Author Organization [facility] Address [address] [place] [address] Care Team Providers Care Edger Saw Operator Name Role Phone Remy Mg III Primary Care Provider Unav ailable Reason for Referral * Surgical Services (Routine) - Authorized Specialty Diagnoses / Procedures Referred By Virgilio t Referred To Contact Podiatry Diagnoses Osteochondral lesion of talar dome Tear of talofibular ligament of left lower extremity, initial encounter Skin ulcer of left ankle with fat layer exposed Procedures REF PODIATRY - EXTERNAL ARTHROTOMY ANKLE W/ JNT EXP W/WO BX/REM/LOOSE/FB Lee Coy Phone: tel: fax: [facility] [address] [place] [address] Referral ID Status Reason Start Date Expiration Date Visits Requested Visits Authorized [id number] Authorized Procedure Only 04/24/2025 04/24/2026 1 1 Encounter Details Date Type Department Care Team (Latest Contact Info) Description 04/24/2025 Community Orders Non [facility] Provider Lee Coy [address] [facility] [address] [place] [address] Osteochondral lesion of talar dome (Primary Dx); Tear of talofibular ligament of left lower extremity, initial encounter; Skin ulcer of left ankle with fat layer exposed Social History Tobacco Use Types Packs/Day Years Used Date Smoking Tobacco: Never Assessed Sex and Gender Information Value Date Recorded Sex Assigned at Not on file Legal Sex Male 8:07 AM PST Gender Identity Not on file Sexual Orientation Not on file documented as of this encounter Plan of Treatment Not on file documented as of this encounter Visit Diagnoses Diagnosis Osteochondral lesion of talar dome- Primary Disorder of bone and cartilage, unspecified Tear of talofibular ligament of left lower extremity, initial encounter Skin ulcer of left ankle with fat layer exposed documented in this encounter Care Teams Edger Saw Operator Relationship Specialty Start Date End Date Remy Mg III [facility] [address] [place] [address] PCP - General 01/27/24 documented as of this encounter
--- OUTSIDE RECORDS SUMMARY | 2025-06-23 14:16 | XMS_ITS | Encounter Summary ---
Author Organization [facility] Address [address] [place] [address] Care Team Providers Care Combat Systems Officer Name Role Phone Remy Mg III Primary Care Provider Unav ailable Reason for Referral * Surgical Services (Routine) - Authorized Specialty Diagnoses / Procedures Referred By Contac t Referred To Contact Urology Diagnoses Gross hematuria Procedures REF UROLOGY - EXTERNAL CYSTOURETHROSCOPY (SEP PROC) Carlos Keith [facility] [address] [place] [address] [place], [facility] [address] [address] [place] [address] Referral ID Status Reason Start Date Expiration Date Visits Requested Visits Authorized [id number] Authorized Procedure Only 03/24/2024 03/24/2025 1 1 Encounter Details Date Type Department Care Team (Late st Contact Info) Description 03/24/2024 Community Orders Non [facility] Provider Carlos Kieth [facility] [address] [place] [address] Gross hematuria (Primary Dx) Social History Tobacco [...] Primary documented in this encounter Care Teams Combat Systems Officer Relationship Specialty Start Date End Date Remy Mg III [facility] [address] [place] [address] PCP - General 01/27/24 documented as of this encounter
--- OUTSIDE RECORDS SUMMARY | 2025-06-23 14:16 | XMS_ITS | Encounter Summary ---
Author Organization [facility] Address [address] [place] [address] Care Team Providers Care Extension Forester Name Role Phone Remy Mg III Primary Care Provider Unav ailable Reason for Referral * Outpatient Service (Urgent) - Authorized Specialty Diagnoses / Procedures Referred By Contchristina t Referred To Contact Wound Care Diagnoses Skin ulcer of ankle, left, with fat layer exposed Osteochondral lesion of talar dome Procedures REF WOUND CARE - EXTERNAL DEBRIDEMENT, OPEN WOUND, ASSESSMENT, ONGOING CARE, PER SESSION, FIRST 20 SQ CM OR LESS Lee Coy [address] [place] [address] [address] [place] [address] Phone: tel: fax: [facility] [address] [place] [address] Referral ID Status Reason Start Date Expiration Date Visits Requested Visits Authorized [id number] Authorized Itemized Services 05/30/2026 [id number] Encounter Details Date Type Department Care Team (Late st Contact Info) Description 05/30/2025 Community Orders Non [facility] Provider Lee Coy [address] [place] [address] [address] [place] [address] Skin ulcer of ankle, left, with fat [...] encounter Visit Diagnoses Diagnosis Skin ulcer of ankle, left, with fat layer exposed- Primary Osteochondral lesion of talar dome Disorder of bone and cartilage, unspecified Other specified puerperal infections documented in this encounter Care Teams Extension Forester Relationship Specialty Start Date End Date Remy Mg III [facility] [address] [place] [address] PCP - General 01/27/24 documented as of this encounter
--- OUTSIDE RECORDS SUMMARY | 2025-06-23 14:16 | XMS_ITS | Encounter Summary ---
Author Organization [facility] Address [address], [place] [address] Care Team Providers Care Ditch Digger Name Role Phone Carrington Spencer MD Primary Care Provider Nancy vickie Encounter Details Date Type Department Care Team (Late st Contact Info) Description 10/09/2010 Historical Encounter HISTORIC_CONVERSION [address] [place] [address] Brice Shelton [address] [place] [address] Social History Tobacco Use Types Packs/Day Years Used Date Smoking Tobacco: Never Assessed Sex and Gender Information Value Date Recorded Sex Assigned at Not on file Legal Sex Male 10:40 PM PDT Gender Identity Not on file Sexual Orientation Not on file documented as of this encounter Consult Notes * Brice Shelton - 10/09/2010 7:13 PM PST BH-CONSULT Lee Kenny 10/09/10 19:00 D: Initial meeting with patient admitted for dehydration/ETOH W/D. Some meds given in ED but W/D Sx still present (mild/moderate). Admits to hx of at least one seizure and DTs while vacationing in [facility]. He also tells me he has quit before without any significant W/D. He admits to nightly cocktails with his but denies frequent intoxication. He also states but I know I've drank too much. No denial evident. A: Patient is pleasant and cooperative, presenting with sincerity regarding getting and staying sober. He has insight into his liver issue and knows how serious it is. P: RN/staff looking for seizure pads. None available at this time. Will see again as able. Raudel Shelton MEd, LMHC, CDP documented in this encounter Plan of Treatment Not on file documented as of this encounter Visit Diagnoses Not on filedocumented in this encounter Care Teams Ditch Digger Relationship Specialty Start Date End Date Carrington Spencer MD PCP - General Family Medicine 04/01/13 documented as of this encounter
--- OUTSIDE RECORDS SUMMARY | 2025-06-23 14:16 | XMS_ITS | Encounter Summary ---
Author Organization [facility] Address [address] [address] Care Team Providers Care Development Educator Name Role Phone Carrington Spencer MD Primary Care Provider U faisaljc Encounter Details Date Type Department Care Team (Late st Contact Info) Description 10/23/2010 Historical Encounter HISTORIC_CONVERSION [address] [place] [address] Chago Plasencia MD [address] [place], [place] [id number] Social History Tobacco Use Types Packs/Day Years Used Date Smoking Tobacco: Never Assessed Sex and Gender Information Value Date Recorded Sex Assigned at Not on file Legal Sex Male 10:40 PM PDT Gender Identity Not on file Sexual Orientation Not on file documented as of this encounter ED Notes * Khang Plasencia MD - 10/23/2010 9:15 PM PDT ..... Patient: Lee [facility]UEL [facility] Visit[facility] [id number] [place] [address] 55y, M [phone] Registration Date/Time: 10/23/2010 21:15 ORDER SHEET Allergies: NKDA Weight: GENERAL ORDERS: Chest AP & Lat 2V Routine (22:30 10/23/2010 Den MONCADA) (22:32 SLee UC) D-Dimer, Quantitative Stat (22:35 10/23/2010 Den MONCADA) (22:36 SLee ) CT Pulmonary Angio Routine (23:42 10/23/2010 Den MONCADA) (23:44 VHagins ) MEDICATION ORDERS: IV Saline Lock (23:43 10/23/2010 Den MONCADA) (23:52 Juan Luis CHANG) IV FLUIDS: ORDER SHEET NOTES: [Electronically signed by Khang Plasencia MD (01:02 10/24/2010)] [Electronically locked/signed by Atul Finley RN (06:54 10/25/2010)] documented in this encounter Plan of Treatment Not on file documented as of this encounter Procedures Procedure Name Priority Date/Time Associated Diagnosis Comments D-DIMER, QUANTITATIVE Routine 10/23/2010 10:50 PM PDT documented in this encounter Results * (ABNORMAL) D-Dimer, quantitative (10/23/2010 10:50 PM PDT) D-Dimer,Quanti tative 2.42(H) 0 - 0.49 mcg/ml FEU HX MULTISITE 10/23/2010 10:5 0 PM PDT 10/23/2010 10:56 PM PDT Narrative HX MULTISITE - 02/28/2013 3:41 AM PDT Copy to Provider(s): us Chago Plasencia MD LAB BLOOD ORDERABLES Final Res ult HX MULTISITE documented in this encounter Visit Diagnoses Not on filedocumented in this encounter Care Teams Development Educator Relationship Specialty Start Date End Date Carrington Spencer MD PCP - General Family Medicine 04/01/13 documented as of this encounter
--- OUTSIDE RECORDS SUMMARY | 2025-06-23 14:17 | XMS_ITS | Encounter Summary ---
Author Organization [facility] Address [address] [place] [address] Care Team Providers Care Boat Painter Name Role Phone Remy Mg Primary Care Provide r Encounter Details Date Type Department Care Team (Late st Contact Info) Description 03/13/2025 [facility] Podiatry [place] [address] [place] [address] Lee Coy, [id number] [place] [phone] Social History Tobacco Use Types Packs/Day Years Used Date Smoking Tobacco: Never Passive Smoke Exposure: Never Smokeless Tobacco: Never Alcohol Use Standard Drinks/Week Comments Yes 4 (1 standard drink = 0.6 oz pur e alcohol) 4 to 5 beers a day Sex and Gender Information Value Date Recorded Sex Assigned at Male 05/24/2025 2:45 PM PDT Legal Sex Male 1:11 PM PDT Gender Identity Male 03/13/2025 7:20 AM PDT Sexual Orientation Straight 03/13/2025 7: 20 AM PDT documented as of this encounter Functional Status documented as of this encounter Plan of Treatment Upcoming Encounters Date Type Department Care Team (Latest Contact Info) Description 06/26/2025 9:30 AM PST Office Visit [facility] Infectious Diseases [place] [address] [facility] [address] [place] [address] Nabila Campbell MD [address] [place] [address] 07/04/2025 7:15 AM PST Hospital Encounter [facility] [address] [place] [phone] Lee Coy, DPM [address] [place] [phone] 07/04/2025 7:15 AM PST - 07/04/2025 10:40 AM PST Surgery [facility] [address] [place] [phone] Lee Coy, DPM [address] [place] [phone] LEFT - OPEN ARTHRODESIS OF ANKLE [[id number] (CPT )] 07/06/2025 10:30 AM PST Office Visit [facility] Pod[facility] [address] [place] [phone] Lee Coy, DPM [address] [place] [phone] Scheduled Procedures Name Priority Associated Diagnoses Date/Ti [...] on filedocumented in this encounter Care Teams Boat Painter Relationship Specialty Start Date End Date Remy Mg ARNP [facility] [address] [place], [place] [id number] PCP - General Nurse Practitioner Family 03/08/25 documented as of this encounter
--- OUTSIDE RECORDS SUMMARY | 2025-06-23 14:17 | XMS_ITS | Encounter Summary ---
Author Organization [facility] Address [address] [place] [address] Care Team Providers Care Laboratory Apparatus Glass Blower Name Role Phone Remy Mg Primary Care Provide r Encounter Details Date Type Department Care Team (Late st Contact Info) Description 03/19/2025 Case/Admission [facility] Podiatry [place] [address] [place] [address] Lee Coy, DP [address] [place] [address] [phone] Tear of talofibular ligament, left, initial encounter [...] AM PDT documented as of this encounter Plan of Treatment Upcoming Encounters Date Type Department Care Team (Latest Contact Info) Description 06/26/2025 9:30 AM PST Office Visit [facility]ious Diseases [place] [address] [facility] [address] [place] [address] Nabila Campbell MD [address], [place] [phone] 07/04/2025 7:15 AM PST Hospital Encounter [facility] Operating Room [address] [place] [phone] Lee Coy, DPM [address] [place] [address] [phone] 07/04/2025 7:15 AM PST - 07/04/2025 10:40 AM PST Surgery [facility] Operating Room [address] [place] [phone] Lee Coy, DPM [address] [place] [address] [phone] LEFT - OPEN ARTHRODESIS OF ANKLE [21637 (CPT )] 07/06/2025 10:30 AM PST Office Visit [facility] Podiatry [facility] [address] [place] [address] Lee Coy, DPM [address] [place] [address] [phone] Scheduled Procedures Name Priority Associated Diagnoses Date/Ti [...] encounter- Primary 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) documented in this encounter Care Teams Laboratory Apparatus Glass Blower Relationship Specialty Start Date End Date Remy Mg ARNP [facility] [address] [place] [address] PCP - General Nurse Practitioner Family 03/08/25 documented as of this encounter
--- OUTSIDE RECORDS SUMMARY | 2025-06-23 14:17 | XMS_ITS | Clinical Summary ---
Author Organization Address [facility] [address] Care Team Providers Care Curriculum Development Coordinator Name Role Phone Carrington Spencer MD Primary Care Provider U navailable Encounters Date Type Department Care Team Description 06/01/2025 Lab Requisition [address] [place], [place] [id number] Nabila Campbell MD Other acute osteomyelitis, left ankle and foot (CMS/HCC) from Last 3 Months Social History Tobacco Use Types Packs/Day Years Used Date Smoking Tobacco: Never Assessed Sex and Gender Information Value Date Recorded Sex Assigned at Not on file Legal Sex Male 10:40 PM PDT Gender Identity Not on file Sexual Orientation Not on file Last Filed Vital Signs Vital Sign Reading Time Taken Comments Blood Pressure 122/77 10/14/2010 7:38 AM PDT Pulse - - Temperature - - Respiratory Rate - - Oxygen Saturation - - Inhaled Oxygen Concentration - - Weight 121.5 kg (267 lb 13.7 oz) 10/13/2010 8:38 PM PDT Height 185.4 cm (6' 1) 10/09/2010 6:32 PM PST Body Mass Index 35.34 10/09/2010 6:32 PM PST Plan of Treatment Not on file Procedures Procedure Name Priority Date/Time Associated Diagnosis Comments C-REACTIVE PROTEIN Routine 06/19/2025 10 :50 AM PST CBC WITH DIFFERENTIAL Routine 06/19/2025 10:50 AM PST COMPREHENSIVE METABOLIC PANEL Routine 06/19/2025 10:50 AM PST *CBC WITH DIFFERENTIAL, LAB GENERATED ORDER Routine [...] acute osteomyelitis, left ankle and foot (CMS/HCC) from Last 3 Months Results * (ABNORMAL) CBC with Differential (06/19/2025 10:50 AM PST) Pathologist [facility] White Blood Cell Count 3.7(L) 3.8 - 10.8 Thousand/u L [employer] Red Blood Cell Count 3.10(L) 4.20 - 5.80 Million/uL [employer] Hemoglobin 9.5(L) 13.2 - 17.1 g/dL [employer] Hematocrit 30.3(L) 38.5 - 50.0 % [facility] MCV 97.7 80.0 - 100.0 fL [facility] MCH 30.6 27.0 - 33.0 pg [facility] MCHC 31.4(L) 32.0 - 36.0 g/dL [facility] Comment: For adults, a slight decrease in the calculated MCHC value (in the range of 30 to 32 g/dL) is most likely not clinically significant; however, it should be interpreted with caution in correlation with other red cell parameters and the patient's clinical condition. RDW 14.7 11.0 - 15.0 % [facility] Platelet Count 155 140 - 400 Thousand/u L [facility] MPV 10.3 7.5 - 12.5 fL [facility] Absolute Neutrophils 2531 1500 - 7800 cells/uL [facility] Absolute Lymphocytes 666(L) 850 - 3900 cells/uL [facility] Absolute Monocytes 292 200 - 950 cells/uL [facility] Absolute Eosinophils 181 15 - 500 cells/uL [facility] Absolute Basophils 30 0 - 200 cells/uL [facility] Neutrophils % 68.4 % [facility] Lymphocytes % 18.0 % [facility] Monocytes % 7.9 % [facility] Eosinophils % 4.9 % [facility] Basophils % 0.8 % [facility] Comment: Test Performed at: [facility] [address] [place] [phone] DERRICK CYR MD 06/19/2025 10:5 0 AM PST 06/20/2025 4:00 AM PST Nabila Campbell MD LAB BLOOD ORDERABLES Final Resu Performing Organization Address [facility] de Phone Number [facility] [phone] * (ABNORMAL) C-Reactive Protein (06/19/2025 10:50 AM PST) Only the most recent of2 resultswithin the time period is included. Pathologist [facility] CRP (Rust) 25.2(H) <8.0 mg/L [facility] Comment: Test Performed at: [facility] [address] [place] [phone] DERRICK CYR MD 06/19/2025 10:5 0 AM PST 06/20/2025 4:00 AM PST Nabila Campbell MD LAB BLOOD ORDERABLES Final Resu Performing Organization Address [facility] Co de Phone Number [facility] [phone] * (ABNORMAL) Comprehensive Metabolic Panel (06/19/2025 10:50 AM PST) Only the most recent of2 resultswithin the time period is included. Glucose 154(H) 65 - 139 mg/dL [facility] E Comment: Non-fasting reference interval Urea Nitrogen (BUN) 22 7 - 25 mg/dL [facility] Creatinine, Serum 0.55(L) 0.70 - 1.35 mg/dL [facility] EGFR 107 > OR = 60 mL/min/1. 73m2 [facility] BUN/Creatinine Ratio 40(H) 6 - 22 (calc) [facility] Sodium 138 135 - 146 mmol/L [facility] Potassium 3.8 3.5 - 5.3 mmol/L [facility] Chloride 98 98 - 110 mmol/L [facility] Carbon Dioxide 32 20 - 32 mmol/L [facility] Calcium (Total) 9.1 8.6 - 10.3 mg/dL [facility] Protein, Total 5.7(L) 6.1 - 8.1 g/dL [facility] Albumin, Serum 3.5(L) 3.6 - 5.1 g/dL [facility] Globulin 2.2 1.9 - 3.7 g/dL (calc) [facility] Albumin/Globulin Ratio 1.6 1.0 - 2.5 (calc) [facility] Bilirubin, Total 0.5 0.2 - 1.2 mg/dL [facility] Alkaline Phosphatase 99 35 - 144 U/L [facility] Aspartate Aminotransferase (AST) 16 10 - 35 U/L [facility] Alanine Aminotransferase (ALT) 9 9 - 46 U/L [facility] Comment: Test Performed at: [facility] [address] [facility] [address] [place] [address] DERRICK CYR MD 06/19/2025 10:5 0 AM PST 06/20/2025 4:00 AM PST us Nabila Campbell MD LAB BLOOD ORDERABLES Final Resu lt [facility] [phone] * (ABNORMAL) CBC with Differential (06/01/2025 11:30 AM PDT) WBC 6.2 4.0 - 11.0 K/uL 06/01/2025 5:53 PM PDT [facility] RBC 2.56(L) 4.31 - 5.77 M/uL 06/01/2025 5:53 PM PDT [facility] HGB 8.1(L) 13.2 - 17.5 g/dL 06/01/2025 5:53 PM PDT [facility] HCT 25.9(L) 38.9 - 49.9 % 06/01/2025 5:53 PM PDT [facility] MCV 101.2(H) 80.0 - 100.0 fL 06/01/2025 5:53 PM PDT [facility] MCH 31.6 27.8 - 33.8 pg [...] - 3.5 K/uL 06/01/2025 5:53 PM PDT [facility] Monocytes # 0.4 0.2 - 1.0 K/uL 06/01/2025 5:53 PM PDT [facility] Eosinophils # 0.1 0.0 - 0.5 K/uL 06/01/2025 5:53 PM PDT [facility] Basophils # 0.0 0.0 - 0.2 K/uL 06/01/2025 5:53 PM PDT [facility] nRBC 06/01/2025 5:53 PM PDT [facility] Blood 06/01/2025 11:3 0 AM PDT 06/01/2025 5:50 PM PDT us Nabila Campbell MD LAB BLOOD ORDERABLES Final Resu lt [facility] [address] [place] [phone] from Last 3 Months Insurance [employer] [place] [employer] Care Teams Curriculum Development Coordinator Relationship Specialty Start Date End Date Carrington Spencer MD PCP - General Family Medicine 04/01/13
--- OUTSIDE RECORDS SUMMARY | 2025-06-23 14:17 | XMS_ITS | Encounter Summary ---
Author Organization [facility] Address [address] [place] [address] Care Team Providers Care Freight Delivery Driver Name Role Phone Remy Mg Primary Care Provide r Encounter Details Date Type Department Care Team (Late st Contact Info) Description 05/11/2025 Abstract [facility] Podiatry [place] [address] [place] [address] Lee Coy, [facility] [phone] [place] [phone] Social History Tobacco Use Types Packs/Day Years Used Date Smoking Tobacco: Never Passive Smoke Exposure: Never Smokeless Tobacco: Former Snuff Quit: 07/03/2005 Tobacco Cessation:Counseling Given: Not Answered Alcohol Use Standard Drinks/Week Comments Yes 240 (1 standard drink = 0.6 oz p ure alcohol) 4 to 5 beers a day [...] Description 06/26/2025 9:30 AM PST Office Visit [facility] Infectious Diseases [place] [address] [facility] [address] [place] [phone] Nabila Campbell MD [address] [place] [address] 07/04/2025 7:15 AM PST Hospital Encounter [facility] Operating Room [address] [place] [phone] Lee Coy, DPM [address] [place] [address] 07/04/2025 7:15 AM PST - 07/04/2025 10:40 AM PST Surgery [facility] Operating Room [address] [place] [phone] Lee Coy, DPM [address] [place] [address] [phone] LEFT - OPEN ARTHRODESIS OF ANKLE [66347 (CPT )] 07/06/2025 10:30 AM PST Office Visit [facility] Podiatry [facility] [address] [facility] [place] [phone] Lee Coy, DPM [address] [place] [phone] Scheduled Procedures Name Priority Associated Diagnoses [...] on filedocumented in this encounter Care Teams Freight Delivery Driver Relationship Specialty Start Date End Date Remy Mg ARNP [facility] [address] [place] [phone] PCP - General Nurse Practitioner Family 03/08/25 documented as of this encounter
--- OUTSIDE RECORDS SUMMARY | 2025-07-15 16:00 | XMS_ITS | Clinical Summary ---
Author Organization Unknown Care Team Providers Care Loader Operator Name Role Phone TK MONCADA, MARTINEZ Unavailable Unavailable KAVITHA CHANG, PRITESH [place]ST[place] Unavailable Unavailab le Payers Payer Name Policy Type Policy Number Effective Date Expira tion Date [facility] [id number] Problems Condition Name Condition Details Condition Category Status Onset Date Resolution Date Last Treatment Date Treating Clinician Comments TYPE 2 DIABETES MELLITUS WITH FOOT ULCER Active 2024-08 00:00: 00 Allergies, Adverse Reactions, Alerts Allergy Name Allergy Type Status Severity Reaction(s) Onset Date Inactive Date Treating Clinician Comments NKA Propensity to adverse reactions Active 2025-05 14:17:5 9 Vital Signs Vital Name Observation Time Observation Value Commen ts Temperature 2025-06-19 11:26:00.000 97.3 [degF] Temperature 2025-06-16 11:26:00.000 97.3 [degF] Temperature 2025-06-09 13:25:00.000 97.1 [degF] Temperature 2025-06-05 15:48:00.000 98 [degF] Temperature 2025-06-02 13:39:00.000 97.5 [degF] Temperature 2025-05-22 14:01:00.000 97.5 [degF] Temperature 2025-05-19 13:34:00.000 98 [degF] Temperature 2025-05-18 10:38:00.000 97.7 [degF] BMI (%) 2025-06-02 13:39:00.000 36 kg/m2 BMI (%) 2025-05-18 10:38:00.000 35 kg/m2 Height 2025-06-02 13:39:00.000 72 [in_us] Height 2025-05-18 10:38:00.000 72 [in_us] Pulse 2025-06-19 11:26:00.000 71 /min Pulse 2025-06-16 11:26:00.000 73 /min Pulse 2025-06-09 13:25:00.000 60 /min Pulse 2025-06-05 15:48:00.000 66 /min Pulse 2025-06-02 13:39:00.000 70 /min Pulse 2025-05-22 14:01:00.000 69 /min Pulse 2025-05-19 13:34:00.000 73 /min Pulse 2025-05-18 10:38:00.000 65 /min O2 Saturation (%) 2025-06-19 11:26:00.000 97 % O2 Saturation (%) 2025-06-16 11:26:00.000 98 % O2 Saturation (%) 2025-06-09 13:25:00.000 96 % O2 Saturation (%) 2025-06-05 15:48:00.000 96 % O2 Saturation (%) 2025-06-02 13:39:00.000 96 % O2 Saturation (%) 2025-05-22 14:01:00.000 95 % O2 Saturation (%) 2025-05-19 13:34:00.000 94 % O2 Saturation (%) 2025-05-18 10:38:00.000 97 % Respirations 2025-06-19 11:26:00.000 16 /min Respirations 2025-06-16 11:26:00.000 16 /min Respirations 2025-06-09 13:25:00.000 16 /min Respirations 2025-06-05 15:48:00.000 18 /min Respirations 2025-06-02 13:39:00.000 16 /min Respirations 2025-05-22 14:01:00.000 16 /min Respirations 2025-05-19 13:34:00.000 16 /min Respirations 2025-05-18 10:38:00.000 18 /min Weight (lbs) 2025-06-02 13:39:00.000 269 [lb_av] Weight (lbs) 2025-05-18 10:38:00.000 260 [lb_av] Systolic Blood Pressure 2025-06-19 11:26:00.000 124 mm [Hg] Systolic Blood Pressure 2025-06-16 11:26:00.000 138 mm [Hg] Systolic Blood Pressure 2025-06-09 13:25:00.000 118 mm [Hg] Systolic Blood Pressure 2025-06-02 13:39:00.000 120 mm [Hg] Systolic Blood Pressure 2025-05-22 14:01:00.000 122 mm [Hg] Systolic Blood Pressure 2025-05-18 10:38:00.000 124 mm [Hg] Diastolic Blood Pressure 2025-06-19 11:26:00.000 74 mm [Hg] Diastolic Blood Pressure 2025-06-16 11:26:00.000 70 mm [Hg] Diastolic Blood Pressure 2025-06-09 13:25:00.000 68 mm [Hg] Diastolic Blood Pressure 2025-06-02 13:39:00.000 78 mm [Hg] Diastolic Blood Pressure 2025-05-22 14:01:00.000 62 mm [Hg] Diastolic Blood Pressure 2025-05-18 10:38:00.000 80 mm [Hg] Plan of Treatment Planned Activity Planned Date Details Comments Future Scheduled Test SKILLED NU RSE TO EVALUATE AND DEVELOP PLAN OF CARE TO BE COUNTERSIGNED BY PHYSICIAN. SKILLED NURSE TO ASSESS/EVALUATE CO-MORBID CONDITIONS INCLUDING CHRONIC L FOOT ARTHRITIS, CIRRHOSIS, CHOLELITHIASIS, DIABETES, HTN, GOUT, NEUROPATHY AND OTHER CONDITIONS THAT PRESENT THEMSELVES DURING THE COURSE OF THIS EPISODE TO IDENTIFY CHANGES AND INTERVENE TO MINIMIZE COMPLICATIONS. [code = SKILLED NURSE TO EVALUATE AND DEVELOP PLAN OF CARE TO BE COUNTERSIGNED BY PHYSICIAN. SKILLED NURSE TO ASSESS/EVALUATE CO-MORBID CONDITIONS INCLUDING CHRONIC L FOOT ARTHRITIS, CIRRHOSIS, CHOLELITHIASIS, DIABETES, HTN, GOUT, NEUROPATHY AND OTHER CONDITIONS THAT PRESENT THEMSELVES DURING THE COURSE OF THIS EPISODE TO IDENTIFY CHANGES AND INTERVENE TO MINIMIZE COMPLICATIONS.] Future Scheduled Test SKILLED NU RSE TO OBSERVE AND ASSESS CARDIOVASCULAR SYSTEM TO IDENTIFY CHANGES AND INTERVENE TO MINIMIZE COMPLICATIONS. SKILLED NURSE TO PROVIDE SKILLED TEACHING RELATED TO ALTERED CARDIOVASCULAR STATUS INCLUDING PATHOPHYSIOLOGY, NUTRITION, MEDICATION REGIMEN AND PERMITTED ACTIVITIES. [code = SKILLED NURSE TO OBSERVE AND ASSESS CARDIOVASCULAR SYSTEM TO IDENTIFY CHANGES AND INTERVENE TO MINIMIZE COMPLICATIONS. SKILLED NURSE TO PROVIDE SKILLED TEACHING RELATED TO ALTERED CARDIOVASCULAR STATUS INCLUDING PATHOPHYSIOLOGY, NUTRITION, MEDICATION REGIMEN AND PERMITTED ACTIVITIES.] Future Scheduled Test SKILLED NU RSE TO PROVIDE OBSERVATION/ ASSESSMENT AND TEACHING/REINFORCEMENT OF HYPERTENSION MANAGEMENT. [code = SKILLED NURSE TO PROVIDE OBSERVATION/ ASSESSMENT AND TEACHING/REINFORCEMENT OF HYPERTENSION MANAGEMENT.] Future Scheduled Test SKILLED NU RSE TO OBTAIN O2 SATS VIA PULSE OXIMETER EVERY VISIT [code = SKILLED NURSE TO OBTAIN O2 SATS VIA PULSE OXIMETER EVERY VISIT] Future Scheduled Test SKILLED NU RSE TO ASSESS INTEGUMENTARY STATUS TO IDENTIFY CHANGES AND INTERVENE TO MINIMIZE COMPLICATIONS. SKILLED NURSE TO PROVIDE SKILLED TEACHING RELATED TO ALTERED SKIN INTEGRITY INCLUDING PATHOPHYSIOLOGY, NUTRITION, MEDICATION REGIMEN, AND METHODS TO PREVENT PRESSURE ULCERS. [code = SKILLED NURSE TO ASSESS INTEGUMENTARY STATUS TO IDENTIFY CHANGES AND INTERVENE TO MINIMIZE COMPLICATIONS. SKILLED NURSE TO PROVIDE SKILLED TEACHING RELATED TO ALTERED SKIN INTEGRITY INCLUDING PATHOPHYSIOLOGY, NUTRITION, MEDICATION REGIMEN, AND METHODS TO PREVENT PRESSURE ULCERS.] Future Scheduled Test SKILLED NU RSE TO PERFORM/TEACH PRESSURE ULCER CARE TO L. LATERAL ANKLE. IRRIGATE WITH SALINE CLEANSE WITH NON-CYTOTOXIC WOUND CLEANSER/ VASHE OR SIMILAR. APPLY IODOFLEX TO WOUND BED AND OVER SUTURE LINES. COVER WITH MEXTRA SUPERABSORBENT PAD, ROLL GAUZE AND TAPE TO SECURE. THEN USE CAST PADDING, SPLINT, SECURE WITH ROLL GAUZE AND JANICE WRAPS USING CLEAN/ASEPTIC TECHNIQUE. WOUND CARE TO BE COMPLETED EVERYDAY, SN TO PERFORM WOUND CARE 5 DAYS FOR 1 WEEK, THREE TIMES A WEEK FOR 7 WEEKS AND FAMILY / CAREGIVER TO PERFORM WOUND CARE ALL OTHER DAYS. WOUND CARE SUPPLIES WILL BE DISCONTINUED WHEN WOUND IS HEALED [code = SKILLED NURSE TO PERFORM/TEACH PRESSURE ULCER CARE TO L. LATERAL ANKLE. IRRIGATE WITH SALINE CLEANSE WITH NON-CYTOTOXIC WOUND CLEANSER/ VASHE OR SIMILAR. APPLY IODOFLEX TO WOUND BED AND OVER SUTURE LINES. COVER WITH MEXTRA SUPERABSORBENT PAD, ROLL GAUZE AND TAPE TO SECURE. THEN USE CAST PADDING, SPLINT, SECURE WITH ROLL GAUZE AND JANICE WRAPS USING CLEAN/ASEPTIC TECHNIQUE. WOUND CARE TO BE COMPLETED EVERYDAY, SN TO PERFORM WOUND CARE 5 DAYS FOR 1 WEEK, THREE TIMES A WEEK FOR 7 WEEKS AND FAMILY / CAREGIVER TO PERFORM WOUND CARE ALL OTHER DAYS. WOUND CARE SUPPLIES WILL BE DISCONTINUED WHEN WOUND IS HEALED] Future Scheduled Test NEED FOR O /A AND SKILLED TEACHING RELATED TO INCREASED RISK FOR ER VISIT OR HOSPITAL READMISSION [code = NEED FOR O/A AND SKILLED TEACHING RELATED TO INCREASED RISK FOR ER VISIT OR HOSPITAL READMISSION] Future Scheduled Test SKILLED NU RSE TO PERFORM MULTIFACTOR FALL RISK ASSESSMENT AND IMPLEMENT INTERVENTIONS TO DECREASE RISK OF FALLS. SKILLED NURSE TO INSTRUCT ON HOME SAFETY, IMPACT OF POLYPHARMACY, ENVIRONMENTAL SAFETY, AND FALL PREVENTION. [code = SKILLED NURSE TO PERFORM MULTIFACTOR FALL RISK ASSESSMENT AND IMPLEMENT INTERVENTIONS TO DECREASE RISK OF FALLS. SKILLED NURSE TO INSTRUCT ON HOME SAFETY, IMPACT OF POLYPHARMACY, ENVIRONMENTAL SAFETY, AND FALL PREVENTION.] Future Scheduled Test SKILLED NU RSE FOR INSTRUCTIONS / REINFORCEMENT OF DIABETIC CARE TO INCLUDE DIET, SKIN CARE AND MONITORING FOR LESIONS, BLOOD GLUCOSE TESTING AND DIABETIC FOOT CARE. [code = SKILLED NURSE FOR INSTRUCTIONS / REINFORCEMENT OF DIABETIC CARE TO INCLUDE DIET, SKIN CARE AND MONITORING FOR LESIONS, BLOOD GLUCOSE TESTING AND DIABETIC FOOT CARE.] Future Scheduled Test SKILLED NU RSE FOR OBSERVATION / ASSESSMENT OF PAIN, EFFECTIVENESS OF PAIN MANAGEMENT REGIMEN AND SKILLED TEACHING RELATED TO PAIN MANAGEMENT. SKILLED NURSE TO INTERVENE WITH INCREASED PAIN LEVEL TO MINIMIZE COMPLICATIONS. [code = SKILLED NURSE FOR OBSERVATION / ASSESSMENT OF PAIN, EFFECTIVENESS OF PAIN MANAGEMENT REGIMEN AND SKILLED TEACHING RELATED TO PAIN MANAGEMENT. SKILLED NURSE TO INTERVENE WITH INCREASED PAIN LEVEL TO MINIMIZE COMPLICATIONS.] Future Scheduled Test SKILLED NU RSE TO REVIEW MEDICATION PROFILE AND RECONCILE MEDICATIONS NEEDED. SKILLED NURSE MAY INSTRUCT AND REINFORCE MEDICATION TEACHING RELATED TO USE OF MEDICATIONS TO TREAT DISEASE PROCESSES. [code = SKILLED NURSE TO REVIEW MEDICATION PROFILE AND RECONCILE MEDICATIONS NEEDED. SKILLED NURSE MAY INSTRUCT AND REINFORCE MEDICATION TEACHING RELATED TO USE OF MEDICATIONS TO TREAT DISEASE PROCESSES.] Future Scheduled Test SKILLED NU RSE TO INSTRUCT PATIENT/CAREGIVER IN INFECTION CONTROL/PREVENTION. [code = SKILLED NURSE TO INSTRUCT PATIENT/CAREGIVER IN INFECTION CONTROL/PREVENTION.] Future Scheduled Test I , THE UN DERSIGNED CERTIFYING PHYSICIAN, HAVE REVIEWED THE CLINICAL NOTE FOR THE [id number] ENCOUNTER FOR THE PATIENT IDENTIFIED HEREIN, WHICH IS RELATED TO THE PRIMARY REASON THE PATIENT REQUIRES HOME HEALTH SERVICES AND WHICH NOTE IS CLINICALLY CONSISTENT WITH MY MEDICAL RECORD FOR THE PATIENT. I HEREBY INCORPORATE THE CLINICAL NOTE FOR THE [id number] ENCOUNTER FOR THE PATIENT INTO MY MEDICAL RECORD FOR THE PATIENT. [code = I , THE UNDERSIGNED CERTIFYING PHYSICIAN, HAVE REVIEWED THE CLINICAL NOTE FOR THE [id number] ENCOUNTER FOR THE PATIENT IDENTIFIED HEREIN, WHICH IS RELATED TO THE PRIMARY REASON THE PATIENT REQUIRES HOME HEALTH SERVICES AND WHICH NOTE IS CLINICALLY CONSISTENT WITH MY MEDICAL RECORD FOR THE PATIENT. I HEREBY INCORPORATE THE CLINICAL NOTE FOR THE [id number] ENCOUNTER FOR THE PATIENT INTO MY MEDICAL RECORD FOR THE PATIENT.] Future Scheduled Test IF THE PAT IENT DEVELOPS ANY OPEN WOUND, PU OR SKIN TEAR DURING THE EPISODE OF CARE WITH HOME HEALTH FOR NURSING OR THERAPY SERVICES. CLEAN THE AFFECTED AREA/WOUND WITH NS AND PAT DRY WITH GAUZE, COVER WITH FOAM OR PROTECTIVE DRESSING NEEDED BY HOME HEALTH CLINICIAN UNTIL SPECIFIC ORDER FROM MD OBTAINED. IF PATIENT IS HOSPITALIZED DURING THIS 60-DAY EPISODE OF CARE, THIS AGENCY MAY RESUME CARE WITH THE DISCIPLINES SEEING THE PATIENT PRIOR TO HOSPITAL ADMISSION. OK TO RECEIVE AND FOLLOW ORDERS FROM PROVIDERS ASSOCIATED WITH [facility]. [code = IF THE PATIENT DEVELOPS ANY OPEN WOUND, PU OR SKIN TEAR DURING THE EPISODE OF CARE WITH HOME HEALTH FOR NURSING OR THERAPY SERVICES. CLEAN THE AFFECTED AREA/WOUND WITH NS AND PAT DRY WITH GAUZE, COVER WITH FOAM OR PROTECTIVE DRESSING NEEDED BY HOME HEALTH CLINICIAN UNTIL SPECIFIC ORDER FROM MD OBTAINED. IF PATIENT IS HOSPITALIZED DURING THIS 60-DAY EPISODE OF CARE, THIS AGENCY MAY RESUME CARE WITH THE DISCIPLINES SEEING THE PATIENT PRIOR TO HOSPITAL ADMISSION. OK TO RECEIVE AND FOLLOW ORDERS FROM PROVIDERS ASSOCIATED WITH [facility].] Goal 2025-06-02 Patient Goal - TO HEAL MY WO UND Goal Patient Goal - TO HEAL MY WO UND Goal Provider Goal - A PLAN OF CARE WILL BE ESTABLISHED THAT MEETS ALL PATIENT'S NURSING NEEDS AND COUNTERSIGNED BY PHYSICIAN. Goal Provider Goal - CARDIOVASCULAR EXACERBATIONS WILL BE IDENTIFIED PROMPTLY AND INTERVENTIONS INITIATED TO MINIMIZE COMPLICATIONS. PATIENT / CAREGIVER WILL VERBALIZE/DEMONSTRATE AN ABILITY TO CARE FOR ALTERED CARDIOVASCULAR STATUS BY END OF EPISODE. Goal Provider Goal - PATIENT / CAREGIVER WILL VERBALIZE / DEMONSTRATE ABILITY TO MANAGE HYPERTENSION Goal Provider Goal - PATIENT WILL DEMONSTRATE OXYGEN SATURATION WITH NORMAL LIMITS OR TO PATIENT S OPTIMAL LEVEL ESTABLISHED BY THE PHYSICIAN Goal Provider Goal - CHANGES IN SKIN INTEGRITY STATUS WILL BE IDENTIFIED AND REPORTED TO THE PHYSICIAN FOR PROMPT INTERVENTION. PATIENT / CAREGIVER WILL VERBALIZE/DEMONSTRATE ADEQUATE KNOWLEDGE OF INTEGUMENTARY STATUS AND APPROPRIATE MEASURES TO PROMOTE SKIN INTEGRITY AND PREVENT INJURY. Goal Provider Goal - PATIENT / CAREGIVER WILL VERBALIZE / DEMONSTRATE ABILITY TO PERFORM WOUND CARE. WOUND STATUS WILL IMPROVE EVIDENCED BY A DECREASE IN SIZE, DRAINAGE, ABSENCE OF INFECTION, AND DECREASED PAIN. Goal Provider Goal - PATIENT WILL HAVE NO HOSPITALIZATIONS / ER VISITS DURING THIS EPISODE Goal Provider Goal - PATIENT WILL DEMONSTRATE / VERBALIZE KNOWLEDGE OF INTERVENTIONS TO PREVENT FALLS AND SAFETY HAZARDS. PATIENT WILL REMAIN SAFE WITHIN HOME ENVIRONMENT. Goal Provider Goal - PATIENT / CAREGIVER WILL VERBALIZE / DEMONSTRATE ABILITY TO MANAGE DIABETES Goal Provider Goal - INCREASED PAIN OR PAIN CONTROL MEASURES WILL BE IDENTIFIED AND PROMPTLY REPORTED TO THE PHYSICIAN. PATIENT / CAREGIVER WILL VERBALIZE UNDERSTANDING OF PHARMACOLOGIC AND NON-PHARMACOLOGIC PAIN CONTROL MEASURES. Goal Provider Goal - PATIENT WILL RECEIVE MEDICATIONS PRESCRIBED. Goal Provider Goal - PATIENT / CAREGIVER WILL VERBALIZE UNDERSTANDING OF INFECTION CONTROL/PREVENTION. Goal Provider Goal - Encounters Start Date/Time End Date/Time Encounter Type Admission Type Attending [facility] Care Department Encounter ID Discharge Date Discharge Status Discharge Condition Discharge Reason Percent Goals Met 2025-05-18 00:00:00 2025-07-16 00:00:00 Outpatient NEW ADMISSION [facility] [id number]
== END ==
LOC: WC 09:17
PROVIDERS: Visit Provider Surgery
DX: T81.89XA Other complications of procedures, not elsewhere classified, initial encounter (principal); S91.002A Unspecified open wound, left ankle, initial encounter; E11.621 Type 2 diabetes mellitus with foot ulcer; L97.422 Non-pressure chronic ulcer of left heel and midfoot with fat layer exposed; E11.42 Type 2 diabetes mellitus with diabetic polyneuropathy; M21.172 Varus deformity, not elsewhere classified, left ankle; L08.9 Local infection of the skin and subcutaneous tissue, unspecified; R60.0 Localized edema
CPT/HCPCS: 11042; 11045; 99213

== ENCOUNTER → 2025-06-28 08:48 | Outpatient (CLI) | payer OTHER, SELFPAY | PROVIDERS: Visit Provider Nurse Practitioner Family | DX: T81.30XA Disruption of wound, unspecified, initial encounter (principal); S91.002A Unspecified open wound, left ankle, initial encounter; E11.621 Type 2 diabetes mellitus with foot ulcer; L97.422 Non-pressure chronic ulcer of left heel and midfoot with fat layer exposed; E11.42 Type 2 diabetes mellitus with diabetic polyneuropathy; M21.172 Varus deformity, not elsewhere classified, left ankle; L08.9 Local infection of the skin and subcutaneous tissue, unspecified; R60.0 Localized edema; R23.4 Changes in skin texture | CPT/HCPCS: 11042; 11045; 99213 ==

== ENCOUNTER 2025-06-28 17:13 | Emergency (ER) | payer OTHER, SELFPAY ==
[2025-06-28 17:48] VITALS: BP 143/75; PULSE 72; RESP 16; TEMP 36.4; O2SAT 97; BMI 33.9
--- NOTE | 2025-06-28 18:01 | DI.US.S_ITS ---
PROCEDURE: US PERIPH VENOUS LOW EXTREM LT INDICATIONS: POST-OP EDEMA TECHNIQUE: Real-time imaging, as well as color and pulse Doppler interrogation, were performed of the lower extremity deep veins from the inguinal ligament to the popliteal fossa, with documentation of the visualized calf veins. COMPARISON: None. FINDINGS: The common femoral, femoral, popliteal, and the visualized calf veins are normally compressible, and free of intraluminal thrombus. Color and pulse Doppler demonstrate normal phasic intraluminal flow. There is normal augmentation response to distal compression maneuver. Peroneal veins are not seen secondary to edema. IMPRESSION: No findings of lower extremity deep venous thrombosis. Dictated by: Adis Anguiano M.D. on 06/28/2025 at 18:59 Approved by: Adis Anguiano M.D. on 06/28/2025 at 19:00
--- NOTE | 2025-06-28 19:34 | PC.NURSE ---
Pt roomed to ED6.
--- NOTE | 2025-06-28 19:46 | ED.LOWEXIN ---
HPI - Extremity Injury (Lower) General Chief Complaint: Extremity Injury, Lower Stated Complaint: PC ref, infection in wound, poss blood clot? Time Seen by Provider: 06/28/25 18:01 History of Present Illness HPI Narrative: 70-year-old male with ongoing left lower extremity orthopedic problems, prior remote left knee replacement surgery, left ankle internal fixation fusion procedure [facility] Orthopedic surgery May 2025, subsequent wound/bone infection, removal of hardware, placement of external fixation in the same area, followed by wound care clinic and Infectious diseases, on IV cefepime planned 8 week course currently on his 5th week via PICC line, followed by Infectious diseases [place], awaiting removal of external fixator and alternate plating internal fixation procedure early July, and completion of 3 more weeks of antibiotics. At wound care clinic there was some concern by the infectious disease provider Dr. Christina about swelling, concern for DVT, referred for ultrasound Doppler imaging to rule out deep vein thrombosis. No fevers or chills. He has twice weekly labs, recent labs reassuring. Related Data Home Medications ?Medication ?Instructions ?Recorded ?Confirmed empagliflozin 25 mg tablet 25 mg PO DAILY 03/24/24 01/29/25 (Jardiance) glimepiride 2 mg tablet 2 mg PO DAILY 03/24/24 01/29/25 lisinopril 20 1 tab PO BID 03/24/24 01/29/25 mg-hydrochlorothiazide 12.5 mg tablet losartan 100 1 tab PO DAILY 03/24/24 01/29/25 mg-hydrochlorothiazide 25 mg tablet metformin 750 mg tablet,extended 750 mg PO BID 03/24/24 01/29/25 release 24 hr nadolol 20 mg tablet 20 mg PO DAILY 03/24/24 01/29/25 rosuvastatin 10 mg tablet 10 mg PO ONCE PM 03/24/24 01/29/25 Allergies Allergy/AdvReac Type Severity Reaction Status Date / Time No Known Drug Allergies Allergy Verified 02/01/25 11:06 Patient History tobacco type: smokeless tobacco Alcohol type: beer Exam Narrative Exam Narrative: GENERAL: Well-developed patient, in mild distress. HEAD: Atraumatic. Normocephalic. EYES: Pupils equal round and reactive. Extraocular motions intact. No scleral icterus. No injection or drainage. ENT: Nose without bleeding, purulent drainage. Throat without erythema, tonsillar hypertrophy or exudate. Airway patent. NECK: Trachea midline. Non tender CARDIOVASCULAR: Regular rate and rhythm without murmurs, gallops, or rubs. RESPIRATORY: Clear to auscultation. Breath sounds equal bilaterally. No wheezes, rales, or rhonchi. GASTROINTESTINAL: Abdomen soft, non-tender, nondistended. EXTREMITIES: Left lower extremity with well healed midline scar consistent with previously reported remote left knee arthroplasty, no gross redness or swelling or deformity, no medial or lateral joint line tenderness. Distal dressing intact around external fixator, protruding toes without redness or swelling. BACK: Nontender without deformity or crepitance. No flank tenderness. NEURO: AOx3. Motor functions grossly nonfocal. SKIN: No rash or erythema of visible areas Initial Vital Signs Initial Vital Signs: Vital Signs Temperature 97.5 F L 06/28/25 17:48 Pulse Rate 72 06/28/25 17:48 Respiratory Rate 16 06/28/25 17:48 Blood Pressure 143/75 H 06/28/25 17:48 Pulse Oximetry 97 06/28/25 17:48 Oxygen Delivery Method Room Air 06/28/25 17:48 Course Orders Ordered: ED Orders 06/28/25 18:01 US perip venous low extrem lt Stat Vital Signs Vital signs: Vital Signs - 8 hr 06/28/25 17:48 Temperature 97.5 F L Pulse Rate 72 Respiratory Rate 16 Blood Pressure 143/75 H Pulse Oximetry 97 Oxygen Delivery Method Room Air MDM - Extremity Injury (Lower) Imaging Data Venous Doppler ultrasound left lower extremity: Radiologist's Impression: [address] [address] Ultrasound Report Signed Patient: Lee Kenny MR#: [id number] : 1955 Acct:[id number] Age/Sex: 70 / M Date of Service: 06/28/25 Loc: ED Accession Number: [id number] Procedure: US periph venous low extrem lt Ordering Provider: Preston Handley MD PROCEDURE: US PERIPH VENOUS LOW EXTREM LT INDICATIONS: POST-OP EDEMA TECHNIQUE: Real-time imaging, as well as color and pulse Doppler interrogation, were performed of the lower extremity deep veins from the inguinal ligament to the popliteal fossa, with documentation of the visualized calf veins. COMPARISON: None. FINDINGS: The common femoral, femoral, popliteal, and the visualized calf veins are normally compressible, and free of intraluminal thrombus. Color and pulse Doppler demonstrate normal phasic intraluminal flow. There is normal augmentation response to distal compression maneuver. Peroneal veins are not seen secondary to edema. IMPRESSION: No findings of lower extremity deep venous thrombosis. Dictated by: Adis Anguiano M.D. on 06/28/2025 at 18:59 Approved by: Adis Anguiano M.D. on 06/28/2025 at 19:00 [facility] Narrative Medical decision making narrative: 70-year-old male with left ankle fusion internal fixation May [address] [facility], subsequent bone infection and removal of hardware, placement of external fixator, ongoing PICC line IV cefepime planned 8 week course, now in his 5th week, followed at Wound Care Clinic and infectious disease doctor [facility], recent photos wound care clinic concerning for possible DVT per ID specialist, referred here for ultrasound imaging today. No chest pain or shortness of breath. No fevers or chills. Afebrile, sirs screen negative. External fixator in place, good perfusion toes, no proximal leg pain or swelling. Ultrasound Doppler study performed, no DVT confirmed. See radiology report. Copy of the report provided to patient/ at bedside, negative study. Continue current therapy plan, follow up with Wound Care and Infectious diseases and orthopedic surgery as outlined per HPI. Return precautions discussed. Discharged home. Discharge Plan Departure Patient Disposition: Home Clinical Impression: Left leg swelling Activity Restrictions/Additional Instructions: Prior left ankle fusion with complication of bone infection and hardware removal, external fixation procedure, ongoing IV PICC line infusions of cefepime antibiotics for previous osteomyelitis changes, now week 5 of planned 8 week initial course, followed by wound care clinic, concern from wound care clinic imaging about swelling on the affected left side with the external fixator, your infectious disease gift consultant referred you here for venous Doppler study to make sure there is no blood clot. No blood clot confirmed on venous Doppler study ultrasound of the left lower extremity today. Continue with your wound care and IV antibiotics and plan for follow up Orthopedic surgery hardware removal and transition off the external fixator to new type of internal fixation. Follow up with your wound care and orthopedic and infectious disease specialists as planned. Return to this/nearest emergency department for any change worsening symptoms or concerns prior. Prescriptions: No Action losartan-hydrochlorothiazide 100-25 mg tablet 1 tab PO DAILY Jardiance 25 mg tablet 25 mg PO DAILY rosuvastatin 10 mg tablet 10 mg PO ONCE PM nadolol 20 mg tablet 20 mg PO DAILY glimepiride 2 mg tablet 2 mg PO DAILY metformin 750 mg tablet extended release 24 hr 750 mg PO BID lisinopril-hydrochlorothiazide 20-12.5 mg tablet 1 tab PO BID Referrals: Remy Mg ARNP [Primary Care Provider, Family Practice] Stand Alone Forms: Patient Portal/API
== END 2025-06-28 20:11 | disposition home or self-care (01) ==
PROVIDERS: Emergency Provider Emergency Medicine
DX: M79.89 Other specified soft tissue disorders (principal); Z96.652 Presence of left artificial knee joint; Z98.1 Arthrodesis status
CPT/HCPCS: 11042; 11045; 93971; 99281; 99283

== ENCOUNTER → 2025-07-12 15:47 | Outpatient (CLI) | payer OTHER, SELFPAY | LOC: WC 15:47 | PROVIDERS: Visit Provider Surgery | DX: E11.621 Type 2 diabetes mellitus with foot ulcer (principal); E11.42 Type 2 diabetes mellitus with diabetic polyneuropathy; L97.422 Non-pressure chronic ulcer of left heel and midfoot with fat layer exposed; M21.172 Varus deformity, not elsewhere classified, left ankle; R60.0 Localized edema; T81.31XA Disruption of external operation (surgical) wound, not elsewhere classified, initial encounter | CPT/HCPCS: 11042 ==

== ENCOUNTER → 2025-07-19 14:48 | Outpatient (CLI) | payer OTHER, SELFPAY | LOC: WC 14:49 | PROVIDERS: Visit Provider Surgery | DX: E11.621 Type 2 diabetes mellitus with foot ulcer (principal); E11.42 Type 2 diabetes mellitus with diabetic polyneuropathy; L97.422 Non-pressure chronic ulcer of left heel and midfoot with fat layer exposed; T81.89XA Other complications of procedures, not elsewhere classified, initial encounter; L98.8 Other specified disorders of the skin and subcutaneous tissue; S91.002A Unspecified open wound, left ankle, initial encounter; R60.0 Localized edema; M21.172 Varus deformity, not elsewhere classified, left ankle; Z79.899 Other long term (current) drug therapy | CPT/HCPCS: 11042; 99213 ==

== ENCOUNTER → 2025-07-24 09:41 | Outpatient (CLI) | payer OTHER, SELFPAY | LOC: WC 09:42 | PROVIDERS: Visit Provider Surgery | DX: E11.621 Type 2 diabetes mellitus with foot ulcer (principal); L97.422 Non-pressure chronic ulcer of left heel and midfoot with fat layer exposed; S91.002A Unspecified open wound, left ankle, initial encounter; T81.89XA Other complications of procedures, not elsewhere classified, initial encounter; M21.172 Varus deformity, not elsewhere classified, left ankle; L08.9 Local infection of the skin and subcutaneous tissue, unspecified; E11.42 Type 2 diabetes mellitus with diabetic polyneuropathy; R60.0 Localized edema | CPT/HCPCS: 11042 ==

== ENCOUNTER → 2025-08-02 08:32 | Outpatient (CLI) | payer OTHER, SELFPAY | LOC: WC 08:34 | PROVIDERS: Visit Provider Surgery | DX: E11.621 Type 2 diabetes mellitus with foot ulcer (principal); E11.42 Type 2 diabetes mellitus with diabetic polyneuropathy; L97.422 Non-pressure chronic ulcer of left heel and midfoot with fat layer exposed; T81.89XA Other complications of procedures, not elsewhere classified, initial encounter; S91.002A Unspecified open wound, left ankle, initial encounter; L98.8 Other specified disorders of the skin and subcutaneous tissue; M21.172 Varus deformity, not elsewhere classified, left ankle; R60.0 Localized edema; I10 Essential (primary) hypertension | CPT/HCPCS: 11042; 97597 ==